=== PATIENT | male | born 1965 | race Caucasian/White ===

== ENCOUNTER 2024-09-22 15:18 | Emergency (ER) | payer OTHER, SELFPAY ==
--- OUTSIDE RECORDS SUMMARY | 2024-09-13 09:40 | XMS_ITS | Encounter Summary ---
Author Organization [facility] Address [address] [place] [id number] Care Team Providers Care Finance Consultant Name Role Phone Nohelia Dyer Primary Care Provider [phone] Wander Cao Unavailable Griselda Buckley (Rn) AMADOR Unavailable Unavailabl Schuyler Bautista MD Unavailable [phone] Ana M Galvan RN Unavailable Unavailable Source Comments In the event this information is protected by the Federal Confidentiality of Alcohol and Drug AbusePatient Records regulations: The Federal rules restrict any use of the information to criminally investigate or prosecute any alcohol or drug abuse patient.[facility] Reason for Visit * Reason Comments Adrenal Encounter Details Date Type Department Care Team (Latest Contact Info) Description 09/13/2024 9:40 AM EDT [facility] [place] [address] [place] [address] [place] [address] [facility] [address] [place] [address] Adrenal insufficiency, primary, familial (HCC) (Primary Dx) Social History Tobacco Use Types Packs/Day Years Used Date Smoking Tobacco: Never Smokeless Tobacco: Never Alcohol Use Standard Drinks/Week Comments Not Currently 0 (1 standard drink = 0.6 oz pur e alcohol) maybe once a year PHQ-2 Answer Date Recorded PHQ-2 score 0 08/23/2024 Area Deprivation Index Answer Date Boyd rded National Score (1-100), lower number is lower ri sk 86 11/05/2023 State Score (1-10), lower number is lower risk 8 11/05/2023 Data from: https://www.neighborhoodatlas.medicine.[facility]/. Last address used for calculation [address] 11/05/2023 Sex and Gender Information Value Date Recorded Sex Assigned at Male 07/15/2018 2:11 AM EDT Legal Sex Male 7:35 AM EST Gender Identity Male 07/15/2018 2:11 AM EDT Sexual Orientation Straight 07/15/2018 2: 11 AM EDT Occupation Industry Job Start Date Job End Date unemployed- prior Not on file Not on file N ot on file documented as of this encounter Functional Status * Are you deaf or do you have serious difficulty hearing? Answer Date of Assessment Author No 11/14/2023 5:16 PM Emir Valentino RN * Are you blind or do you have serious difficulty seeing, even when wearing glasses? Answer Date of Assessment Author No 11/14/2023 5:16 PM Emir Valentino RN * Do you have serious difficulty walking or climbing stairs? Answer Date of Assessment Author No 11/14/2023 5:16 PM Emir Valentino RN * Do you have difficulty dressing or bathing? Answer Date of Assessment Author No 11/14/2023 5:16 PM Emir Valentino RN * Because of a physical, mental, or emotional condition, do you have difficulty doing errands alone such as visiting a doctor's office or shopping? Answer Date of Assessment Author No 11/14/2023 5:16 PM Emir Valentino RN documented as of this encounter Mental Status * Because of a physical, mental, or emotional condition, do you have serious difficulty concentrating, remembering, or making decisions? Answer Entry Date Author No 11/14/2023 5:16 PM EDT Emir Perry RN documented in this encounter Patient Instructions * Patient Instructions* Shiv Hdz MD - 09/13/2024 10:09 AM EDT Assessment / Plan Problem: 1) Adrenal insufficiency, proven by cortrosyn stim test. Continues to do well on prednisone 7 mg every AM. This is his current baseline. Note it was 10mg/d in past when he was working late shifts that caused stress. Treatment / Plan: 1) continue taking 7 mg every AM for your baseline prednisone dose, and 15 mg/d for the stress dose. 2) return to [place] in August 2025 by virtual visit. Shiv Hdz MD documented in this encounter Progress Notes * Shiv Hdz MD - 09/13/2024 9:53 AM EDT Virtual Visit utilizing both audio and video components [employer] I have communicated my name and active licensure. The patient's identity and physical location wereverified at the time of this visit. Either the patient or their legal automobile sales representative has been informed of the risks and benefits of -- and alternatives to -- treatment through a remote evaluation andconsents to proceed with the evaluation remotely. Patient location: at home, [facility] Assessment / Plan Problem: 1) Adrenal insufficiency, proven by cortrosyn stim test. Continues to do well on prednisone 7 mg every AM. This is his current baseline. Note it was 10mg/d in past when he was working late shifts that caused stress. Treatment / Plan: 1) continue taking 7 mg every AM for your baseline prednisone dose, and 15 mg/d for the stress dose. 2) return to [place] in August 2025 by virtual visit. Shiv Hdz MD Data Review: Component Latest Ref Rng & Units 10/17/2022 TSH 0.270 - 4.200 mIU/L 0.332 Free T4 0.9 - 1.7 ng/dL 1.5 (01/01/18, 7:37 AM): Cortisol=3.1, ACTH=12 (7-69) Component Latest Ref Rng & Units 01/19/2018 Cortisol Basal ug/dL 1.3 Cortisol 30 min ug/dL 9.6 Cortisol 60 min ug/dL 13.2 Component Hemoglobin A1C Latest Ref Rng & Units 4 - 6 % 06/05/2014 5.6 06/13/2015 5.7 (H) 10/17/2015 5.3 12/15/2018 6.0 04/29/2019 5.5 12/23/2019 5.9 (H) History Problem name: adrenocortical insufficiency Severity: elsy Duration: in last few months Timing: surgery was September 2016 Context: 1) 2009 left kidney resected for renal cell CA 2) 09/2016 surgery for right adrenal that showed renal cell CA metastasis, recent met to pectoral muscle 3) recent discovery of nodules in lung, suspected renal cell CA mets, being followed for now. 4) in past worked as [employer] 5) s/p COVID vaccine x 2, COVID over 2020. 6) works for a [employer] 7) migraine, has been a problem recently, has specialist at [facility] Modifying factors: prednisone 7mg in the morning is a good baseline dose for him these days ROS PHYSICAL EXAM There were no vitals taken for this visit. 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 Sleep apnea PAST SURGICAL HISTORY Procedure Laterality Date ABDOMINAL SURGERY HX 03/2018 open exploration of abdomen ADRENALECTOMY Right 2017 COLONOSCOPY SCREENING GREATER OCCIPITAL NERVE BLOCK 10/25/2021 LAP - RADICAL NEPHRECTOMY 07/18/2009 pT2, Clear-Cell RCC, Gr 3/4, SM neg MIDLINE INSERTION 01/14/2021 PAST SURGICAL HISTORY OF 0ctober 2015 external fixature - left leg PAST SURGICAL HISTORY OF 2021 colon resection for diverticulitis and hernia repair PAST SURGICAL HISTORY OF Left resection of metastatic RCC to left pectoral muscle PICC CATHETER INSERTION PROCEDURE (W NOTE) 09/17/2020 SEPTOPLASTY/SUBMUCOUS RESECJ W/WO CARTILAGE GRF 1982, 1990 Septoplasty x 2 TONSILLECTOMY PRIMARY/SECONDARY <AGE 13 as child Tonsillectomy FAMILY HISTORY Problem Relation Age of Onset Headache Mother Lung Cancer Mother Stroke Mother Lung Cancer Father Social History Tobacco Use Smoking status: Never Smokeless tobacco: Never Vaping Use Vaping status: Never Used Substance Use Topics Alcohol use: Not Currently Comment: maybe once a year Drug use: No MEDICATIONS & ALLERGIES Current Outpatient Medications Medication Sig Dispense Refill DULoxetine (CYMBALTA) 60 mg capsule Take 60 mg by mouth once daily. predniSONE (DELTASONE) 5 mg tablet take 1 pill each morning, and take 3 pills for 3-7 days when under stress. Estimate max need in 90 days 200 200 tablet 3 baclofen 10 mg tablet Take 1 tablet by mouth three times a day. As needed for neck pain 30 tablet 1 FLUoxetine (PROZAC) 40 mg capsule Take 40 mg by mouth once daily. bisoprolol (ZEBETA) 5 mg tablet Take 1 tablet by mouth once daily. predniSONE (DELTASONE) 1 mg tablet TAKE FOUR TABLETS BY MOUTH DAILY, IN ADDITION TO 5 MG DOSE 120 tablet 11 rosuvastatin (CRESTOR) 10 mg tablet Take 10 mg by mouth once daily. febuxostat (ULORIC) 40 mg tab Take 40 mg by mouth once daily. cetirizine (ZYRTEC) 10 mg tablet Take 10 mg by mouth as needed. Cholecalciferol, Vitamin D3, 25 mcg (1,000 unit) cap Take 1,000 Units by mouth once daily. omeprazole (PRILOSEC) 20 mg capsule Take 1 capsule by mouth once daily. 0 B COMPLEX 1 ORAL Take one(1) tablet daily. No current facility-administered medications for this visit. ALLERGIES Allergen Reactions Codeine Anaphylaxis Tolerated Oxycodone on 09/30/2016 Chlorhexidine Rash Darvocet-N 100 [Pro* Shortness of Breath Keflex [Cephalexin] Hives documented in this encounter Plan of Treatment Upcoming Encounters Date Type Department Care Team (Late st Contact Info) Description 09/26/2024 11:30 AM EDT Office Visit Pain Management [address] [place] [address] Sera Chau PA-C [address] [place] [address] 4-6 week injection follow up 10/02/2024 10:40 AM EDT Appointment Radiology [address] [place] [address] Spinal stenosis of cervical region [M48.02] 10/19/2024 11:30 AM EDT Office Visit Neurology [address] [place] [address] Constanza Casillas PA-C [address] [place] [address] botox 10/31/2024 9:00 AM EDT [facility] Hematology/Oncology [address] [place] [address] Schuyler Blanca MD [address] [place] [address] V[facility] 11/21/2024 10:00 AM EDT Office Visit Orthopaedics [address] [place] [address] [place] [address] [place] [address] 3 month f/u documented as of this encounter Visit Diagnoses Diagnosis Adrenal insufficiency, primary, familial (HCC)- Primary Glucocorticoid deficiency documented in this encounter Care Teams Finance Consultant Relationship Specialty Start Date End Date Nohelia Dyer [address] [place] [address] PCP - General 06/04/05 Wander Cao [address] [place] [address] Physician Hematology/Oncology 03/24/14 Griselda Buckley (Rn), RN [address] [place] [address] Specialty Apparel Cutter 08/26/17 [place] [address] [place] [address] Referring Hematology 12/31/21 An aM Galvan RN Specialty Apparel Cutter Hematology/Oncology 10/14/23 documented as of this encounter
--- OUTSIDE RECORDS SUMMARY | 2024-09-19 15:30 | XMS_ITS | Encounter Summary ---
Author Organization [facility] Address [address] [place] [address] Care Team Providers Care Drug And Alcohol Treatment Specialist Name Role Phone Nohelia Dyer MD Primary Care Provider [phone] Encounter Details Date Type Department Care Team (Late st Contact Info) Description 09/19/2024 3:30 PM EDT Office Visit [facility] [address] [place] [address] Cynthia Hansen NP [address] [place], [place] [id number] RUQ pain (Primary Dx); Hematuria, unspecified type; Urinary frequency; Insomnia, unspecified type Social History Tobacco Use Types Packs/Day Years Used Date Smoking Tobacco: Never Smokeless Tobacco: Never Alcohol Use Standard Drinks/Week Comments Not Currently 0 (1 standard drink = 0.6 oz pur e alcohol) caffeine intake: rarely [id number] Health Literacy Answer Date Recor ded How often do you need to hav e someone help you when you read instructions, pamphlets, or other written material from your doctor or pharmacy? Never 05/04/2024 Humiliation, Afraid, Rape, and Kick questionnair e Answer Date Recorded Within the last year, have y ou been afraid of your partner or ex-partner? No 12/18/2022 Within the last year, have y ou been humiliated or emotionally abused in other ways by your partner or ex-partner? No Within the last year, have y ou been kicked, hit, slapped, or otherwise physically hurt by your partner or ex-partner? No 12/18/2022 Within the last year, have y ou been raped or forced to have any kind of sexual activity by your partner or ex-partner? No 12/18/2022 Social Connection and Isolat ion Panel [NHANES] Answer Date Recorded In a typical week, how many times do you talk on the phone with family, friends, or neighbors? More than three times a week 05/04/2024 How often do you get togethe r with friends or relatives? Twice a week 05/04/2024 How often do you attend chur ch or hindu services? Never 05/04/2024 Do you belong to any clubs o r organizations such as holiness groups, unions, fraternal or athletic groups, or school groups? No 05/04/2024 How often do you attend meet ings of the clubs or organizations you belong to? Never 05/04/2024 Are you , , di vorced, , never , or living with a partner? 05/04/2024 AUDIT-C Answer Date Recorded Q1: How often do you have a drink containing alc ohol? Monthly or less 05/04/2024 Q2: How many drinks containi ng alcohol do you have on a typical day when you are drinking? 1 or 2 05/04/2024 Q3: How often do you have si x or more drinks on one occasion? Never 05/04/2024 Overall Financial Resource Strain (CARDIA) Answe r Date Recorded How hard is it for you to pa y for the very basics like food, housing, medical care, and heating? Not very hard 05/04/2024 PHQ-2 Answer Date Recorded Patient Health Questionnaire-2 Score 0 09/19/2024 [facility] - Occupational Stress Questionnaire Answer Date Recorded Do you feel stress - tense, restless, nervous, or anxious, or unable to sleep at night because your mind is troubled all the time - these days? Only a little 05/04/2024 Exercise Vital Sign Answer Date Recorde d On average, how many days pe r week do you engage in moderate to strenuous exercise (like a brisk walk)? 0 days 05/04/2024 On average, how many minutes do you engage in exercise at this level? 0 min 05/04/2024 Hunger Vital Sign Answer Date Recorded Within the past 12 months, y ou worried that your food would run out before you got the money to buy more. Never true 05/04/19 25 Within the past 12 months, t he food you bought just didn't last and you didn't have money to get more. Never true 05/04/2024 PRAPARE - Transportation Answer Date Re corded In the past 12 months, has l ack of transportation kept you from medical appointments or from getting medications? No 04/14 In the past 12 months, has l ack of transportation kept you from meetings, work, or from getting things needed for daily living? No 05/04/2024 Housing Stability Vital Sign Answer Pan e Recorded In the last 12 months, was t here a time when you were not able to pay the mortgage or rent on time? Yes 12/18/2022 In the last 12 months, how many places have you lived? 1 12/18/2022 In the last 12 months, was t here a time when you did not have a steady place to sleep or slept in a long-term (including now)? No 12/18/2022 Housing Stability Vital Sign Answer Pan e Recorded In the last 12 months, was t here a time when you were not able to pay the mortgage or rent on time? No 05/04/2024 In the past 12 months, how m any times have you moved where you were living? 0 05/04/2024 At any time in the past 12 m [facility], were you homeless or living in a long-term (including now)? No 05/04/2024 Sex and Gender Information Value Date Recorded Sex Assigned at Male 11/21/2022 8:10 AM EDT Legal Sex Male 7:07 PM EDT Gender Identity Male 06/25/2022 7:07 PM EDT Sexual Orientation Straight 11/21/2022 8: 10 AM EDT documented as of this encounter Last Filed Vital Signs Vital Sign Reading Time Taken Comments Blood Pressure 110/70 09/19/2024 3:31 PM EDT Pulse 84 09/19/2024 3:31 PM EDT Temperature - - Respiratory Rate - - Oxygen Saturation 96% 09/19/2024 3:31 PM EDT Inhaled Oxygen Concentration - - Weight 110 kg (242 lb 6.4 oz) 09/19/2024 3:31 PM EDT Height 177.8 cm (5' 10 ) 09/19/2024 3:31 PM EDT Body Mass Index 34.78 09/19/2024 3:31 PM EDT documented in this encounter Functional Status * Over the past 2 weeks, how often have you been bothered by any of the following problems? Question Answer Date of Assessment Author Little interest or pleasure in doing things Not at all 09/19/2024 3:39 PM EDT Daily Fitzpatrick MA Feeling down, depressed, or hopeless Not at all 09/19/2024 3:39 PM EDT Daily Fitzpatrick MA Patient Health Questionnaire -2 Score 0 09/19/2024 3:39 PM EDT Daily Fitzpatrick MA documented as of this encounter Progress Notes * Cynthia Hansen NP - 09/19/2024 3:30 PM EDT Images from the original note were not included. David Corley is a 58 y.o. male presents with chief complaint of uti sx HPI: HPI History of Present Illness The patient presents for evaluation of dark urine, neck pain, and sleep issues. He has been experiencing persistent pain following an ankle surgery performed in 11/2023. Despite undergoing ablation therapy at the [facility] for his neck, he continues to experience severe pain. Over the past few weeks, he has been consuming ibuprofen multiple times daily. He has a single kidney and recently noticed a significant darkening of his urine, particularly in the mornings. He also reports tenderness in his liver and kidney areas. He is reluctant to continue ibuprofen due to his single kidney and is seeking alternative pain management options. He has been prescribed Flexeril 5 mg for several years, but it no longer provides relief. He has not received any pain medication since his ablation therapy and has exhausted his previous prescriptions. He has not consulted a oven loader in recent years. He has been taking muscle relaxers and ibuprofen to alleviate the pain and aid sleep. He has been prescribed trazodone 50 mg for headaches caused by his neck pain, which has been beneficial. 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 PAST SURGICAL HISTORY: Ankle surgery in 11/2023 Kidney removal due to cancer SUBJECTIVE: MEDICATIONS: Current Outpatient Medications Medication Instructions acetaminophen (TYLENOL) 500 mg, Daily PRN b complex vitamins capsule 1 capsule, Daily bisoprolol (ZEBETA) 5 mg, Oral, Daily cetirizine (ZYRTEC) 10 mg, As needed cholecalciferol (VITAMIN D-3) 1,000 Units, Daily RT DULoxetine (CYMBALTA) 60 mg, Oral, Daily, Do not crush or chew. febuxostat (ULORIC) 40 mg, Oral, Every morning febuxostat (ULORIC) 40 mg, Oral, Every morning ibuprofen 200 MG tablet Take by mouth omeprazole (PriLOSEC) [address] capsule 1 capsule, Daily ondansetron ODT (Zofran-ODT) 4 MG disintegrating tablet 1 tablet on the tongue and allow to dissolve Orally as needed for nausea predniSONE (DELTASONE) 5 mg predniSONE (DELTASONE) 2 mg, Every 24 hours rosuvastatin (CRESTOR) 10 mg, Oral, Every morning sildenafil (VIAGRA) 50 mg, Oral, Daily PRN I have reviewed and reconciled the history and medication list with the patient today. REVIEW OF SYMPTOMS: Review of Systems Genitourinary: Positive for dysuria, flank pain, frequency and urgency. OBJECTIVE: Visit Vitals BP 110/70 Pulse 84 Ht 5' 10 Wt 242 lb 6.4 oz SpO2 96% BMI 34.78 kg/m?? Smoking Status Never BSA 2.33 m?? Physical Exam Vitals and nursing note reviewed. Constitutional: Appearance: Normal appearance. HENT: Head: Normocephalic and atraumatic. Cardiovascular: Rate and Rhythm: Normal rate and regular rhythm. Pulses: Normal pulses. Heart sounds: Normal heart sounds. Pulmonary: Breath sounds: Normal breath sounds. Abdominal: General: Bowel sounds are normal. Palpations: Abdomen is soft. Tenderness: There is abdominal tenderness in the right upper quadrant. There is no right CVA tenderness or left CVA tenderness. Musculoskeletal: Cervical back: Normal range of motion and neck supple. Skin: General: Skin is warm and dry. Capillary Refill: Capillary refill takes less than 2 seconds. Neurological: Mental Status: He is alert and oriented to person, place, and time. Psychiatric: Behavior: Behavior normal. ASSESSMENT AND PLAN: Assessment/Plan Diagnoses and all orders for this visit: RUQ pain - Comprehensive metabolic panel; Future - CBC and differential; Future Hematuria, unspecified type - POCT Urinalysis dipstick Urinary frequency - Urine culture (clean catch); Future Insomnia, unspecified type - traZODone (Desyrel) 50 MG tablet; Take 1 tablet (50 mg) by mouth as needed at bedtime for sleep Assessment & Plan 1. Dark urine. - Reports dark urine, especially in the morning, which started three days ago. - Physical examination reveals tenderness in the kidney area. - A metabolic panel will be ordered to evaluate liver and kidney function, along with a complete blood count (CBC). A urine culture will also be obtained for further analysis. - If necessary, an ultrasound of the liver and kidney will be considered. 2. Neck pain. - Experiencing severe neck pain despite undergoing ablation and other treatments at the [facility]. - Currently taking ibuprofen and muscle relaxers, including Flexeril 5 mg, which he has been on fora long time. He is out of Flexeril and does not have a prescription for it. - He is also taking trazodone 50 mg, prescribed during an ER visit for headaches caused by neck pain. - The current pain management plan will be reviewed, and alternative medications will be consideredif necessary. 3. Sleep issues. - Reports difficulty sleeping due to pain. - Taking trazodone 50 mg, which helps with sleep but is not entirely effective. - The current sleep management plan will be reviewed, and alternative medications will be considered if necessary. documented in this encounter Plan of Treatment Not on file documented as of this encounter Goals Goal Patient Goal Type Associated Problems Recent Progress Patient-Stated? Author Help patient manage antidepressant medication Care Plan Patient on antidepressant monitoring plan Cynthia Ingram NP Baseline PHQ-9 Care Plan Baseline PHQ-9 Cynthia Ingram NP documented as of this encounter Procedures Procedure Name Priority Date/Time Associated Diagnosis Comments CBC (INCLUDES DIFF/PLT) Routine 09/19/2024 4:05 PM EDT RUQ pain COMPREHENSIVE METABOLIC PANEL Routine 09/19/2024 4:05 PM EDT RUQ pain CULTURE, URINE, ROUTINE Routine 09/19/2024 4:00 PM EDT Urinary frequency POCT URINALYSIS DIPSTICK Routine 09/19/2024 3:44 PM EDT Hematuria, unspecified type documented in this encounter Results * CBC and differential (09/19/2024 4:05 PM EDT) WHITE BLOOD CELL COUNT 7.4 3.8 - 10.8 Thousand/u L [facility] RED BLOOD CELL COUNT 5.51 4.20 - 5.80 Million/uL [facility] HEMOGLOBIN 15.8 13.2 - 17.1 g/dL [facility] HEMATOCRIT 49.1 38.5 - 50.0 % [facility] MCV 89.1 80.0 - 100.0 fL [facility] MCH 28.7 27.0 - 33.0 pg [facility] MCHC 32.2 32.0 - 36.0 g/dL [facility] Comment: For adults, a slight decrease in the calculated MCHC value (in the range of 30 to 32 g/dL) is most likely not clinically significant; however, it should be interpreted with caution in correlation with other red cell parameters and the patient's clinical condition. RDW 13.5 11.0 - 15.0 % [facility] PLATELET COUNT 202 140 - 400 Thousand/u L [facility] MPV 9.9 7.5 - 12.5 fL [facility] ABSOLUTE NEUTROPHILS 5,550 1,500 - 7,800 cells/uL [facility] ABSOLUTE LYMPHOCYTES 1,258 850 - 3,900 cells/uL [facility] ABSOLUTE MONOCYTES 400 200 - 950 cells/uL [facility] ABSOLUTE EOSINOPHILS 141 15 - 500 cells/uL [facility] ABSOLUTE BASOPHILS 52 0 - 200 cells/uL [facility] NEUTROPHILS 75 % [facility] LYMPHOCYTES 17.0 % [facility] MONOCYTES 5.4 % [facility] EOSINOPHILS 1.9 % [facility] BASOPHILS 0.7 % [facility] COMMENT(S) [facility] Comment: Review of peripheral smear confirms automated results. Blood Venous blood specimen / Unknown 09/19/2024 4:05 PM EDT 09/19/2024 4:05 PM EDT Narrative Resulting Agency Comment Performing Organization Information Site ID: QPT Name: [facility] Address: [address] [place] [address], [address] [place] [phone] Director: David Torres MD us Cynthia Hansen BIOLOGICS SPECIALIST LAB BLOOD ORDERABLES Fi nal Result [facility] * (ABNORMAL) Comprehensive metabolic panel (09/19/2024 4:05 PM EDT) Glucose 111(H) 65 - 99 mg/dL [facility] Comment: Fasting reference interval For someone without known diabetes, a glucose value between 100 and 125 mg/dL is consistent with prediabetes and should be confirmed with a follow-up test. BUN 12 7 - 25 mg/dL [facility] Creatinine 1.30 0.70 - 1.30 mg/dL [facility] EGFR 64 > OR = 60 mL/min/1. 73m2 [facility] BUN/CREATININE RATIO SEE NOTE: 6 - 22 (calc) [facility] Comment: Not Reported: BUN and Creatinine are within reference range. Sodium 138 135 - 146 mmol/L [facility] Potassium, Bld 4.4 3.5 - 5.3 mmol/L [facility] Chloride 103 98 - 110 mmol/L [facility] Carbon Dioxide 26 20 - 32 mmol/L [facility] Calcium 9.7 8.6 - 10.3 mg/dL [facility] PROTEIN, TOTAL 7.1 6.1 - 8.1 g/dL [facility] ALBUMIN 4.7 3.6 - 5.1 g/dL [facility] GLOBULIN 2.4 1.9 - 3.7 g/dL (calc) [facility] ALBUMIN/GLOBULIN RATIO 2.0 1.0 - 2.5 (calc) [facility] BILIRUBIN, TOTAL 0.6 0.2 - 1.2 mg/dL [facility] ALKALINE PHOSPHATASE 67 35 - 144 U/L [facility] AST 20 10 - 35 U/L [facility] ALT 25 9 - 46 U/L [facility] Blood Venous blood specimen / Unknown 09/19/2024 4:05 PM EDT 09/19/2024 4:05 PM EDT Narrative Resulting Agency Comment Performing Organization Information Site ID: QPT Name: [facility] Address: [address] [place] [address], [address] [place] [phone] Director: David Torres MD Cynthia Hansen BIOLOGICS SPECIALIST LAB BLOOD ORDERABLES Fi nal Result [facility] * Urine culture (clean catch) (09/19/2024 4:00 PM EDT) MICRO NUMBER [id number] [facility] SPECIMEN QUALITY Adequate [facility] SOURCE: ([facility]) URINE [facility] STATUS FINAL [facility] RESULT SEE NOTE [facility] Comment: No Growth Urine Urine specimen obtained by clean catch procedure / Unknown 09/19/2024 4:00 PM EDT 09/19/2024 4:00 PM EDT Narrative Resulting Agency Comment Performing Organization Information Site ID: QPT Name: [facility] Address: [address] [place] [address], [address] [place] [phone] Director: David Torres MD Cynthia Hansen BIOLOGICS SPECIALIST LAB MICROBIOLOGY - GENE RAL ORDERABLES Final Result [facility] * POCT Urinalysis dipstick (09/19/2024 3:44 PM EDT) Color, UA Yellow Clarity, UA Clear Glucose, UA Negative Negative - 2000(110) ++++ mg/dL Bilirubin, UA Negative Negative - 4(70) +++ mg/dL Ketones, UA Negative Negative - 160(16) ++++ mg/dL Spec Grav, UA 1.010 1 - 1.03 Blood, UA Negative Negative - 50 Toby/mcL pH, UA 6.5 5 - 9 Protein, UA Negative Negative - 2000(20) ++++ mg/dL Urobilinogen, UA 1.0 0.2 - 12 mg/dL Leukocytes, UA Negative Negative - 500+++ Ana/mcL Nitrite, UA Negative Negative - Positive Urine 09/19/2024 3:44 PM EDT Cynthia Hansen BIOLOGICS SPECIALIST POINT OF CARE TEST ENTE R/EDIT ORDERABLES Final Result documented in this encounter Visit Diagnoses Diagnosis RUQ pain- Primary Abdominal pain, right upper quadrant Hematuria, unspecified type Urinary frequency Insomnia, unspecified type documented in this encounter Additional Health Concerns Active Problems Noted Date Diagnosed Date Patient on antidepressant monitoring plan 2024 Baseline PHQ-9 09/19/2024 documented as of this encounter Care Teams Drug And Alcohol Treatment Specialist Relationship Specialty Start Date End Date Nohelia Dyer MD [address] [place] [address] PCP - General Family Medicine 09/10/22 documented as of this encounter
[2024-09-22 15:27] VITALS: BP 138/91; PULSE 79; TEMP 36.5; O2SAT 98; BMI 34.4
--- NOTE | 2024-09-22 15:33 | CT_ITS ---
[address] [address] Patient Name: SUNIL SANABRIA MRN: [id number] date: 1965 Sex: M Assigned Patient Location: ER Current Patient Location: [facility] Accession/Order Number: [id number] Exam Date: 09/22/2024 17:07 Report Date: 09/22/2024 17:11 At the request of: KENJI CORDOBA Procedure: CT cervical spine wo con Unenhanced head CT TECHNIQUE: Contiguous axial imaging of the head. The CT exam was performed using one or more the following dose reduction techniques: Automated exposure control, adjustment of the MA and/or Kv according to patient size, or use of the iterative reconstruction technique. COMPARISON: None HISTORY: Neck and bilateral shoulder pain for 2 weeks VENTRICLES: Within normal limits ATROPHY: None BRAIN PARENCHYMA: Adequate vail-white matter differentiation identified. HEMORRHAGE: None HERNIATION: No mass effect or herniation INFARCTION: No recent vascular distribution infarction is seen. EXTRA-AXIAL FLUID COLLECTIONS None MIDBRAIN: Unremarkable NADYA: Unremarkable MEDULLA: Unremarkable SINUSES: Unremarkable ORBITS: Grossly unremarkable MASTOIDS: Unremarkable BONY STRUCTURES Intact ADDITIONAL FINDINGS: CT/CT cervical spine wo con IMPRESSION: No acute findings. CT Cervical Spine withoutcontrast TECHNIQUE: Axial imaging with 2-D and 3-D reconstruction. The CT exam was performed using one or more the following dose reduction techniques: Automated exposure control, adjustment of the MA and/or Kv according to patient size, or use of the iterative reconstruction technique. COMPARISON: None HISTORY: Neck and bilateral shoulder pain for 2 weeks POST SURGERY CHANGES: None BONY ALIGNMENT: Adequate BONY SPINAL CANAL: Patent central bony canal FRACTURE: None BONY LESIONS: None SOFT TISSUES: Unremarkable DEGENERATIVE CHANGES: Extensive C5-6 and C6-7 and C7-T1 spondylosis. Extensive multilevel facet degeneration. LUNG APICES: Unremarkable ADDITIONAL FINDINGS: IMPRESSION: Extensive C5-6, C6-7 and C7-T1 spondylosis. Multilevel facet degeneration. No acute bony findings. Impression dictated by: Xander Retana M.D. 09/22/2024 5:11 PM Dictation Location: [place] [address] Electronically authenticated by: [id number] Y Date: 09/22/2024 17:11
--- NOTE | 2024-09-22 15:33 | CT_ITS ---
The [address] [address] Patient Name: SUNIL SANABRIA MRN: [id number] date: 1965 Sex: M Assigned Patient Location: ER Current Patient Location: [facility] Accession/Order Number: [id number] Exam Date: 09/22/2024 17:07 Report Date: 09/22/2024 17:11 At the request of: KENJI CORDOBA Procedure: CT cervical spine wo con Unenhanced head CT TECHNIQUE: Contiguous axial imaging of the head. The CT exam was performed using one or more the following dose reduction techniques: Automated exposure control, adjustment of the MA and/or Kv according to patient size, or use of the iterative reconstruction technique. COMPARISON: None HISTORY: Neck and bilateral shoulder pain for 2 weeks VENTRICLES: Within normal limits ATROPHY: None BRAIN PARENCHYMA: Adequate vail-white matter differentiation identified. HEMORRHAGE: None HERNIATION: No mass effect or herniation INFARCTION: No recent vascular distribution infarction is seen. EXTRA-AXIAL FLUID COLLECTIONS None MIDBRAIN: Unremarkable NADYA: Unremarkable MEDULLA: Unremarkable SINUSES: Unremarkable ORBITS: Grossly unremarkable MASTOIDS: Unremarkable BONY STRUCTURES Intact ADDITIONAL FINDINGS: CT/CT head/brain wo con IMPRESSION: No acute findings. CT Cervical Spine withoutcontrast TECHNIQUE: Axial imaging with 2-D and 3-D reconstruction. The CT exam was performed using one or more the following dose reduction techniques: Automated exposure control, adjustment of the MA and/or Kv according to patient size, or use of the iterative reconstruction technique. COMPARISON: None HISTORY: Neck and bilateral shoulder pain for 2 weeks POST SURGERY CHANGES: None BONY ALIGNMENT: Adequate BONY SPINAL CANAL: Patent central bony canal FRACTURE: None BONY LESIONS: None SOFT TISSUES: Unremarkable DEGENERATIVE CHANGES: Extensive C5-6 and C6-7 and C7-T1 spondylosis. Extensive multilevel facet degeneration. LUNG APICES: Unremarkable ADDITIONAL FINDINGS: IMPRESSION: Extensive C5-6, C6-7 and C7-T1 spondylosis. Multilevel facet degeneration. No acute bony findings. Impression dictated by: Xander Retana M.D. 09/22/2024 5:11 PM Dictation Location: [place] [address] Electronically authenticated by: [id number] Y Date: 09/22/2024 17:11
--- NOTE | 2024-09-22 15:35 | ED.NECK1 ---
HPI HPI - Neck Pain/Injury General Chief Complaint: Neck Pain/Injury Stated Complaint: NECK PAIN AND HEAD PAIN Time Seen by Provider: 09/22/24 15:31 Source: patient Mode of arrival: walk-in History of Present Illness HPI Narrative: 58 year old male presents to the ED for a left-sided headache and facial pain. Onset was today. Reports neck pain that radiates to the top of his shoulders x2 weeks. Denies fever, chills, injury, dizziness, N/V. Reports blurry vision. He has an appointment scheduled with the [facility] for the neck pain. He has tried Baclofen and OTC medication without relief. Related Data Home Medications ?Medication ?Instructions ?Recorded ?Confirmed baclofen 10 mg tablet mg 09/22/24 bisoprolol fumarate 5 mg tablet mg 09/22/24 gvykyxxnui-akefblw-cwdxqlvq 50 cap 09/22/24 mg-325 mg-40 mg capsule febuxostat 40 mg tablet (Uloric) 40 mg PO DAILY 09/22/24 09/22/24 omeprazole 20 mg capsule,delayed 20 mg PO DAILY 09/22/24 09/22/24 release prednisone 1 mg tablet mg 09/22/24 rosuvastatin 10 mg tablet mg 09/22/24 Allergies Allergy/AdvReac Type Severity Reaction Status Date / Time cephalexin (From Keflex) Allergy Hives Verified 09/22/24 15:26 chlorhexidine Allergy Hives Verified 09/22/24 15:26 codeine Allergy Anaphylaxis Verified 09/22/24 15:26 Opioid HPI Opioid Management Most Recent Opioid Data: Last Pain Scale 3 Today, 17:18 Review of Systems ROS Constitutional Denies: fever, chills or fatigue Eyes Reports: blurry vision Ears, nose, mouth, and throat Reports: neck pain; Denies: throat pain Cardiovascular Denies: chest pain Respiratory Denies: shortness of breath or cough Gastrointestinal Denies: abdominal pain, nausea or vomiting Genitourinary Denies: painful urination Musculoskeletal Reports: neck pain; Denies: back pain Integumentary/Breast Denies: rash Neurological Reports: headache; Denies: numbness in extremities, weakness in extremities, lack of coordination, dizziness, vertigo or confusion PFSH PFSH Social History Little interest or pleasure in doing things: not at all Feeling down, depressed, or hopeless: not at all Exam Constitutional Vital Signs, click to edit/add: Last Vital Signs Temp 97.7 F 09/22/24 15:27 Pulse 79 09/22/24 15:27 Resp 16 09/22/24 15:27 BP 138/91 09/22/24 15:27 Pulse Ox 98 09/22/24 15:27 O2 Del Method Room Air 09/22/24 15:27 Common normals: no apparent distress and oriented x3 General appearance: cooperative HENMT Common normals: normocephalic, external ears normal, moist oral mucous membranes and oropharynx normal Eye Common normals: PERRL, EOMs intact bilaterally, conjunctivae normal and no scleral icterus Neck & C-Spine Common normals: supple and no meningeal signs Cervical spine: paracervical muscle tenderness and paracervical muscle spasm; no cervical spine tenderness Chest Chest: symmetrical chest wall rise Respiratory Common normals: normal respiratory effort Effort & inspection: able to speak in complete sentences and symmetric chest movement Cardio Common normals: regular rate and regular rhythm Neuro Common normals: oriented x3, CN's II-XII intact bilaterally, moves all extremities, no focal motor deficits and no sensory deficits noted Sensorium/orientation: awake and alert Speech: speech normal Gait (neuro): normal gait Course Reevaluation(s) Reevaluation #1: Pt reported his symptoms were improved. His discomfort is a 2 or 3 with movement. Time: 17:12 Vital Signs Vital signs: Vital Signs Temperature 97.7 F 09/22/24 15:27 Pulse Rate 79 09/22/24 15:27 Respiratory Rate 16 09/22/24 15:27 Blood Pressure 138/91 09/22/24 15:27 Pulse Oximetry 98 09/22/24 15:27 Oxygen Delivery Method Room Air 09/22/24 15:27 Temperature 97.7 F 09/22/24 15:27 Pulse Rate 79 09/22/24 15:27 Respiratory Rate 16 09/22/24 15:27 Blood Pressure 138/91 09/22/24 15:27 Pulse Oximetry 98 09/22/24 15:27 Oxygen Delivery Method Room Air 09/22/24 15:27 MDM - Neck Pain/Injury MDM Narrative Medical decision making narrative: Imaging was negative for acute findings. CT scan results and blood work were reviewed with the patient. He was given IV NS, Reglan, Benadryl, Decadron, and Norflex with improvement his pain. He has Baclofen, prednisone, and Fioricet at home. Follow up with pcp and pain management for a recheck, further evaluation and treatment. Medical Records Attestation: I reviewed the patient's medical records. Lab Data Attestation: I reviewed the patient's lab results. Labs: Lab Results 09/22/24 Range/Units 16:00 WBC 7.0 (4.0-11.0) 10^3/uL RBC 5.29 (4.70-6.10) 10^6/uL Hgb 15.3 (14.0-18.0) g/dL Hct 46.0 (42.0-54.0) % MCV 87.0 (80.0-94.0) fL MCH 28.9 (25.9-34.0) pg MCHC 33.3 (29.9-35.2) g/dL RDW 13.2 (11.0-15.0) % Plt Count 183 (150-450) 10^3/uL MPV 9.8 (9.5-13.5) fL Neut % (Auto) 81.7 H (43.0-75.0) % Lymph % (Auto) 11.6 L (20.5-60.0) % Marin % (Auto) 4.3 (1.7-12.0) % Eos % (Auto) 1.3 (0.9-7.0) % Baso % (Auto) 0.7 (0.2-2.0) % Neut # (Auto) 5.7 (1.4-6.5) 10^3/uL Lymph # (Auto) 0.8 L (1.2-3.8) 10^3/uL Marin # (Auto) 0.3 (0.3-0.8) 10^3/uL Eos # (Auto) 0.1 (0.0-0.7) 10^3/uL Baso # (Auto) 0.1 (0.0-0.1) 10^3/uL Abs Immat Gran (auto) 0.03 (0.00-0.03) 10^3/uL Imm/Tot Granulo (auto) 0.4 (0.0-0.5) % Sodium 139 (136-145) mmol/L Potassium 4.2 (3.5-5.1) mmol/L Chloride 104 (98-107) mmol/L Carbon Dioxide 27.7 (21.0-32.0) mmol/L Anion Gap 11.5 BUN 14.0 (7.0-18.0) mg/dL Creatinine 1.37 H (0.70-1.30) mg/dL Est GFR ( Amer) >60 (>=60 mL/min/1.73m^2) Est GFR (Non-Af Amer) 54 L (>=60 mL/min/1.73m^2) BUN/Creatinine Ratio 10.2 Glucose 166 H (74-106) mg/dL Calcium 9.6 (8.5-10.1) mg/dL Imaging Data CT scan - head: Attestation: I have reviewed the pertinent imaging results. Radiologist's impression: ITS Impressions Cervical Spine CT 09/22/24 15:33 IMPRESSION: No acute findings. CT Cervical Spine withoutcontrast TECHNIQUE: Axial imaging with 2-D and 3-D reconstruction. The CT exam was performed using one or more the following dose reduction techniques: Automated exposure control, adjustment of the MA and/or Kv according to patient size, or use of the iterative reconstruction technique. COMPARISON: None HISTORY: Neck and bilateral shoulder pain for 2 weeks POST SURGERY CHANGES: None BONY ALIGNMENT: Adequate BONY SPINAL CANAL: Patent central bony canal FRACTURE: None BONY LESIONS: None SOFT TISSUES: Unremarkable DEGENERATIVE CHANGES: Extensive C5-6 and C6-7 and C7-T1 spondylosis. Extensive multilevel facet degeneration. LUNG APICES: Unremarkable ADDITIONAL FINDINGS: IMPRESSION: Extensive C5-6, C6-7 and C7-T1 spondylosis. Multilevel facet degeneration. No acute bony findings. Impression dictated by: Xander Retana M.D. 09/22/2024 5:11 PM Dictation [facility] Electronically authenticated by: [id number] Y Date: 09/22/2024 17:[address] 09/22/24 15:33 IMPRESSION: No acute findings. CT Cervical Spine withoutcontrast TECHNIQUE: Axial imaging with 2-D and 3-D reconstruction. The CT exam was performed using one or more the following dose reduction techniques: Automated exposure control, adjustment of the MA and/or Kv according to patient size, or use of the iterative reconstruction technique. COMPARISON: None HISTORY: Neck and bilateral shoulder pain for 2 weeks POST SURGERY CHANGES: None BONY ALIGNMENT: Adequate BONY SPINAL CANAL: Patent central bony canal FRACTURE: None BONY LESIONS: None SOFT TISSUES: Unremarkable DEGENERATIVE CHANGES: Extensive C5-6 and C6-7 and C7-T1 spondylosis. Extensive multilevel facet degeneration. LUNG APICES: Unremarkable ADDITIONAL FINDINGS: IMPRESSION: Extensive C5-6, C6-7 and C7-T1 spondylosis. Multilevel facet degeneration. No acute bony findings. Impression dictated by: Xander Retana M.D. 09/22/2024 5:11 PM Dictation Location: [employer] Electronically authenticated by: [id number] Y Date: 09/22/2024 17:11 Discharge Plan Discharge Chief Complaint: Neck Pain/Injury Clinical Impression: Headache, Neck pain Patient Disposition: Home, Self-Care Time of Disposition Decision: 17:18 Condition: Good Mode of Transportation: Private Vehicle Prescriptions / Home Meds: No Action bisoprolol fumarate 5 mg tablet prednisone 1 mg tablet baclofen 10 mg tablet yowzdrropm-hfvtwza-dsbypnsw 50-325-40 mg capsule rosuvastatin 10 mg tablet febuxostat [Uloric] 40 mg tablet 40 mg PO DAILY omeprazole 20 mg capsule,delayed release(DR/EC) 20 mg PO DAILY Print Language: Singaporean Instructions: Acute Headache (ED), Neck Pain (ED) Additional Instructions: Return to the ER for worsening symptoms. Take your home medication as directed. Follow up with pain management as scheduled. Referrals: EMLANIE HERNADEZ [Primary Care Provider, Family Practice] - 1 week
--- OUTSIDE RECORDS SUMMARY | 2024-09-22 15:58 | XMS_ITS | Encounter Summary ---
Author Organization [facility] Address [address] [place] [address] Care Team Providers Care Child Development Teacher Name Role Phone Nohelia Dyer MD Primary Care Provider [phone] Encounter Details Date Type Department Care Team (Late st Contact Info) Description 12/25/2023 Clinisync Result Encounter [facility] External Department Unsolicited Provider, Generic External Data Social History Tobacco Use Types Packs/Day Years Used Date Smoking Tobacco: Never Smokeless Tobacco: Never Alcohol Use Standard Drinks/Week Comments Not Currently 0 (1 standard drink = 0.6 oz pur e alcohol) caffeine intake: rarely Humiliation, Afraid, Rape, and Kick questionnair e [...] or ex-partner? No 12/18/2022 Social Connection and Isolation Panel [NHANES] A nswer Date Recorded In a typical week, how many times do you talk on the phone with family, friends, or neighbors? Once a week 12/18/2022 How often do you get together with friends or re latives? Once a week 12/18/2022 How often do you attend denominational or taoist serv ices? Never 12/18/2022 Do you belong to any clubs o r organizations such as denominational groups, unions, fraternal or athletic groups, or school groups? No 12/18/2022 How often do you attend meet ings of the clubs or organizations you belong to? Never 12/18/2022 Are you , , di vorced, , never , or living with a partner? 12/18/2022 AUDIT-C Answer Date Recorded Q1: How often do you have a drink containing alc ohol? Monthly or less 12/18/2022 Q2: How many drinks containi ng alcohol do you have on a typical day when you are drinking? 1 or 2 12/18/2022 Q3: How often do you have si x or more drinks on one occasion? Never 12/18/2022 Overall Financial Resource Strain (CARDIA) Answe r Date Recorded How hard is it for you to pa y for the very basics like food, housing, medical care, and heating? Hard 12/18/2022 PHQ-2 Answer Date Recorded Patient Health Questionnaire-2 Score 0 07/31/2023 [facility] - Occupational Stress Questionnaire Answer Date Recorded Do you feel stress - tense, restless, nervous, or anxious, or unable to sleep at night because your mind is troubled all the time - these days? Only a little 12/18/2022 Exercise Vital Sign Answer Date Recorde d On average, how many days pe r week do you engage in moderate to strenuous exercise (like a brisk walk)? 0 days 12/18/2022 On average, how many minutes do you engage in exercise at this level? 0 min 12/18/2022 Hunger Vital Sign Answer Date Recorded Within the past 12 months, y ou worried that your food would run out before you got the money to buy more. Never true 12/19/19 23 Within the past 12 months, t he food you bought just didn't last and you didn't have money to get more. Never true 12/18/2022 PRAPARE - Transportation Answer Date Re corded In the past 12 months, has l ack of transportation kept you from medical appointments or from getting medications? Yes 10/2022 In the past 12 months, has l ack of transportation kept you from meetings, work, or from getting things needed for daily living? Yes 12/18/2022 Housing Stability Vital Sign Answer Pan [...] place to sleep or slept in a detention (including now)? No 12/18/2022 Sex and Gender Information Value Date Recorded Sex Assigned at Male 11/21/2022 8:10 AM EDT Legal Sex Male 7:07 PM EDT Gender Identity Male 06/25/2022 7:07 PM EDT Sexual Orientation Straight 11/21/2022 8: 10 AM EDT documented as of this encounter Plan of Treatment Not on file documented as of this encounter Procedures Procedure Name Priority Date/Time Associated Diagnosis Comments XR ANKLE 3V AP/LAT/OBL LT 12/25/2023 5:02 PM EDT documented in this encounter Results * XR ANKLE 3V AP/LAT/OBL LT (12/25/2023 5:02 PM EDT) Anatomical Region Laterality Modality Other 12/25/2023 5:02 PM EDT Narrative 12/25/2023 8:14 PM EDT * * *Final Report* * * DATE OF EXAM: Dec 25 2023 5:02PM X [id number] - XR ANKLE 3V AP/LAT/OBL LT / PROCEDURE REASON: multiple diagnoses * * * * Physician Interpretation * * * * HISTORY: Left ankle and Tib-Fib Post -Op and FX follow up. Chronic pain of left ankle Chronic pain of left ankle Tibia/fibula fracture, left, closed, initial encounter Tibia/fibula fracture, left, closed, initial encounter. 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 Retained screws in the mid tibial shaft again noted. IMPRESSION: Adequate recent postsurgical changes of the distal tibia and fibula. Corrections Specialist: CONSTANTIN Transcribe Date/Time: Dec 25 2023 8:08P Dictated by : CHERI ARROYO MD This examination was interpreted and the report reviewed and electronically signed by: CHERI ARROYO MD on Dec 25 2023 8:12PM EST [id number] Procedure Note Radiology, Radiologist, MD - 12/25/2023 * * *Final Report* * * DATE OF EXAM: Dec 25 2023 5:02PM VHX [id number] - XR ANKLE 3V AP/LAT/OBL LT / PROCEDURE REASON: multiple diagnoses * * * * Physician Interpretation * * * * HISTORY: Left ankle and Tib-Fib Post -Op and FX follow up. Chronic pain of left ankle Chronic pain of left ankle Tibia/fibula fracture, left, closed, initial encounter Tibia/fibula fracture, left, closed, initial encounter. 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 Retained screws in the mid tibial shaft again noted. IMPRESSION: Adequate recent postsurgical changes of the distal tibia and fibula. Corrections Specialist: CONSTANTIN Transcribe Date/Time: Dec 25 2023 8:08P Dictated by : CHERI ARROYO MD This examination was interpreted and the report reviewed and electronically signed by: CHERI ARROYO MD on Dec 25 2023 8:12PM EST [id number] us Generic External Data Provider [facility] Final Result documented in this encounter Visit Diagnoses Not on filedocumented in this encounter Care Teams Child Development Teacher Relationship Specialty Start Date End Date Nohelia Dyer MD [address] [place] [address] PCP - General Family Medicine 09/10/22 documented as of this encounter
--- OUTSIDE RECORDS SUMMARY | 2024-09-22 15:58 | XMS_ITS | Encounter Summary ---
Author Organization [facility] Address [address] [place] [address] Care Team Providers Care Student Services Vice President Name Role Phone Nohelia Dyer MD Primary Care Provider Encounter Details Date Type Department Care Team (Late st Contact Info) Description 09/04/2023 Clinisync Result Encounter [facility] External Department Unsolicited [...] week 12/18/2022 How often do you attend bahai or catholic serv ices? Never 12/18/2022 Do you belong to any clubs o r organizations such as bahai groups, unions, fraternal or athletic groups, or [...] Recorded Patient Health Questionnaire-2 Score 0 07/31/2023 [facility] - Occupational Stress [...] place to sleep or slept in a custodial (including now)? No 12/18/2022 Sex and Gender [...] Priority Date/Time Associated Diagnosis Comments XR ANKLE LEFT (MIN 3 VIEWS) 09/04/2023 7:29 AM EDT documented in this encounter Results * XR ANKLE LEFT (MIN 3 VIEWS) (09/04/2023 7:29 AM EDT) Anatomical Region Laterality Modality Other 09/04/2023 7:29 AM EDT Addenda Addendum by Radiology, Radiologist, on 09/04/2023 7:30 AM EDT 08/31/2023 FINDINGS: Three weightbearing views (AP, Mortise, and Lateral) of the left ankle were obtained in the office today and reviewed, revealing no acute fracture, dislocation, or radioopaque foreign body/tumor. Degenerative changes of the tibiotalar joint with joint space narrowing particularly at the lateral aspect, sclerosis, and osteophytes. Valgus tilt of the ankle with evidence of deltoid insufficiency. Prior healed fracture deformity of the tibia and nonunited Miller C fibula fracture. Retained hardware in the distal tibia with broken screws. Progression of valgus tilt, along with increase in narrowing at the lateral ankle joint line. IMPRESSION: No acute fracture/dislocation. Degenerative changes as above. Electronically signed by Edison Luciano MD Electronically Signed by: DEISON LUCIANO on ThuSeptember 04, 2023 7:29:13 AM EDT 08/31/2023 FINDINGS: Three weightbearing views (AP, Mortise, and Lateral) of the left ankle and three weightbearing views (AP, Oblique, Lateral) of the left foot were obtained in the office today and reviewed, revealing no acute fracture, dislocation, or radioopaque foreign body/tumor. Degenerative changes of the tibiotalar joint with joint space narrowing particularly at the lateral aspect, sclerosis, and osteophytes. Valgus tilt of the ankle with evidence of deltoid insufficiency. Prior healed fracture deformity of the tibia and nonunited Miller C fibula fracture. Retained hardware in the distal tibia with broken screws. Questionable progression of increase in valgus tilt, along with narrowing of the lateral ankle joint line. IMPRESSION: No acute fracture/dislocation. Degenerative changes as above. Electronically signed by Edison Luciano MD Interpreted by: Edison Luciano MD Signed by: Edison Luciano MD 09/04/23 Edited Result - FINAL Narrative 09/04/2023 7:28 AM EDT 08/31/2023 FINDINGS: Three weightbearing views (AP, Mortise, and Lateral) of the left ankle and three weightbearing views (AP, Oblique, Lateral) of the left foot were obtained in the office today and reviewed, revealing no acute fracture, dislocation, or radioopaque foreign body/tumor. Degenerative changes of the tibiotalar joint with joint space narrowing particularly at the lateral aspect, sclerosis, and osteophytes. Valgus tilt of the ankle with evidence of deltoid insufficiency. Prior healed fracture deformity of the tibia and nonunited Miller C fibula fracture. Retained hardware in the distal tibia with broken screws. Questionable progression of increase in valgus tilt, along with narrowing of the lateral ankle joint line. IMPRESSION: No acute fracture/dislocation. Degenerative changes as above. Electronically signed by Edison Luciano MD Interpreted by: Edison Luciano MD Signed by: Edison Luciano MD 09/04/23 Final result Procedure Note Radiology, Radiologist, MD - 09/04/2023 08/31/2023 FINDINGS: Three weightbearing views (AP, Mortise, and Lateral)of the left ankle and three weightbearing views (AP, Oblique, Lateral) ofthe left foot were obtained in the office today and reviewed, revealing noacute fracture, dislocation, or radioopaque foreign body/tumor. Degenerative changes of the tibiotalarjoint with joint space narrowing particularly at the lateral aspect,sclerosis, and osteophytes. Valgus tilt of the ankle with evidence ofdeltoid insufficiency. Prior healed fracture deformity of the tibia and nonunited Miller C fibula fracture.Retained hardware in the distal tibia with broken screws. Questionableprogression of increase in valgus tilt, along with narrowing of thelateral ankle joint line. IMPRESSION: No acute fracture/dislocation. Degenerative changes as above. Electronically signed by Edison Luciano MD Interpreted by: Edison Luciano MD Signed by: Edison Luciano MD 09/04/23 Final result us Generic External Data Provider [facility] Edited Result - Final documented in this encounter Visit Diagnoses Not on filedocumented in this encounter Care Teams Student Services Vice President Relationship Specialty Start Date End Date Nohelia Dyer MD [address] [place] [address] PCP - General Family Medicine 09/10/22 documented as of this encounter
--- OUTSIDE RECORDS SUMMARY | 2024-09-22 15:58 | XMS_ITS | Encounter Summary ---
Author Organization [facility] Address [address] [place] [address] Care Team Providers Care Client Solutions Specialist Name Role Phone Nohelia Dyre Primary Care Provider [phone] Wander Cao Unavailable Griselda Buckley (Rn) AMADOR Unavailable Unavailabl Schuyler Bautista MD Unavailable [phone] Ana M Galvan RN Unavailable Unavailable Source Comments In the event this information is protected by the Federal Confidentiality of Alcohol and Drug AbusePatient Records regulations: The Federal rules restrict any use of the information to criminally investigate or prosecute any alcohol or drug abuse patient.[facility] Encounter Details Date Type Department Care Team (Late st Contact Info) Description 02/15/2021 Get Medical Advice Colorectal Surgery [address] [id number] Usama Connelly MD [address] [id number] RE: Non-Urgent Medical Question Social History Tobacco Use Types Packs/Day Years Used Date Smoking Tobacco: Never Smokeless Tobacco: Never Alcohol Use Standard Drinks/Week Comments Not Currently 0 (1 standard drink = 0.6 oz pur e alcohol) maybe once a year PHQ-2 Answer Date Recorded PHQ-2 score 0 02/02/2021 Area Deprivation Index Answer Date Boyd rded National Score (1-100), lower number is lower ri sk Not on file 03/18/2020 State Score (1-10), lower number is lower risk N ot on file 03/18/2020 Data from: https://www.neighborhoodatlas.medicine.[facility]/. Last address used for calculation Not on file 03/18/2020 Sex and Gender Information Value Date Recorded Sex Assigned at Male 07/15/2018 2:11 AM EDT Legal Sex Male 7:35 AM EST Gender Identity Male 07/15/2018 2:11 AM EDT Sexual Orientation Straight 07/15/2018 2: 11 AM EDT Occupation Industry Job Start Date Job End Date unemployed- prior Not on file Not on file N ot on file COVID-19 Exposure Response Date Recorded In the last month, have you been in contact with someone who was confirmed or suspected to have Coronavirus / COVID-19? No / Unsure 02/12/2021 4:15 PM EDT documented as of this encounter Functional Status * Are you deaf or do you have serious difficulty hearing? Answer Date of Assessment Author No 01/15/2021 12:38 PM EDT Mercedez Palmer RN * Are you blind or do you have serious difficulty seeing, even when wearing glasses? Answer Date of Assessment Author No 01/15/2021 12:38 PM EDT Mercedez Palmer RN * Do you have serious difficulty walking or climbing stairs? Answer Date of Assessment Author No 01/15/2021 12:38 PM EDT Mercedez Palmer RN * Do you have difficulty dressing or bathing? Answer Date of Assessment Author No 01/15/2021 12:38 PM EDT Mercedez Palmer RN * Because of a physical, mental, or emotional condition, do you have difficulty doing errands alone such as visiting a doctor's office or shopping? Answer Date of Assessment Author No 01/15/2021 12:38 PM EDT Mercedez Palmer RN documented as of this encounter Mental Status * Because of a physical, mental, or emotional condition, do you have serious difficulty concentrating, remembering, or making decisions? Answer Entry Date Author No 01/15/2021 12:38 PM EDT Mercedez Palmer RN documented in this encounter Plan of Treatment Upcoming Encounters Date Type Department Care Team (Late st Contact Info) Description 09/26/2024 11:30 AM EDT Office Visit Pain Management [address] [place] [address] Sera Chau PA-C [address] [place] [address] 4-6 week injection follow up 10/02/2024 10:40 AM EDT Appointment Radiology [address] [place] [address] Spinal stenosis of cervical region [M48.02] 10/19/2024 11:30 AM EDT Office Visit Neurology [address] [place] [address] Constanza Casillas PA-C [address] [place] [address] botox 10/31/2024 9:00 AM EDT [facility] Hematology/Oncology [address] [place] [address] Schuyler Blanca MD [address] [place] [address] VIRTUAL 11/21/2024 10:00 AM EDT Office Visit Orthopaedics [address] [place] [address] [place] [address] [place] [address] 3 month f/u documented as of this encounter Visit Diagnoses Not on filedocumented in this encounter Care Teams Client Solutions Specialist Relationship Specialty Start Date End Date Nohelia Dyer [address] [place] [id number] PCP - General 06/04/05 Wander Cao [address] [place] [address] Physician Hematology/Oncology 03/24/14 Griselda Buckley (Rn), RN [address] [place] [address] Specialty Forging Press Setter Up 08/26/17 [place] [address] [id number] Referring Hematology 12/31/21 Ana M Galvan, RN Specialty Forging Press Setter Up Hematology/Oncology 10/14/23 documented as of this encounter
--- OUTSIDE RECORDS SUMMARY | 2024-09-22 15:58 | XMS_ITS | Encounter Summary ---
Author Organization [facility] Address [address] [place] [address] Care Team Providers Care Annual Campaign Manager Name Role Phone Nohelia Dyer MD Primary Care Provider [phone] Encounter Details Date Type Department Care Team (Late st Contact Info) Description 09/28/2023 Clinisync Result Encounter [facility] External Department Unsolicited [...] week 12/18/2022 How often do you attend lutheran or scientologist serv ices? Never 12/18/2022 Do you belong to any clubs o r organizations such as lutheran groups, unions, fraternal or athletic groups, or [...] Recorded Patient Health Questionnaire-2 Score 0 07/31/2023 [employer] [facility] - Occupational Stress [...] place to sleep or slept in a fpc (including now)? No 12/18/2022 Sex and Gender [...] Procedure Name Priority Date/Time Associated Diagnosis Comments CT ABD/PEL W IVCON 09/28/2023 10 :37 AM EDT [facility] 25(OH)D3 SERPL-MCNC Routine 09/28/2023 8:32 AM EDT documented in this encounter Results * CT ABD/PEL W IVCON (09/28/2023 10:37 AM EDT) Anatomical Region Laterality Modality Other 09/28/2023 10:3 7 AM EDT Narrative 09/28/2023 5:34 PM EDT * * *Final Report* * * DATE OF EXAM: Sep 28 2023 10:37AM [facility] 0530 - CT ABD/PEL W IVCON / PROCEDURE REASON: multiple diagnoses * * * * Physician Interpretation * * * * RESULT: EXAMINATION: CT ABDOMEN AND PELVIS WITH IV CONTRAST CLINICAL HISTORY: History of left renal cell carcinoma. History of right adrenal neoplasm. TECHNIQUE: CT of the abdomen and pelvis was performed using standard technique, scanning from just above the dome of the diaphragm to the symphysis pubis. MQ: CTAP_3 Contrast: IV: 150 ml of Omnipaque 300 Oral: 500 ml of Omni 240 10-25ml diluted with water CT Radiation dose: Integrated Dose-length product (DLP) for this visit = 1231 mGy*cm. CT Dose Reduction Employed: mAs-kVp adjusted based on patient size-age COMPARISON: CT performed 03/12/2023 RESULT: Liver: There is a 4.3 cm hypodensity in segment 7 with peripheral, nodular enhancement, most compatible with a hemangioma. An additional 1.4 cm hemangioma in segment 7 is less conspicuous (3:37). Additional rounded hypodensities are noted throughout the liver, likely relating to cysts. No suspicious hepatic mass lesions are identified. Biliary: The gallbladder is unremarkable. No biliary ductal dilation is seen. Spleen: No mass. No splenomegaly. Pancreas: No mass or duct dilation. Adrenals: Partial right adrenalectomy. No residual or recurrent mass is noted. The left adrenal gland is unremarkable. Kidneys: The left kidney is surgically absent. No soft tissue mass is seen in the left renal fossa. Subcentimeter cysts are noted in the right kidney. The right kidney is otherwise unremarkable. GI tract: The stomach and small bowel are unremarkable. There is no evidence of small bowel obstruction or wall thickening. There is scattered colonic diverticulosis without evidence of diverticulitis. The coloanal anastomosis is again noted. Lymph nodes: No abdominal or pelvic lymphadenopathy. Mesentery/Peritoneum: No ascites or mass. Retroperitoneum: No mass. Vasculature: - Abdominal aorta and iliac arteries: Atherosclerotic calcifications without aneurysm. - Celiac and SMA: Patent without stenosis. - Portal venous system (SMV, splenic vein, portal vein and branches): Patent. - Hepatic veins: Patent. Pelvis: The urinary bladder is incompletely distended. No pelvic mass or fluid collection is seen. Bones/Soft Tissues: Degenerative changes. Lower thorax: Unremarkable. Localizer images: No additional findings. IMPRESSION: Stable exam with numerous postsurgical changes as described above. No findings to suggest residual or recurrent disease. No evidence of abdominal or pelvic metastatic disease. Transcribe Date/Time: Sep 28 2023 5:26P Dictated by: ROCIO WALKER MD This examination was interpreted and the report reviewed and electronically signed by: ROCIO WALKER MD on Sep 28 2023 5:32PM EST Thank you for allowing us to participate in the care of your patient. Should there be any questions regarding this interpretation, please call [phone]. If you are unable to reach us at the number above, please feel free to contact [facility] at [phone]. [id number]^[email or web address]^ACN Procedure Note Radiology, Radiologist, - 09/28/2023 * * *Final Report* * * DATE OF EXAM: Sep 28 2023 10:37AM [facility] 0530 - CT ABD/PEL W IVCON / PROCEDURE REASON: multiple diagnoses * * * * Physician Interpretation * * * * RESULT: EXAMINATION: CT ABDOMEN AND PELVIS WITH IV CONTRAST CLINICAL HISTORY: History of left renal cell carcinoma. History of right adrenal neoplasm. TECHNIQUE: CT of the abdomen and pelvis was performed using standard technique, scanning from just above the dome of the diaphragm to the symphysis pubis. MQ: CTAP_3 Contrast: IV: 150 ml of Omnipaque 300 Oral: 500 ml of Omni 240 10-25ml diluted with water CT Radiation dose: Integrated Dose-length product (DLP) for this visit = 1231 mGy*cm. CT Dose Reduction Employed: mAs-kVp adjusted based on patient size-age COMPARISON: CT performed 03/12/2023 RESULT: Liver: There is a 4.3 cm hypodensity in segment 7 with peripheral, nodular enhancement, most compatible with a hemangioma. An additional 1.4 cm hemangioma in segment 7 is less conspicuous (3:37). Additional rounded hypodensities are noted throughout the liver, likely relating to cysts. No suspicious hepatic mass lesions are identified. Biliary: The gallbladder is unremarkable. No biliary ductal dilation is seen. Spleen: No mass. No splenomegaly. Pancreas: No mass or duct dilation. Adrenals: Partial right adrenalectomy. No residual or recurrent mass is noted. The left adrenal gland is unremarkable. Kidneys: The left kidney is surgically absent. No soft tissue mass is seen in the left renal fossa. Subcentimeter cysts are noted in the right kidney. The right kidney is otherwise unremarkable. GI tract: The stomach and small bowel are unremarkable. There is no evidence of small bowel obstruction or wall thickening. There is scattered colonic diverticulosis without evidence of diverticulitis. The coloanal anastomosis is again noted. Lymph nodes: No abdominal or pelvic lymphadenopathy. Mesentery/Peritoneum: No ascites or mass. Retroperitoneum: No mass. Vasculature: - Abdominal aorta and iliac arteries: Atherosclerotic calcifications without aneurysm. - Celiac and SMA: Patent without stenosis. - Portal venous system (SMV, splenic vein, portal vein and branches): Patent. - Hepatic veins: Patent. Pelvis: The urinary bladder is incompletely distended. No pelvic mass or fluid collection is seen. Bones/Soft Tissues: Degenerative changes. Lower thorax: Unremarkable. Localizer images: No additional findings. IMPRESSION: Stable exam with numerous postsurgical changes as described above. No findings to suggest residual or recurrent disease. No evidence of abdominal or pelvic metastatic disease. Transcribe Date/Time: Sep 28 2023 5:26P Dictated by: ROCIO WALKER MD This examination was interpreted and the report reviewed and electronically signed by: ROCIO WALKER MD on Sep 28 2023 5:32PM EST Thank you for allowing us to participate in the care of your patient. Should there be any questions regarding this interpretation, please call [phone]. If you are unable to reach us at the number above, please feel free to contact [facility] at [phone]. [id number]^[email or web address]^SI^ACN us Generic External Data Provider [facility] Final Result * [facility] 25(OH)D3 SERPL-MCNC (09/28/2023 8:32 AM EDT) [facility] 25(OH)D3 SERPL-MCNC 41.6 31.0 - 80.0 ng/mL [facility] 09/28/2023 8:32 AM EDT 09/28/2023 4:23 PM EDT Narrative [facility] - 09/28/2023 8:02 PM EDT Specimen Type: BLOOD SPECIMEN Ordering Facility: [facility] Address: [address] [place] [id number] Original Ordering Provider: TAWANNA JACQUES us Generic External Data Provider [facility] F inal Result [facility] [address] [place] [address], [place] [id number] [address] [address] documented in this encounter Visit Diagnoses Not on filedocumented in this encounter Care Teams Annual Campaign Manager Relationship Specialty Start Date End Date Nohelia Dyer MD [address] [place] [address] PCP - General Family Medicine 09/10/22 documented as of this encounter
--- OUTSIDE RECORDS SUMMARY | 2024-09-22 15:58 | XMS_ITS | Encounter Summary ---
Author Organization [facility] Address [address] [place] [address] Care Team Providers Care Medical Biller Name Role Phone Nohelia Dyer MD Primary Care Provider [phone] Reason for Visit * Reason Comments Med Refill Encounter Details Date Type Department Care Team (Late st Contact Info) Description 07/14/2023 Refill [facility] [address] [place] [address] Nohelia Dyer MD [address] [place] [address] Idiopathic chronic gout without tophus, unspecified site Social History Tobacco Use Types Packs/Day Years Used Date Smoking Tobacco: Never Smokeless Tobacco: Never Alcohol Use Standard Drinks/Week Comments Not Currently 0 (1 standard drink = 0.6 oz pure alcohol) caffeine intake: 3-4 cups daily Humiliation, Afraid, Rape, and Kick questionnair e [...] week 12/18/2022 How often do you attend jewish or zoroastrian serv ices? Never 12/18/2022 Do you belong to any clubs o r organizations such as jewish groups, unions, fraternal or athletic groups, or [...] Date Recorded Patient Health Questionnaire-2 Score 0 11/18/2022 [facility] - Occupational Stress Questionnaire Answer Date Recorded [...] place to sleep or slept in a intermediate (including now)? No 12/18/2022 Sex and Gender Information Value Date Recorded Sex Assigned at Male 11/21/2022 8:10 AM EDT Legal Sex Male 7:07 PM EDT Gender Identity Male 06/25/2022 7:07 PM EDT Sexual Orientation Straight 11/21/2022 8: 10 AM EDT documented as of this encounter Miscellaneous Notes * Telephone Encounter - Nohelia Dyer MD - 07/15/2023 11:13 AM EDT Approving, but needs appt for additional refills. documented in this encounter Plan of Treatment Not on file documented as of this encounter Visit Diagnoses Diagnosis Idiopathic chronic gout without tophus, unspecified site documented in this encounter Care Teams Medical Biller Relationship Specialty Start Date End Date Nohelia Dyer MD [address] [place] [address] PCP - General Family Medicine 09/10/22 documented as of this encounter
--- OUTSIDE RECORDS SUMMARY | 2024-09-22 15:58 | XMS_ITS | Encounter Summary ---
Author Organization [facility] Address [address] [place] [address] Care Team Providers Care Washer Carcass Name Role Phone Nohelia Dyer MD Primary Care Provider [phone] Encounter Details Date Type Department Care Team [...] week 12/18/2022 How often do you attend holiness or christianity serv ices? Never 12/18/2022 Do you belong [...] Recorded Patient Health Questionnaire-2 Score 0 07/31/2023 [facility] Occup[facility] ional Health - Occupational [...] place to sleep or slept in a retirement (including now)? 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 Lungs and pleura: No consolidation. No lung mass. No pleural effusion. No pneumothorax. Cardiomediastinal silhouette: Normal cardiomediastinal silhouette except for minimal tortuosity of the thoracic aorta. Bones and soft tissues: No acute osseous abnormality detected. Surgical clips projecting over left chest. IMPRESSION: No acute radiographic abnormality. Transcribe Date/Time: Sep 28 2023 11:26A Dictated by: ANA CAMEJO MD This examination was interpreted and the report reviewed and electronically signed by: ANA CAMEJO MD on Sep 28 2023 11:30AM EST Thank you for allowing us to participate in the care of your patient. Should there be any questions regarding this interpretation, please call [phone]. If you are unable to reach us at the number above, please feel free to contact [facility] at [phone]. 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 Lungs and pleura: No consolidation. No lung mass. No pleural effusion. No pneumothorax. Cardiomediastinal silhouette: Normal cardiomediastinal silhouette except for minimal tortuosity of the thoracic aorta. Bones and soft tissues: No acute osseous abnormality detected. Surgical clips projecting over left chest. IMPRESSION: No acute radiographic abnormality. Transcribe Date/Time: Sep 28 2023 11:26A Dictated by: ANA CAMEJO MD This examination was interpreted and the report reviewed and electronically signed by: ANA CAMEJO MD on Sep 28 2023 11:30AM EST Thank you for allowing us to participate in the care of your patient. Should there be any questions regarding this interpretation, please call [phone]. If you are unable to reach us at the number above, please feel free to contact [facility]Radiology at [phone]. [id number]^AGFA_IDC^SI^ACN us Generic External Data Provider [facility] Final Result documented in this encounter Visit Diagnoses Not on filedocumented in this encounter Care Teams Washer Carcass Relationship Specialty Start Date End Date Nohelia Dyer MD [address] [place] [address] PCP - General Family Medicine 09/10/22 documented as of this encounter
--- OUTSIDE RECORDS SUMMARY | 2024-09-22 15:58 | XMS_ITS | Encounter Summary ---
Author Organization [facility] Address [address] [place] [address] Care Team Providers Care Hot Air Furnace Installer And Repairer Name Role Phone Nohelia Dyer MD Primary Care Provider [phone] Encounter Details Date Type Department Care Team (Late st Contact Info) Description 05/08/2023 Clinisync Result Encounter [facility] External Department Unsolicited [...] week 12/18/2022 How often do you attend uatsdin or mosque serv ices? Never 12/18/2022 Do you belong to any clubs o r organizations such as uatsdin groups, unions, fraternal or athletic groups, or [...] Recorded Patient Health Questionnaire-2 Score 0 11/18/2022 [facility]at ional Health - [...] Name Priority Date/Time Associated Diagnosis Comments XR CERV 6V AP/LAT/FLX/EXT/OBL 05/08/2023 11:15 AM EST documented in this encounter Results * XR CERV 6V AP/LAT/FLX/EXT/OBL (05/08/2023 11:15 AM EST) Anatomical Region Laterality Modality Other 05/08/2023 11:1 5 AM EST Narrative 05/08/2023 12:26 PM EST * * *Final Report* * * DATE OF EXAM: May 08 2023 11:15AM [id number] - XR CERV 6V AP/LAT/FLX/EXT/OBL / PROCEDURE REASON: multiple diagnoses * * * * Physician Interpretation * * * * HISTORY: Chiari I malformation (HCC) Spinal stenosis of cervical region Cervical spondylosis with radiculopathy . TECHNIQUE: XR CERV 6V AP/LAT/FLX/EXT/OBL Laterality: Number of different views (projections): COMPARISON: Outside CT scan dated 04/14/2023 RESULT: Counting reference: Craniocervical junction. Anatomic Variants: None. There is no acute fracture or dislocation. There is normal alignment of the cervical spine in neutral, flexion and extension. There are multilevel degenerative changes with disc space narrowing, marginal endplate osteophytes and facet joint hypertrophy. Narrowing of the bilateral C3-C4 through C7-T1 neural foramina. The prevertebral soft tissues are unremarkable. There is no evidence of acute process in the included chest. No other significant abnormality. IMPRESSION: Spondylosis with narrowing of the bilateral C3-C4 through C7-T1 neural foramina. Advertising Production Manager: PSCB Transcribe Date/Time: May 08 2023 12:22P Dictated by : ROB BUTLER MD This examination was interpreted and the report reviewed and electronically signed by: ROB BUTLER MD on May 08 2023 12:24PM EST [id number]^[email or web address]^SI^ACN Procedure Note Radiology, Radiologist, - 05/08/2023 * * *Final Report* * * DATE OF EXAM: May 08 2023 11:15AM [id number] - XR CERV 6V AP/LAT/FLX/EXT/OBL / PROCEDURE REASON: multiple diagnoses * * * * Physician Interpretation * * * * HISTORY: Chiari I malformation (HCC) Spinal stenosis of cervical region Cervical spondylosis with radiculopathy . TECHNIQUE: XR CERV 6V AP/LAT/FLX/EXT/OBL Laterality: Number of different views (projections): COMPARISON: Outside CT scan dated 04/14/2023 RESULT: Counting reference: Craniocervical junction. Anatomic Variants:None. There is no acute fracture or dislocation. There is normal alignment of the cervical spine in neutral, flexion and extension. There are multilevel degenerative changes with disc space narrowing, marginal endplate osteophytes and facet joint hypertrophy. Narrowing of the bilateral C3-C4 through C7-T1 neural foramina. The prevertebral soft tissues are unremarkable. There is no evidence of acute process in the included chest. No other significant abnormality. IMPRESSION: Spondylosis with narrowing of the bilateral C3-C4 through C7-T1 neural foramina. Advertising Production Manager: PSCB Transcribe Date/Time: May 08 2023 12:22P Dictated by : ROB BUTLER MD This examination was interpreted and the report reviewed and electronically signed by: ROB BUTLER MD on May 08 2023 12:24PM EST [id number]^[email or web address]^SI^ACN Generic External Data Provider [facility] Final Result documented in this encounter Visit Diagnoses Not on filedocumented in this encounter Care Teams Hot Air Furnace Installer And Repairer Relationship Specialty Start Date End Date Nohelia Dyer MD [address] [place] [address] PCP - General Family Medicine 09/10/22 documented as of this encounter
--- OUTSIDE RECORDS SUMMARY | 2024-09-22 15:58 | XMS_ITS | Encounter Summary ---
Author Organization [facility] Address [address] [place] [address] Care Team Providers Care Ui Programmer Name Role Phone Nohelia Dyer MD Primary Care Provider [phone] Encounter Details Date Type Department Care Team (Late st Contact Info) Description 10/06/2023 Clinisync Result Encounter [facility] External Department Unsolicited [...] week 12/18/2022 How often do you attend religious or lutheran serv ices? Never 12/18/2022 Do you belong to any clubs o r organizations such as religious groups, unions, fraternal or athletic groups, or [...] Recorded Patient Health Questionnaire-2 Score 0 07/31/2023 [facility] Occupat ional Health - Occupational [...] Name Priority Date/Time Associated Diagnosis Comments XR [facility] 10/06/2023 8:09 PM EDT documented in this encounter Results * XR [facility] (10/06/2023 8:09 PM EDT) Anatomical Region Laterality Modality Other 10/06/2023 8:09 PM EDT Narrative 10/06/2023 8:33 PM EDT * * *Final Report* * * DATE OF EXAM: Oct 06 2023 8:09PM X [id number] - XR [facility] / PROCEDURE REASON: multiple diagnoses * * * * Physician Interpretation * * * * HISTORY: Chronic pain of left ankle Chronic pain of left ankle . pre-op for left ankle reconstruction TECHNIQUE: XR LEG FRONTL [facility] AXIS, XR TIBIA FIBULA 2V AP/LAT LT COMPARISON: None RESULT: The biomechanical axis on the right measures 2 degrees varus. The biomechanical axis on the left measures 0 degrees with neutral alignment. Remote healed fracture deformity of the left distal tibia with lateral plate and screw fixation. One of the distal most screws is fractured. Another screw has backed out as approximately 4 mm. Remote distal fibular shaft osteotomy or ununited fracture. Bony synostosis between the distal fibula and tibia at the site of the tibial fracture. Small focus of soft tissue calcification/ossification in the lateral soft tissues adjacent to the distal fibula probably sequela of remote trauma. No evidence of an acute fracture. The tibiotalar joint space is not well seen, better evaluated on recent CT. No other significant abnormality. IMPRESSION: REMOTE POSTOPERATIVE FINDINGS DESCRIBED IN THE DISTAL TIBIA WITH HEALED FRACTURE. BIOMECHANICAL AXES DESCRIBED. Automatic Buffing Wheel Former: PSCB Transcribe Date/Time: Oct 06 2023 8:21P Dictated by : GABI PASTRANA MD This examination was interpreted and the report reviewed and electronically signed by: GABI PASTRANA MD on Oct 06 2023 8:30PM EST [id number]^ACN Procedure Note Radiology, Radiologist, - 10/06/2023 * * *Final Report* * * DATE OF EXAM: Oct 06 2023 8:09PM VHX [id number] - XR [facility] / PROCEDURE REASON: multiple diagnoses * * * * Physician Interpretation * * * * HISTORY: Chronic pain of left ankle Chronic pain of left ankle . pre-op for left ankle reconstruction TECHNIQUE: XR [facility], XR TIBIA FIBULA 2V AP/LATLT COMPARISON: None RESULT: The biomechanical axis on the right measures 2 degrees varus. The biomechanical axis on the left measures 0 degrees with neutralalignment. Remote healed fracture deformity of the left distal tibia with lateral plate and screw fixation. One of the distal most screws is fractured. Another screw has backed out as approximately 4 mm. Remote distal fibular shaft osteotomy or ununited fracture. Bony synostosis between the distal fibula and tibia at the site of the tibial fracture. Small focus of soft tissue calcification/ossification in the lateral soft tissues adjacent to the distal fibula probably sequela of remote trauma. No evidence of an acute fracture. The tibiotalar joint space is not well seen, better evaluated on recent CT. No other significant abnormality. IMPRESSION: REMOTE POSTOPERATIVE FINDINGS DESCRIBED IN THE DISTAL TIBIA WITH HEALED FRACTURE. BIOMECHANICAL AXES DESCRIBED. Automatic Buffing Wheel Former: CONSTANTIN Transcribe Date/Time: Oct 06 2023 8:21P Dictated by : GABI PASTRANA MD This examination was interpreted and the report reviewed and electronically signed by: GABI PASTRANA MD on Oct 06 2023 8:30PM EST [id number]^SI^ACN Generic External Data Provider [facility] Final Result documented in this encounter Visit Diagnoses Not on filedocumented in this encounter Care Teams Ui Programmer Relationship Specialty Start Date End Date Nohelia Dyer MD [address] [place] [address] PCP - General Family Medicine 09/10/22 documented as of this encounter
--- OUTSIDE RECORDS SUMMARY | 2024-09-22 15:58 | XMS_ITS | Encounter Summary ---
Author Organization [facility] Address [address] [place] [address] Care Team Providers Care Observer Gravity Prospecting Name Role Phone Nohelia Dyer MD Primary Care Provider [phone] Encounter Details Date Type Department Care Team [...] week 12/18/2022 How often do you attend mormonism or quaker serv ices? Never 12/18/2022 Do you belong to any clubs o r organizations such as mormonism groups, unions, fraternal or athletic groups, or [...] Recorded Patient Health Questionnaire-2 Score 0 07/31/2023 [facility] of Occupat ional Health - Occupational Stress [...] place to sleep or slept in a senior care (including now)? No 12/18/2022 Sex and Gender [...] Name Priority Date/Time Associated Diagnosis Comments XR TIBIA FIBULA 2V AP/LAT LT 12/25/2023 5:02 PM EDT documented in this encounter Results * XR TIBIA FIBULA 2V AP/LAT LT (12/25/2023 5:02 PM EDT) Anatomical Region Laterality Modality Other 12/25/2023 5:02 PM EDT Narrative 12/25/2023 8:14 PM EDT * * *Final Report* * * DATE OF EXAM: Dec 25 2023 5:02PM X 5265 - XR TIBIA FIBULA 2V AP/LAT LT / PROCEDURE REASON: multiple diagnoses * [...] Number of different views (projections): 2 (accession [id number]), 3 (accession [id number]) COMPARISON: November 13, 2023 RESULT: Status post recent anterolateral surgical fixation of 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 Retained screws in the mid tibial shaft again noted. IMPRESSION: Adequate recent postsurgical changes of the distal tibia and fibula. Pack Puller: CONSTANTIN Transcribe Date/Time: Dec 25 2023 8:08P Dictated by : CHERI ARROYO MD This examination was interpreted and the report reviewed and electronically signed by: CHERI ARROYO MD on Dec 25 2023 8:12PM EST [id number]^[id number]^SI^ACN Procedure Note Radiology, Radiologist, MD - 12/25/2023 * * *Final Report* * * DATE OF EXAM: Dec 25 2023 5:02PM VHX 5265 - XR TIBIA FIBULA 2V AP/LAT LT / PROCEDURE REASON: multiple diagnoses * [...] Number of different views (projections): 2 (accession [id number]), 3 (accession [id number]) COMPARISON: November 13, 2023 RESULT: Status post recent anterolateral surgical fixation of 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 Retained screws in the mid tibial shaft again noted. IMPRESSION: Adequate recent postsurgical changes of the distal tibia and fibula. Pack Puller: CONSTANTIN Transcribe Date/Time: Dec 25 2023 8:08P Dictated by : CHERI ARROYO MD This examination was interpreted and the report reviewed and electronically signed by: CHERI ARROYO MD on Dec 25 2023 8:12PM EST [id number]^AGFA_[id number]^SI^ACN us Generic External Data Provider [facility] Final Result documented in this encounter Visit Diagnoses Not on filedocumented in this encounter Care Teams Observer Gravity Prospecting Relationship Specialty Start Date End Date Nohelia Dyer MD [address] [place] [address] PCP - General Family Medicine 09/10/22 documented as of this encounter
--- OUTSIDE RECORDS SUMMARY | 2024-09-22 15:58 | XMS_ITS | Encounter Summary ---
Author Organization [facility] Address [address] [place] [address] Care Team Providers Care Public Relations Specialist Name Role Phone Nohelia Dyer MD Primary Care Provider [phone] Encounter Details Date Type Department Care Team (Late st Contact Info) Description 02/10/2024 Clinisync Result Encounter [facility] External Department Unsolicited [...] week 12/18/2022 How often do you attend tenriism or mormonism serv ices? Never 12/18/2022 Do you belong to any clubs o r organizations such as tenriism groups, unions, fraternal or athletic groups, or [...] Date Recorded Patient Health Questionnaire-2 Score 0 02/02/2024 [facility] of Occupat ional Health - Occupational [...] Diagnosis Comments XR ANKLE 3V AP/LAT/OBL LT 02/10/2024 9:29 AM EDT documented in this encounter Results * XR ANKLE 3V AP/LAT/OBL LT (02/10/2024 9:29 AM EDT) Anatomical Region Laterality Modality Other 02/10/2024 9:29 AM EDT Narrative 02/10/2024 12:23 PM EDT * * *Final Report* * * DATE OF EXAM: Feb 10 2024 9:29AM AFR 5298 - XR ANKLE 3V AP/LAT/OBL LT / 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 Retained screws within the mid tibial shaft are again noted. Minimally increased periosteal new bone formation across the distal tibia. No substantial healing change in the fibular component. Narrowing of the tibiotalar joint, greatest in the superolateral aspect, unchanged. Scattered metallic fragments again seen within the soft tissues. No acute fracture or dislocation. Plantar calcaneal enthesophyte. IMPRESSION: ORIF of distal tibia and fibula with healing changes, as detailed. 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 Retained screws within the mid tibial shaft are again noted. Minimally increased periosteal new bone formation across the distal tibia. No substantial healing change in the fibular component. Narrowing of the tibiotalar joint, greatest in the superolateral aspect, unchanged. Scattered metallic fragments again seen within the soft tissues. No acute fracture or dislocation. Plantar calcaneal enthesophyte. IMPRESSION: ORIF of distal tibia and fibula with healing changes, as detailed. Pearl Stringer: [facility] Transcribe Date/Time: Feb 10 2024 9:40A Dictated by : RAMONITA RUANO MD This examination was interpreted and the report reviewed and electronically signed by: CYNTHIA BERNABE MD on Feb 10 2024 12:20PM EST [id number]^AGFA_IDC^SI^ACN us Generic External Data Provider [facility] Final Result documented in this encounter Visit Diagnoses Not on filedocumented in this encounter Care Teams Public Relations Specialist Relationship Specialty Start Date End Date Nohelia Dyer MD [address] [place] [address] PCP - General Family Medicine 09/10/22 documented as of this encounter
--- OUTSIDE RECORDS SUMMARY | 2024-09-22 15:58 | XMS_ITS | Encounter Summary ---
Author Organization [facility] Address [address] [place] [address] Care Team Providers Care Cloud Solutions Architect Name Role Phone Nohelia Dyer MD Primary Care Provider [phone] Encounter Details Date Type Department Care Team [...] week 12/18/2022 How often do you attend zoroastrianism or rastafarian serv ices? Never 12/18/2022 Do you belong to any clubs o r organizations such as zoroastrianism groups, unions, fraternal or athletic groups, or [...] Recorded Patient Health Questionnaire-2 Score 0 07/31/2023 [facility] Occupat ional Health - Occupational [...] place to sleep or slept in a group home (including now)? No 12/18/2022 Sex and Gender [...] Comments XR TIBIA FIBULA 2V AP/LAT LT 10/06/2023 8:09 PM EDT documented in this encounter Results * XR TIBIA FIBULA 2V AP/LAT LT (10/06/2023 8:09 PM EDT) Anatomical Region Laterality Modality Other 10/06/2023 8:09 PM EDT Narrative 10/06/2023 8:33 PM EDT * * *Final Report* * * DATE OF EXAM: Oct 06 2023 8:09PM X 5265 - XR TIBIA FIBULA 2V AP/LAT LT / PROCEDURE REASON: multiple diagnoses * * * * Physician Interpretation * * * * HISTORY: Chronic pain of left ankle Chronic pain of left ankle . pre-op for left ankle reconstruction TECHNIQUE: [facility], XR TIBIA FIBULA 2V AP/LAT LT [...] TIBIA WITH HEALED FRACTURE. BIOMECHANICAL AXES DESCRIBED. Picking Machine Operator Helper: PSCB Transcribe Date/Time: Oct 06 2023 8:21P Dictated by : GABI PASTRANA MD This examination was interpreted and the report reviewed and electronically signed by: GABI PASTRANA MD on Oct 06 2023 8:30PM EST [id number]^[id number]^SI^ACN Procedure Note Radiology, Radiologist, - 10/06/2023 * * *Final Report* * * DATE OF EXAM: Oct 06 2023 8:09PM VHX 5265 - XR TIBIA FIBULA 2V AP/LAT LT / PROCEDURE REASON: multiple diagnoses * * * * Physician Interpretation * * * * HISTORY: Chronic pain of left ankle Chronic pain of left ankle . pre-op for left ankle reconstruction TECHNIQUE: XR LEG FRONTL [facility]IP-[facility] AXIS, XR TIBIA FIBULA 2V AP/LATLT COMPARISON: [...] TIBIA WITH HEALED FRACTURE. BIOMECHANICAL AXES DESCRIBED. Picking Machine Operator Helper: CONSTANTIN Transcribe Date/Time: Oct 06 2023 8:21P Dictated by : GABI PASTRANA MD This examination was interpreted and the report reviewed and electronically signed by: GABI PASTRANA MD on Oct 06 2023 8:30PM EST [id number]^AGFA_[id number]^SI^ACN us Generic External Data Provider [facility] Final Result documented in this encounter Visit Diagnoses Not on filedocumented in this encounter Care Teams Cloud Solutions Architect Relationship Specialty Start Date End Date Nohelia Dyer MD [address] [place] [address] PCP - General Family Medicine 09/10/22 documented as of this encounter
--- OUTSIDE RECORDS SUMMARY | 2024-09-22 15:58 | XMS_ITS | Encounter Summary ---
Author Organization [facility] Address [address] [place] [address] Care Team Providers Care Photolithographic Stripper Name Role Phone Nohelia Dyer MD Primary Care Provider [phone] Encounter Details Date Type Department Care Team [...] week 12/18/2022 How often do you attend episcopal or amish serv ices? Never 12/18/2022 Do you belong to any clubs o r organizations such as episcopal groups, unions, fraternal or athletic groups, or [...] Recorded Patient Health Questionnaire-2 Score 0 07/31/2023 [facility] of Occupat ional Health - Occupational Stress [...] place to sleep or slept in a [facility] (including now)? No 12/18/2022 Sex and Gender [...] Name Priority Date/Time Associated Diagnosis Comments CT ANKLE WO IVCON LT 10/06/2023 7:44 PM EDT documented in this encounter Results * CT ANKLE WO IVCON LT (10/06/2023 7:44 PM EDT) Anatomical Region Laterality Modality Other 10/06/2023 7:44 PM EDT Narrative 10/07/2023 9:38 AM EDT * * *Final Report* * * DATE OF EXAM: Oct 06 2023 7:44PM [facility] 0060 - CT ANKLE WO IVCON LT / PROCEDURE REASON: multiple diagnoses * * * * Physician Interpretation * * * * CT ANKLE WO IVCON LT HISTORY: Chronic pain of left ankle Chronic pain of left ankle . LT ANKLE PRE OP TECHNIQUE: Spiral CT scanning of left ankle was performed in axial plane. Coronal and sagittal reconstructions were obtained from the original data set. CT Radiation dose: Integrated Dose-length product (DLP) for this visit = 210 mGy*cm. CT Dose Reduction Employed: Automated exposure control(AEC) and iterative recon COMPARISON: Radiographs dated 09/25/2023 RESULT: Remote healed fracture of the distal tibia status post ORIF with no evidence of hardware failure or loosening. Remote nonhealed fracture of the distal fibular diaphysis. Plantar calcaneal enthesophyte. Marked tibiotalar osteoarthritis and mild osteoarthritis throughout the ankle and foot. Tendons have normal appearance. Mild muscle fatty changes. No soft tissue edema. LOCALIZER IMAGES: No significant additional findings. IMPRESSION: REMOTE HEALED FRACTURE OF THE DISTAL TIBIA STATUS POST ORIF WITH NO EVIDENCE OF HARDWARE COMPLICATION. REMOTE NONHEALED FRACTURE OF THE DISTAL FIBULAR DIAPHYSIS. OSTEOARTHRITIS. Curtain Hemmer Automatic: CONSTANTIN Transcribe Date/Time: Oct 07 2023 9:10A Dictated by : ROB BUTLER MD This examination was interpreted and the report reviewed and electronically signed by: ROB BUTLER MD on Oct 07 2023 9:36AM EST [id number]^[id number]^SI^ACN Procedure Note Radiology, Radiologist, MD - 10/07/2023 * * *Final Report* * * DATE OF EXAM: Oct 06 2023 7:44PM [facility] 0060 - CT ANKLE WO IVCON LT / PROCEDURE REASON: multiple diagnoses * * * * Physician Interpretation * * * * CT ANKLE WO IVCON LT HISTORY: Chronic pain of left ankle Chronic pain of left ankle . LT ANKLE PRE OP TECHNIQUE: Spiral CT scanning of left ankle was performed in axial plane. Coronal and sagittal reconstructions were obtained from the original data set. CT Radiation dose: Integrated Dose-length product (DLP) for this visit = 210 mGy*cm. CT Dose Reduction Employed: Automated exposure control(AEC) and iterative recon COMPARISON: Radiographs dated 09/25/2023 RESULT: Remote healed fracture of the distal tibia status post ORIF with no evidence of hardware failure or loosening. Remote nonhealed fracture of the distal fibular diaphysis. Plantar calcaneal enthesophyte. Marked tibiotalar osteoarthritis and mild osteoarthritis throughout the ankle and foot. Tendons have normal appearance. Mild muscle fatty changes. No soft tissue edema. LOCALIZER IMAGES: No significant additional findings. IMPRESSION: REMOTE HEALED FRACTURE OF THE DISTAL TIBIA STATUS POST ORIF WITH NO EVIDENCE OF HARDWARE COMPLICATION. REMOTE NONHEALED FRACTURE OF THE DISTAL FIBULAR DIAPHYSIS. OSTEOARTHRITIS. Curtain Hemmer Automatic: CONSTANTIN Transcribe Date/Time: Oct 07 2023 9:10A Dictated by : ROB BUTLER MD This examination was interpreted and the report reviewed and electronically signed by: ROB BUTLER MD on Oct 07 2023 9:36AM EST [id number]^[id number]^SI^ACN us Generic External Data Provider [facility] Final Result documented in this encounter Visit Diagnoses Not on filedocumented in this encounter Care Teams Photolithographic Stripper Relationship Specialty Start Date End Date Nohelia Dyer MD [address] [place] [address] PCP - General Family Medicine 09/10/22 documented as of this encounter
--- OUTSIDE RECORDS SUMMARY | 2024-09-22 15:58 | XMS_ITS | Encounter Summary ---
Author Organization [facility] Address [address] [place] [address] Care Team Providers Care Board Attendant Name Role Phone Nohelia Dyer MD Primary Care Provider [phone] Encounter Details Date Type Department Care Team (Late st Contact Info) Description 07/18/2023 Clinisync Result Encounter [facility] External Department Unsolicited [...] week 12/18/2022 How often do you attend shinto or anabaptist serv ices? Never 12/18/2022 Do you belong to any clubs o r organizations such as shinto groups, unions, fraternal or athletic groups, or [...] Recorded Patient Health Questionnaire-2 Score 0 11/18/2022 [facility] Occupat ional Health [...] Comments XR ANKLE LEFT (MIN 3 VIEWS) 07/18/2023 4:44 PM EDT documented in this encounter Results * XR ANKLE LEFT (MIN 3 VIEWS) (07/18/2023 4:44 PM EDT) Anatomical Region Laterality Modality Other 07/18/2023 4:44 PM EDT Narrative 07/18/2023 4:48 PM EDT EXAMINATION: 4 XRAY VIEWS OF THE LEFT ANKLE 07/17/2023 1:04 pm COMPARISON: 09/30/2021 HISTORY: ORDERING SYSTEM PROVIDED HISTORY: Pain Left ankle pain, chronic FINDINGS: There has been prior ORIF of a comminuted distal tibia fracture. Fixation hardware appears securely engaged and stable in position. There is mature bony remodeling of the distal tibia. Stable postsurgical/posttraumatic changes of the distal fibula with evidence of chronic osteotomy and nonunion. No acute fracture identified. No evidence of osteochondral lesion. Moderate degenerative changes are present involving the tibiotalar joint. Joint alignment is maintained. No erosions are present. Moderate calcaneal enthesopathy at the plantar fascia insertion. IMPRESSION: 1. Stable postsurgical/posttraumatic changes of the distal tibia and fibula as above. No acute osseous abnormality. 2. Moderate tibiotalar joint osteoarthritis. 3. Calcaneal enthesopathy at the plantar fascia insertion. Interpreted by: Shiv Darby MD Signed by: Shiv Darby MD 07/18/23 Final result Procedure Note Radiology, Radiologist, - 07/18/2023 EXAMINATION: 4 XRAY VIEWS OF THE LEFT ANKLE 07/17/2023 1:04 pm COMPARISON: 09/30/2021 HISTORY: ORDERING SYSTEM PROVIDED HISTORY: Pain Left ankle pain, chronic FINDINGS: There has been prior ORIF of a comminuted distal tibia fracture.Fixation hardware appears securely engaged and stable in position. There ismature bony remodeling of the distal tibia. Stable postsurgical/posttraumatic changes of the distal fibula withevidence of chronic osteotomy and nonunion. No acute fracture identified. No evidence of osteochondral lesion. Moderate degenerative changes are present involving the tibiotalarjoint. Joint alignment is maintained. No erosions are present. Moderate calcaneal enthesopathy at the plantar fascia insertion. IMPRESSION: 1. Stable postsurgical/posttraumatic changes of the distal tibia andfibula as above. No acute osseous abnormality. 2. Moderate tibiotalar joint osteoarthritis. 3. Calcaneal enthesopathy at the plantar fascia insertion. Interpreted by: Shiv Darby MD Signed by: Shiv Darby MD 07/18/23 Final result Generic External Data Provider [facility] Final Result documented in this encounter Visit Diagnoses Not on filedocumented in this encounter Care Teams Board Attendant Relationship Specialty Start Date End Date Nohelia Dyer MD [address] [place] [address] PCP - General Family Medicine 09/10/22 documented as of this encounter
--- OUTSIDE RECORDS SUMMARY | 2024-09-22 15:58 | XMS_ITS | Encounter Summary ---
Author Organization [facility] Address [address] [place] [address] Care Team Providers Care Box Closing Machine Operator Name Role Phone Nohelia Dyer MD Primary Care Provider [phone] Encounter Details Date Type Department Care Team (Late st Contact Info) Description 09/25/2023 Clinisync Result Encounter [facility] Unsolicited [...] week 12/18/2022 How often do you attend sikh or synagogue serv ices? Never 12/18/2022 Do you belong to any clubs o r organizations such as sikh groups, unions, fraternal or athletic groups, or [...] Recorded Patient Health Questionnaire-2 Score 0 07/31/2023 [facility] - Occupational [...] place to sleep or slept in a chcf (including now)? No 12/18/2022 Sex and Gender [...] Diagnosis Comments XR ANKLE 3V AP/LAT/OBL LT 09/25/2023 10:22 AM EDT documented in this encounter Results * XR ANKLE 3V AP/LAT/OBL LT (09/25/2023 10:22 AM EDT) Anatomical Region Laterality Modality Other 09/25/2023 10:2 2 AM EDT Narrative 09/25/2023 12:00 PM EDT * * *Final Report* * * DATE OF EXAM: Sep 25 2023 10:22AM AOX 5298 - XR ANKLE 3V AP/LAT/OBL LT / PROCEDURE REASON: multiple diagnoses * * * * Physician Interpretation * * * * HISTORY: Chronic pain of left ankle Chronic pain of left ankle . TECHNIQUE: XR ANKLE 3V AP/LAT/OBL LT Laterality: LEFT Number of different views (projections): 3 COMPARISON: None available. RESULT: Remote healed fracture of the distal tibia and remote nonhealed fracture of the distal fibula. Tibial hardware is intact with no evidence of loosening. Marked tibiotalar osteoarthritis. Small plantar calcaneal enthesophyte. No soft tissue swelling. Posttraumatic foci of ossification in the lateral distal leg. Limited evaluation of the contralateral ankle with no acute findings. No other significant abnormality. IMPRESSION: No acute findings. Grader Green Meat: CONSTANTIN Transcribe Date/Time: Sep 25 2023 11:57A Dictated by : ROB BUTLER MD This examination was interpreted and the report reviewed and electronically signed by: ROB BUTLER MD on Sep 25 2023 11:58AM EST [id number]^ACN Procedure Note Radiology, Radiologist, MD - 09/25/2023 * * *Final Report* * * DATE OF EXAM: Sep 25 2023 10:22AM AOX 5298 - XR ANKLE 3V AP/LAT/OBL LT / PROCEDURE REASON: multiple diagnoses * * * * Physician Interpretation * * * * HISTORY: Chronic pain of left ankle Chronic pain of left ankle . TECHNIQUE: XR ANKLE 3V AP/LAT/OBL LT Laterality: LEFT Number of different views (projections): 3 COMPARISON: None available. RESULT: Remote healed fracture of the distal tibia and remote nonhealed fracture of the distal fibula. Tibial hardware is intact with no evidence of loosening. Marked tibiotalar osteoarthritis. Small plantar calcaneal enthesophyte. No soft tissue swelling. Posttraumatic foci of ossification in the lateral distal leg. Limited evaluation of the contralateral ankle with no acute findings. No other significant abnormality. IMPRESSION: No acute findings. Grader Green Meat: CONSTANTIN Transcribe Date/Time: Sep 25 2023 11:57A Dictated by : ROB BUTLER MD This examination was interpreted and the report reviewed and electronically signed by: ROB BUTLER MD on Sep 25 2023 11:58AM EST [id number]^ACN Generic External Data Provider [facility] Final Result documented in this encounter Visit Diagnoses Not on filedocumented in this encounter Care Teams Box Closing Machine Operator Relationship Specialty Start Date End Date Nohelia Dyer MD [address] [place] [address] PCP - General Family Medicine 09/10/22 documented as of this encounter
--- OUTSIDE RECORDS SUMMARY | 2024-09-22 15:59 | XMS_ITS | Encounter Summary ---
Author Organization [facility] Address [address] [place] [address] Care Team Providers Care Television News Producer Name Role Phone Nohelia Dyer Primary Care Provider [phone] Wander Cao Unavailable Griselda Buckley (Rn) AMADOR Unavailable Unavailabl Schuyler Bautista MD Unavailable [phone] Ana M Galvan RN Unavailable Unavailable Source Comments In the event this information is protected by the Federal Confidentiality of Alcohol and Drug AbusePatient Records regulations: The Federal rules restrict any use of the information to criminally investigate or prosecute any alcohol or drug abuse patient.[facility] Encounter Details Date Type Department Care Team (Late st Contact Info) Description 12/25/2020 Patient Msg Neurology [address] [place], [place] [id number] Constanza Casillas PA-C [address] [place] [address] RE: Appointment Request () Social History Tobacco Use Types Packs/Day Years Used Date Smoking Tobacco: Never Smokeless Tobacco: Never Alcohol Use Standard Drinks/Week Comments Yes 0 (1 standard drink = 0.6 oz pur e alcohol) rarely PHQ-2 Answer Date Recorded PHQ-2 score 0 10/25/2020 Area Deprivation Index Answer Date Boyd rded National Score (1-100), lower number is lower ri sk Not on file 03/18/2020 State Score (1-10), lower number is lower risk N ot on file 03/18/2020 Data from: https://www.neighborhoodatlas.medicine.[facility].edu/. Last address used for calculation Not on [...] have Coronavirus / COVID-19? No / Unsure 12/18/2020 10:49 AM EDT documented as of this encounter Functional Status * Are you deaf or do you have serious difficulty hearing? Answer Date of Assessment Author No 09/17/2020 4:54 PM EDT Earl Weller RN * Are you blind or do you have serious difficulty seeing, even when wearing glasses? Answer Date of Assessment Author No 09/17/2020 4:54 PM EDT Earl Weller RN * Do you have serious difficulty walking or climbing stairs? Answer Date of Assessment Author No 09/17/2020 4:54 PM EDT Earl Weller RN * Do you have difficulty dressing or bathing? Answer Date of Assessment Author No 09/17/2020 4:54 PM EDT Earl Weller RN * Because of a physical, mental, or emotional condition, do you have difficulty doing errands alone such as visiting a doctor's office or shopping? Answer Date of Assessment Author No 09/17/2020 4:54 PM EDT Earl Weller RN documented as of this encounter Mental Status * Because of a physical, mental, or emotional condition, do you have serious difficulty concentrating, remembering, or making decisions? Answer Entry Date Author No 09/06/2020 3:13 PM EDT Pam Thomason RN documented in this encounter Plan of Treatment Upcoming Encounters Date Type Department Care Team (Late st Contact Info) Description 09/26/2024 11:30 AM EDT Office Visit Pain Management [address] [place] [address] Sera Chau PA-C [address] [place] [address] 4-6 week injection follow up 10/02/2024 10:40 AM EDT Appointment Radiology [address] [place] [address] Spinal stenosis of cervical region [M48.02] 10/19/2024 11:30 AM EDT Office Visit Neurology [address] [place] [address] Constanza Casillas PA-C [address] [place] [address] botox 10/31/2024 9:00 AM EDT [facility] Hematology/Oncology [address] [place] [address] Schuyler Blanca MD [address] [place] [address] VIRTUAL 11/21/2024 10:00 AM EDT Office Visit Orthopaedics [address] [place] [address] [place] [address] [place] [address] 3 month f/u documented as of this encounter Visit Diagnoses Not on filedocumented in this encounter Care Teams Television News Producer Relationship Specialty Start Date End Date Nohelia Dyer [address] [place] [id number] PCP - General 06/04/05 Wander Cao [address] [place] [address] Physician Hematology/Oncology 03/24/14 Griselda Buckley (Rn), RN [address] [place] [address] Specialty Geothermal Powerplant Mechanic 08/26/17 [place] [address] [place] [phone] Referring Hematology 12/31/21 Ana M Galvan, RN Specialty Geothermal Powerplant Mechanic Hematology/Oncology 10/14/23 documented as of this encounter
--- OUTSIDE RECORDS SUMMARY | 2024-09-22 15:59 | XMS_ITS | Encounter Summary ---
Author Organization [facility] Address [address] [place] [address] Care Team Providers Care Manager Field Services Name Role Phone Nohelia Dyer Primary Care Provider [phone] Wander Cao Unavailable Griselda Buckley (Rn) AMADOR Unavailable Unavailabl Schuyler Bautista MD Unavailable [phone] Ana M Galvan RN Unavailable Unavailable Source Comments In the event this information is protected by the Federal Confidentiality of Alcohol and Drug AbusePatient Records regulations: The Federal rules restrict any use of the information to criminally investigate or prosecute any alcohol or drug abuse patient.[facility] Encounter Details Date Type Department Care Team (Late st Contact Info) Description 02/14/2021 Get Medical Advice Neurology [address] [place], [place] [phone] Constanza Casillas PA-C [address] [place] [phone] RE: Non-Urgent Medical Question Social History Tobacco [...] N ot on file 03/18/2020 Data from: https://www.neighborhoodatlas.medicine.[facility]/. Last address used for calculation Not [...] Assessment Author No 01/15/2021 12:38 PM EDT eMrcedez Palmer RN * Are you blind or [...] 11:30 AM EDT Office Visit Pain Management [address] [place] [address] Sera Chau PA-C [address] [place] [address] 4-6 week injection follow up 10/02/2024 10:40 AM EDT Appointment Radiology [address] [place] [address] Spinal stenosis of cervical region [M48.02] 10/19/2024 11:30 AM EDT Office Visit Neurology [address] [place] [address] Constanza Casillas PA-C [address] [place] [address] botox 10/31/2024 9:00 AM EDT [facility] Hematology/Oncology [address] [place] [address] Schuyler Blanca MD [address] [place] [address] VIRTUAL 11/21/2024 10:00 AM EDT Office Visit Orthopaedics [address] [place] [address] [place] [address] [place] [address] 3 month f/u documented as of this encounter Visit Diagnoses Not on filedocumented in this encounter Care Teams Manager Field Services Relationship Specialty Start Date End Date Nohelia Dyer [address] [place] [phone] PCP - General 06/04/05 Wander Cao [address] [place] [address] Physician Hematology/Oncology 03/24/14 Griselda Buckley (Rn), RN [address] [place] [address] Specialty Director Mobile 08/26/17 [place] [address] [place] [phone] Referring Hematology 12/31/21 Ana M Galvan, RN Specialty Director Mobile Hematology/Oncology 10/14/23 documented as of this encounter
--- OUTSIDE RECORDS SUMMARY | 2024-09-22 15:59 | XMS_ITS | Encounter Summary ---
Author Organization [facility] Address [facility] [place] [address] Care Team Providers Care Botany Professor Name Role Phone Nohelia Dyer Primary Care Provider [phone] Wander Cao Unavailable Griselda Buckley (Rn) AMADOR Unavailable Unavailabl e Schuyler Blanca MD Unavailable [phone] Ana M Galvan RN Unavailable Unavailable Source Comments In the event this information is protected by the Federal Confidentiality of Alcohol and Drug AbusePatient Records regulations: The Federal rules restrict any use of the information to criminally investigate or prosecute any alcohol or drug abuse patient.[facility] Encounter Details Date Type Department Care Team (Late st Contact Info) Description 03/19/2020 Get Medical Advice Neurology [address] [place] [phone] Elise Cooney MD [address] [place] [address] RE: Non-Urgent Medical Question Social History Tobacco Use Types Packs/Day Years Used Date Smoking Tobacco: Never Smokeless Tobacco: Never Alcohol Use Standard Drinks/Week Comments Yes 0 (1 standard drink = 0.6 oz pur e alcohol) rarely PHQ-2 Answer Date Recorded PHQ-2 score 0 03/16/2020 Area Deprivation Index Answer Date Boyd rded National Score (1-100), lower number is lower ri sk Not on file 03/18/2020 State Score (1-10), lower number is lower risk N ot on file 03/18/2020 Data from: https://www.neighborhoodatlas.medicine.[facility]/. Last address used for calculation Not [...] have Coronavirus / COVID-19? No / Unsure 03/19/2020 11:13 AM EST documented as of this encounter Functional Status * Are you deaf or do you have serious difficulty hearing? Answer Date of Assessment Author No 09/30/2016 10:22 AM Ivana Wilkes APRN.PROCESS COACH * Are you blind or do you have serious difficulty seeing, even when wearing glasses? Answer Date of Assessment Author No 09/30/2016 10:22 AM Ivana Wilkes APRN.PROCESS COACH * Do you have serious difficulty walking or climbing stairs? Answer Date of Assessment Author Yes 09/30/2016 10:22 AM Ivana Wilkes APRN.PROCESS COACH * Do you have difficulty dressing or bathing? Answer Date of Assessment Author No 09/30/2016 10:22 AM Ivana Wilkes APRN.PROCESS COACH * Because of a physical, mental, or emotional condition, do you have difficulty doing errands alone such as visiting a doctor's office or shopping? Answer Date of Assessment Author Yes 09/30/2016 10:22 AM Ivana Wilkes APRN.PROCESS COACH documented as of this encounter Mental Status * Because of a physical, mental, or emotional condition, do you have serious difficulty concentrating, remembering, or making decisions? Answer Entry Date Author No 09/30/2016 10:22 AM EDT Ivnaa Samson APRN.CNP documented in this encounter Plan of Treatment Upcoming Encounters Date Type Department Care Team (Late st Contact Info) Description 09/26/2024 11:30 AM EDT Office Visit Pain Management [address] [place] [address] Sera Chau PA-C [address] [place] [address] 4-6 week injection follow up 10/02/2024 10:40 AM EDT Appointment Radiology [address] [place] [address] Spinal stenosis of cervical region [M48.02] 10/19/2024 11:30 AM EDT Office Visit Neurology [address] [place] [address] Constanza Casillas PA-C [address] [place] [address] botox 10/31/2024 9:00 AM EDT [facility] Hematology/Oncology [address] [place] [address] Schuyler Blanca MD [address] [place] [address] VIRTUAL 11/21/2024 10:00 AM EDT Office Visit Orthopaedics [address] [place] [address] [place] [address] [place] [address] 3 month f/u documented as of this encounter Visit Diagnoses Not on filedocumented in this encounter Additional Health Concerns Infection Onset Date Last Indicated Resolved Time COVID-19 Rule-Out 09/03/2020 09/03/2020 09/03/2020 12:19 AM EDT COVID-19 Rule-Out 09/15/2020 09/15/2020 09/16/2020 7:08 AM EDT documented as of this encounter Care Teams Botany Professor Relationship Specialty Start Date End Date GomezNohelia mcqueen Mary Carmen [address] [place] [address] PCP - General 06/04/05 Wander Cao [address] [place] [address] Physician Hematology/Oncology 03/24/14 Griselda Buckley (Rn), RN [address] [place] [address] Specialty Online Editor 08/26/17 [place] [address] [place] [address] Referring Hematology 12/31/21 Ana M Galvan, RN Specialty Online Editor Hematology/Oncology 10/14/23 documented as of this encounter
--- OUTSIDE RECORDS SUMMARY | 2024-09-22 15:59 | XMS_ITS | Encounter Summary ---
Author Organization [facility] Address [address] [place] [address] Care Team Providers Care Radiotelegraphist Name Role Phone Nohelia Dyer Primary Care Provider [phone] Wander Cao Unavailable Griselda Buckley (Rn) AMADOR Unavailable UnavailSchuyler Ruelas MD Unavailable [phone] Ana M Galvan RN Unavailable Unavailable Source Comments In the event this information is protected by the Federal Confidentiality of Alcohol and Drug AbusePatient Records regulations: The Federal rules restrict any use of the information to criminally investigate or prosecute any alcohol or drug abuse patient.[facility] Encounter Details Date Type Department Care Team (Late st Contact Info) Description 09/17/2020 Patient Msg [facility] [address] [place] [phone] Eric Maldonado RPh Welcome to [facility]. Social History Tobacco Use Types Packs/Day Years Used Date Smoking Tobacco: Never Smokeless Tobacco: Never Alcohol Use Standard Drinks/Week Comments Yes 0 (1 standard drink = 0.6 oz pur e alcohol) rarely PHQ-2 Answer Date Recorded PHQ-2 score 0 06/12/2020 Area Deprivation Index Answer Date Boyd rded National Score (1-100), lower number is lower ri sk Not on file 03/18/2020 State Score (1-10), lower number is lower risk N ot on file 03/18/2020 Data from: https://www.neighborhoodatlas.medicine.[facility]/. Last address used for calculation Not on [...] or suspected to have Coronavirus / COVID-19? Unable to assess 09/14/2020 7:43 PM EDT documented as of this encounter [...] Date Author No 09/06/2020 3:13 PM EDT Thomason, M jennifer, RN documented in this encounter Plan of Treatment Upcoming Encounters Date Type Department Care Team (Late st Contact Info) Description 09/26/2024 11:30 AM EDT Office Visit Pain Management [address] [place] [address] Sera Chau PA-C [address] [place] [address] 4-6 week injection follow up 10/02/2024 10:40 AM EDT Appointment Radiology [address] [place] [address] Spinal stenosis of cervical region [M48.02] 10/19/2024 11:30 AM EDT Office Visit Neurology [address] [place] [address] Constanza Casillas PA-C [address] [place] [address] botox 10/31/2024 9:00 AM EDT [facility] Hematology/Oncology [address] [place] [address] Schuyler Blanca MD [address] [place] [address] VIRTUAL 11/21/2024 10:00 AM EDT Office Visit Orthopaedics [address] [place] [address] [place] [address] [place] [address] 3 month f/u documented as of this encounter Visit Diagnoses Not on filedocumented in this encounter Care Teams Radiotelegraphist Relationship Specialty Start Date End Date Nohelia Dyer [address] [place] [address] PCP - General 06/04/05 Wander Cao [address] [place] [address] Physician Hematology/Oncology 03/24/14 Griselda Buckley (Rn), RN [address] [place] [address] Specialty Sales Professional Bilingual 08/26/17 [place] [address] [place] [address] Referring Hematology 12/31/21 Ana M Galvan RN Specialty Sales Professional Bilingual Hematology/Oncology 10/14/23 documented as of this encounter
--- OUTSIDE RECORDS SUMMARY | 2024-09-22 15:59 | XMS_ITS | Encounter Summary ---
Author Organization [facility] Address [facility] [place] [address] Care Team Providers Care Shoe Turner Name Role Phone Nohelia Dyer Primary Care Provider [phone] Wander Cao Unavailable Griselda Buckley (Rn) AMADOR Unavailable UnavailSchuyler Ruelas MD Unavailable [phone] Ana M Galvan RN Unavailable Unavailable Source Comments In the event this information is protected by the Federal Confidentiality of Alcohol and Drug AbusePatient Records regulations: The Federal rules restrict any use of the information to criminally investigate or prosecute any alcohol or drug abuse patient.[facility] Encounter Details Date Type Department Care Team (Late st Contact Info) Description 04/15/2024 Patient Msg Hematology/Oncology [address] [place] [address] Provider, [facility] Appointment Scheduling Social History Tobacco Use Types Packs/Day Years Used Date Smoking Tobacco: Never Smokeless Tobacco: Never Alcohol Use Standard Drinks/Week Comments Not Currently 0 (1 standard drink = 0.6 oz pur e alcohol) maybe once a year PHQ-2 Answer Date Recorded PHQ-2 score 2 04/13/2024 Area Deprivation Index Answer Date Boyd rded National Score (1-100), lower number is lower ri sk 86 11/05/2023 State Score (1-10), lower number is lower risk 8 11/05/2023 Data from: https://www.neighborhoodatlas.medicine.[facility].edu/. Last address used for calculation [address] 11/05/2023 Sex and Gender Information Value Date [...] of Assessment Author No 11/14/2023 5:16 PM EDT Emir Perry RN * Are you blind or do you have serious difficulty seeing, even when wearing glasses? Answer Date of Assessment Author No 11/14/2023 5:16 PM EDT Emir Perry RN * Do you have serious difficulty walking or climbing stairs? Answer Date of Assessment Author No 11/14/2023 5:16 PM EDT Emir Perry RN * Do you have difficulty dressing or bathing? Answer Date of Assessment Author No 11/14/2023 5:16 PM EDT Emir Perry RN * Because of a physical, mental, or emotional condition, do you have difficulty doing errands alone such as visiting a doctor's office or shopping? Answer Date of Assessment Author No 11/14/2023 5:16 PM EDT Emir Perry RN documented as of this encounter Mental Status * Because of a physical, mental, or emotional condition, do you have serious difficulty concentrating, remembering, or making decisions? Answer Entry Date Author No 11/14/2023 5:16 PM EDT Emir Perry RN documented in this encounter Plan of Treatment Upcoming Encounters Date Type Department Care Team (Late st Contact Info) Description 09/26/2024 11:30 AM EDT Office Visit Pain Management [address] [place] [address] Sera Chau PA-C [address] [place] [address] 4-6 week injection follow up 10/02/2024 10:40 AM EDT Appointment Radiology [address] [place] [address] Spinal stenosis of cervical region [M48.02] 10/19/2024 11:30 AM EDT Office Visit Neurology [address] [place] [address] Constanza Casillas PA-C [address] [place] [address] botox 10/31/2024 9:00 AM EDT [facility] Hematology/Oncology [address] [place] [address] Schuyler Blanca MD [address] [place] [address] VIRTUAL 11/21/2024 10:00 AM EDT Office Visit Orthopaedics [address] [place] [address] [place] [address] [place] [address] 3 month f/u documented as of this encounter Visit Diagnoses Not on filedocumented in this encounter Care Teams Shoe Turner Relationship Specialty Start Date End Date Nohelia Dyer [address] [place] [address] PCP - General 06/04/05 Wander Cao [address] [place] [address] Physician Hematology/Oncology 03/24/14 Griselda Buckley (Rn), RN [address] [place] [address] Specialty Factory Manager 08/26/17 [place] [address] [place] [address] Referring Hematology 12/31/21 Ana M Galvan, RN Specialty Factory Manager Hematology/Oncology 10/14/23 documented as of this encounter
--- OUTSIDE RECORDS SUMMARY | 2024-09-22 15:59 | XMS_ITS | Encounter Summary ---
Author Organization [facility] Address [address] [place] [address] Care Team Providers Care Gear Machine Operator General Name Role Phone Nohelia Dyer Primary Care Provider [phone] Wander Cao Unavailable Griselda Buckley (Rn) AMADOR Unavailable UnavailSchuyler Ruelas MD Unavailable [phone] Ana M Galvan RN Unavailable Unavailable Source Comments In the event this information is protected by the Federal Confidentiality of Alcohol and Drug AbusePatient Records regulations: The Federal rules restrict any use of the information to criminally investigate or prosecute any alcohol or drug abuse patient.[facility] Encounter Details Date Type Department Care Team (Late st Contact Info) Description 08/03/2024 Patient Msg Neurology [address] [id number] Provider, [facility] Know Your Triggers, Own Your Day: Taking Control of Migraine Social History Tobacco Use Types Packs/Day Years Used Date Smoking Tobacco: Never Smokeless Tobacco: Never Alcohol Use Standard Drinks/Week Comments Not Currently 0 (1 standard drink = 0.6 oz pur e alcohol) maybe once a year PHQ-2 Answer Date Recorded PHQ-2 score 1 07/13/2024 Area Deprivation Index Answer Date Boyd rded National Score (1-100), lower number is lower ri sk 86 11/05/2023 State Score (1-10), lower number is lower risk 8 11/05/2023 Data from: https://www.neighborhoodatlas.medicine.[facility]/. Last address used for calculation 66 [address] [...] 11:30 AM EDT Office Visit Pain Management [address] [place] [address] Sera Chau PA-C [address] [place] [address] 4-6 week injection follow up 10/02/2024 10:40 AM EDT Appointment Radiology [address] [place] [address] Spinal stenosis of cervical region [M48.02] 10/19/2024 11:30 AM EDT Office Visit Neurology [address] [place] [address] Constanza Casillas PA-C [address] [place] [address] botox 10/31/2024 9:00 AM EDT [facility] Hematology/Oncology [address] [place] [address] Schuyler Blanca MD [address] [place] [address] VIRTUAL 11/21/2024 10:00 AM EDT Office Visit Orthopaedics [address] [place] [address] [place] [address] [place] [address] 3 month f/u documented as of this encounter Visit Diagnoses Not on filedocumented in this encounter Care Teams Gear Machine Operator General Relationship Specialty Start Date End Date Nohelia Dyer [address] [place] [address] PCP - General 06/04/05 Wander Cao [address] [place] [address] Physician Hematology/Oncology 03/24/14 Griselda Buckley (Rn), RN [address] [place] [address] Specialty Building Custodian 08/26/17 [place] [address] [place] [address] Referring Hematology 12/31/21 Ana M Galvan, RN Specialty Building Custodian Hematology/Oncology 10/14/23 documented as of this encounter
--- OUTSIDE RECORDS SUMMARY | 2024-09-22 15:59 | XMS_ITS | Encounter Summary ---
Author Organization [facility] Address [address] [place] [address] Care Team Providers Care Tso Name Role Phone Nohelia Dyer Primary Care Provider [phone] Wander Cao Unavailable Griselda Buckley (Rn) AMADOR Unavailable Unavailabl Schuyler Bautista MD Unavailable [phone] Ana M Galvan RN Unavailable Unavailable Source Comments In the event this information is protected by the Federal Confidentiality of Alcohol and Drug AbusePatient Records regulations: The Federal rules restrict any use of the information to criminally investigate or prosecute any alcohol or drug abuse patient.[facility] Encounter Details Date Type Department Care Team (Late st Contact Info) Description 10/31/2020 Get Medical Advice Colorectal Surgery [address] [phone] Usama Connelly MD [address] [phone] RE: Upcoming Appointment Question Social History Tobacco Use Types Packs/Day [...] N ot on file 03/18/2020 Data from: https://www.neighborhoodatlas.medicine.[facility].edu/. Last address used for calculation Not [...] have Coronavirus / COVID-19? Unable to assess 10/31/2020 3:42 PM EDT documented as of this encounter [...] 11:30 AM EDT Office Visit Pain Management [address] [place] [address] Sera Chau PA-C [address] [place] [address] 4-6 week injection follow up 10/02/2024 10:40 AM EDT Appointment Radiology [address] [place] [address] Spinal stenosis of cervical region [M48.02] 10/19/2024 11:30 AM EDT Office Visit Neurology [address] [place] [address] Constanza Casillas PA-C [address] [place] [address] botox 10/31/2024 9:00 AM EDT [facility] Hematology/Oncology [address] [place] [address] Schuyler Blanca MD [address] [place] [address] VIRTUAL 11/21/2024 10:00 AM EDT Office Visit Orthopaedics [address] [place] [address] [place] [address] [place] [address] 3 month f/u documented as of this encounter Visit Diagnoses Not on filedocumented in this encounter Care Teams Tso Relationship Specialty Start Date End Date Nohelia Dyer [address] [place] [phone] PCP - General 06/04/05 Wander Cao [address] [place] [address] Physician Hematology/Oncology 03/24/14 Griselda Buckley (Rn), RN [address] [place] [address] Specialty Salon Supervisor 08/26/17 [place] [address] [place] [address] Referring Hematology 12/31/21 Ana M Galvan RN Specialty Salon Supervisor Hematology/Oncology 10/14/23 documented as of this encounter
--- OUTSIDE RECORDS SUMMARY | 2024-09-22 15:59 | XMS_ITS | Encounter Summary ---
Author Organization [facility] Address [address] [place] [address] Care Team Providers Care Tool Smith Name Role Phone Nohelia Dyer Primary Care Provider [phone] Wander Cao Unavailable Griselda Buckley (Rn) RN Unavailable Unavailabl e Schuyler Blanca MD Unavailable [phone] Ana M Galvan RN Unavailable Unavailable Source Comments In the event this information is protected by the Federal Confidentiality of Alcohol and Drug AbusePatient Records regulations: The Federal rules restrict any use of the information to criminally investigate or prosecute any alcohol or drug abuse patient.[facility] Encounter Details Date Type Department Care Team (Late st Contact Info) Description 12/18/2020 Get Medical Advice Hematology/Oncology [address] [place] [address] Schuyler Blanca MD [address] [place] [address] RE: Non-Urgent Medical Question Social History [...] N ot on file 03/18/2020 Data from: https://www.neighborhoodatlas.medicine.[facility]/. Last address used for calculation Not [...] 11:30 AM EDT Office Visit Pain Management [address] [place] [address] Sera Chau PA-C [address] [place] [address] 4-6 week injection follow up 10/02/2024 10:40 AM EDT Appointment Radiology [address] [place] [address] Spinal stenosis of cervical region [M48.02] 10/19/2024 11:30 AM EDT Office Visit Neurology [address] [place] [address] Constanza Casillas PA-C [address] [place] [address] botox 10/31/2024 9:00 AM EDT [facility] Hematology/Oncology [address] [place] [address] Schuyler Blanca MD [address] [place] [address] VIRTUAL 11/21/2024 10:00 AM EDT Office Visit Orthopaedics [address] [place] [address] [place] [address] [place] [address] 3 month f/u documented as of this encounter Visit Diagnoses Not on filedocumented in this encounter Care Teams Tool Smith Relationship Specialty Start Date End Date Nohelia Dyer [address] [place] [phone] PCP - General 06/04/05 Wander Cao [address] [place] [address] Physician Hematology/Oncology 03/24/14 Griselda Buckley (Rn), RN [address] [place] [address] Specialty Pediatric Nurse 08/26/17 [place] [address] [phone] Referring Hematology 12/31/21 Ana M Galvan RN Specialty Pediatric Nurse Hematology/Oncology 10/14/23 documented as of this encounter
--- OUTSIDE RECORDS SUMMARY | 2024-09-22 15:59 | XMS_ITS | Encounter Summary ---
Author Organization [facility] Address [address] [place] [address] Care Team Providers Care Business Technology Professor Name Role Phone Nohelia Dyer Primary Care Provider [phone] Wander Cao Unavailable Griselda Buckley (Rn) RN Unavailable Unavailabl e Schuyler Blanca MD Unavailable [phone] Ana M Galvan RN Unavailable Unavailable Source Comments In the event this information is protected by the Federal Confidentiality of Alcohol and Drug AbusePatient Records regulations: The Federal rules restrict any use of the information to criminally investigate or prosecute any alcohol or drug abuse patient.[facility] Encounter Details Date Type Department Care Team (Late st Contact Info) Description 09/25/2020 Patient Msg Hematology/Oncology [address] [place] [address] Schuyler Blanca MD [address] [place] [address] RE: Appointment Cancellation Request Social History Tobacco Use Types Packs/Day Years [...] ot on file 03/18/2020 Data from: https://www.neighborhoodatlas.medicine.[facility]/. Last address used for calculation Not on [...] 11:30 AM EDT Office Visit Pain Management [address] [place] [address] Sera Chau PA-C [address] [place] [address] 4-6 week injection follow up 10/02/2024 10:40 AM EDT Appointment Radiology [address] [place] [address] Spinal stenosis of cervical region [M48.02] 10/19/2024 11:30 AM EDT Office Visit Neurology [address] [place] [address] Constanza Casillas PA-C [address] [place] [address] botox 10/31/2024 9:00 AM EDT [facility] Hematology/Oncology [address] [place] [address] Schuyler Blanca MD [address] [place] [address] VIRTUAL 11/21/2024 10:00 AM EDT Office Visit Orthopaedics [address] [place] [address] [place] [address] [place] [address] 3 month f/u documented as of this encounter Visit Diagnoses Not on filedocumented in this encounter Care Teams Business Technology Professor Relationship Specialty Start Date End Date Nohelia Dyer [address] [place] [phone] PCP - General 06/04/05 Wander Cao [address] [place] [address] Physician Hematology/Oncology 03/24/14 Griselda Buckley (Rn), RN [address] [place] [address] Specialty Manager Ed 08/26/17 [place] [address] [id number] Referring Hematology 12/31/21 Ana M Galvan, RN Specialty Manager Ed Hematology/Oncology 10/14/23 documented as of this encounter
--- OUTSIDE RECORDS SUMMARY | 2024-09-22 15:59 | XMS_ITS | Encounter Summary ---
Author Organization [facility] Address [address] [place] [address] Care Team Providers Care Commissions Manager Name Role Phone Nohelia Dyer Primary Care Provider [phone] Wander Cao Unavailable Griselda Buckley (Rn) AMADOR Unavailable Unavailabl Schuyler Bautista MD Unavailable [phone] Ana M Galvan RN Unavailable Unavailable Source Comments In the event this information is protected by the Federal Confidentiality of Alcohol and Drug AbusePatient Records regulations: The Federal rules restrict any use of the information to criminally investigate or prosecute any alcohol or drug abuse patient.[facility] Encounter Details Date Type Department Care Team (Late st Contact Info) Description 08/15/2024 Get Medical Advice Orthopaedics [address] [place] [address] [place] [address] [place], [place] [phone] Ankle Social History Tobacco Use Types Packs/Day Years [...] is lower risk 8 11/05/2023 Data from: https://www.neighborhoodatlas.medicine.[facility]/. Last address used for calculation [address] [facility] 11/05/2023 Sex and Gender Information Value Date [...] of Assessment Author No 11/14/2023 5:16 PM EDEmir Warren RN * Are you blind or do [...] of Assessment Author No 11/14/2023 5:16 PM EDEmir Warren RN * Because of a physical, mental, [...] Entry Date Author No 11/14/2023 5:16 PM Emir Valentino RN documented in this encounter Plan of Treatment Upcoming Encounters Date Type Department Care Team (Late st Contact Info) Description 09/26/2024 11:30 AM EDT Office Visit Pain Management [address] [place] [address] Sera Chau PA-C [address] [place] [address] 4-6 week injection follow up 10/02/2024 10:40 AM EDT Appointment Radiology [address] [place] [address] Spinal stenosis of cervical region [M48.02] 10/19/2024 11:30 AM EDT Office Visit Neurology [address] [place] [address] Constanza Casillas PA-C [address] [place] [address] botox 10/31/2024 9:00 AM EDT [facility] Hematology/Oncology [address] [place] [address] Schuyler Blanca MD [address] [place] [address] VIRTUAL 11/21/2024 10:00 AM EDT Office Visit Orthopaedics [address] [place] [address] [place] [address] [place] [address] 3 month f/u documented as of this encounter Visit Diagnoses Not on filedocumented in this encounter Care Teams Commissions Manager Relationship Specialty Start Date End Date Nohelia Dyer [address] [place] [address] PCP - General 06/04/05 Wander Cao [address] [place] [address] Physician Hematology/Oncology 03/24/14 Griselda Buckley (Rn), RN [address] [place] [address] Specialty Apprenticeship Consultant 08/26/17 [place] [address] [place] [address] Referring Hematology 12/31/21 Ana M Galvan, RN Specialty Apprenticeship Consultant Hematology/Oncology 10/14/23 documented as of this encounter
--- OUTSIDE RECORDS SUMMARY | 2024-09-22 15:59 | XMS_ITS | Encounter Summary ---
Author Organization [facility] Address [address] [place] [address] Care Team Providers Care Data Modeling Specialist Name Role Phone Nohelia Dyer Primary Care Provider [phone] Wander Cao Unavailable Griselda Buckley (Rn) AMADOR Unavailable Unavailabl Schuyler Bautista MD Unavailable [phone] Ana M Galvan RN Unavailable Unavailable Source Comments In the event this information is protected by the Federal Confidentiality of Alcohol and Drug AbusePatient Records regulations: The Federal rules restrict any use of the information to criminally investigate or prosecute any alcohol or drug abuse patient.[facility] Encounter Details Date Type Department Care Team (Late st Contact Info) Description 09/11/2020 Get Medical Advice Neurology [address] [place], [place] [phone] Constanza Casillas PA-C [address] [place] [address] RE: Upcoming Appointment Question Social History Tobacco [...] N ot on file 03/18/2020 Data from: https://www.neighborhoodatlas.medicine.[facility].edu/. Last address used for calculation Not [...] hearing? Answer Date of Assessment Author No 09/06/2020 3:13 PM EDT Pam Thomason RN * Are you blind or do you have serious difficulty seeing, even when wearing glasses? Answer Date of Assessment Author No 09/06/2020 3:13 PM EDT Pam Thomason RN * Do you have serious difficulty walking or climbing stairs? Answer Date of Assessment Author No 09/06/2020 3:13 PM EDT Pam Thomason RN * Do you have difficulty dressing or bathing? Answer Date of Assessment Author No 09/06/2020 3:13 PM EDT Pam Thomason RN * Because of a physical, mental, or emotional condition, do you have difficulty doing errands alone such as visiting a doctor's office or shopping? Answer Date of Assessment Author No 09/06/2020 3:13 PM EDT Pam Thomason RN documented as of this encounter Mental [...] 11:30 AM EDT Office Visit Pain Management [address] [place] [address] Sera Chau PA-C [address] [place] [address] 4-6 week injection follow up 10/02/2024 10:40 AM EDT Appointment Radiology [address] [place] [address] Spinal stenosis of cervical region [M48.02] 10/19/2024 11:30 AM EDT Office Visit Neurology [address] [place] [address] Constanza Casillas PA-C [address] [place] [address] botox 10/31/2024 9:00 AM EDT [facility] Hematology/Oncology [address] [place] [address] Schuyler Blanca MD [address] [place] [address] VIRTUAL 11/21/2024 10:00 AM EDT Office Visit Orthopaedics [address] [place] [address] [place] [address] [place] [address] 3 month f/u documented as of this encounter Visit Diagnoses Not on filedocumented in this encounter Additional Health Concerns Infection Onset Date Last Indicated Resolved Time COVID-19 Rule-Out 09/15/2020 09/15/2020 09/16/2020 7:08 AM EDT documented as of this encounter Care Teams Data Modeling Specialist Relationship Specialty Start Date End Date Nohelia Dyer [address] [place] [address] PCP - General 06/04/05 Wander Cao [address] [place] [address] Physician Hematology/Oncology 03/24/14 Griselda Buckley (Rn), RN [address] [place] [address] Specialty Progressive Care Manager 08/26/17 [place] [address] [place] [address] Referring Hematology 12/31/21 Ana M Galvan RN Specialty Progressive Care Manager Hematology/Oncology 10/14/23 documented as of this encounter
--- OUTSIDE RECORDS SUMMARY | 2024-09-22 15:59 | XMS_ITS | Encounter Summary ---
Author Organization [facility] Address [address] [place] [address] Care Team Providers Care Trommel Tender Name Role Phone Nohelia Dyer Primary Care Provider [phone] Wander Cao Unavailable Griselda Buckley (Rn) AMADOR Unavailable Unavailabl Schuyler Bautista MD Unavailable [phone] Ana M Galvan RN Unavailable Unavailable Source Comments In the event this information is protected by the Federal Confidentiality of Alcohol and Drug AbusePatient Records regulations: The Federal rules restrict any use of the information to criminally investigate or prosecute any alcohol or drug abuse patient.[facility] Encounter Details Date Type Department Care Team (Late st Contact Info) Description 11/13/2020 Get Medical Advice Colorectal Surgery [address] [phone] Usama Connelly MD [address] [phone] RE: Upcoming Appointment Question Social History Tobacco [...] N ot on file 03/18/2020 Data from: https://www.neighborhoodatlas.medicine.[facility].edu/. Last address used for calculation Not on [...] 11:30 AM EDT Office Visit Pain Management [address] [place] [address] Sera Chau PA-C [address] [place] [address] 4-6 week injection follow up 10/02/2024 10:40 AM EDT Appointment Radiology [address] [place] [address] Spinal stenosis of cervical region [M48.02] 10/19/2024 11:30 AM EDT Office Visit Neurology [address] [place] [address] Constanza Casillas PA-C [address] [place] [address] botox 10/31/2024 9:00 AM EDT [facility] Hematology/Oncology [address] [place] [address] Schuyler Blanca MD [address] [place] [address] VIRTUAL 11/21/2024 10:00 AM EDT Office Visit Orthopaedics [address] [place] [address] [place] [address] [place] [address] 3 month f/u documented as of this encounter Visit Diagnoses Not on filedocumented in this encounter Care Teams Trommel Tender Relationship Specialty Start Date End Date Nohelia Dyer [address] [place] [phone] PCP - General 06/04/05 Wander Cao [address] [place] [address] Physician Hematology/Oncology 03/24/14 Griselda Buckley (Rn), RN [address] [place] [address] Specialty Solid Waste Analyst 08/26/17 [place] [address] [place] [address] Referring Hematology 12/31/21 Ana M Galvan RN Specialty Solid Waste Analyst Hematology/Oncology 10/14/23 documented as of this encounter
--- OUTSIDE RECORDS SUMMARY | 2024-09-22 15:59 | XMS_ITS | Encounter Summary ---
Author Organization [facility] Address [address] [place] [address] Care Team Providers Care Relations Director Name Role Phone Nohelia Dyer Primary Care Provider [phone] Wander Cao Unavailable Griselda Buckley (Rn) AMADOR Unavailable UnavailSchuyler Ruelas MD Unavailable Ana M Galvan RN Unavailable Unavailable Source Comments In the event this information is protected by the Federal Confidentiality of Alcohol and Drug AbusePatient Records regulations: The Federal rules restrict any use of the information to criminally investigate or prosecute any alcohol or drug abuse patient.[facility] Encounter Details Date Type Department Care Team (Late st Contact Info) Description 05/20/2024 Patient Msg Neurology [address] [phone] Provider, Ccf [facility] from [facility] Social History Tobacco Use Types Packs/Day Years [...] lower risk 8 11/05/2023 Data from: https://www.neighborhoodatlas.medicine.[facility]/. Last address used for calculation 66 [address] [...] 11:30 AM EDT Office Visit Pain Management [address] [place] [address] Sera Chau PA-C [address] [place] [address] 4-6 week injection follow up 10/02/2024 10:40 AM EDT Appointment Radiology [address] [place] [address] Spinal stenosis of cervical region [M48.02] 10/19/2024 11:30 AM EDT Office Visit Neurology [address] [place] [address] Constanza Casillas PA-C [address] [place] [address] botox 10/31/2024 9:00 AM EDT [facility] Hematology/Oncology [address] [place] [address] Schuyler Blanca MD [address] [place] [address] VIRTUAL 11/21/2024 10:00 AM EDT Office Visit Orthopaedics [address] [place] [address] [place] [address] [place] [address] 3 month f/u documented as of this encounter Visit Diagnoses Not on filedocumented in this encounter Care Teams Relations Director Relationship Specialty Start Date End Date Nohelia Dyer [address] [place] [address] PCP - General 06/04/05 Wander Cao [address] [place] [address] Physician Hematology/Oncology 03/24/14 Griselda Buckley (Rn), RN [address] [place] [address] Specialty Leather Goods I Assembler 08/26/17 [place] [address] [place] [address] [phone] Referring Hematology 12/31/21 Ana M Galvan, RN Specialty Leather Goods I Assembler Hematology/Oncology 10/14/23 documented as of this encounter
--- OUTSIDE RECORDS SUMMARY | 2024-09-22 15:59 | XMS_ITS | Encounter Summary ---
Author Organization [facility] Address [facility] [place] [address] Care Team Providers Care Correctional Case Records Supervisor Name Role Phone Nohelia Dyer Primary Care Provider [phone] Wander Cao Unavailable Griselda Buckley (Rn) AMADOR Unavailable Unavailabl e Schuyler Blanca MD Unavailable [phone] Ana M Galvan RN Unavailable Unavailable Source Comments In the event this information is protected by the Federal Confidentiality of Alcohol and Drug AbusePatient Records regulations: The Federal rules restrict any use of the information to criminally investigate or prosecute any alcohol or drug abuse patient.[facility] Encounter Details Date Type Department Care Team (Late st Contact Info) Description 03/20/2020 Get Medical Advice Neurology [address] [place] [id number] Elise Cooney MD [address] [place] [address] RE: Non-Urgent Medical Question Social History [...] N ot on file 03/18/2020 Data from: https://www.neighborhoodatlas.medicine.[facility]/. Last address used for calculation Not [...] Author No 09/30/2016 10:22 AM Ivana Wilkes APRN.CUSTOMER ACQUISITION SPECIALIST * Are you blind or do you have serious difficulty seeing, even when wearing glasses? Answer Date of Assessment Author No 09/30/2016 10:22 AM Ivana Wilkes APRN.CUSTOMER ACQUISITION SPECIALIST * Do you have serious difficulty walking or climbing stairs? Answer Date of Assessment Author Yes 09/30/2016 10:22 AM Ivana Wilkes APRN.CUSTOMER ACQUISITION SPECIALIST * Do you have difficulty dressing or bathing? Answer Date of Assessment Author No 09/30/2016 10:22 AM Ivana Wilkes APRN.CUSTOMER ACQUISITION SPECIALIST * Because of a physical, mental, or emotional condition, do you have difficulty doing errands alone such as visiting a doctor's office or shopping? Answer Date of Assessment Author Yes 09/30/2016 10:22 AM Ivana Wilkes APRN.CUSTOMER ACQUISITION SPECIALIST documented as of this encounter Mental Status * Because of a physical, mental, or emotional condition, do you have serious difficulty concentrating, remembering, or making decisions? Answer Entry Date Author No 09/30/2016 10:22 AM EDT Ivana Samson APRN.CNP documented in this encounter Plan of Treatment Upcoming Encounters Date Type Department Care Team (Late st Contact Info) Description 09/26/2024 11:30 AM EDT Office Visit Pain Management [address] [place] [address] Sera Chau PA-C [address] [place] [address] 4-6 week injection follow up 10/02/2024 10:40 AM EDT Appointment Radiology [address] [place] [address] Spinal stenosis of cervical region [M48.02] 10/19/2024 11:30 AM EDT Office Visit Neurology [address] [place] [address] Constanza Casillas PA-C [address] [place] [address] botox 10/31/2024 9:00 AM EDT [facility] Hematology/Oncology [address] [place] [address] Schuyler Blanca MD [address] [place] [address] VIRTUAL 11/21/2024 10:00 AM EDT Office Visit Orthopaedics [address] [place] [address] [place] [address] [place] [address] 3 month f/u documented as of this encounter Visit Diagnoses Not on filedocumented in this encounter Additional Health Concerns Infection Onset Date Last Indicated Resolved Time COVID-19 Rule-Out 09/03/2020 09/03/2020 09/03/2020 12:19 AM EDT COVID-19 Rule-Out 09/15/2020 09/15/2020 09/16/2020 7:08 AM EDT documented as of this encounter Care Teams Correctional Case Records Supervisor Relationship Specialty Start Date End Date GomezNohelia mcqueen Mary Carmen [address] [place] [address] PCP - General 06/04/05 Wander Cao [address] [place] [address] Physician Hematology/Oncology 03/24/14 Griselda Buckley (Rn), RN [address] [place] [address] Specialty Public Relations Representative 08/26/17 [place] [address] [place] [address] Referring Hematology 12/31/21 Ana M Galvan, RN Specialty Public Relations Representative Hematology/Oncology 10/14/23 documented as of this encounter
--- OUTSIDE RECORDS SUMMARY | 2024-09-22 15:59 | XMS_ITS | Encounter Summary ---
Author Organization [facility] Address [address] [place] [address] Care Team Providers Care School Child Care Attendant Name Role Phone Nohelia Dyer Primary Care Provider [phone] Wander Cao Unavailable Griselda Buckley (Rn) AMADOR Unavailable Unavailabl Schuyler Bautista MD Unavailable [phone] Ana M Galvan RN Unavailable Unavailable Source Comments In the event this information is protected by the Federal Confidentiality of Alcohol and Drug AbusePatient Records regulations: The Federal rules restrict any use of the information to criminally investigate or prosecute any alcohol or drug abuse patient.[facility] Encounter Details Date Type Department Care Team (Late st Contact Info) Description 02/14/2021 Get Medical Advice Colorectal Surgery [address] [place] [phone] Usama Connelly MD [address] [place] [phone] RE: Visit Follow Up Question Social History Tobacco Use Types Packs/Day [...] N ot on file 03/18/2020 Data from: https://www.neighborhoodatlas.medicine.[facility]/. Last address used for calculation Not [...] 11:30 AM EDT Office Visit Pain Management [address] [place] [address] Sera Chau PA-C [address] [place] [address] 4-6 week injection follow up 10/02/2024 10:40 AM EDT Appointment Radiology [address] [place] [address] Spinal stenosis of cervical region [M48.02] 10/19/2024 11:30 AM EDT Office Visit Neurology [address] [place] [address] Constanza Casillas PA-C [address] [place] [address] botox 10/31/2024 9:[address] [facility] Hematology/Oncology [address] [place] [address] Schuyler Blanca MD [address] [place] [address] VIRTUAL 11/21/2024 10:00 AM EDT Office Visit Orthopaedics [address] [place] [address] [place] [address] [place] [address] 3 month f/u documented as of this encounter Visit Diagnoses Not on filedocumented in this encounter Care Teams School Child Care Attendant Relationship Specialty Start Date End Date Nohelia Dyer [address] [place] [phone] PCP - General 06/04/05 Wander Cao [address] [place] [address] Physician Hematology/Oncology 03/24/14 Griselda Buckley (Rn), RN [address] [place] [address] Specialty Insurance Customer Service Specialist 08/26/17 [place] [address] [place] [id number] Referring Hematology 12/31/21 Ana M Galvan RN Specialty Insurance Customer Service Specialist Hematology/Oncology 10/14/23 documented as of this encounter
--- OUTSIDE RECORDS SUMMARY | 2024-09-22 15:59 | XMS_ITS | Encounter Summary ---
Author Organization [facility] Address [facility] [place] [address] Care Team Providers Care Body Sander Name Role Phone Nohelia Dyer Primary Care Provider [phone] Wander Cao Unavailable Griselda Buckley (Rn) AMADOR Unavailable UnavailSchuyler Ruelas MD Unavailable [phone] Ana M Galvan RN Unavailable Unavailable Source Comments In the event this information is protected by the Federal Confidentiality of Alcohol and Drug AbusePatient Records regulations: The Federal rules restrict any use of the information to criminally investigate or prosecute any alcohol or drug abuse patient.[facility] Encounter Details Date Type Department Care Team (Late st Contact Info) Description 11/29/2020 Patient Msg Colorectal Surgery [address] [place] [phone] Provider, [facility]cf MRI liver Social History Tobacco Use Types Packs/Day Years [...] N ot on file 03/18/2020 Data from: https://www.neighborhoodatlas.medicine.[facility]/. Last address used for calculation [...] have Coronavirus / COVID-19? Unable to assess 11/29/2020 5:47 PM EDT documented as of this encounter [...] 11:30 AM EDT Office Visit Pain Management [address] [place] [address] Sera Chau PA-C [address] [place] [address] 4-6 week injection follow up 10/02/2024 10:40 AM EDT Appointment Radiology [address] [place] [address] Spinal stenosis of cervical region [M48.02] 10/19/2024 11:30 AM EDT Office Visit Neurology [address] [place] [address] Constanza Casillas PA-C [address] [place] [address] botox 10/31/2024 9:00 AM EDT [facility] Hematology/Oncology [address] [place] [address] Schuyler Blanca MD [address] [place] [address] VIRTUAL 11/21/2024 10:00 AM EDT Office Visit Orthopaedics [address] [place] [address] [place] [address] [place] [address] 3 month f/u documented as of this encounter Visit Diagnoses Not on filedocumented in this encounter Care Teams Body Sander Relationship Specialty Start Date End Date Nohelia Dyer [address] [place] [address] PCP - General 06/04/05 Wander Cao [address] [place] [address] Physician Hematology/Oncology 03/24/14 Griselda Buckley (Rn), RN [address] [place] [address] Specialty Educational Technology Coordinator 08/26/17 [place] [address] [place] [address] Referring Hematology 12/31/21 Ana M Galvan RN Specialty Educational Technology Coordinator Hematology/Oncology 10/14/23 documented as of this encounter
--- OUTSIDE RECORDS SUMMARY | 2024-09-22 15:59 | XMS_ITS | Encounter Summary ---
Author Organization [facility] Address [address] [place] [address] Care Team Providers Care Audio Visual Production Specialist Name Role Phone Nohelia Dyer Primary Care Provider Wander Cao Unavailable Griselda Buckley (Rn) AMADOR Unavailable UnavailSchuyler Ruelas MD Unavailable [phone] Ana M Galvan RN Unavailable Unavailable Source Comments In the event this information is protected by the Federal Confidentiality of Alcohol and Drug AbusePatient Records regulations: The Federal rules restrict any use of the information to criminally investigate or prosecute any alcohol or drug abuse patient.[facility] Encounter Details Date Type Department Care Team (Late st Contact Info) Description 03/30/2024 Patient Msg Neurology [address] [place] [address] Provider, [facility] Botox for 2024 Social History Tobacco Use Types Packs/Day Years Used Date Smoking Tobacco: Never Smokeless Tobacco: Never Alcohol Use Standard Drinks/Week Comments Not Currently 0 (1 standard drink = 0.6 oz pur e alcohol) maybe once a year PHQ-2 Answer Date Recorded PHQ-2 score 0 03/02/2024 Area Deprivation Index Answer Date Boyd rded National Score (1-100), lower number is lower ri sk 86 11/05/2023 State Score (1-10), lower number is lower risk 8 11/05/2023 Data from: https://www.neighborhoodatlas.medicine.[facility]/. Last address used for calculation [address] [...] 11:30 AM EDT Office Visit Pain Management [address] [place] [address] Sera Chau PA-C [address] [place] [address] 4-6 week injection follow up 10/02/2024 10:40 AM EDT Appointment Radiology [address] [place] [address] Spinal stenosis of cervical region [M48.02] 10/19/2024 11:30 AM EDT Office Visit Neurology [address] [place] [address] Constanza Casillas PA-C [address] [place] [address] botox 10/31/2024 9:00 AM EDT [facility] Hematology/Oncology [address] [place] [address] Schuyler Blanca MD [address] [place] [address] VIRTUAL 11/21/2024 10:00 AM EDT Office Visit Orthopaedics [address] [place] [address] [place] [address] [place] [address] 3 month f/u documented as of this encounter Visit Diagnoses Not on filedocumented in this encounter Care Teams Audio Visual Production Specialist Relationship Specialty Start Date End Date Nohelia Dyer [address] [place] [address] PCP - General 06/04/05 Wander Cao [address] [place] [address] Physician Hematology/Oncology 03/24/14 Griselda Buckley (Rn), RN [address] [place] [address] Specialty Surgical Coordinator 08/26/17 [place] [address] [place] [address] Referring Hematology 12/31/21 Ana M Galvan, RN Specialty Surgical Coordinator Hematology/Oncology 10/14/23 documented as of this encounter
--- OUTSIDE RECORDS SUMMARY | 2024-09-22 15:59 | XMS_ITS | Encounter Summary ---
Author Organization [facility] Address [address] [place] [address] Care Team Providers Care Driver Guide Name Role Phone Nohelia Dyer Primary Care Provider [phone] Wander Cao Unavailable Griselda Buckley (Rn) RN Unavailable Unavailabl e Schuyler Blanca MD Unavailable [phone] Ana M Galvan RN Unavailable Unavailable Source Comments In the event this information is protected by the Federal Confidentiality of Alcohol and Drug AbusePatient Records regulations: The Federal rules restrict any use of the information to criminally investigate or prosecute any alcohol or drug abuse patient.[facility] Encounter Details Date Type Department Care Team (Late st Contact Info) Description 04/11/2024 Patient Msg Hematology/Oncology [address] [place] [address] Schuyler Blanca MD [address] [place] [address] Appointment Cancellation Request Social History Tobacco Use [...] is lower risk 8 11/05/2023 Data from: https://www.neighborhoodatlas.medicine.[facility]/. Last address used for calculation [address] [facility] 11/05/2023 Sex and Gender Information Value Date [...] 11:30 AM EDT Office Visit Pain Management [address] [place] [address] Sera Chau PA-C [address] [place] [address] 4-6 week injection follow up 10/02/2024 10:40 AM EDT Appointment Radiology [address] [place] [address] Spinal stenosis of cervical region [M48.02] 10/19/2024 11:30 AM EDT Office Visit Neurology [address] [place] [address] Constanza Casillas PA-C [address] [place] [address] botox 10/31/2024 9:00 AM EDT [facility] Hematology/Oncology [address] [place] [address] Schuyler Blanca MD [address] [place] [address] VIRTUAL 11/21/2024 10:00 AM EDT Office Visit Orthopaedics [address] [place] [address] [place] [address] [place] [address] 3 month f/u documented as of this encounter Visit Diagnoses Not on filedocumented in this encounter Care Teams Driver Guide Relationship Specialty Start Date End Date Nohelia Dyer [address] [place] [address] PCP - General 06/04/05 Wander Cao [address] [place] [address] Physician Hematology/Oncology 03/24/14 Griselda Buckley (Rn), RN [address] [place] [address] Specialty Vp Director Of Creative Strategy 08/26/17 [place] [address] [place] [address] Referring Hematology 12/31/21 Ana M Galvan RN Specialty Vp Director Of Creative Strategy Hematology/Oncology 10/14/23 documented as of this encounter
--- OUTSIDE RECORDS SUMMARY | 2024-09-22 15:59 | XMS_ITS | Encounter Summary ---
Author Organization [facility] Address [address] [place] [address] Care Team Providers Care Net Mobile Developer Name Role Phone Nohelia Dyer Primary Care Provider [phone] Wander Cao Unavailable Griselda Buckley (Rn) AMADOR Unavailable Unavailabl e Schuyler Blanca MD Unavailable Ana M Galvan RN Unavailable Unavailable Source Comments In the event this information is protected by the Federal Confidentiality of Alcohol and Drug AbusePatient Records regulations: The Federal rules restrict any use of the information to criminally investigate or prosecute any alcohol or drug abuse patient.[facility] Encounter Details Date Type Department Care Team (Late st Contact Info) Description 01/20/2021 Patient Msg Colorectal Surgery [address] [place] [phone] Irina Miller APRN.[facility] [address] [place] [address] Virtual postop Social History Tobacco Use Types Packs/Day Years [...] N ot on file 03/18/2020 Data from: https://www.neighborhoodatlas.medicine.[facility]/. Last address used for calculation [...] have Coronavirus / COVID-19? No / Unsure 01/07/2021 11:21 AM EDT documented as of this encounter [...] 11:30 AM EDT Office Visit Pain Management [address] [place] [address] Sera Chau PA-C [address] [place] [address] 4-6 week injection follow up 10/02/2024 10:40 AM EDT Appointment Radiology [address] [place] [address] Spinal stenosis of cervical region [M48.02] 10/19/2024 11:30 AM EDT Office Visit Neurology [address] [place] [address] Constanza Casillas PA-C [address] [place] [address] botox 10/31/2024 9:00 AM EDT [facility] Hematology/Oncology [address] [place] [address] Schuyler Blanca MD [address] [place] [address] VIRTUAL 11/21/2024 10:00 AM EDT Office Visit Orthopaedics [address] [place] [address] [place] [address] [place] [address] 3 month f/u documented as of this encounter Visit Diagnoses Not on filedocumented in this encounter Care Teams Net Mobile Developer Relationship Specialty Start Date End Date Nohelia Dyer [address] [place] [phone] PCP - General 06/04/05 Wander Cao [address] [place] [address] Physician Hematology/Oncology 03/24/14 Griselda Buckley (Rn), RN [address] [place] [address] Specialty Supervisor Feed Mill 08/26/17 [place] [address] [place] [address] Referring Hematology 12/31/21 Ana M Galvan RN Specialty Supervisor Feed Mill Hematology/Oncology 10/14/23 documented as of this encounter
--- OUTSIDE RECORDS SUMMARY | 2024-09-22 15:59 | XMS_ITS | Encounter Summary ---
Author Organization [facility] Address [address] [place] [address] Care Team Providers Care Research Lab Assistant Name Role Phone Nohelia Dyer Primary Care Provider [phone] Wander Cao Unavailable Griselda Buckley (Rn) AMADOR Unavailable Unavailabl Schuyler Bautista MD Unavailable [phone] Ana M Galvan RN Unavailable Unavailable Source Comments In the event this information is protected by the Federal Confidentiality of Alcohol and Drug AbusePatient Records regulations: The Federal rules restrict any use of the information to criminally investigate or prosecute any alcohol or drug abuse patient.[facility] Encounter Details Date Type Department Care Team (Late st Contact Info) Description 08/25/2020 Get Medical Advice [facility] [address] [place] [address] [place] [address] [facility] [address] [place] [address] RE: Non-Urgent Medical Question Social History Tobacco [...] N ot on file 03/18/2020 Data from: https://www.neighborhoodatlas.medicine.[facility]/. Last address used for calculation Not on [...] Author No 09/30/2016 10:22 AM Ivana Wilkes APRN.EMERGENCY PREPAREDNESS MANAGER * Are you blind or do you have serious difficulty seeing, even when wearing glasses? Answer Date of Assessment Author No 09/30/2016 10:22 AM Ivana Wilkes APRN.EMERGENCY PREPAREDNESS MANAGER * Do you have serious difficulty walking or climbing stairs? Answer Date of Assessment Author Yes 09/30/2016 10:22 AM Ivana Wilkes APRN.EMERGENCY PREPAREDNESS MANAGER * Do you have difficulty dressing or bathing? Answer Date of Assessment Author No 09/30/2016 10:22 AM Ivana Wilkes APRN.EMERGENCY PREPAREDNESS MANAGER * Because of a physical, mental, or emotional condition, do you have difficulty doing errands alone such as visiting a doctor's office or shopping? Answer Date of Assessment Author Yes 09/30/2016 10:22 AM Ivana Wilkes APRN.EMERGENCY PREPAREDNESS MANAGER documented as of this encounter Mental Status * Because of a physical, mental, or emotional condition, do you have serious difficulty concentrating, remembering, or making decisions? Answer Entry Date Author No 09/30/2016 10:22 AM Ivana Wilkes APRN.EMERGENCY PREPAREDNESS MANAGER documented in this encounter Plan of Treatment Upcoming Encounters Date Type Department Care Team (Late st Contact Info) Description 09/26/2024 11:30 AM EDT Office Visit Pain Management [address] [place] [address] Sera Chau PA-C [address] [place] [address] 4-6 week injection follow up 10/02/2024 10:40 AM EDT Appointment Radiology [address] [place] [address] Spinal stenosis of cervical region [M48.02] 10/19/2024 11:30 AM EDT Office Visit Neurology [address] [place] [address] Constanza Casillas PA-C [address] [place] [address] botox 10/31/2024 9:00 AM EDT [facility] Hematology/Oncology [address] [place] [address] Schuyler Blanca MD [address] [place] [address] VIRTUAL 11/21/2024 10:00 AM EDT Office Visit Orthopaedics [address] [place] [address] [place] [address] [place] [address] 3 month f/u documented as of this encounter Visit Diagnoses Not on filedocumented in this encounter Additional Health Concerns Infection Onset Date Last Indicated Resolved Time COVID-19 Rule-Out 09/03/2020 09/03/2020 09/03/2020 12:19 AM EDT COVID-19 Rule-Out 09/15/2020 09/15/2020 09/16/2020 7:08 AM EDT documented as of this encounter Care Teams Research Lab Assistant Relationship Specialty Start Date End Date Nohelia Dyer [address] [place] [address] PCP - General 06/04/05 Wander Cao [address] [place] [address] Physician Hematology/Oncology 03/24/14 Griselda Buckley (Rn), RN [address] [place] [address] Specialty Neckties Painter 08/26/17 [place] [address] [place] [address] Referring Hematology 12/31/21 Ana M Galvan RN Specialty Neckties Painter Hematology/Oncology 10/14/23 documented as of this encounter
--- OUTSIDE RECORDS SUMMARY | 2024-09-22 15:59 | XMS_ITS | Encounter Summary ---
Author Organization [facility] Address [address] [place] [address] Care Team Providers Care Technician'S Helper Name Role Phone Nohelia Dyer Primary Care Provider [phone] Wander Cao Unavailable Griselda Buckley (Rn) AMADOR Unavailable Unavailabl e Schuyler Blanca MD Unavailable [phone] Ana M Galvan RN Unavailable Unavailable Source Comments In the event this information is protected by the Federal Confidentiality of Alcohol and Drug AbusePatient Records regulations: The Federal rules restrict any use of the information to criminally investigate or prosecute any alcohol or drug abuse patient.[facility] Encounter Details Date Type Department Care Team (Late st Contact Info) Description 11/22/2020 Get Medical Advice Colorectal Surgery [address] [place] [phone] Usama Connelly MD [address] [place] [phone] RE: Test Result Question Social History Tobacco Use Types Packs/Day [...] N ot on file 03/18/2020 Data from: https://www.neighborhoodatlas.medicine.[facility].edu/. Last address used for calculation Not on [...] 11:30 AM EDT Office Visit Pain Management [address] [place] [address] Sera Chau PA-C [address] [place] [address] 4-6 week injection follow up 10/02/2024 10:40 AM EDT Appointment Radiology [address] [place] [address] Spinal stenosis of cervical region [M48.02] 10/19/2024 11:30 AM EDT Office Visit Neurology [address] [place] [address] Constanza Casillas PA-C [address] [place] [address] botox 10/31/2024 9:00 AM EDT [facility] Hematology/Oncology [address] [place] [address] Schuyler Blanca MD [address] [place] [address] VIRTUAL 11/21/2024 10:00 AM EDT Office Visit Orthopaedics [address] [place] [address] [place] [address] [place] [address] 3 month f/u documented as of this encounter Visit Diagnoses Not on filedocumented in this encounter Care Teams Technician'S Helper Relationship Specialty Start Date End Date Nohelia Dyer [address] [place] [phone] PCP - General 06/04/05 Wander Cao [address] [place] [address] Physician Hematology/Oncology 03/24/14 Griselda Buckley (Rn), RN [address] [place] [address] Specialty Bistro Attendant 08/26/17 [place] [address] [place] [address] Referring Hematology 12/31/21 Ana M Galvan RN Specialty Bistro Attendant Hematology/Oncology 10/14/23 documented as of this encounter
--- OUTSIDE RECORDS SUMMARY | 2024-09-22 15:59 | XMS_ITS | Encounter Summary ---
Author Organization [facility] Address [address] [place] [address] Care Team Providers Care Legal Records Manager Name Role Phone Nohelia Dyer Primary Care Provider [phone] Wander Cao Unavailable Griselda Buckley (Rn) AMADOR Unavailable UnavailSchuyler Rueals MD Unavailable [phone] Ana M Galvan RN Unavailable Unavailable Source Comments In the event this information is protected by the Federal Confidentiality of Alcohol and Drug AbusePatient Records regulations: The Federal rules restrict any use of the information to criminally investigate or prosecute any alcohol or drug abuse patient.[facility] Encounter Details Date Type Department Care Team (Late st Contact Info) Description 09/13/2024 Patient Msg Internal Medicine [place] [address] [place] [id number] Provider, Ccf Appointment Social History Tobacco Use Types Packs/Day Years [...] is lower risk 8 11/05/2023 Data from: https://www.neighborhoodatlas.medicine.[facility]/. Last address used for calculation 66 [...] 11:30 AM EDT Office Visit Pain Management [address] [place] [address] Sera Chau PA-C [address] [place] [address] 4-6 week injection follow up 10/02/2024 10:40 AM EDT Appointment Radiology [address] [place] [address] Spinal stenosis of cervical region [M48.02] 10/19/2024 11:30 AM EDT Office Visit Neurology [address] [place] [address] Constanza Casillas PA-C [address] [place] [address] botox 10/31/2024 9:00 AM EDT [facility] Hematology/Oncology [address] [place] [address] Schuyler Blanca MD [address] [place] [address] VIRTUAL 11/21/2024 10:00 AM EDT Office Visit Orthopaedics [address] [place] [address] [place] [address] [place] [address] 3 month f/u documented as of this encounter Visit Diagnoses Not on filedocumented in this encounter Care Teams Legal Records Manager Relationship Specialty Start Date End Date Nohelia Dyer [address] [place] [address] PCP - General 06/04/05 Wander Cao [address] [place] [address] Physician Hematology/Oncology 03/24/14 Griselda Buckley (Rn), RN [address] [place] [address] Specialty Security Operations Specialist 08/26/17 [place] [address] [place] [address] Referring Hematology 12/31/21 Ana M Galvan, RN Specialty Security Operations Specialist Hematology/Oncology 10/14/23 documented as of this encounter
--- OUTSIDE RECORDS SUMMARY | 2024-09-22 15:59 | XMS_ITS | Encounter Summary ---
Author Organization [facility] Address [address] [place] [address] Care Team Providers Care Administration Intern Name Role Phone Nohelia Dyer Primary Care Provider [phone] Wander Cao Unavailable Griselda Buckley (Rn) AMADOR Unavailable Unavailabl Schuyler Bautista MD Unavailable [phone] Ana M Galvan RN Unavailable Unavailable Source Comments In the event this information is protected by the Federal Confidentiality of Alcohol and Drug AbusePatient Records regulations: The Federal rules restrict any use of the information to criminally investigate or prosecute any alcohol or drug abuse patient.[facility] Encounter Details Date Type Department Care Team (Late st Contact Info) Description 02/07/2021 Patient Msg Colorectal Surgery [address] [place] [id number] Irina Miller APRN.[facility] [address] [place] [address] RE:Appointment tomorrow Social History Tobacco Use Types Packs/Day Years [...] N ot on file 03/18/2020 Data from: https://www.neighborhoodatlas.medicine.[facility]/. Last address used [...] have Coronavirus / COVID-19? No / Unsure 02/08/2021 12:42 PM EDT documented as of this encounter [...] 11:30 AM EDT Office Visit Pain Management [address] [place] [address] Sera Chau PA-C [address] [place] [address] 4-6 week injection follow up 10/02/2024 10:40 AM EDT Appointment Radiology [address] [place] [address] Spinal stenosis of cervical region [M48.02] 10/19/2024 11:30 AM EDT Office Visit Neurology [address] [place] [address] Constanza Casillas PA-C [address] [place] [address] botox 10/31/2024 9:00 AM EDT [facility] Hematology/Oncology [address] [place] [address] Schuyler Blanca MD [address] [place] [address] VIRTUAL 11/21/2024 10:00 AM EDT Office Visit Orthopaedics [address] [place] [address] [place] [address] [place] [address] 3 month f/u documented as of this encounter Visit Diagnoses Not on filedocumented in this encounter Care Teams Administration Intern Relationship Specialty Start Date End Date Nohelia Dyer [address] [place] [id number] PCP - General 06/04/05 Wander Cao [address] [place] [address] Physician Hematology/Oncology 03/24/14 Griselda Buckley (Rn), RN [address] [place] [address] Specialty Control Systems Technician 08/26/17 [place] [address] [place] [id number] Referring Hematology 12/31/21 Ana M Galvan RN Specialty Control Systems Technician Hematology/Oncology 10/14/23 documented as of this encounter
--- OUTSIDE RECORDS SUMMARY | 2024-09-22 15:59 | XMS_ITS | Encounter Summary ---
Author Organization [facility] Address [address] [place] [address] Care Team Providers Care Tank Operator Name Role Phone Nohelia Dyer Primary Care Provider [phone] Wander Cao Unavailable Griselda Buckley (Rn) AMADOR Unavailable Unavailabl Schuyler Bautista MD Unavailable Ana M Galvan RN Unavailable Unavailable Source Comments In the event this information is protected by the Federal Confidentiality of Alcohol and Drug AbusePatient Records regulations: The Federal rules restrict any use of the information to criminally investigate or prosecute any alcohol or drug abuse patient.[facility] Encounter Details Date Type Department Care Team (Late st Contact Info) Description 08/26/2024 Patient Msg Orthopaedics [address] [place] [address] [place] [address] [place], [place] [phone] Appointment Request Social History Tobacco Use Types Packs/Day [...] is lower risk 8 11/05/2023 Data from: https://www.neighborhoodatlas.medicine.[facility]/. Last address used for calculation [address] [...] Upcoming Encounters Date Type Department Care Team ([facility] st Contact Info) Description 09/26/2024 11:30 AM EDT Office Visit Pain Management [address] [place] [address] Sera Chau PA-C [address] [place] [address] 4-6 week injection follow up 10/02/2024 10:40 AM EDT Appointment Radiology [address] [place] [address] Spinal stenosis of cervical region [M48.02] 10/19/2024 11:30 AM EDT Office Visit Neurology [address] [place] [address] Constanza Casillas PA-C [address] [place] [address] botox 10/31/2024 9:00 AM EDT [facility] Hematology/Oncology [address] [place] [address] Schuyler Blanca MD [address] [place] [address] VIRTUAL 11/21/2024 10:00 AM EDT Office Visit Orthopaedics [address] [place] [address] [place] [address] [place] [address] 3 month f/u documented as of this encounter Visit Diagnoses Not on filedocumented in this encounter Care Teams Tank Operator Relationship Specialty Start Date End Date Nohelia Dyer [address] [place] [address] PCP - General 06/04/05 Wander Cao [address] [place] [address] Physician Hematology/Oncology 03/24/14 Griselda Buckley (Rn), RN [address] [place] [address] Specialty Tea Blender 08/26/17 [place] [address] [place] [address] Referring Hematology 12/31/21 Ana M Galvan RN Specialty Tea Blender Hematology/Oncology 10/14/23 documented as of this encounter
--- OUTSIDE RECORDS SUMMARY | 2024-09-22 15:59 | XMS_ITS | Encounter Summary ---
Author Organization [facility] Address [facility] [place] [address] Care Team Providers Care Video Systems Engineer Name Role Phone Nohelia Dyer Primary Care Provider [phone] Wander Cao Unavailable Griselda Buckley (Rn) AMADOR Unavailable UnavailSchuyler Ruelas MD Unavailable [phone] Ana M Galvan RN Unavailable Unavailable Source Comments In the event this information is protected by the Federal Confidentiality of Alcohol and Drug AbusePatient Records regulations: The Federal rules restrict any use of the information to criminally investigate or prosecute any alcohol or drug abuse patient.[facility] Encounter Details Date Type Department Care Team (Late st Contact Info) Description 11/23/2020 Patient Msg Colorectal Surgery [address] [phone] Provider, Ccf RE: Questionnaire Submission Social History Tobacco Use Types Packs/Day Years [...] on file 03/18/2020 Data from: https://www.neighborhoodatlas.medicine.[facility].edu/. Last address used for calculation Not on [...] 11:30 AM EDT Office Visit Pain Management [address] [place] [address] Sera Chau PA-C [address] [place] [address] 4-6 week injection follow up 10/02/2024 10:40 AM EDT Appointment Radiology [address] [place] [address] Spinal stenosis of cervical region [M48.02] 10/19/2024 11:30 AM EDT Office Visit Neurology [address] [place] [address] Constanza Casillas PA-C [address] [place] [address] botox 10/31/2024 9:00 AM EDT [facility] Hematology/Oncology [address] [place] [address] Schuyler Blanca MD [address] [place] [address] VIRTUAL 11/21/2024 10:00 AM EDT Office Visit Orthopaedics [address] [place] [address] [place] [address] [place] [address] 3 month f/u documented as of this encounter Visit Diagnoses Not on filedocumented in this encounter Care Teams Video Systems Engineer Relationship Specialty Start Date End Date Nohelia Dyer [address] [place] [address] PCP - General 06/04/05 Wander Cao [address] [place] [address] Physician Hematology/Oncology 03/24/14 Griselda Buckley (Rn), RN [address] [place] [address] Specialty Construction Electrician 08/26/17 [place] [address] [place] [address] Referring Hematology 12/31/21 Ana M Galvan RN Specialty Construction Electrician Hematology/Oncology 10/14/23 documented as of this encounter
--- OUTSIDE RECORDS SUMMARY | 2024-09-22 15:59 | XMS_ITS | Encounter Summary ---
Author Organization [facility] Address [address] [place] [address] Care Team Providers Care Field Radio Technician Name Role Phone Nohelia Dyer Primary Care Provider [phone] Wander Cao Unavailable Griselda Buckley (Rn) AMADOR Unavailable UnavailSchuyler Ruelas MD Unavailable [phone] Ana M Galvan RN Unavailable Unavailable Source Comments In the event this information is protected by the Federal Confidentiality of Alcohol and Drug AbusePatient Records regulations: The Federal rules restrict any use of the information to criminally investigate or prosecute any alcohol or drug abuse patient.[facility] Encounter Details Date Type Department Care Team (Late st Contact Info) Description 09/08/2024 Patient [facility] [address] [place] [address] Janee Hernandez RPh At your next appointment, choose [facility]. Social History Tobacco Use Types Packs/Day [...] is lower risk 8 11/05/2023 Data from: https://www.neighborhoodatlas.medicine.[facility]/. Last address used for calculation [...] 11:30 AM EDT Office Visit Pain Management [address] [place] [address] Sera Chau PA-C [address] [place] [address] 4-6 week injection follow up 10/02/2024 10:40 AM EDT Appointment Radiology [address] [place] [address] Spinal stenosis of cervical region [M48.02] 10/19/2024 11:30 AM EDT Office Visit Neurology [address] [place] [address] Constanza Casillas PA-C [address] [place] [address] botox 10/31/2024 9:00 AM EDT [facility] Hematology/Oncology [address] [place] [address] Schuyler Blanca MD [address] [place] [address] VIRTUAL 11/21/2024 10:00 AM EDT Office Visit Orthopaedics [address] [place] [address] [place] [address] [place] [address] 3 month f/u documented as of this encounter Visit Diagnoses Not on filedocumented in this encounter Care Teams Field Radio Technician Relationship Specialty Start Date End Date Nohelia Dyer [address] [place] [address] PCP - General 06/04/05 Wander Cao [address] [place] [address] Physician Hematology/Oncology 03/24/14 Griselda Buckley (Rn), RN [address] [place] [address] Specialty Project Manager 08/26/17 [place] [address] [place] [address] Referring Hematology 12/31/21 Ana M Galvan, RN Specialty Project Manager Hematology/Oncology 10/14/23 documented as of this encounter
--- OUTSIDE RECORDS SUMMARY | 2024-09-22 15:59 | XMS_ITS | Encounter Summary ---
Author Organization [facility] Address [facility] [place] [address] Care Team Providers Care Executive Secretary Name Role Phone Nohelia Dyer Primary Care Provider [phone] Wander Cao Unavailable Griselda Buckley (Rn) AMADOR Unavailable Unavailabl Schuyler Bautista MD Unavailable [phone] Ana M Galvan RN Unavailable Unavailable Source Comments In the event this information is protected by the Federal Confidentiality of Alcohol and Drug AbusePatient Records regulations: The Federal rules restrict any use of the information to criminally investigate or prosecute any alcohol or drug abuse patient.[facility] Encounter Details Date Type Department Care Team (Late st Contact Info) Description 09/12/2020 Get Medical Advice [facility] [address] [place] [address] [place] [address] [facility] [address] [place] [address] RE: Non-Urgent Medical Question Social History Tobacco [...] N ot on file 03/18/2020 Data from: https://www.neighborhoodatlas.medicine.[facility]/. Last address used for calculation [...] Author No 09/06/2020 3:13 PM EDT Pam Thoamson RN * Are you blind or do [...] 11:30 AM EDT Office Visit Pain Management [address] [place] [address] Sera Chau PA-C [address] [place] [address] 4-6 week injection follow up 10/02/2024 10:40 AM EDT Appointment Radiology [address] [place] [address] Spinal stenosis of cervical region [M48.02] 10/19/2024 11:30 AM EDT Office Visit Neurology [address] [place] [address] Constanza Casillas PA-C [address] [place] [address] botox 10/31/2024 9:00 AM EDT [facility] Hematology/Oncology [address] [place] [address] Schuyler Blanca MD [address] [place] [address] VIRTUAL 11/21/2024 10:00 AM EDT Office Visit Orthopaedics [address] [place] [address] [place] [address] [place] [address] 3 month f/u documented as of this encounter Visit Diagnoses Not on filedocumented in this encounter Additional Health Concerns Infection Onset Date Last Indicated Resolved Time COVID-19 Rule-Out 09/15/2020 09/15/2020 09/16/2020 7:08 AM EDT documented as of this encounter Care Teams Executive Secretary Relationship Specialty Start Date End Date Nohelia Dyer [address] [place] [address] PCP - General 06/04/05 Wander Cao [address] [place] [address] Physician Hematology/Oncology 03/24/14 Griselda Buckley (Rn), RN [address] [place] [address] Specialty Screed Person 08/26/17 [place] [address] [place] [id number] Referring Hematology 12/31/21 Ana M Galvan, RN Specialty Screed Person Hematology/Oncology 10/14/23 documented as of this encounter
--- OUTSIDE RECORDS SUMMARY | 2024-09-22 15:59 | XMS_ITS | Encounter Summary ---
Author Organization [facility] Address [address] [place] [address] Care Team Providers Care Field Service Representative Name Role Phone Nohelia Dyer Primary Care Provider [phone] Wander Cao Unavailable Griselda Buckley (Rn) AMADOR Unavailable Unavailabl Schuyler Bautista MD Unavailable [phone] Ana M Galvan RN Unavailable Unavailable Source Comments In the event this information is protected by the Federal Confidentiality of Alcohol and Drug AbusePatient Records regulations: The Federal rules restrict any use of the information to criminally investigate or prosecute any alcohol or drug abuse patient.[facility] Reason for Referral * MRI/CT (Routine) - Pending Review Specialty Diagnoses / Procedures Referred By Contac t Referred To Contact [facility] IM[facility]ING Diagnoses Spinal stenosis of cervical region Procedures MRI CERVICAL SPINE WO IVCON MRI SPINAL CANAL CERVICAL W/O CONTRAST Sera Parra PA-C [address] [place] [address] Phone: tel: fax: [place] [phone] Referral ID Status Reason Start Date Expiration Date Visits Requested Visits Authorized [id number] Pending Review Auto-Generat ed Referral 09/20/2024 10/20/2025 1 1 Encounter Details Date Type Department Care Team (Late st Contact Info) Description 09/20/2024 Get Medical Advice Pain Management [address] [place] [address] Sera Chau PA-C [address] [place] [address] Appointment but ... Social History Tobacco Use Types Packs/Day Years [...] is lower risk 8 11/05/2023 Data from: https://www.neighborhoodatlas.medicine.[facility].edu/. Last address used for calculation [address] [...] Emir Perry RN documented in this encounter Miscellaneous Notes * Telephone Encounter - Sera Chau PA-C - 09/20/2024 1:09 PM EDT Order placed for MRI of the Cervical Spine. Sera Chau PA-C September 20, 2024 * Telephone Encounter - Rachel Suarez OCCA - 09/20/2024 11:56 AM EDT LO- 2-10-25 David Corley is a 58-year-old male presenting for follow-up on chronic neck pain. David reports chronic neck pain, primarily on the right side, with a consistent baseline intensity of 2-5/10. He underwent facet medial branch nerve radiofrequency ablation of bilateral C5-6, C6-7 (RFA) in December, which provided significant relief on the left side, reducing pain to 0-1/10. However, the right side experienced only partial improvement, with the best pain reduction to approximately 2/10 which has been increasing recently. David localizes the right-sided pain to the mid-cervical region, around C5, and notes it is worse at higher cervical levels. He denies any significant pain on the left side. David has been adhering to a home exercise regimen and recently completed a course of physical therapy, which temporarily reduced pain but returned to baseline the following day. He has tried Voltaren gel for 2 weeks without relief. He occasionally uses heat and ice and has a TENS unit at home. He has also taken ibuprofen, which provides relief but is not a preferred long-term solution due to his solitary kidney. He is currently on Prozac and has discussed the possibility of switching to Cymbalta with his prescribing clinician. # Cervical facet joint syndrome (M47.812) # Radiculopathy, cervical region (M54.12) # Spinal stenosis of cervical region (M48.02) # Cervical spondylosis (M47.812) Patient reports persistent pain on the right side of the neck, rated as 5/10. Previous RFA in December provided significant relief on the left side, reducing pain to 0-1/10, but only some relief on the right side, with pain reduced to 2/10 at best. Pain is localized in the mid cervical spine on the right side, with additional tenderness at higher cervical levels. Patient has been performing homeexercises and recently completed physical therapy, which provided temporary relief. Patient has a solitary kidney and has been using ibuprofen for pain management, which is not ideal. Previous use ofVoltaren gel was ineffective. Patient is currently on Prozac. - Discussed the need to repeat diagnostic blocks at higher cervical levels (right C3-4 and C5-6) toidentify the most painful levels before considering another RFA. - Advised patient to discuss switching from Prozac to Cymbalta with their prescribing clinician, asit is helpful for chronic musculoskeletal pain and may provide additional relief. - Recommended continued use of home exercises and TENS unit for pain management. - Follow up as scheduled for blocks/RFA Had RFA on 07-08-24 documented in this encounter Plan of Treatment Upcoming Encounters Date Type Department Care Team (Late st Contact Info) Description 09/26/2024 11:30 AM EDT Office Visit Pain Management [address] [place] [address] Sera Chau PA-C [address] [place], [place] [id number] 4-6 week injection follow up 10/02/2024 10:40 AM EDT Appointment Radiology [address] [place] [address] Spinal stenosis of cervical region [M48.02] 10/19/2024 11:30 AM EDT Office Visit Neurology [address] [place] [address] Constanza Casillas PA-C [address] [place] [address] botox 10/31/2024 9:00 AM EDT [facility] Hematology/Oncology [address] [place] [address] Schuyler Blanca MD [address] [place] [address] VIRTUAL 11/21/2024 10:00 AM EDT Office Visit Orthopaedics [address] [place] [address] [place] [address] [place] [address] 3 month f/u Scheduled Orders Name Type Priority Associated Diagnoses Orde r Schedule MRI CERVICAL SPINE WO IVCON Radiology Routine Spinal stenosis of cervical region 1 Occurrences starting 09/20/2024 until 10/20/2025 documented as of this encounter Visit Diagnoses Diagnosis Spinal stenosis of cervical region- Primary Spinal stenosis in cervical region documented in this encounter Care Teams Field Service Representative Relationship Specialty Start Date End Date Nohelia Dyer [address] [place] [address] PCP - General 06/04/05 Wander Cao [address] [place] [address] Physician Hematology/Oncology 03/24/14 Griselda Buckley (Rn), RN [address] [place] [address] Specialty Sugar Trucker 08/26/17 [place] [address] [place] [address] Referring Hematology 12/31/21 Ana M Galvan, RN Specialty Sugar Trucker Hematology/Oncology 10/14/23 documented as of this encounter
--- OUTSIDE RECORDS SUMMARY | 2024-09-22 15:59 | XMS_ITS | Encounter Summary ---
Author Organization [facility] Address [address] [place] [address] Care Team Providers Care Cytopathologist Name Role Phone Nohelia Dyer Primary Care Provider [phone] Wander Cao Unavailable Griselda Buckley (Rn) AMADOR Unavailable Unavailabl e Schuyler Blanca MD Unavailable [phone] Ana M Galvan RN Unavailable Unavailable Source Comments In the event this information is protected by the Federal Confidentiality of Alcohol and Drug AbusePatient Records regulations: The Federal rules restrict any use of the information to criminally investigate or prosecute any alcohol or drug abuse patient.[facility] Encounter Details Date Type Department Care Team (Late st Contact Info) Description 09/13/2024 Patient Msg Endocrinology [place] [address] [place] [address] [place] [address] [facility] LW10 [place] [address] Appointment Request Social History Tobacco Use Types [...] is lower risk 8 11/05/2023 Data from: https://www.neighborhoodatlas.medicine.[facility]/. Last address used for calculation [address] [facility] 11/05/2023 Sex and Gender Information Value [...] Assessment Author No 11/14/2023 5:16 PM Emir Valenitno RN * Do you have difficulty dressing [...] 11:30 AM EDT Office Visit Pain Management [address] [place] [address] Sera Chau PA-C [address] [place] [address] 4-6 week injection follow up 10/02/2024 10:40 AM EDT Appointment Radiology [address] [place] [address] Spinal stenosis of cervical region [M48.02] 10/19/2024 11:30 AM EDT Office Visit Neurology [address] [place] [address] Constanza Casillas PA-C [address] [place] [address] botox 10/31/2024 9:00 AM EDT [facility] Hematology/Oncology [address] [place] [address] Schuyler Blanca MD [address] [place] [address] VIRTUAL 11/21/2024 10:00 AM EDT Office Visit Orthopaedics [address] [place] [address] [place] [address] [place] [address] 3 month f/u documented as of this encounter Visit Diagnoses Not on filedocumented in this encounter Care Teams Cytopathologist Relationship Specialty Start Date End Date Nohelia Dyer [address] [place] [address] PCP - General 06/04/05 Wander Cao [address] [place] [address] Physician Hematology/Oncology 03/24/14 Griselda Buckley (Rn), RN [address] [place] [address] Specialty Passenger Service Representative 08/26/17 [place] [address] [place] [address] Referring Hematology 12/31/21 Ana M Galvan RN Specialty Passenger Service Representative Hematology/Oncology 10/14/23 documented as of this encounter
--- OUTSIDE RECORDS SUMMARY | 2024-09-22 15:59 | XMS_ITS | Encounter Summary ---
Author Organization [facility] Address [address] [place] [address] Care Team Providers Care Communications Department Head Name Role Phone Nohelia Dyer Primary Care Provider Wander Cao Unavailable Griselda Buckley (Rn) AMADOR Unavailable Unavailabl Schuyler Bautista MD Unavailable [phone] Ana M Galvan RN Unavailable Unavailable Source Comments In the event this information is protected by the Federal Confidentiality of Alcohol and Drug AbusePatient Records regulations: The Federal rules restrict any use of the information to criminally investigate or prosecute any alcohol or drug abuse patient.[facility] Encounter Details Date Type Department Care Team (Late st Contact Info) Description 11/13/2020 Get Medical Advice Colorectal Surgery [address] [place] [phone] Usama Connelly MD [address] [phone] RE: Upcoming Appointment Question Social History Tobacco [...] N ot on file 03/18/2020 Data from: https://www.neighborhoodatlas.medicine.[facility].edu/. Last address used for calculation Not [...] 11:30 AM EDT Office Visit Pain Management [address] [place] [address] Sera Chau PA-C [address] [place] [address] 4-6 week injection follow up 10/02/2024 10:40 AM EDT Appointment Radiology [address] [place] [address] Spinal stenosis of cervical region [M48.02] 10/19/2024 11:30 AM EDT Office Visit Neurology [address] [place] [address] Constanza Casillas PA-C [address] [place] [address] botox 10/31/2024 9:00 AM EDT [facility] Hematology/Oncology [address] [place] [address] Schuyler Blanca MD [address] [place] [address] VIRTUAL 11/21/2024 10:00 AM EDT Office Visit Orthopaedics [address] [place] [address] [place] [address] [place] [address] 3 month f/u documented as of this encounter Visit Diagnoses Not on filedocumented in this encounter Care Teams Communications Department Head Relationship Specialty Start Date End Date Nohelia Dyer [address] [place] [id number] PCP - General 06/04/05 Wander Cao [address] [place] [address] Physician Hematology/Oncology 03/24/14 Griselda Buckley (Rn), RN [address] [place] [address] Specialty Railroad Auditor 08/26/17 [place] [address] [place] [address] Referring Hematology 12/31/21 Ana M Galvan RN Specialty Railroad Auditor Hematology/Oncology 10/14/23 documented as of this encounter
--- OUTSIDE RECORDS SUMMARY | 2024-09-22 15:59 | XMS_ITS | Encounter Summary ---
Author Organization [facility] Address [address] [place] [address] Care Team Providers Care Chronograph Operator Name Role Phone Nohelia Dyer Primary Care Provider [phone] Wander Cao Unavailable Griselda Buckley (Rn) AMADOR Unavailable Unavailabl Schuyler Bautista MD Unavailable [phone] Ana M Galvan RN Unavailable Unavailable Source Comments In the event this information is protected by the Federal Confidentiality of Alcohol and Drug AbusePatient Records regulations: The Federal rules restrict any use of the information to criminally investigate or prosecute any alcohol or drug abuse patient.[facility] Encounter Details Date Type Department Care Team (Late st Contact Info) Description 01/24/2021 Get Medical Advice Colorectal Surgery [address] [phone] Usama Connelly MD [address] [phone] RE: Non-Urgent Medical Question Social History Tobacco [...] ot on file 03/18/2020 Data from: https://www.neighborhoodatlas.medicine.[facility]/. Last address used for calculation [...] 11:30 AM EDT Office Visit Pain Management [address] [place] [address] Sera Chau PA-C [address] [place] [address] 4-6 week injection follow up 10/02/2024 10:40 AM EDT Appointment Radiology [address] [place] [address] Spinal stenosis of cervical region [M48.02] 10/19/2024 11:30 AM EDT Office Visit Neurology [address] [place] [address] Constanza Casillas PA-C [address] [place] [address] botox 10/31/2024 9:00 AM EDT [facility] Hematology/Oncology [address] [place] [address] Schuyler Blanca MD [address] [place] [address] VIRTUAL 11/21/2024 10:00 AM EDT Office Visit Orthopaedics [address] [place] [address] [place] [address] [place] [address] 3 month f/u documented as of this encounter Visit Diagnoses Not on filedocumented in this encounter Care Teams Chronograph Operator Relationship Specialty Start Date End Date Nohelia Dyer [address] [place] [phone] PCP - General 06/04/05 Wander Cao [address] [place] [address] Physician Hematology/Oncology 03/24/14 Griselda Buckley (Rn), RN [address] [place] [address] Specialty Operations Director 08/26/17 [place] [address] [place] [phone] Referring Hematology 12/31/21 Ana M Galvan, RN Specialty Operations Director Hematology/Oncology 10/14/23 documented as of this encounter
--- OUTSIDE RECORDS SUMMARY | 2024-09-22 15:59 | XMS_ITS | Encounter Summary ---
Author Organization [facility] Address [address] [place] [address] Care Team Providers Care Data Management Engineer Name Role Phone Nohelia Dyer Primary Care Provider [phone] Wander Cao Unavailable Griselda Buckley (Rn) AMADOR Unavailable UnavailSchuyler Ruelas MD Unavailable [phone] Ana M Galvan RN Unavailable Unavailable Source Comments In the event this information is protected by the Federal Confidentiality of Alcohol and Drug AbusePatient Records regulations: The Federal rules restrict any use of the information to criminally investigate or prosecute any alcohol or drug abuse patient.[facility] Encounter Details Date Type Department Care Team (Late st Contact Info) Description 07/02/2024 Patient Msg Internal Medicine [place] [address] [place] [phone] Provider, Ccf Appointment Social History Tobacco Use Types Packs/Day Years Used Date Smoking Tobacco: Never Smokeless Tobacco: Never Alcohol Use Standard Drinks/Week Comments Not Currently 0 (1 standard drink = 0.6 oz pur e alcohol) maybe once a year PHQ-2 Answer Date Recorded PHQ-2 score 0 06/01/2024 Area Deprivation Index Answer Date Boyd rded National Score (1-100), lower number is lower ri sk 86 11/05/2023 State Score (1-10), lower number is lower risk 8 11/05/2023 Data from: https://www.neighborhoodatlas.medicine.[facility]/. Last address used for calculation 66 [...] 11:30 AM EDT Office Visit Pain Management [address] [place] [address] Sera Chau PA-C [address] [place] [address] 4-6 week injection follow up 10/02/2024 10:40 AM EDT Appointment Radiology [address] [place] [address] Spinal stenosis of cervical region [M48.02] 10/19/2024 11:30 AM EDT Office Visit Neurology [address] [place] [address] Constanza Casillas PA-C [address] [place] [address] botox 10/31/2024 9:00 AM EDT [facility] Hematology/Oncology [address] [place] [address] Schuyler Blanca MD [address] [place] [address] VIRTUAL 11/21/2024 10:00 AM EDT Office Visit Orthopaedics [address] [place] [address] [place] [address] [place] [address] 3 month f/u documented as of this encounter Visit Diagnoses Not on filedocumented in this encounter Care Teams Data Management Engineer Relationship Specialty Start Date End Date Nohelia Dyer [address] [place] [address] PCP - General 06/04/05 Wander Cao [address] [place] [address] Physician Hematology/Oncology 03/24/14 Griselda Buckley (Rn), RN [address] [place] [address] Specialty Clerk Travel Reservations 08/26/17 [place] [address] [place] [address] Referring Hematology 12/31/21 Ana M Galvan, RN Specialty Clerk Travel Reservations Hematology/Oncology 10/14/23 documented as of this encounter
--- OUTSIDE RECORDS SUMMARY | 2024-09-22 16:00 | XMS_ITS | Encounter Summary ---
Author Organization [facility] Address [address] [place] [address] Care Team Providers Care Desktop Support Specialist Name Role Phone Nohelia Dyer Primary Care Provider [phone] Wander Cao Unavailable Nohelia Sandy (Rn) (Hist) RN Unavailable + Griselda Buckley (Rn) RN Unavailable Unavailabl e Schuyler Blanca MD Unavailable [phone] Ana M Galvan RN Unavailable Unavailable Source Comments In the event this information is protected by the Federal Confidentiality of Alcohol and Drug AbusePatient Records regulations: The Federal rules restrict any use of the information to criminally investigate or prosecute any alcohol or drug abuse patient.[facility] Encounter Details Date Type Department Care Team (Late st Contact Info) Description 10/01/2014 Get Medical Advice Gastroenterology [address] [place] [address] Sriram Naranjo MD [address] [place] [address] RE: Upcoming Appointment Question Social History Tobacco Use Types Packs/Day Years Used Date Smoking Tobacco: Never Cigarettes Smokeless Tobacco: Never Alcohol Use Standard Drinks/Week Comments Yes 0 (1 standard drink = 0.6 oz pur e alcohol) rarely Sex and Gender Information Value Date Recorded [...] hearing? Answer Date of Assessment Author No 09/18/2014 10:28 AM EDT Giselle Mcdermott MA * Are you blind or do you have serious difficulty seeing, even when wearing glasses? Answer Date of Assessment Author No 09/18/2014 10:28 AM EDT Giselle Mcdermott MA * Do you have serious difficulty walking or climbing stairs? Answer Date of Assessment Author No 09/18/2014 10:28 AM EDT Giselle Mcdermott MA * Do you have difficulty dressing or bathing? Answer Date of Assessment Author No 09/18/2014 10:28 AM EDT Giselle Mcdermott MA * Because of a physical, mental, or emotional condition, do you have difficulty doing errands alone such as visiting a doctor's office or shopping? Answer Date of Assessment Author No 09/18/2014 10:28 AM STEVET Giselle Mcdermott MA documented as of this encounter Mental Status * Because of a physical, mental, or emotional condition, do you have serious difficulty concentrating, remembering, or making decisions? Answer Entry Date Author No 09/18/2014 10:28 AM STEVET Giselle Mcdermott MA documented in this encounter Plan of Treatment Upcoming Encounters Date Type Department Care Team (Late st Contact Info) Description 09/26/2024 11:30 AM EDT Office Visit Pain Management [address] [place], [place] [address] Sera Chau PA-C [address] [place] [address] 4-6 week injection follow up 10/02/2024 10:40 AM EDT Appointment Radiology [address] [place] [address] Spinal stenosis of cervical region [M48.02] 10/19/2024 11:30 AM EDT Office Visit Neurology [address] [place] [address] Constanza Casillas PA-C [address] [place] [address] botox 10/31/2024 9:00 AM EDT [facility] Hematology/Oncology [address] [place] [address] Schuyler Blanca MD [address] [place] [address] VIRTUAL 11/21/2024 10:00 AM EDT Office Visit Orthopaedics [address] [place] [address] [place] [address] [place] [address] 3 month f/u documented as of this encounter Visit Diagnoses Not on filedocumented in this encounter Additional Health Concerns Infection Onset Date Last Indicated Resolved Time COVID-19 Rule-Out 09/03/2020 09/03/2020 09/03/2020 12:19 AM EDT COVID-19 Rule-Out 09/15/2020 09/15/2020 09/16/2020 7:08 AM EDT documented as of this encounter Care Teams Desktop Support Specialist Relationship Specialty Start Date End Date Nohelia Dyer [address] [place] [address] PCP - General 06/04/05 Wander Cao [address] [place] [address] Physician Hematology/Oncology 03/24/14 Nohelia Sandy (Rn) ([place] [address] [place] [address] Specialty Barrel Tester And Drainer Hematology/Oncology 10/25/14 08/25/17 [place] [address] [place] [address] Specialty Barrel Tester And Drainer 08/26/17 [place] [address] [place] [address] Referring Hematology 12/31/21 Ana M Galvan RN Specialty Barrel Tester And Drainer Hematology/Oncology 10/14/23 documented as of this encounter
--- OUTSIDE RECORDS SUMMARY | 2024-09-22 16:00 | XMS_ITS | Encounter Summary ---
Author Organization [facility] Address [address] [place] [address] Care Team Providers Care Friction Saw Operator Name Role Phone Nohelia Dyer Primary Care Provider [phone] Wander Cao Unavailable Nohelia Sandy (Rn) (Hist) RN Unavailable + Griselda Buckley (Rn) RN Unavailable Unavailabl Schuyler Bautista MD Unavailable [phone] Ana M Galvan RN Unavailable Unavailable Source Comments In the event this information is protected by the Federal Confidentiality of Alcohol and Drug AbusePatient Records regulations: The Federal rules restrict any use of the information to criminally investigate or prosecute any alcohol or drug abuse patient.[facility] Encounter Details Date Type Department Care Team (Late st Contact Info) Description 04/24/2015 Get Medical Advice Gastroenterology [address] [phone] Janiya Pierson (Hist), EXECUTIVE BUSINESS COACH.PHOTOGRAPHIC DEVELOPER AND PRINTER [address] [place] [address] Non-Urgent Medical Question Social History Tobacco Use [...] hearing? Answer Date of Assessment Author No 10/27/2014 11:05 AM Mandi Amato RN * Are you blind or do you have serious difficulty seeing, even when wearing glasses? Answer Date of Assessment Author No 10/27/2014 11:05 AM Mandi Amato RN * Do you have serious difficulty walking or climbing stairs? Answer Date of Assessment Author No 10/27/2014 11:05 AM Mandi Amato RN * Do you have difficulty dressing or bathing? Answer Date of Assessment Author No 10/27/2014 11:05 AM Mandi Amato RN * Because of a physical, mental, or emotional condition, do you have difficulty doing errands alone such as visiting a doctor's office or shopping? Answer Date of Assessment Author No 10/27/2014 11:05 AM Mandi Amato RN documented as of this encounter Mental Status * Because of a physical, mental, or emotional condition, do you have serious difficulty concentrating, remembering, or making decisions? Answer Entry Date Author No 10/27/2014 11:05 AM Mandi Amato RN documented in this encounter Plan of Treatment Upcoming Encounters Date Type Department Care Team (Late st Contact Info) Description 09/26/2024 11:30 AM EDT Office Visit Pain Management [address] [place], [place] [phone] Sera Chau PA-C [address] [place] [address] 4-6 week injection follow up 10/02/2024 10:40 AM EDT Appointment Radiology [address] [place] [address] Spinal stenosis of cervical region [M48.02] 10/19/2024 11:30 AM EDT Office Visit Neurology [address] [place] [address] Constanza Casillas PA-C [address] [place] [address] botox 10/31/2024 9:00 AM EDT [facility] Hematology/Oncology [address] [place] [address] Schuyler Blanca MD [address] [place] [address] VIRTUAL 11/21/2024 10:00 AM EDT Office Visit Orthopaedics [address] [place] [address] [place] [address] [place] [address] 3 month f/u documented as of this encounter Visit Diagnoses Not on filedocumented in this encounter Additional Health Concerns Infection Onset Date Last Indicated Resolved Time COVID-19 Rule-Out 09/03/2020 09/03/2020 09/03/2020 12:19 AM EDT COVID-19 Rule-Out 09/15/2020 09/15/2020 09/16/2020 7:08 AM EDT documented as of this encounter Care Teams Friction Saw Operator Relationship Specialty Start Date End Date Nohelia Dyer [address] [place] [address] PCP - General 06/04/05 Wander Cao [address] [place] [address] Physician Hematology/Oncology 03/24/14 Nohelia Sandy (Rn) ([place]), [place] [address] [place] [address] Specialty Mat Inspector Hematology/Oncology 10/25/14 08/25/17 Gr[place] ([place] [address] [place] [address] Specialty Mat Inspector 08/26/17 [place] [address] [place] [address] Referring Hematology 12/31/21 Ana M Galvan RN Specialty Mat Inspector Hematology/Oncology 10/14/23 documented as of this encounter
--- OUTSIDE RECORDS SUMMARY | 2024-09-22 16:00 | XMS_ITS | Encounter Summary ---
Author Organization [facility] Address [address] [place] [address] Care Team Providers Care Craft Demonstrator Name Role Phone Nohelia Dyer Primary Care Provider [phone] Wander Cao Unavailable Griselda Buckley (Rn) RN Unavailable Unavailabl Schuyler Bautista MD Unavailable [phone] Ana M Galvan RN Unavailable Unavailable Source Comments In the event this information is protected by the Federal Confidentiality of Alcohol and Drug AbusePatient Records regulations: The Federal rules restrict any use of the information to criminally investigate or prosecute any alcohol or drug abuse patient.[facility] Encounter Details Date Type Department Care Team (Late st Contact Info) Description 03/21/2024 Get Medical Advice Pain Management [address] [place] [address] Cindy Albright APRN.PERSONAL CARE ASSISTANT [address] [place] [address] Pain Social History Tobacco Use Types Packs/Day Years [...] is lower risk 8 11/05/2023 Data from: https://www.neighborhoodatlas.medicine.[facility]/. Last address used for calculation [address] [facility] 11/05/2023 Sex and Gender Information [...] 11:30 AM EDT Office Visit Pain Management [address] [place] [address] Sera Chau PA-C [address] [place] [address] 4-6 week injection follow up 10/02/2024 10:40 AM EDT Appointment Radiology [address] [place] [address] Spinal stenosis of cervical region [M48.02] 10/19/2024 11:30 AM EDT Office Visit Neurology [address] [place] [address] Constanza Casillas PA-C [address] [place] [address] botox 10/31/2024 9:00 AM EDT [facility] Hematology/Oncology [address] [place] [address] Schuyler Blanca MD [address] [place] [address] VIRTUAL 11/21/2024 10:00 AM EDT Office Visit Orthopaedics [address] [place] [address] [place] [address] [place] [address] 3 month f/u documented as of this encounter Visit Diagnoses Not on filedocumented in this encounter Care Teams Craft Demonstrator Relationship Specialty Start Date End Date Nohelia Dyer [address] [place] [address] PCP - General 06/04/05 Wander Cao [address] [place] [address] Physician Hematology/Oncology 03/24/14 Griselda Buckley (Rn), RN [address] [place] [address] Specialty Rec Therapist 08/26/17 [place] [address] [place] [address] Referring Hematology 12/31/21 Ana M Galvan, RN Specialty Rec Therapist Hematology/Oncology 10/14/23 documented as of this encounter
--- OUTSIDE RECORDS SUMMARY | 2024-09-22 16:00 | XMS_ITS | Encounter Summary ---
Author Organization [facility] Address [address] [place] [address] Care Team Providers Care Project Admin Name Role Phone Nohelia Dyer MD Primary Care Provider [phone] Encounter Details Date Type Department Care Team (Late st Contact Info) Description 04/25/2024 Clinisync Result Encounter [facility] External Department Unsolicited [...] How often do you attend lutheran or scientology serv ices? Never 12/18/2022 Do you belong [...] Recorded Patient Health Questionnaire-2 Score 0 02/02/2024 [facility] - Occupational [...] place to sleep or slept in a alf (including now)? No 12/18/2022 Sex and Gender [...] Priority Date/Time Associated Diagnosis Comments CT ABD/PEL WO IVCON 04/25/2024 6 :47 PM EST documented in this encounter Results * CT ABD/PEL WO IVCON (04/25/2024 6:47 PM EST) Anatomical Region Laterality Modality Other 04/25/2024 6:47 PM EST Narrative 04/26/2024 8:23 AM EST * * *Final Report* * * DATE OF EXAM: Apr 25 2024 6:47PM [facility] 0531 - CT ABD/PEL WO IVCON / PROCEDURE REASON: multiple diagnoses * * * * Physician Interpretation * * * * EXAMINATION: CT ABDOMEN AND PELVIS WITHOUT IV CONTRAST CLINICAL HISTORY: Renal cell carcinoma TECHNIQUE: Non-IV contrast imaging of the abdomen and pelvis was performed using standard technique, scanning from just above the dome of the diaphragm to the symphysis pubis. Unenhanced imaging is limited for the evaluation of some intra-abdominal and pelvic pathology. MQ: CTAPWO_3 Contrast: IV: None Oral: 25 ml of Omni 240 10-25ml diluted with water CT Radiation dose: Integrated Dose-length product (DLP) for this visit = 1040 mGy*cm. CT Dose Reduction Employed: Automated exposure control(AEC) and iterative recon COMPARISON: MRI 10/22/[address] 09/28/2023 RESULT: Abdomen / Pelvis: Liver: Multiple low-attenuation liver lesions previously characterized as cysts and hemangiomas. Posterior right lobe dominant hemangioma measures 4.2 cm, unchanged. No discernible new lesion. Biliary: S/p cholecystectomy. Spleen: No splenomegaly. Pancreas: Unremarkable. Adrenals: Right partial adrenalectomy without recurrence. Normal left adrenal. Kidneys: Exophytic 0.9 cm lower pole above water attenuation indeterminate lesion (307:64), unchanged from 09/28/2023. No hydronephrosis or other right renal abnormality. No mass in left nephrectomy bed. GI Tract: No bowel dilation. Stapled colorectal anastomosis. Lymph Nodes: No lymphadenopathy. Mesentery/peritoneum: No ascites. Retroperitoneum: No mass. Vasculature: Atherosclerotic calcification of the aorta and iliac arteries without dilation. Pelvis: No mass or ascites. Bones/Soft Tissues: Degenerative changes without lytic bone lesion. Lower thorax: A chest CT performed will be reported separately. Localizer images: No additional findings. IMPRESSION: No visualized recurrent or metastatic disease. Wood Shop Teacher: CONSTANTIN Transcribe Date/Time: Apr 26 2024 8:08A Dictated by : MASSIMO DREW MD This examination was interpreted and the report reviewed and electronically signed by: MASSIMO DREW MD on Apr 26 2024 8:21AM EST [id number] Procedure Note Radiology, Radiologist, - 04/26/2024 * * *Final Report* * * DATE OF EXAM: Apr 25 2024 6:47PM [facility] 0531 - CT ABD/PEL WO IVCON / PROCEDURE REASON: multiple diagnoses * * * * Physician Interpretation * * * * EXAMINATION: CT ABDOMEN AND PELVIS WITHOUT IV CONTRAST CLINICAL HISTORY: Renal cell carcinoma TECHNIQUE: Non-IV contrast imaging of the abdomen and pelvis was performed using standard technique, scanning from just above the dome of the diaphragm to the symphysis pubis. Unenhanced imaging is limited for the evaluation of some intra-abdominal and pelvic pathology. MQ: CTAPWO_3 Contrast: IV: None Oral: 25 ml of Omni 240 10-25ml diluted with water CT Radiation dose: Integrated Dose-length product (DLP) for this visit = 1040 mGy*cm. CT Dose Reduction Employed: Automated exposure control(AEC) and iterative recon COMPARISON: MRI 10/22/[address] 09/28/2023 RESULT: Abdomen / Pelvis: Liver: Multiple low-attenuation liver lesions previously characterized as cysts and hemangiomas. Posterior right lobe dominant hemangioma measures 4.2 cm, unchanged. No discernible new lesion. Biliary: S/p cholecystectomy. Spleen: No splenomegaly. Pancreas: Unremarkable. Adrenals: Right partial adrenalectomy without recurrence. Normal left adrenal. Kidneys: Exophytic 0.9 cm lower pole above water attenuation indeterminate lesion (307:64), unchanged from 09/28/2023. No hydronephrosis or other right renal abnormality. No mass in left nephrectomy bed. GI Tract: No bowel dilation. Stapled colorectal anastomosis. Lymph Nodes: No lymphadenopathy. Mesentery/peritoneum: No ascites. Retroperitoneum: No mass. Vasculature: Atherosclerotic calcification of the aorta and iliac arteries without dilation. Pelvis: No mass or ascites. Bones/Soft Tissues: Degenerative changes without lytic bone lesion. Lower thorax: A chest CT performed will be reported separately. Localizer images: No additional findings. IMPRESSION: No visualized recurrent or metastatic disease. Wood Shop Teacher: PSCB Transcribe Date/Time: Apr 26 2024 8:08A Dictated by : MASSIMO DREW MD This examination was interpreted and the report reviewed and electronically signed by: MASSIMO DREW MD on Apr 26 2024 8:21AM EST [id number]^ACN [facility] External Data Provider [facility] Final Result documented in this encounter Visit Diagnoses Not on filedocumented in this encounter Care Teams Project Admin Relationship Specialty Start Date End Date Nohelia Dyer MD [address] [place] [address] PCP - General Family Medicine 09/10/22 documented as of this encounter
--- OUTSIDE RECORDS SUMMARY | 2024-09-22 16:00 | XMS_ITS | Encounter Summary ---
Author Organization [facility] Address [address] [place] [address] Care Team Providers Care Camera Technician Name Role Phone Nohelia Dyer Primary Care Provider [phone] Wander Cao Unavailable Nohelia Sandy (Rn) (Hist) RN Unavailable + Griselda Buckley (Rn) RN Unavailable Unavailabl e Schuyler Blanca MD Unavailable [phone] Ana M Galvan RN Unavailable Unavailable Source Comments In the event this information is protected by the Federal Confidentiality of Alcohol and Drug AbusePatient Records regulations: The Federal rules restrict any use of the information to criminally investigate or prosecute any alcohol or drug abuse patient.[facility] Encounter Details Date Type Department Care Team (Late st Contact Info) Description 06/05/2015 Get Medical Advice Preventive Cardiology [address] [place] [address] Anuj Martinez MD [address] [place] [address] RE: Upcoming Appointment Question Social [...] 11:30 AM EDT Office Visit Pain Management [address] [place], [place] [id number] Sera Chau PA-C [address] [place] [address] 4-6 week injection follow up 10/02/2024 10:40 AM EDT Appointment Radiology [address] [place] [address] Spinal stenosis of cervical region [M48.02] 10/19/2024 11:30 AM EDT Office Visit Neurology [address] [place] [address] Constanza Casillas PA-C [address] [place] [address] botox 10/31/2024 9:00 AM EDT [facility] Hematology/Oncology [address] [place] [address] Schuyler Blanca MD [address] [place] [address] VIRTUAL 11/21/2024 10:00 AM EDT Office Visit Orthopaedics [address] [place] [address] [place] [address] [place] [address] 3 month f/u documented as of this encounter Visit Diagnoses Not on filedocumented in this encounter Additional Health Concerns Infection Onset Date Last Indicated Resolved Time COVID-19 Rule-Out 09/03/2020 09/03/2020 09/03/2020 12:19 AM EDT COVID-19 Rule-Out 09/15/2020 09/15/2020 09/16/2020 7:08 AM EDT documented as of this encounter Care Teams Camera Technician Relationship Specialty Start Date End Date Nohelia Dyer [address] [place] [address] PCP - General 06/04/05 Wander Cao [address] [place] [id number] Physician Hematology/Oncology 03/24/14 Nohelia Sandy (R[place]) ([place] [address] [place] [address] Specialty Secretary Specialist Hematology/Oncology 10/25/14 08/25/17 [place] [address] [place] [address] Specialty Secretary Specialist 08/26/17 [place] [address] [place] [address] Referring Hematology 12/31/21 Ana M Galvan RN Specialty Secretary Specialist Hematology/Oncology 10/14/23 documented as of this encounter
--- OUTSIDE RECORDS SUMMARY | 2024-09-22 16:00 | XMS_ITS | Encounter Summary ---
Author Organization [facility] Address [address] [place] [address] Care Team Providers Care Retail Beauty Specialist Name Role Phone Nohelia Dyer Primary Care Provider [phone] Wander Cao Unavailable Nohelia Sandy (Rn) (Hist) RN Unavailable + Griselda Buckley (Rn) RN Unavailable Unavailabl e Schuyler Blanca MD Unavailable [phone] Ana M Galvan RN Unavailable Unavailable Source Comments In the event this information is protected by the Federal Confidentiality of Alcohol and Drug AbusePatient Records regulations: The Federal rules restrict any use of the information to criminally investigate or prosecute any alcohol or drug abuse patient.[facility] Encounter Details Date Type Department Care Team (Late st Contact Info) Description 04/18/2015 Patient Msg Medical Records [address] [place] [address] Provider, Ccf Vit D Social History Tobacco Use Types Packs/Day Years [...] 11:30 AM EDT Office Visit Pain Management [address] [place] [address] Sera Chau PA-C [address] [place] [address] 4-6 week injection follow up 10/02/2024 10:40 AM EDT Appointment Radiology [address] [place] [address] Spinal stenosis of cervical region [M48.02] 10/19/2024 11:30 AM EDT Office Visit Neurology [address] [place] [address] Constanza Casillas PA-C [address] [place] [address] botox 10/31/2024 9:00 AM EDT [facility] Hematology/Oncology [address] [place] [address] Schuyler Blanca MD [address] [place] [address] VIRTUAL 11/21/2024 10:00 AM EDT Office Visit Orthopaedics [address] [place] [address] [place] [address] [place] [address] 3 month f/u documented as of this encounter Visit Diagnoses Not on filedocumented in this encounter Additional Health Concerns Infection Onset Date Last Indicated Resolved Time COVID-19 Rule-Out 09/03/2020 09/03/2020 09/03/2020 12:19 AM EDT COVID-19 Rule-Out 09/15/2020 09/15/2020 09/16/2020 7:08 AM EDT documented as of this encounter Care Teams Retail Beauty Specialist Relationship Specialty Start Date End Date Nohelia Dyer [address] [place] [address] PCP - General 06/04/05 Wander Cao [address] [place] [address] Physician Hematology/Oncology 03/24/14 Nohelia SandyRn) ([place] [address] [place] [address] Specialty Compensation Consulting Manager Hematology/Oncology 10/25/14 08/25/17 [place] [address] [place] [address] Specialty Compensation Consulting Manager 08/26/17 [place] [address] [place] [address] Referring Hematology 12/31/21 Ana M Galvan RN Specialty Compensation Consulting Manager Hematology/Oncology 10/14/23 documented as of this encounter
--- OUTSIDE RECORDS SUMMARY | 2024-09-22 16:00 | XMS_ITS | Encounter Summary ---
Author Organization [facility] Address [address] [place] [address] Care Team Providers Care Plant Anatomy Teacher Name Role Phone Nohelia Dyer MD Primary Care Provider [phone] Encounter Details Date Type Department Care Team (Late st Contact Info) Description 09/20/2024 Results Follow-Up [facility] [address] [place] [address] Cynthia Hansen NP [address] [place], [place] [id number] Social History Tobacco Use Types Packs/Day Years [...] 05/04/2024 How often do you attend chur or sabianism services? Never 05/04/2024 Do you belong to any clubs o r organizations such as orthodox groups, unions, fraternal or athletic groups, or [...] Recorded Patient Health Questionnaire-2 Score 0 09/19/2024 [facility] - Occupational [...] place to sleep or slept in a snf (including now)? No 12/18/2022 Housing Stability Vital Sign Answer Pan e Recorded In the last 12 months, was t here a time when you were not able to pay the mortgage or rent on time? No 05/04/2024 In the past 12 months, how m any times have you moved where you were living? 0 05/04/2024 At any time in the past 12 m [facility], were you homeless or living in a snf (including now)? No 05/04/2024 Sex and Gender [...] Care Plan Patient on antidepressant monitoring plan No Cynthia Hansen NP Baseline PHQ-9 Care Plan Baseline PHQ-9 Cynthia Ingram NP documented as of this encounter Visit Diagnoses Not on filedocumented in this encounter Additional Health Concerns Active Problems Noted Date Diagnosed Date Patient on antidepressant monitoring plan 2024 Baseline PHQ-9 09/19/2024 documented as of this encounter Care Teams Plant Anatomy Teacher Relationship Specialty Start Date End Date Nohelia Dyer MD [address] [place] [address] PCP - General Family Medicine 09/10/22 documented as of this encounter
--- OUTSIDE RECORDS SUMMARY | 2024-09-22 16:00 | XMS_ITS | Encounter Summary ---
Author Organization [facility] Address [address] [place] [address] Care Team Providers Care Hides And Skins Colorer Name Role Phone Nohelia Dyer Primary Care Provider [phone] Wander Cao Unavailable Griselda Buckley (Rn) AMADOR Unavailable Unavailabl e Schuyler Blanca MD Unavailable [phone] Ana M Galvan RN Unavailable Unavailable Source Comments In the event this information is protected by the Federal Confidentiality of Alcohol and Drug AbusePatient Records regulations: The Federal rules restrict any use of the information to criminally investigate or prosecute any alcohol or drug abuse patient.[facility] Encounter Details Date Type Department Care Team (Late st Contact Info) Description 12/29/2023 Get Medical Advice Orthopedics [address] [place] [address] [place] [address] [place], [place] [id number] Shoe Social History Tobacco Use Types Packs/Day Years Used Date Smoking Tobacco: Never Smokeless Tobacco: Never Alcohol Use Standard Drinks/Week Comments Not Currently 0 (1 standard drink = 0.6 oz pur e alcohol) maybe once a year PHQ-2 Answer Date Recorded PHQ-2 score 0 12/21/2023 Area Deprivation Index Answer Date Boyd rded National Score (1-100), lower number is lower ri sk 86 11/05/2023 State Score (1-10), lower number is lower risk 8 11/05/2023 Data from: https://www.neighborhoodatlas.medicine.[facility]/. Last address used for calculation [address] [facility] 11/05/2023 Sex and Gender Information Value Date [...] 11:30 AM EDT Office Visit Pain Management [address] [place] [address] Sera Chau PA-C [address] [place] [address] 4-6 week injection follow up 10/02/2024 10:40 AM EDT Appointment Radiology [address] [place] [address] Spinal stenosis of cervical region [M48.02] 10/19/2024 11:30 AM EDT Office Visit Neurology [address] [place] [address] Constanza Casillas PA-C [address] [place] [address] botox 10/31/2024 9:00 AM EDT [facility] Hematology/Oncology [address] [place] [address] Schuyler Blanca MD [address] [place] [address] VIRTUAL 11/21/2024 10:00 AM EDT Office Visit Orthopaedics [address] [place] [address] [place] [address] [place] [address] 3 month f/u documented as of this encounter Visit Diagnoses Not on filedocumented in this encounter Care Teams Hides And Skins Colorer Relationship Specialty Start Date End Date Nohelia Dyer [address] [place] [address] PCP - General 06/04/05 Wander Cao [address] [place] [address] Physician Hematology/Oncology 03/24/14 Griselda Buckley (Rn), RN [address] [place] [address] Specialty Phototypesetter Operator 08/26/17 [place] [address] [place] [address] Referring Hematology 12/31/21 Ana M Galvan RN Specialty Phototypesetter Operator Hematology/Oncology 10/14/23 documented as of this encounter
--- OUTSIDE RECORDS SUMMARY | 2024-09-22 16:00 | XMS_ITS | Clinical Summary ---
Author Organization [facility] Address [address] [place] [address] Care Team Providers Care Tape Maker Name Role Phone Nohelia Dyer MD Primary Care Provider [phone] Allergies Active Allergy Reactions Criticality Noted Date Comments Cephalexin 09/01/2022 Other Reaction(s): Unknown Chlorhexidine 09/01/2022 Other Reaction(s): Unknown Codeine Unknown 09/01/2022 Medications acetaminophen (Tylenol) 500 MG tablet Take 500 mg by mouth Daily as needed. Active b complex vitamins capsule Take 1 capsule by mouth in the morning. Active cetirizine (ZyrTEC) 10 MG tablet Take 10 mg by mouth if needed. Active cholecalciferol (Vitamin D-3) 25 MCG (1000 UT) capsule Take 1,000 Units by mouth in the morning. Active omeprazole (PriLOSEC) [address] capsule Take 1 capsule by mouth in the morning. Active predniSONE (Deltasone) 5 MG tablet 5 mg. 022 Active predniSONE (Deltasone) 1 MG tablet 2 mg 1 (one) time each day at the same time. 023 Active sildenafil (Viagra) 50 MG tabletIndications :Other male erectile dysfunction Take 1 tablet (50 mg) by mouth Daily as needed for erectile dysfunction 12 tablet 1 025 2025 Active bisoprolol (Zebeta) 5 MG tabletIndications :DIONNA (acute kidney injury),Essential (primary) hypertension Take 1 tablet (5 mg) by mouth Daily 90 tablet 025 Active ibuprofen 200 MG tablet Take by mouth Active cyclobenzaprine (Flexeril) 5 MG tablet Take 5 mg by mouth as needed in the morning and 5 mg as needed at noon and 5 mg as needed in the evening for muscle spasms. Active butalbital-acetam inophen-caffeine 50-325-40 MG tablet Take 1 tablet by mouth every 4 (four) hours if needed for headaches Active traZODone (Desyrel) 50 MG tabletIndications :Insomnia, unspecified type Take 1 tablet (50 mg) by mouth as needed at bedtime for sleep 30 tablet 025 Active rosuvastatin (Crestor) 10 MG tabletIndications :Mixed hyperlipidemia TAKE 1 TABLET BY MOUTH IN THE MORNING 90 tablet 025 Active DULoxetine (Cymbalta) [address] capsuleIndication s:Major depressive disorder with single episode, in full remission TAKE 1 CAPSULE BY MOUTH DAILY DO NOT CRUSH OR CHEW 90 capsule 025 Active bisoprolol (Zebeta) 5 MG tablet Take 1 tablet by mouth in the morning. 023 2024 Discontinued(R eokarenaer) ondansetron ODT (Zofran-ODT) 4 MG disintegrating tablet 1 tablet on the tongue and allow to dissolve Orally as needed for nausea 022 2024 Discontinued(T herapy completed) rosuvastatin (Crestor) 10 MG tabletIndications :Mixed hyperlipidemia Take 1 tablet (10 mg) by mouth in the morning. 90 tablet 025 2024 Discontinued febuxostat (Uloric) 40 MG tabletIndications :Idiopathic chronic gout without tophus, unspecified site TAKE 1 TABLET BY MOUTH EVERY MORNING 30 tablet 1 025 2024 Discontinued(T herapy completed) febuxostat (Uloric) 40 MG tabletIndications :Idiopathic chronic gout without tophus, unspecified site Take 1 tablet (40 mg) by mouth in the morning. 30 tablet 1 025 2024 Discontinued(T herapy completed) DULoxetine (Cymbalta) [address] capsuleIndication s:Major depressive disorder with single episode, in full remission Take 1 capsule (60 mg) by mouth Daily Do not crush or chew. 90 capsule 025 2024 Discontinued traZODone (Desyrel) 50 MG tablet Take 50 mg by mouth as needed at bedtime for sleep 2024 Discontinued(R marybeth) Active Problems Problem Noted Date Diagnosed Date Basal cell carcinoma of forehead 05/05/2024 Chronic low back pain 05/05/2024 Elevated blood pressure read ing without diagnosis of hypertension 05/05/2024 Inadequate material resources 05/05/2024 Irritable bowel syndrome 05/05/2024 Obstructive sleep apnea syndrome 05/05/2024 Pure hypertriglyceridemia 05/05/2024 Sprain of rotator cuff capsule 05/05/2024 Vitreous degeneration 05/05/2024 Ankle joint replacement status, left 11/13/2023 Acquired absence of kidney 11/18/2022 Chronic fatigue 11/18/2022 Chronic idiopathic gout involving toe without to phus 11/18/2022 Chronic migraine w/o aura w/ o status migrainosus, not intractable 11/18/2022 COVID-19 11/18/2022 Diverticulitis 11/18/2022 Diverticulitis of colon with perforation 023 Falls frequently 11/18/2022 Fracture 11/18/2022 Gout 11/18/2022 Hx of total adrenalectomy 11/18/2022 Intention tremor 11/18/2022 Intractable migraine without status migrainosus 11/18/2022 Migraines 11/18/2022 Overview (11/18/2022): treated with botox injections at [facility] Lead-induced chronic gout, u nspecified ankle and foot, without tophus (tophi) 11/18/2022 Liver lesion 11/18/2022 Major depressive disorder wi th single episode, in full remission 11/18/2022 Metastatic renal cell carcinoma 11/18/2022 Mild episode of recurrent major depressive disor halina 11/18/2022 Mixed hyperlipidemia 11/18/2022 LATHAM (nonalcoholic steatohepatitis) 11/18/2022 Open fracture of ankle 11/18/2022 Other insomnia 11/18/2022 Other male erectile dysfunction 11/18/2022 Paresthesia of left foot 11/18/2022 Reactive depression 11/18/2022 Syndrome X, cardiac 11/18/2022 Recurrent major depressive disorder, in partial remission 11/18/2022 S/P small bowel resection 11/18/2022 Scar of skin 11/18/2022 Serotonin syndrome 11/18/2022 Solitary pulmonary nodule 11/18/2022 Sprain of medial collateral ligament of right kn ee 11/18/2022 Tear of medial collateral ligament of right knee 11/18/2022 Vitamin D deficiency 11/18/2022 Dizziness 07/09/2022 Abnormal cardiovascular stress test 08/30/2021 Recurrent chest pain 08/30/2021 H/O left nephrectomy 06/27/2021 Obesity (BMI 30-39.9) 06/27/2021 Current chronic use of systemic steroids 021 Overview (11/18/2022): Last Assessment & Plan: Assessment: 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 Per patient his normal home dose is 7mg daily but in last 1-2 months with diverticulitis flares he has been on 14mg daily PLAN: Steroid taper per endocrine Appreciate endocrine recs Diverticulitis of large inte kalyn with perforation and abscess without bleeding 01/07/2021 Overview (11/18/2022): Last Assessment & Plan: Assessment: 54 year old male with a PMH of HTN, HLD, GERD, left RCC s/p nephrectomy (07/2009), Right adrenal cancer s/p adrenalectomy (09/2016) on chronic prednisone, and recurrent diverticulitis with abscess. He presented this admission for surgical management of his diverticular disease. S/p Open lysis of adhesions with sigmoid colectomy and colorectal anastomosis, Drainage of mesenteric abscess, Ventral hernia repair x2, Left scalp lesion excision, Flexible sigmoidoscopy. 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 Per patient his normal home dose is 7mg daily but in last 1-2 months with diverticulitis flares he has been on 14mg daily PLAN: Steroid taper per endocrine Appreciate endocrine recs IV steroids while NGT in place Essential (primary) hypertension 09/03/2020 Overview (11/18/2022): Last Assessment & Plan: Assessment: per recent visit with his PCP, holding lisinopril and nadolol PLAN: Monitor BP with routine vitals sees tourist agent at [facility] GERD without esophagitis 09/03/2020 Overview (11/18/2022): Last Assessment & Plan: PLAN: protonix daily Hyperlipidemia 09/03/2020 Overview (11/18/2022): Last Assessment & Plan: PLAN: Home pravachol daily DIONNA (acute kidney injury) 03/13/2018 History of small bowel obstruction 03/13/2018 Stage 3 chronic kidney disease 03/13/2018 Umbilical discharge 03/13/2018 Enterocutaneous fistula 03/12/2018 Small bowel obstruction 02/27/2018 Intra-abdominal adhesions 02/15/2018 Thunderclap headache 02/04/2018 Disorder of sacrum 01/27/2018 DDD (degenerative disc disease), lumbar 12/22/19 Secondary malignant neoplasm of right adrenal gl and 09/10/2016 Overview (11/18/2022): Last Assessment & Plan: Assessment: right adrenal cancer s/p right adrenalectomy 2017 on prednisolone at home PLAN: Continue home steroids Pain of left calf 03/02/2016 Intractable chronic migraine without aura and without status migrainosus 02/22/2016 Overview (11/18/2022): Last Assessment & Plan: Assessment: sees neurology and undergoes Botox injections every 3 months -on Ubrelvy prn Ileus 02/02/2016 Headache 11/18/2011 Assessment & Plan (04/21/2023 9:29 PM EST): Better right now. He has seen neuro. Has been on every AMATO medication out there. He is going to ask neuro about an injectable med. Clear cell renal cell carcinoma, 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 Overview (11/18/2022): Last Assessment & Plan: Assessment: hx left RCC s/p Nephrectomy in 2009 PLAN: Trend kidney function with daily BMP Malignant neoplasm of kidney 06/25/2009 Overview (11/18/2022): Last Assessment & Plan: Assessment: s/p left nephrectomy 2009 and right adrenalectomy 2016 -follows with heme/onc Cancer 04/13/2009 Overview (11/18/2022): lt kidney Encounters Date Type Department Care Team Description 09/20/2024 Refill [facility] [address] [place] [address] Nohelia Dyer MD Mixed hyperlipidemia ; Major depressive disorder with single episode, in full remission 09/20/2024 Results Follow-Up [facility] [address] [place] [address] Cynthia Hansen NP 09/19/2024 3:30 PM EDT Office Visit [facility] [address] [place] [address] Cynthia Hansen NP RUQ pain (Primary Dx); Hematuria, unspecified type; Urinary frequency; Insomnia, unspecified type 09/19/2024 Bamboo flowsheet [facility] [address] [place] [address] Cynthia Hansen NP 09/19/2024 Travel 08/26/2024 Refill [facility] [address] [place] [address] Nohelia Dyer MD DIONNA (acute kidney injury) (Primary Dx); Essential (primary) hypertension 08/25/2024 Clinisync Result Encounter [facility] Unsolicited Provider, Generic External Data 07/01/2024 Orders Only [facility] [address] [place] [address] Nohelia Dyer MD Major depressive disorder with single episode, in full remission (Primary Dx) 07/01/2024 Orders Only [facility] [address] [place] [address] Christal Allred NP 07/01/2024 Orders Only [facility] [address] [place] [address] Miriam Dickens MA 07/01/2024 Refill [facility] [address] [place] [address] Christal Allred NP Idiopathic chronic gout without tophus, unspecified site 07/01/2024 Refill [facility] [address] [place] [address] Christal Allred NP Idiopathic chronic gout without tophus, unspecified site 06/24/2024 [facility]ill [facility] [address] [facility] [place] [address] Nohelia Dyer MD Mixed hyperlipidemia from Last 3 Months Immunizations Immunization Administration Dates Next Due Hep B, adult 04/20/1991,11/17/1990,10/20/1990 Influenza, Unspecified 03/28/2015,2013,03/13/2013,02/16,03/14/2011,03/06/2010 Influenza, injectable, quadr ivalent, preservative free 02/25/2023,02/20/2022,01/15/2021,04/28 Influenza, seasonal, injectable 03/17/2013 Pneumococcal Polysaccharide PPSV23 04/23/2017 Td (adult), 5 Lf tetanus tox oid, preservative free, adsorbed 11/05/2015 Td (adult), unspecified 11/12/2007 Tdap 01/27/2024,11/05/2015 Zoster, Recombinant 02/13/2021,01/15/2021 Family History Medical History Relation Name Comments Arthritis Father Jayden COPD Father Jayden Cancer Father Jayden Depression Father Jayden Hypertension Father Jayden Arthritis Mother Kimmy COPD Mother Kimmy Cancer Mother Kimmy Depression Mother Kimmy Hypertension Mother Patsy Wiseman Miscarriages / Stillbirths Mother Patsy Wiseman Stroke Mother Patsy Wiseman Relation Name Status Comments Father Jayden Mother Patsy Wiseman Social History Tobacco Use Types Packs/Day Years Used Date Smoking Tobacco: Never Smokeless Tobacco: Never Tobacco Cessation:Counseling Given: Not Answered Alcohol Use Standard Drinks/Week Comments Not Currently [...] How often do you attend chur or baptist services? Never 05/04/2024 Do you belong to any clubs o r organizations such as cheondoism groups, unions, fraternal or athletic groups, or [...] Recorded Patient Health Questionnaire-2 Score 0 09/19/2024 [facility] [place] of Occupat ional Health - Occupational Stress [...] place to sleep or slept in a long term (including now)? No 12/18/2022 Housing Stability Vital Sign Answer Pan e Recorded In the last 12 months, was t here a time when you were not able to pay the mortgage or rent on time? No 05/04/2024 In the past 12 months, how m any times have you moved where you were living? 0 05/04/2024 At any time in the past [address] [facility], were you homeless or living in a long term (including now)? No 05/04/2024 Sex and Gender Information Value Date Recorded Sex Assigned at Male 11/21/2022 8:10 AM EDT Legal Sex Male 7:07 PM EDT Gender Identity Male 06/25/2022 7:07 PM EDT Sexual Orientation Straight 11/21/2022 8: 10 AM EDT Last Filed Vital Signs Vital Sign Reading Time Taken Comments Blood Pressure 110/70 09/19/2024 3:31 PM EDT Pulse 84 09/19/2024 3:31 PM EDT Temperature 36.1 C (96.9 F) 07/31/2023 1:01 PM EDT Respiratory Rate - - Oxygen Saturation 96% 09/19/2024 3:31 PM EDT Inhaled Oxygen Concentration - - Weight 110 kg (242 lb 6.4 oz) 09/19/2024 3:31 PM EDT Height 177.8 cm (5' 10 ) 09/19/2024 3:31 PM EDT Body Mass Index 34.78 09/19/2024 3:31 PM EDT Plan of Treatment Health Maintenance Due Date Last Done Comments Influenza Vaccine (Season Ended) 2024 02/25/2023, 02/20/2022, 01/15/2021, Additional history exists FIT Discontinued 08/27/2021, 01/25/2020 FOBT Discontinued 08/27/2021, 01/25/2020 Colonoscopy Discontinued 06/05/2023, 05/15, 06/05/2023, Additional history exists Colorectal Cancer Screening Discontinued CT Colonography Discontinued FIT-DNA Discontinued Sigmoidoscopy Discontinued Goals Goal Patient Goal Type Associated Problems Recent Progress Patient-Stated? Author Help patient manage antidepressant medication Care Plan Patient on antidepressant monitoring plan No Cynthia Hansen NP Baseline PHQ-9 Care Plan Baseline PHQ-9 Cynthia Ingram NP Procedures Procedure Name Priority Date/Time Associated Diagnosis Comments CBC (INCLUDES DIFF/PLT) Routine 09/20/19 4:05 PM EDT RUQ pain COMPREHENSIVE METABOLIC PANEL Routine 09/19/2024 4:05 PM EDT RUQ pain CULTURE, URINE, ROUTINE Routine 09/20/19 4:00 PM EDT Urinary frequency POCT URINALYSIS DIPSTICK Routine 09/19/2024 3:44 PM EDT Hematuria, unspecified type XR ANKLE 3V AP/LAT/OBL LT 08/25/2024 11:32 AM EDT Q - FECAL GLOBIN BY IMMUNOCHEMISTRY Routine 08/27/2021 COLONOSCOPY Routine 04/16/2017 Encounter for screening for malignant neoplasm of colon Acute maxillary sinusitis, unspecified from Last 3 Months or Most Recently Relevant to Health Maintenance Results * CBC and differential (09/19/2024 4:05 [...] Performing Organization Information Site ID: QPT Name: [facility] Address: [address] [place] [address], [address] [place] [phone] Director: David Torres MD Cynthia Hansen NP LAB BLOOD ORDERABLES Fi nal Result [facility] [...] Performing Organization Information Site ID: QPT Name: [facility] Address: [address] [place] [address], [address] [place] [phone] Director: David Torres MD Cynthia Hansen HUMAN FACTORS SPECIALIST LAB BLOOD ORDERABLES Fi nal Result [facility] * Urine culture (clean catch) (09/19/2024 4:00 PM EDT) Pathologist [facility] MICRO NUMBER [id number] [facility] SPECIMEN QUALITY Adequate [facility] SOURCE: (QUEST) URINE [facility] STATUS FINAL [facility] RESULT SEE NOTE [facility] Comment: No Growth Urine Urine specimen obtained by clean catch procedure / Unknown 09/19/2024 4:00 PM EDT 09/19/2024 4:00 PM EDT Narrative Resulting Agency Comment Performing Organization Information Site ID: QPT Name: [facility] Address: [address] [place] [address], [address] [place] [phone] Director: David Torres MD Cynthia Hansen HUMAN FACTORS SPECIALIST LAB MICROBIOLOGY - GENE RAL ORDERABLES [...] Urine 09/19/2024 3:44 PM EDT Cynthia Hansen HUMAN FACTORS SPECIALIST POINT OF CARE TEST ENTE R/EDIT ORDERABLES Final Result * XR ANKLE 3V AP/LAT/OBL LT (08/25/2024 11:32 AM EDT) Anatomical Region Laterality Modality Other 08/25/2024 11:3 2 AM EDT Narrative 08/25/2024 1:20 PM EDT * * *Final Report* * * DATE OF EXAM: Aug 25 2024 11:32AM AOX [id number] - XR ANKLE 3V AP/LAT/OBL LT / PROCEDURE REASON: Arthritis of left ankle * * * * Physician Interpretation * * * * EXAMINATION / TECHNIQUE: XR ANKLE 3V AP/LAT/OBL LT HISTORY: Previous left ankle surgeries with most recent in November, follow-up. Experiencing pain Arthritis of left ankle COMPARISON: 02/10/2024 RESULT: Postsurgical changes related to correction of distal tibial malunion and fibular nonunion are again demonstrated. Hardware is intact and unchanged in position. Retained screws in the mid tibial diaphysis are unchanged. There has been progressive bony bridging across the tibial osteotomy site, compatible with continued healing related changes. The fibular nonunion site appears essentially unchanged without definite bony bridging. Severe tibiotalar osteoarthritis with [id number] contact laterally, similar to prior. No new acute fracture or other significant interval change. IMPRESSION: Postoperative findings as described with intact hardware and progressive healing at the tibial osteotomy site. Business Process Lead: [facility] Transcribe Date/Time: Aug 25 2024 1:07P Dictated by : CYNTHIA MEDINA MD This examination was interpreted and the report reviewed and electronically signed by: CYNTHIA MEDINA MD on Aug 25 2024 1:18PM EST [id number]^ACN Procedure Note Radiology, Radiologist, - 08/25/2024 * * *Final Report* * * DATE OF EXAM: Aug 25 2024 11:32AM AOX [id number] - XR ANKLE 3V AP/LAT/OBL LT / PROCEDURE REASON: Arthritis of left ankle * * * * Physician Interpretation * * * * EXAMINATION / TECHNIQUE: XR ANKLE 3V AP/LAT/OBL LT HISTORY: Previous left ankle surgeries with most recent in November, follow-up. Experiencing pain Arthritis of left ankle COMPARISON: 02/10/2024 RESULT: Postsurgical changes related to correction of distal tibial malunion and fibular nonunion are again demonstrated. Hardware is intact and unchanged in position. Retained screws in the mid tibial diaphysis are unchanged. There has been progressive bony bridging across the tibial osteotomy site, compatible with continued healing related changes. The fibular nonunion site appears essentially unchanged without definite bony bridging. Severe tibiotalar osteoarthritis with [id number] contact laterally, similar to prior. No new acute fracture or other significant interval change. IMPRESSION: Postoperative findings as described with intact hardware and progressive healing at the tibial osteotomy site. Business Process Lead: [facility] Transcribe Date/Time: Aug 25 2024 1:07P Dictated by : CYNTHIA MEDINA MD This examination was interpreted and the report reviewed and electronically signed by: CYNTHIA MEDINA MD on Aug 25 2024 1:18PM EST [id number] us Generic External Data Provider [facility] Final Result * Q - FECAL GLOBIN BY IMMUNOCHEMISTRY (08/27/2021) FECAL GLOBIN BY IMMUNOCHEMISTRY SEE NOTE [facility] Comment: FECAL GLOBIN BY IMMUNOCHEMISTRY Micro Number: [id number] Test Status: Final Specimen Source: Stool Specimen Quality: Inadequate Fecal Globin: Test not performed. No specimen received. Comment: NO FIT CARD RECEIVED 08/27/2021 us Nohelia Dyer MD [facility] Final Result [facility] * Colonoscopy (04/16/2017) Anatomical Region Laterality Modality Endoscopy 04/16/2017 Narrative 04/16/2017 12:00 AM EST PERFORMED AT [facility] LOCATION:[place] [address] Procedure Note CONVERSION, GENERIC - 08/27/2022 PERFORMED AT [facility] LOCATION:[place] [address] Kelli Pan NP ENDOSCOPY PROCEDURE ORDERABLES F inal Result from Last 3 Months or Most Recently Relevant to Health Maintenance Additional Health Concerns Active Problems Noted Date Diagnosed Date Patient on antidepressant monitoring plan 2024 Baseline PHQ-9 09/19/2024 Insurance [employer] Care Teams Tape Maker Relationship Specialty Start Date End Date Nohelia Dyer MD [address] [place] [address] PCP - General Family Medicine 09/10/22
--- OUTSIDE RECORDS SUMMARY | 2024-09-22 16:00 | XMS_ITS | Encounter Summary ---
Author Organization [facility] Address [address] [place] [address] Care Team Providers Care Gas Distribution And Emergency Clerk Name Role Phone Nohelia Dyer Primary Care Provider [phone] Wander Cao Unavailable Nohelia Sandy (Rn) (Hist) RN Unavailable + Griselda Buckley (Rn) RN Unavailable Unavailabl e Schuyler Blanca MD Unavailable [phone] Ana M Galvan RN Unavailable Unavailable Source Comments In the event this information is protected by the Federal Confidentiality of Alcohol and Drug AbusePatient Records regulations: The Federal rules restrict any use of the information to criminally investigate or prosecute any alcohol or drug abuse patient.[facility] Encounter Details Date Type Department Care Team (Late st Contact Info) Description 06/04/2015 Patient Msg Medical Records [address] [place] [address] Provider, [facility] Future appointments Social History Tobacco Use Types Packs/Day Years [...] 11:30 AM EDT Office Visit Pain Management [address] [place] [address] Sera Chau PA-C [address] [place] [address] 4-6 week injection follow up 10/02/2024 10:40 AM EDT Appointment Radiology [address] [place] [address] Spinal stenosis of cervical region [M48.02] 10/19/2024 11:30 AM EDT Office Visit Neurology [address] [place] [address] Constanza Casillas PA-C [address] [place] [address] botox 10/31/2024 9:00 AM EDT [facility] Hematology/Oncology [address] [place] [address] Schuyler Blanca MD [address] [place] [address] VIRTUAL 11/21/2024 10:00 AM EDT Office Visit Orthopaedics [address] [place] [address] [place] [address] [place] [address] 3 month f/u documented as of this encounter Visit Diagnoses Not on filedocumented in this encounter Additional Health Concerns Infection Onset Date Last Indicated Resolved Time COVID-19 Rule-Out 09/03/2020 09/03/2020 09/03/2020 12:19 AM EDT COVID-19 Rule-Out 09/15/2020 09/15/2020 09/16/2020 7:08 AM EDT documented as of this encounter Care Teams Gas Distribution And Emergency Clerk Relationship Specialty Start Date End Date Nohelia Dyer [address] [place] [address] PCP - General 06/04/05 Wander Cao [address] [place] [address] Physician Hematology/Oncology 03/24/14 Nohelia SandyRn) ([place] [address] [place] [address] [address] Specialist Hematology/Oncology 10/25/14 08/25/17 [place] ([place] [address] [place] [address] [address] Specialist 08/26/17 [place] [address] [place] [address] Referring Hematology 12/31/21 Ana M Galvan RN Specialty Av Specialist Hematology/Oncology 10/14/23 documented as of this encounter
--- OUTSIDE RECORDS SUMMARY | 2024-09-22 16:00 | XMS_ITS | Encounter Summary ---
Author Organization [facility] Address [address] [place] [address] Care Team Providers Care Va Underwriter Name Role Phone Nohelia Dyer MD Primary Care Provider [phone] Reason for Visit * Reason Comments Med Refill Encounter Details Date Type Department Care Team (Late st Contact Info) Description 09/20/2024 Refill [facility] [address] [place] [address] Nohelia Dyer MD [address] [place] [address] Mixed hyperlipidemia ; Major depressive disorder with single episode, in full remission Social History Tobacco Use Types Packs/Day Years [...] often do you attend chur ch or gnosticist services? Never 05/04/2024 Do you belong to any clubs o r organizations such as catholic groups, unions, fraternal or athletic groups, or [...] Recorded Patient Health Questionnaire-2 Score 0 09/19/2024 [facility] - [...] to sleep or slept in a senior living (including now)? No 12/18/2022 Housing Stability Vital Sign Answer Pan e Recorded In the last 12 months, was t here a time when you were not able to pay the mortgage or rent on time? No 05/04/2024 In the past 12 months, how m any times have you moved where you were living? 0 05/04/2024 At any time in the past 12 m [facility], were you homeless or living in a senior living (including now)? No 05/04/2024 Sex and Gender Information Value Date Recorded Sex Assigned at Male 11/21/2022 8:10 AM EDT Legal Sex Male 7:07 PM EDT Gender Identity Male 06/25/2022 7:07 PM EDT Sexual Orientation Straight 11/21/2022 8: 10 AM EDT documented as of this encounter Miscellaneous Notes * Telephone Encounter - Iwona Grant MA - 09/21/2024 3:46 PM EDT Message given * Telephone Encounter - Cynthia Hansen NP - 09/20/2024 3:36 PM EDT Let him know I refilled these. He needs a lipid panel though, hasn't had one in almost 2 years. Order is in. He can stop in for that anytime. documented in this encounter Plan of Treatment Scheduled Orders Name Type Priority Associated Diagnoses Orde r Schedule Lipid panel Lab Routine Mixed hyperlipidemia Expected: 09/20/2024 (Approximate), Expires: 09/20/2025 documented as of this encounter Goals Goal Patient Goal Type Associated Problems Recent Progress Patient-Stated? Author Help patient manage antidepressant medication Care Plan Patient on antidepressant monitoring plan Cynthia Ingram NP Baseline PHQ-9 Care Plan Baseline PHQ-9 Cynthia Ingram NP documented as of this encounter Visit Diagnoses Diagnosis Mixed hyperlipidemia Mixed hyperlipidemia Major depressive disorder with single episode, in full remission documented in this encounter Additional Health Concerns Active Problems Noted Date Diagnosed Date Patient on antidepressant monitoring plan 2024 Baseline PHQ-9 09/19/2024 documented as of this encounter Care Teams Va Underwriter Relationship Specialty Start Date End Date Nohelia Dyer MD [address] [place] [address] PCP - General Family Medicine 09/10/22 documented as of this encounter
--- OUTSIDE RECORDS SUMMARY | 2024-09-22 16:00 | XMS_ITS | Encounter Summary ---
Author Organization [facility] Address [address] [place] [address] Care Team Providers Care Felt Hat Mellowing Machine Operator Name Role Phone Nohelia Dyer MD Primary Care Provider [phone] Encounter Details Date Type Department Care Team (Late st Contact Info) Description 09/19/2024 Bamboo flowsheet [facility] [address] [place] [address] Cynthia Hansen NP [address] [place], [place] [id number] Social History Tobacco Use Types Packs/Day Years [...] How often do you attend chur or hoahaoism services? Never 05/04/2024 Do you belong to any clubs o r organizations such as jehovah's witness groups, unions, fraternal or athletic groups, or [...] Recorded Patient Health Questionnaire-2 Score 0 09/19/2024 [facility] - [...] place to sleep or slept in a halfway (including now)? No 12/18/2022 Housing Stability Vital Sign Answer Pan e Recorded In the last 12 months, was t here a time when you were not able to pay the mortgage or rent on time? No 05/04/2024 In the past 12 months, how m any times have you moved where you were living? 0 05/04/2024 At any time in the past 12 m [facility], were you homeless or living in a halfway (including now)? No 05/04/2024 Sex and Gender [...] documented as of this encounter Care Teams Felt Hat Mellowing Machine Operator Relationship Specialty Start Date End Date Nohelia Dyer MD [address] [place] [address] PCP - General Family Medicine 09/10/22 documented as of this encounter
--- OUTSIDE RECORDS SUMMARY | 2024-09-22 16:00 | XMS_ITS | Encounter Summary ---
Author Organization [facility] Address [address] [place] [address] Care Team Providers Care Substation Operator Name Role Phone Nohelia Dyer MD Primary Care Provider [phone] Encounter Details Date Type Department Care Team (Late st Contact Info) Description 07/01/2024 Orders Only [facility] [address] [place] [address] Christal Allred, CITY CLERK [address] [place], [place] [id number] Social History Tobacco Use Types Packs/Day Years [...] How often do you attend chur or shinto services? Never 05/04/2024 Do you belong to [...] Date Recorded Patient Health Questionnaire-2 Score 0 05/24/2024 [facility] - Occupational [...] place to sleep or slept in a [place] (including now)? No 12/18/2022 Housing Stability Vital [...] were you homeless or living in a [place] (including now)? No 05/04/2024 Sex and Gender [...] on filedocumented in this encounter Care Teams Substation Operator Relationship Specialty Start Date End Date Nohelia Dyer MD [address] [place] [address] PCP - General Family Medicine 09/10/22 documented as of this encounter
--- OUTSIDE RECORDS SUMMARY | 2024-09-22 16:00 | XMS_ITS | Encounter Summary ---
Author Organization [facility] Address [address] [place] [address] Care Team Providers Care Diet Attendant Name Role Phone Nohelia Dyer MD Primary Care Provider Encounter Details Date Type Department Care Team (Late st Contact Info) Description 03/01/2024 Clinisync Result Encounter [facility] External Department Unsolicited [...] How often do you attend tenriism or rastafari serv ices? Never 12/18/2022 Do you belong [...] Recorded Patient Health Questionnaire-2 Score 0 02/02/2024 [facility] Occupat ional Health - [...] place to sleep or slept in a fci (including now)? No 12/18/2022 Sex and Gender [...] Name Priority Date/Time Associated Diagnosis Comments CT TIBIA FIBULA LEFT WO CONTRAST 03/01/2024 9:49 AM EST documented in this encounter Results * CT TIBIA FIBULA LEFT WO CONTRAST (03/01/2024 9:49 AM EST) Anatomical Region Laterality Modality Other 03/01/2024 9:49 AM EST Narrative 03/01/2024 9:53 AM EST EXAMINATION: CT OF THE LEFT TIBIA AND FIBULA WITHOUT CONTRAST 02/29/2024 6:02 pm TECHNIQUE: CT of the left tibia and fibula was performed without the administration of intravenous contrast. Multiplanar reformatted images are provided for review. Automated exposure control, iterative reconstruction, and/or weight based adjustment of the mA/kV was utilized to reduce the radiation dose to as low as reasonably achievable. COMPARISON: Left tibia/fibula radiographs from 07/09/2016 HISTORY ORDERING SYSTEM PROVIDED HISTORY: Surgery follow-up TECHNOLOGIST PROVIDED HISTORY: EVAULUARE DISTAL THIRD TIBIA OSTEOTOMY UNION 58-year-old male; evaluate distal 3rd tibia osteotomy union FINDINGS: Bones: ORIF of distal tibial metadiaphyseal fracture and osteotomy with medial sideplate and screws. Incomplete approximately 20-25% osseous fusion of the distal tibial osteotomy. Lateral sideplate and screws for ORIF of distal fibular diaphyseal fracture. No evidence of osseous fusion at the distal tibial diaphyseal fracture. No osteochondral lesion or defect at the talar dome. Irregularity of the medial malleolus likely related to sequela of prior trauma. Soft Tissue: Punctate metallic radiodense foreign bodies along the distal tibia and region of the tibiotalar joint in the ankle. Moderate edema in the subcutaneous fat about the left lower leg and ankle. No organized fluid collection. Mild fatty degeneration of the visualized musculature. Visualized Achilles, peroneal, flexor and extensor tendons are seen in their expected locations. Joint: No tibiotalar effusion. Ankle mortise appears intact. IMPRESSION: 1. ORIF of distal tibial metadiaphyseal fracture deformity and osteotomy with medial sideplate and screws. Incomplete approximately 20-25% osseous fusion of the distal tibial osteotomy. Punctate metallic radiodensities/foreign bodies along the distal tibia and region of the tibiotalar joint in the ankle. Moderate edema in the subcutaneous fat about the left lower leg and ankle. No organized fluid collection. 2. Nonunion of distal fibular diaphyseal fracture ORIF with lateral sideplate and screws. 3. Irregularity of the medial malleolus likely related to sequela of prior trauma. Interpreted by: Francisco Cantor MD Signed by: Francisco Cantor MD 03/01/24 Final result Procedure Note Radiology, Radiologist, MD - 03/01/2024 EXAMINATION: CT OF THE LEFT TIBIA AND FIBULA WITHOUT CONTRAST 02/29/2024 6:02 pm TECHNIQUE: CT of the left tibia and fibula was performed without the administrationof intravenous contrast. Multiplanar reformatted images are provided for review. Automated exposure control, iterative reconstruction, and/orweight based adjustment of the mA/kV was utilized to reduce the radiation dose toas low as reasonably achievable. COMPARISON: Left tibia/fibula radiographs from 07/09/2016 HISTORY ORDERING SYSTEM PROVIDED HISTORY: Surgery follow-up TECHNOLOGIST PROVIDED HISTORY: EVAULUARE DISTAL THIRD TIBIA OSTEOTOMY UNION 58-year-old male; evaluate distal 3rd tibia osteotomy union FINDINGS: Bones: ORIF of distal tibial metadiaphyseal fracture and osteotomy with medial sideplate and screws. Incomplete approximately 20-25% osseous fusion of the distal tibialosteotomy. Lateral sideplate and screws for ORIF of distal fibular diaphysealfracture. No evidence of osseous fusion at the distal tibial diaphyseal fracture. No osteochondral lesion or defect at the talar dome. Irregularity of the medial malleolus likely related to sequela of prior trauma. Soft Tissue: Punctate metallic radiodense foreign bodies along thedistal tibia and region of the tibiotalar joint in the ankle. Moderate edema inthe subcutaneous fat about the left lower leg and ankle. No organized fluid collection. Mild fatty degeneration of the visualized musculature. Visualized Achilles, peroneal, flexor and extensor tendons are seen intheir expected locations. Joint: No tibiotalar effusion. Ankle mortise appears intact. IMPRESSION: 1. ORIF of distal tibial metadiaphyseal fracture deformity and osteotomywith medial sideplate and screws. Incomplete approximately 20-25% osseousfusion of the distal tibial osteotomy. Punctate metallicradiodensities/foreign bodies along the distal tibia and region of the tibiotalar joint in the ankle. Moderate edema in the subcutaneous fat about the left lower legand ankle. No organized fluid collection. 2. Nonunion of distal fibular diaphyseal fracture ORIF with lateralsideplate and screws. 3. Irregularity of the medial malleolus likely related to sequela ofprior trauma. Interpreted by: Francisco Cantor MD Signed by: Francisco Cantor MD 03/01/24 Final result [facility] External Data Provider [facility] Final Result documented in this encounter Visit Diagnoses Not on filedocumented in this encounter Care Teams Diet Attendant Relationship Specialty Start Date End Date Nohelia Dyer MD [address] [place] [address] PCP - General Family Medicine 09/10/22 documented as of this encounter
--- OUTSIDE RECORDS SUMMARY | 2024-09-22 16:00 | XMS_ITS | Encounter Summary ---
Author Organization [facility] Address [address] [place] [address] Care Team Providers Care Scouts Name Role Phone Nohelia Dyer MD Primary Care Provider [phone] Encounter Details Date Type Department Care Team (Late st Contact Info) Description 07/01/2024 Orders Only [facility] [address] [place] [address] Miriam Dickens MA Social History Tobacco Use Types Packs/Day Years [...] often do you attend chur ch or sabianist services? Never 05/04/2024 Do you belong to any clubs o r organizations such as rastafarian groups, unions, fraternal or athletic groups, or [...] Recorded Patient Health Questionnaire-2 Score 0 05/24/2024 [facility] Answer Date [...] in a intermediate (including now)? No 12/18/2022 Housing Stability Vital Sign Answer Pan e Recorded In the last 12 months, was t here a time when you were not able to pay the mortgage or rent on time? No 05/04/2024 In the past 12 months, how m any times have you moved where you were living? 0 05/04/2024 At any time in the past 12 m [facility], were you homeless or living in a intermediate (including now)? No 05/04/2024 Sex and Gender [...] on filedocumented in this encounter Care Teams Scouts Relationship Specialty Start Date End Date Nohelia Dyer MD [address] [place] [address] PCP - General Family Medicine 09/10/22 documented as of this encounter
--- OUTSIDE RECORDS SUMMARY | 2024-09-22 16:00 | XMS_ITS | Encounter Summary ---
Author Organization [facility] Address [address] [place] [address] Care Team Providers Care Loading Machine Tool Setter Name Role Phone Nohelia Dyer MD Primary Care Provider [phone] Encounter Details Date Type Department Care Team [...] week 12/18/2022 How often do you attend christian or spiritism serv ices? Never 12/18/2022 Do you belong to any clubs o r organizations such as christian groups, unions, fraternal or athletic groups, or [...] Recorded Patient Health Questionnaire-2 Score 0 02/02/2024 [facility] Occupat ional Health [...] place to sleep or slept in a jail (including now)? No 12/18/2022 Sex and Gender [...] Name Priority Date/Time Associated Diagnosis Comments CT CHEST WO IV CONTRAST 04/25/2024 6:47 PM EST documented in this encounter Results * CT chest wo IV contrast (04/25/2024 6:47 PM EST) Anatomical Region Laterality Modality Body, Chest Computed Tomogra phy 04/25/2024 6:47 PM EST Narrative 04/26/2024 9:05 AM EST * * *Final Report* * * DATE OF EXAM: Apr 25 2024 6:47PM [facility] 0541 - CT CHEST WO IVCON / PROCEDURE REASON: multiple diagnoses * * * * Physician Interpretation * * * * EXAMINATION: CHEST CT WITHOUT CONTRAST CLINICAL HISTORY: Renal cell carcinoma Technique: Spiral CT acquisition of the chest from the thoracic inlet to the upper abdomen without contrast. MQ: CTCWO_6 CT Radiation dose: Integrated Dose-length product (DLP) for this visit = 1040 mGy*cm CT Dose Reduction Employed: Automated exposure control(AEC) and iterative recon Comparison: Chest CT dated 03/12/2023 RESULT: Limitations: None. Lines, tubes, and devices: None. Lung parenchyma and airways: No new or enlarging pulmonary nodules. Unchanged in size of a micronodule within the left lower lobe superior segment on image 225, and a subcentimeter nodular groundglass opacity in the right lower lobe (image 190). An azygos fissure is incidentally noted. The central airways are patent. Pleural space: No pleural effusions or thickening. No pneumothorax. Lower neck, lymph nodes, and mediastinum: The imaged thyroid gland is normal. No lymphadenopathy in the supraclavicular, axillary, mediastinal, or hilar regions. . Mild diffuse esophageal dilatation. Heart, pericardium, and thoracic vessels: The ascending aorta is enlarged measuring up to 4 cm. The cardiac chambers are normal in size. No detectable coronary artery atherosclerotic calcifications are noted, although the study is not optimized for coronary assessment. No pericardial effusion or thickening. Mild atherosclerotic calcifications of the thoracic aorta and arch vessels. Bones and soft tissues: No destructive bone lesion. Surgical clips in the left anterior chest wall. Upper abdomen: Please see the separately dictated abdominal CT report. Localizer images: No additional findings. IMPRESSION: IMPRESSION: 1. No new or enlarging pulmonary nodules. 2. No significantly enlarged lymph nodes in the chest. Carpenter And Joiner: PSCViolet Transcribe Date/Time: Apr 26 2024 8:44A Dictated by : WILNER TAI MD This examination was interpreted and the report reviewed and electronically signed by: WILNER TAI MD on Apr 26 2024 9:03AM EST [id number]^ACN Procedure Note Radiology, Radiologist, - 04/26/2024 * * *Final Report* * * DATE OF EXAM: Apr 25 2024 6:47PM [facility] 0541 - CT CHEST WO IVCON / PROCEDURE REASON: multiple diagnoses * * * * Physician Interpretation * * * * EXAMINATION: CHEST CT WITHOUT CONTRAST CLINICAL HISTORY: Renal cell carcinoma Technique: Spiral CT acquisition of the chest from the thoracic inlet to the upper abdomen without contrast. MQ: CTCWO_6 CT Radiation dose: Integrated Dose-length product (DLP) for this visit = 1040 mGy*cm CT Dose Reduction Employed: Automated exposure control(AEC) and iterative recon Comparison: Chest CT dated 03/12/2023 RESULT: Limitations: None. Lines, tubes, and devices: None. Lung parenchyma and airways: No new or enlarging pulmonary nodules. Unchanged in size of a micronodule within the left lower lobe superior segment on image 225, and a subcentimeter nodular groundglass opacity in the right lower lobe (image 190). An azygos fissure is incidentally noted. The central airways are patent. Pleural space: No pleural effusions or thickening. No pneumothorax. Lower neck, lymph nodes, and mediastinum: The imaged thyroid gland is normal. No lymphadenopathy in the supraclavicular, axillary, mediastinal, or hilar regions. . Mild diffuse esophageal dilatation. Heart, pericardium, and thoracic vessels: The ascending aorta is enlarged measuring up to 4 cm. The cardiac chambers are normal in size. No detectable coronary artery atherosclerotic calcifications are noted, although the study is not optimized for coronary assessment. No pericardial effusion or thickening. Mild atherosclerotic calcifications of the thoracic aorta and arch vessels. Bones and soft tissues: No destructive bone lesion. Surgical clips in the left anterior chest wall. Upper abdomen: Please see the separately dictated abdominal CT report. Localizer images: No additional findings. IMPRESSION: IMPRESSION: 1. No new or enlarging pulmonary nodules. 2. No significantly enlarged lymph nodes in the chest. Carpenter And Joiner: PSCB Transcribe Date/Time: Apr 26 2024 8:44A Dictated by : WILNER TAI MD This examination was interpreted and the report reviewed and electronically signed by: WILNER TAI MD on Apr 26 2024 9:03AM EST [id number]^ACN Generic External Data Provider IMG CT PROCEDURES Final Result documented in this encounter Visit Diagnoses Not on filedocumented in this encounter Care Teams Loading Machine Tool Setter Relationship Specialty Start Date End Date Nohelia Dyer MD [address] [place] [address] PCP - General Family Medicine 09/10/22 documented as of this encounter
--- OUTSIDE RECORDS SUMMARY | 2024-09-22 16:00 | XMS_ITS | Encounter Summary ---
Author Organization [facility] Address [address] [place] [address] Care Team Providers Care Dynamics Ax Developer Name Role Phone Nohelia Dyer MD Primary Care Provider [phone] Encounter Details Date Type Department Care Team (Latest Contact Info) Description 09/19/2024 Travel Social History Tobacco Use Types Packs/Day Years [...] any clubs o r organizations such as hindu groups, unions, fraternal or athletic groups, or [...] Recorded Patient Health Questionnaire-2 Score 0 09/19/2024 [facility] Occupat ional Health - [...] place to sleep or slept in a mcc (including now)? No 12/18/2022 Housing Stability Vital Sign Answer Pan e Recorded In the last 12 months, was t here a time when you were not able to pay the mortgage or rent on time? No 05/04/2024 In the past 12 months, how m any times have you moved where you were living? 0 05/04/2024 At any time in the past 12 m [facility], were you homeless or living in a mcc (including now)? No 05/04/2024 Sex and Gender Information Value Date Recorded Sex Assigned at Male 11/21/2022 8:10 AM EDT Legal Sex Male 7:07 PM EDT Gender Identity Male 06/25/2022 7:07 PM EDT Sexual Orientation Straight 11/21/2022 8: 10 AM EDT documented as of this encounter Functional Status * Over the [...] Fitzpatrick MA documented as of this encounter Plan of [...] documented as of this encounter Care Teams Dynamics Ax Developer Relationship Specialty Start Date End Date Nohelia Dyer MD [address] [place] [address] PCP - General Family Medicine 09/10/22 documented as of this encounter
--- OUTSIDE RECORDS SUMMARY | 2024-09-22 16:00 | XMS_ITS | Encounter Summary ---
Author Organization [facility] Address [address] [place] [address] Care Team Providers Care Top Spotter Name Role Phone Nohelia Dyer Primary Care Provider [phone] Wander Cao Unavailable Griselda Buckley (Rn) RN Unavailable Unavailabl e Schuyler Blanca MD Unavailable [phone] Ana M Galvan RN Unavailable Unavailable Source Comments In the event this information is protected by the Federal Confidentiality of Alcohol and Drug AbusePatient Records regulations: The Federal rules restrict any use of the information to criminally investigate or prosecute any alcohol or drug abuse patient.[facility] Encounter Details Date Type Department Care Team (Late st Contact Info) Description 04/11/2024 Patient Msg Hematology/Oncology [address] [place] [address] Schuyler Blanca MD [address] [place] [address] Appointment Request Social History Tobacco Use Types [...] is lower risk 8 11/05/2023 Data from: https://www.neighborhoodatlas.medicine.[facility]/. Last address used for calculation [address] 11/05/2023 Sex and Gender Information Value [...] 11:30 AM EDT Office Visit Pain Management [address] [place] [address] Sera Chau PA-C [address] [place] [address] 4-6 week injection follow up 10/02/2024 10:40 AM EDT Appointment Radiology [address] [place] [address] Spinal stenosis of cervical region [M48.02] 10/19/2024 11:30 AM EDT Office Visit Neurology [address] [place] [address] Constanza Casillas PA-C [address] [place] [address] botox 10/31/2024 9:00 AM EDT [facility] Hematology/Oncology [address] [place] [address] Schuyler Blanca MD [address] [place] [address] VIRTUAL 11/21/2024 10:00 AM EDT Office Visit Orthopaedics [address] [place] [address] [place] [address] [place] [address] 3 month f/u documented as of this encounter Visit Diagnoses Not on filedocumented in this encounter Care Teams Top Spotter Relationship Specialty Start Date End Date Nohelia Dyer [address] [place] [address] PCP - General 06/04/05 Wander Cao [address] [place] [address] Physician Hematology/Oncology 03/24/14 Griselda Buckley (Rn), RN [address] [place] [address] Specialty Repairer [employer] Equipment 08/26/17 [place] [address] [place] [address] Referring Hematology 12/31/21 Ana M Galvan RN Specialty Repairer [employer]ding Systems [employer] Equipment Hematology/Oncology 10/14/23 documented as of this encounter
--- OUTSIDE RECORDS SUMMARY | 2024-09-22 16:00 | XMS_ITS | Encounter Summary ---
Author Organization [facility] Address [address] [place] [address] Care Team Providers Care Machine Cloth Trimmer Name Role Phone Nohelia Dyer Primary Care Provider [phone] Wander Cao Unavailable Griselda Buckley (Rn) AMADOR Unavailable Unavailabl Schuyler Bautista MD Unavailable [phone] Ana M Galvan RN Unavailable Unavailable Source Comments In the event this information is protected by the Federal Confidentiality of Alcohol and Drug AbusePatient Records regulations: The Federal rules restrict any use of the information to criminally investigate or prosecute any alcohol or drug abuse patient.[facility] Encounter Details Date Type Department Care Team (Late st Contact Info) Description 01/19/2022 Get Medical Advice Thoracic Clinic [address] [place] [address] Reyes Vizcaino MD [address] [place] [address] Paperwork Social History Tobacco Use Types Packs/Day Years Used Date Smoking Tobacco: Never Smokeless Tobacco: Never Alcohol Use Standard Drinks/Week Comments Not Currently 0 (1 standard drink = 0.6 oz pur e alcohol) maybe once a year PHQ-2 Answer Date Recorded PHQ-2 score 1 01/17/2022 Area Deprivation Index Answer Date Boyd rded National Score (1-100), lower number is lower ri sk 85 09/26/2021 State Score (1-10), lower number is lower risk N ot on file 09/26/2021 Data from: https://www.neighborhoodatlas.medicine.[facility].edu/. Last address used for calculation [address] [facility] 09/26/2021 Sex and Gender Information Value Date Recorded [...] Exposure Response Date Recorded In the last 10 days, have yo u been in contact with someone who was confirmed or suspected to have Coronavirus/COVID-19? No / Unsure 01/10/2022 10:53 AM EDT documented as of this encounter [...] 11:30 AM EDT Office Visit Pain Management [address] [place] [address] Sera Chau PA-C [address] [place] [address] 4-6 week injection follow up 10/02/2024 10:40 AM EDT Appointment Radiology [address] [place] [address] Spinal stenosis of cervical region [M48.02] 10/19/2024 11:30 AM EDT Office Visit Neurology [address] [place] [address] Constanza Casillas PA-C [address] [place] [address] botox 10/31/2024 9:00 AM EDT [facility] Hematology/Oncology [address] [place] [address] Schuyler Blanca MD [address] [place] [address] VIRTUAL 11/21/2024 10:00 AM EDT Office Visit Orthopaedics [address] [place] [address] [place] [address] [place] [address] 3 month f/u documented as of this encounter Visit Diagnoses Not on filedocumented in this encounter Care Teams Machine Cloth Trimmer Relationship Specialty Start Date End Date Nohelia Dyer [address] [place] [id number] PCP - General 06/04/05 Wander Cao [address] [place] [address] Physician Hematology/Oncology 03/24/14 Griselda Buckley (Rn), RN [address] [place] [address] Specialty Tester Regulator 08/26/17 [place] [address] [place] [id number] Referring Hematology 12/31/21 Ana M Galvan RN Specialty Tester Regulator Hematology/Oncology 10/14/23 documented as of this encounter
--- OUTSIDE RECORDS SUMMARY | 2024-09-22 16:00 | XMS_ITS | Patient Health Record ---
Author Organization [facility] Address [address] [place] [address] Care Team Providers Care Labeling Machine Operator Name Role Phone Gomez TAVAREZ, Nohelia Primary Care Provider Ramos Lainez Unavailable [phone] Allergies Allergen (clinical drug ingredient) Drug/Non Drug Allergy documented on EMR Reaction Allergy Type Onset Date Status Keflex hives Drug Allergy Active codeine codeine anaphylaxis Drug Allergy Activ e Reason For Referral No Information Medications Medication SIG (Take, Route, Frequency, Duration) Notes Start Date End Date Status Cymbalta Active lisinopril Active nadolol Active predniSONE Active omeprazole Active Social History Tobacco Use: Social History Observation Description Date Details (start date - stop date) Never Smoker NA - NA Smoking History Question Answer Notes Smoking Status NonSmoker Problems Problem Type SNOMED Code ICD Code Onset Dates Problem Status W/U Status Risk Notes Problem [id number] Sprain of medial collateral ligament of right knee, subsequent encounter (S83.411D) Active confirmed Problem 603621399 Tear of medial collateral ligament of right knee, initial encounter (S83.411A) Active confirmed Plan Of Treatment No Information Insurance Providers Payer Name Payer Address Payer Phone Subscriber Number Group Number Insured Name Patient Relationship to Insured Coverage Start Date Coverage End Date Juan F [address] [place] [address] [id number] SUNIL SANABRIA Self - patient is the insured Medical (General) History Medical History History ICD Code Cancer Type Yes-renal and skin High Blood Pressure: Yes Depression: Yes Drug Allergies: Yes Surgical History Surgery Date(Month/Year) left ankle reconstruction feb 2016
--- OUTSIDE RECORDS SUMMARY | 2024-09-22 16:00 | XMS_ITS | Encounter Summary ---
Author Organization [facility] Address [address] [place] [address] Care Team Providers Care Occupancy Specialist Name Role Phone Nohelia Dyer Primary Care Provider Wander Cao Unavailable Griselda Buckley (Rn) AMADOR Unavailable UnavailSchuyler Ruelas MD Unavailable [phone] Ana M Galvan RN Unavailable Unavailable Source Comments In the event this information is protected by the Federal Confidentiality of Alcohol and Drug AbusePatient Records regulations: The Federal rules restrict any use of the information to criminally investigate or prosecute any alcohol or drug abuse patient.[facility] Encounter Details Date Type Department Care Team (Late st Contact Info) Description 02/29/2024 Get Medical Advice Neurology [address] [place], [place] [id number] Constanza Casillas PA-C [address] [place] [address] Daughter Social History Tobacco Use Types Packs/Day Years [...] is lower risk 8 11/05/2023 Data from: https://www.neighborhoodatlas.medicine.[facility]/. Last address used for calculation [address] [facility] 11/05/2023 Sex and Gender Information Value [...] Emir Valentino RN documented in this encounter Miscellaneous Notes * Telephone Encounter - Tamiko Linares - 03/01/2024 4:14 PM EST Do you have any peds headache recommendations? * Telephone Encounter - Tamiko Linares - 03/01/2024 3:58 PM EST Patient last seen on 12/25/23 documented in this encounter Plan of Treatment Upcoming Encounters Date Type Department Care Team (Late st Contact Info) Description 09/26/2024 11:30 AM EDT Office Visit Pain Management [address] [place] [address] Sera Chau PA-C [address] [place] [address] 4-6 week injection follow up 10/02/2024 10:40 AM EDT Appointment Radiology [address] [place] [address] Spinal stenosis of cervical region [M48.02] 10/19/2024 11:30 AM EDT Office Visit Neurology [address] [place] [address] Constanza Casillas PA-C [address] [place] [address] botox 10/31/2024 9:00 AM EDT [facility] Hematology/Oncology [address] [place] [address] Schuyler Blanca MD [address] [place] [address] VIRTUAL 11/21/2024 10:00 AM EDT Office Visit Orthopaedics [address] [place] [address] [place] [address] [place] [address] 3 month f/u documented as of this encounter Visit Diagnoses Not on filedocumented in this encounter Care Teams Occupancy Specialist Relationship Specialty Start Date End Date Nohelia Dyer [address] [place] [address] PCP - General 06/04/05 Wander Cao [address] [place] [address] Physician Hematology/Oncology 03/24/14 Griselda Buckley (Rn), RN [address] [place] [address] Specialty Director Of Rooms 08/26/17 [place] [address] [place] [address] Referring Hematology 12/31/21 Ana M Galvan RN Specialty Director Of Rooms Hematology/Oncology 10/14/23 documented as of this encounter
--- OUTSIDE RECORDS SUMMARY | 2024-09-22 16:00 | XMS_ITS | Encounter Summary ---
Author Organization [facility] Address [address] [place] [address] Care Team Providers Care Machinery Dismantler Name Role Phone Nohelia Dyer MD Primary Care Provider [phone] Encounter Details Date Type Department Care Team (Late st Contact Info) Description 05/16/2024 Orders Only [facility] [address] [place] [address] Unallocated, Noms Provider, [address] [place] [address] Social History Tobacco Use Types Packs/Day Years [...] How often do you attend chur or denominational services? Never 05/04/2024 Do you belong to any clubs o r organizations such as islam groups, unions, fraternal or athletic groups, or [...] Date Recorded Patient Health Questionnaire-2 Score 0 05/05/2024 [facility] - Occupational [...] place to sleep or slept in a fdc (including now)? No 12/18/2022 Housing Stability Vital Sign Answer Pan e Recorded In the last 12 months, was t here a time when you were not able to pay the mortgage or rent on time? No 05/04/2024 In the past 12 months, how m any times have you moved where you were living? 0 05/04/2024 At any time in the past 12 m [facility], were you homeless or living in a fdc (including now)? No 05/04/2024 Sex and Gender [...] Procedure Name Priority Date/Time Associated Diagnosis Comments SCANNED LABS Routine 05/16/2024 6:59 PM EST documented in this encounter Results * SCANNED LABS (05/16/2024 6:59 PM EST) us Noms Provider Unallocated MD LAB CHG PERFORMABLE S Final Result documented in this encounter Visit Diagnoses Not on filedocumented in this encounter Care Teams Machinery Dismantler Relationship Specialty Start Date End Date Nohelia Dyer MD [address] [place] [address] PCP - General Family Medicine 09/10/22 documented as of this encounter
--- OUTSIDE RECORDS SUMMARY | 2024-09-22 16:00 | XMS_ITS | Encounter Summary ---
Author Organization [facility] Address [address] [place] [address] Care Team Providers Care Dining Car Waiter/Waitress Name Role Phone Nohelia Dyer Primary Care Provider Wander Cao Unavailable Nohelia Sandy (Rn) (Hist) RN Unavailable + Griselda Buckley (Rn) RN Unavailable Unavailabl e Schuyler Blanca MD Unavailable [phone] Ana M Galvan RN Unavailable Unavailable Source Comments In the event this information is protected by the Federal Confidentiality of Alcohol and Drug AbusePatient Records regulations: The Federal rules restrict any use of the information to criminally investigate or prosecute any alcohol or drug abuse patient.[facility] Encounter Details Date Type Department Care Team (Late st Contact Info) Description 10/05/2014 Patient Msg Medical Records [address] [place] [address] Provider, Ccf Updated Schedule Reminder Social History Tobacco Use Types Packs/Day Years [...] 09/18/2014 10:28 AM EDT Giselle Mcdermott MA documented as of this encounter Mental Status * Because of a physical, mental, or emotional condition, do you have serious difficulty concentrating, remembering, or making decisions? Answer Entry Date Author No 09/18/2014 10:28 AM EDT Giselle Mcdermott MA documented in this encounter Plan of Treatment Upcoming Encounters Date Type Department Care Team (Late st Contact Info) Description 09/26/2024 11:30 AM EDT Office Visit Pain Management [address] [place] [address] Sera Chau PA-C [address] [place] [address] 4-6 week injection follow up 10/02/2024 10:40 AM EDT Appointment Radiology [address] [place] [address] Spinal stenosis of cervical region [M48.02] 10/19/2024 11:30 AM EDT Office Visit Neurology [address] [place] [address] Constanza Casillas PA-C [address] [place] [address] botox 10/31/2024 9:00 AM EDT [facility] Hematology/Oncology [address] [place] [address] Schuyler Blanca MD [address] [place] [address] VIRTUAL 11/21/2024 10:00 AM EDT Office Visit Orthopaedics [address] [place] [address] [place] [address] [place] [address] 3 month f/u documented as of this encounter Visit Diagnoses Not on filedocumented in this encounter Additional Health Concerns Infection Onset Date Last Indicated Resolved Time COVID-19 Rule-Out 09/03/2020 09/03/2020 09/03/2020 12:19 AM EDT COVID-19 Rule-Out 09/15/2020 09/15/2020 09/16/2020 7:08 AM EDT documented as of this encounter Care Teams Dining Car Waiter/Waitress Relationship Specialty Start Date End Date Nohelia Dyer [address] [place] [address] PCP - General 06/04/05 Wander Cao [address] [place] [address] Physician Hematology/Oncology 03/24/14 Nohelia Sandy (R[place]) ([place] [address] [place] [address] Specialty Painter Spray Hematology/Oncology 10/25/14 08/25/17 [place] [address] [place] [address] Specialty Painter Spray 08/26/17 [place] [address] [place] [address] Referring Hematology 12/31/21 Ana M Galvan, RN Specialty Painter Spray Hematology/Oncology 10/14/23 documented as of this encounter
--- OUTSIDE RECORDS SUMMARY | 2024-09-22 16:01 | XMS_ITS | Encounter Summary ---
Author Organization [facility] Address [address] [place] [address] Care Team Providers Care Material Handling Equipment Stevedore Name Role Phone Nohelia Dyer Primary Care Provider [phone] Wander Cao Unavailable Griselda Buckley (Rn) AMADOR Unavailable Unavailabl Schuyler Bautista MD Unavailable [phone] Ana M Galvan RN Unavailable Unavailable Source [...] Care Team (Late st Contact Info) Description 04/03/2021 Get Medical Advice Colorectal Surgery [address] [place] [phone] Usama Connelly MD [address] [place] [phone] Thank you Social History Tobacco Use Types Packs/Day Years [...] N ot on file 03/18/2020 Data from: https://www.neighborhoodatlas.medicine.[facility].edu/. Last address used for calculation Not on [...] of Assessment Author No 01/15/2021 12:38 PM EDMercedez Fabian RN * Because of a physical, mental, or emotional condition, do you have difficulty doing errands alone such as visiting a doctor's office or shopping? Answer Date of Assessment Author No 01/15/2021 12:38 PM EDMercedez Fabian RN documented as of this encounter Mental Status * Because of a physical, mental, or emotional condition, do you have serious difficulty concentrating, remembering, or making decisions? Answer Entry Date Author No 01/15/2021 12:38 PM Mercedez Haynes RN documented in this encounter Plan of Treatment Upcoming Encounters Date Type Department Care Team (Late st Contact Info) Description 09/26/2024 11:30 AM EDT Office Visit Pain Management [address] [place] [address] Sera Chau PA-C [address] [place] [address] 4-6 week injection follow up 10/02/2024 10:40 AM EDT Appointment Radiology [address] [place] [address] Spinal stenosis of cervical region [M48.02] 10/19/2024 11:30 AM EDT Office Visit Neurology [address] [place] [address] Constanza Casillas PA-C [address] [place] [address] botox 10/31/2024 9:00 AM EDT [facility] Hematology/Oncology [address] [place] [address] Schuyler Blanca MD [address] [place] [address] VIRTUAL 11/21/2024 10:00 AM EDT Office Visit Orthopaedics [address] [place] [address] [place] [address] [place] [address] 3 month f/u documented as of this encounter Visit Diagnoses Not on filedocumented in this encounter Care Teams Material Handling Equipment Stevedore Relationship Specialty Start Date End Date Nohelia Dyer [address] [place] [address] PCP - General 06/04/05 Wander Cao [address] [place] [address] Physician Hematology/Oncology 03/24/14 Griselda Buckley (Rn), RN [address] [place] [address] Specialty Bank Vault Clerk 08/26/17 [place] [address] [place] [address] Referring Hematology 12/31/21 Ana M Galvan RN Specialty Bank Vault Clerk Hematology/Oncology 10/14/23 documented as of this encounter
--- OUTSIDE RECORDS SUMMARY | 2024-09-22 16:01 | XMS_ITS | Encounter Summary ---
Author Organization [facility] Address [address] [place] [address] Care Team Providers Care Ethylbenzene Converter Operator Name Role Phone Nohelia Dyer Primary Care Provider [phone] Wander Cao Unavailable Griselda Buckley (Rn) AMADOR Unavailable Unavailabl Schuyler Bautista MD Unavailable [phone] Ana M Galvan RN Unavailable Unavailable Source Comments In the event this information is protected by the Federal Confidentiality of Alcohol and Drug AbusePatient Records regulations: The Federal rules restrict any use of the information to criminally investigate or prosecute any alcohol or drug abuse patient.[facility] Encounter Details Date Type Department Care Team (Late st Contact Info) Description 05/08/2021 Patient Msg Neurology [address] [place], [place] [phone] Constanza Casillas PA-C [address] [place] [address] Appointment Request Social History Tobacco Use [...] N ot on file 03/18/2020 Data from: https://www.neighborhoodatlas.medicine.[facility].edu/. Last address used for calculation Not [...] 11:30 AM EDT Office Visit Pain Management [address] [place] [address] Sera Chau PA-C [address] [place] [address] 4-6 week injection follow up 10/02/2024 10:40 AM EDT Appointment Radiology [address] [place] [address] Spinal stenosis of cervical region [M48.02] 10/19/2024 11:30 AM EDT Office Visit Neurology [address] [place] [address] Constanza Casillas PA-C [address] [place] [address] botox 10/31/2024 9:00 AM EDT [facility] Hematology/Oncology [address] [place] [address] Schuyler Blanca MD [address] [place] [address] VIRTUAL 11/21/2024 10:00 AM EDT Office Visit Orthopaedics [address] [place] [address] [place] [address] [place] [address] 3 month f/u documented as of this encounter Visit Diagnoses Not on filedocumented in this encounter Care Teams Ethylbenzene Converter Operator Relationship Specialty Start Date End Date Nohelia Dyer [address] [place] [address] PCP - General 06/04/05 Wander Cao [address] [place] [address] Physician Hematology/Oncology 03/24/14 Griselda Buckley (Rn), RN [address] [place] [address] Specialty Alternative Medicine Practitioner 08/26/17 [place] [address] [place] [address] Referring Hematology 12/31/21 Ana M Galvan RN Specialty Alternative Medicine Practitioner Hematology/Oncology 10/14/23 documented as of this encounter
--- OUTSIDE RECORDS SUMMARY | 2024-09-22 16:01 | XMS_ITS | Encounter Summary ---
Author Organization [facility] Address [address] [place] [address] Care Team Providers Care Community Development Planner Name Role Phone Nohelia Dyer Primary Care Provider [phone] Wander Cao Unavailable Griselda Buckley (Rn) AMADOR Unavailable Unavailabl Schuyler Bautista MD Unavailable [phone] Ana M Galvan RN Unavailable Unavailable Source Comments In the event this information is protected by the Federal Confidentiality of Alcohol and Drug AbusePatient Records regulations: The Federal rules restrict any use of the information to criminally investigate or prosecute any alcohol or drug abuse patient.[facility] Encounter Details Date Type Department Care Team (Late st Contact Info) Description 03/13/2021 Get Medical Advice Colorectal Surgery [address] [place] [phone] Usama Connelly MD [address] [place] [phone] Work Social History Tobacco Use Types Packs/Day Years [...] on file 03/18/2020 Data from: https://www.neighborhoodatlas.medicine.[facility].edu/. Last address used for calculation Not [...] 11:30 AM EDT Office Visit Pain Management [address] [place] [address] Sera Chau PA-C [address] [place] [address] 4-6 week injection follow up 10/02/2024 10:40 AM EDT Appointment Radiology [address] [place] [address] Spinal stenosis of cervical region [M48.02] 10/19/2024 11:30 AM EDT Office Visit Neurology [address] [place] [address] Constanza Casillas PA-C [address] [place] [address] botox 10/31/2024 9:00 AM EDT [facility] Hematology/Oncology [address] [place] [address] Schuyler Blanca MD [address] [place] [address] VIRTUAL 11/21/2024 10:00 AM EDT Office Visit Orthopaedics [address] [place] [address] [place] [address] [place] [address] 3 month f/u documented as of this encounter Visit Diagnoses Not on filedocumented in this encounter Care Teams Community Development Planner Relationship Specialty Start Date End Date Nohelia Dyer [address] [place] [phone] PCP - General 06/04/05 Wander Cao [address] [place] [address] Physician Hematology/Oncology 03/24/14 Griselda Buckley (Rn), RN [address] [place] [address] Specialty Agricultural Education Professor 08/26/17 [place] [address] [place] [address] Referring Hematology 12/31/21 Ana M Galvan RN Specialty Agricultural Education Professor Hematology/Oncology 10/14/23 documented as of this encounter
--- OUTSIDE RECORDS SUMMARY | 2024-09-22 16:01 | XMS_ITS | Encounter Summary ---
Author Organization [facility] Address [address] [place] [address] Care Team Providers Care Junior Electrical Engineer Name Role Phone Nohelia Dyer Primary Care Provider [phone] Wander Cao Unavailable Griselda Buckley (Rn) AMADOR Unavailable UnavailSchuyler Ruelas MD Unavailable [phone] Ana M Galvan RN Unavailable Unavailable Source Comments In the event this information is protected by the Federal Confidentiality of Alcohol and Drug AbusePatient Records regulations: The Federal rules restrict any use of the information to criminally investigate or prosecute any alcohol or drug abuse patient.[facility] Encounter Details Date Type Department Care Team (Late st Contact Info) Description 01/13/2022 Get Medical Advice Neurology [address] [place], [place] [phone] Constanza Casillas PA-C [address] [place] [address] Visit Social History Tobacco Use Types Packs/Day Years [...] N ot on file 09/26/2021 Data from: https://www.neighborhoodatlas.medicine.[facility].edu/. Last address used for calculation [address] [facility] 09/26/2021 Sex and Gender Information Value Date [...] Mercedez Palmer RN documented in this encounter Miscellaneous Notes * Telephone Encounter - Nelida King - 01/13/2022 3:51 PM EDT Patient last seen on 10/25/2021. documented in this encounter Plan of Treatment Upcoming Encounters Date Type Department Care Team (Late st Contact Info) Description 09/26/2024 11:30 AM EDT Office Visit Pain Management [address] [place] [address] Sera Chau PA-C [address] [place] [address] 4-6 week injection follow up 10/02/2024 10:40 AM EDT Appointment Radiology [address] [place] [address] Spinal stenosis of cervical region [M48.02] 10/19/2024 11:30 AM EDT Office Visit Neurology [address] [place] [address] Constanza Casillas PA-C [address] [place] [address] botox 10/31/2024 9:00 AM EDT [facility] Hematology/Oncology [address] [place] [address] Schuyler Blanca MD [address] [place] [address] VIRTUAL 11/21/2024 10:00 AM EDT Office Visit Orthopaedics [address] [place] [address] [place] [address] [place] [address] 3 month f/u documented as of this encounter Visit Diagnoses Not on filedocumented in this encounter Care Teams Junior Electrical Engineer Relationship Specialty Start Date End Date Nohelia Dyer [address] [place] [address] PCP - General 06/04/05 Wander Cao [address] [place] [address] Physician Hematology/Oncology 03/24/14 Griselda Buckley (Rn), RN [address] [place] [address] Specialty Para Educator 08/26/17 [place] [address] [place] [address] Referring Hematology 12/31/21 Ana M Galvan RN Specialty Para Educator Hematology/Oncology 10/14/23 documented as of this encounter
--- OUTSIDE RECORDS SUMMARY | 2024-09-22 16:01 | XMS_ITS | Encounter Summary ---
Author Organization [facility] Address [address] [place] [address] Care Team Providers Care Spout Tender Name Role Phone Nohelia Dyer Primary Care Provider [phone] Wander Cao Unavailable Griselda Buckley (Rn) AMADOR Unavailable Unavailabl Schuyler Bautista MD Unavailable [phone] Ana M Galvan RN Unavailable Unavailable Source Comments In the event this information is protected by the Federal Confidentiality of Alcohol and Drug AbusePatient Records regulations: The Federal rules restrict any use of the information to criminally investigate or prosecute any alcohol or drug abuse patient.[facility] Encounter Details Date Type Department Care Team (Late st Contact Info) Description 01/10/2022 Get Medical Advice Thoracic Clinic [address] [place] [address] Reyes Vizcaino MD [address] [place] [address] Surgery Social History Tobacco Use Types Packs/Day Years Used Date Smoking Tobacco: Never Smokeless Tobacco: Never Alcohol Use Standard Drinks/Week Comments Not Currently 0 (1 standard drink = 0.6 oz pur e alcohol) maybe once a year PHQ-2 Answer Date Recorded PHQ-2 score 1 10/18/2021 Area Deprivation Index Answer Date Boyd rded National Score (1-100), lower number is lower ri sk 85 09/26/2021 State Score (1-10), lower number is lower risk N ot on file 09/26/2021 Data from: https://www.neighborhoodatlas.medicine.[facility].edu/. Last address used for calculation [address] [facility] [address] 09/26/2021 Sex and Gender Information Value Date [...] 11:30 AM EDT Office Visit Pain Management [address] [place] [address] Sera Chau PA-C [address] [place] [address] 4-6 week injection follow up 10/02/2024 10:40 AM EDT Appointment Radiology [address] [place] [address] Spinal stenosis of cervical region [M48.02] 10/19/2024 11:30 AM EDT Office Visit Neurology [address] [place] [address] Constanza Casillas PA-C [address] [place] [address] botox 10/31/2024 9:[address] [facility] Hematology/Oncology [address] [place] [address] Schuyler Blanca MD [address] [place] [address] VIRTUAL 11/21/2024 10:00 AM EDT Office Visit Orthopaedics [address] [place] [address] [place] [address] [place] [address] 3 month f/u documented as of this encounter Visit Diagnoses Not on filedocumented in this encounter Care Teams Spout Tender Relationship Specialty Start Date End Date Nohelia Dyer [address] [place] [id number] PCP - General 06/04/05 Wander Cao [address] [place] [address] Physician Hematology/Oncology 03/24/14 Griselda Buckley (Rn), RN [address] [place] [address] Specialty Manager Family 08/26/17 [place] [address] [place] [address] Referring Hematology 12/31/21 An aM Galvan RN Specialty Manager Family Hematology/Oncology 10/14/23 documented as of this encounter
--- OUTSIDE RECORDS SUMMARY | 2024-09-22 16:01 | XMS_ITS | Encounter Summary ---
Author Organization [facility] Address [address] [place] [address] Care Team Providers Care Bi Solutions Architect Name Role Phone Nohelia Dyer Primary Care Provider [phone] Wander Cao Unavailable Griselda Buckley (Rn) AMADOR Unavailable UnavailSchuyler Ruelas MD Unavailable [phone] Ana M Galvan RN Unavailable Unavailable Source Comments In the event this information is protected by the Federal Confidentiality of Alcohol and Drug AbusePatient Records regulations: The Federal rules restrict any use of the information to criminally investigate or prosecute any alcohol or drug abuse patient.[facility] Encounter Details Date Type Department Care Team (Late st Contact Info) Description 10/04/2021 Get Medical Advice Neurology [address] [place], [place] [id number] Constanza Casillas PA-C [address] [place] [address] Appointment Social History Tobacco Use Types Packs/Day Years Used Date Smoking Tobacco: Never Smokeless Tobacco: Never Alcohol Use Standard Drinks/Week Comments Not Currently 0 (1 standard drink = 0.6 oz pur e alcohol) maybe once a year PHQ-2 Answer Date Recorded PHQ-2 score 1 09/27/2021 Area Deprivation Index Answer Date Boyd rded National Score (1-100), lower number is lower ri sk 85 09/26/2021 State Score (1-10), lower number is lower risk N ot on file 09/26/2021 Data from: https://www.neighborhoodatlas.medicine.[facility].edu/. Last address used for calculation [address] 09/26/2021 Sex and Gender Information Value Date [...] 11:30 AM EDT Office Visit Pain Management [address] [place] [address] Sera Chau PA-C [address] [place] [address] 4-6 week injection follow up 10/02/2024 10:40 AM EDT Appointment Radiology [address] [place] [address] Spinal stenosis of cervical region [M48.02] 10/19/2024 11:30 AM EDT Office Visit Neurology [address] [place] [address] Constanza Casillas PA-C [address] [place] [address] botox 10/31/2024 9:00 AM EDT [facility] Hematology/Oncology [address] [place] [address] Schuyler Blanca MD [address] [place] [address] VIRTUAL 11/21/2024 10:00 AM EDT Office Visit Orthopaedics [address] [place] [address] [place] [address] [place] [address] 3 month f/u documented as of this encounter Visit Diagnoses Not on filedocumented in this encounter Care Teams Bi Solutions Architect Relationship Specialty Start Date End Date Nohelia Dyer [address] [place] [address] PCP - General 06/04/05 Wander Cao [address] [place] [address] Physician Hematology/Oncology 03/24/14 Griselda Buckley (Rn), RN [address] [place] [address] Specialty Public Safety Police 08/26/17 [place] [address] [place] [address] Referring Hematology 12/31/21 Ana M Galvan RN Specialty [employer] Hematology/Oncology 10/14/23 documented as of this encounter
--- OUTSIDE RECORDS SUMMARY | 2024-09-22 16:01 | XMS_ITS | Encounter Summary ---
Author Organization [facility] Address [address] [place] [id number] Care Team Providers Care Electric Car Operator Name Role Phone Nohelia Dyer Primary Care Provider [phone] Wander Cao Unavailable Griselda Buckley (Rn) AMADOR Unavailable Unavailabl Schuyler Bautista MD Unavailable [phone] Ana M Galvan RN Unavailable Unavailable Source Comments In the event this information is protected by the Federal Confidentiality of Alcohol and Drug AbusePatient Records regulations: The Federal rules restrict any use of the information to criminally investigate or prosecute any alcohol or drug abuse patient.[facility] Encounter Details Date Type Department Care Team (Late st Contact Info) Description 05/01/[address] [facility] [address] [place] [address] [place] [address] [facility] [address] [place] [address] Visit Social History Tobacco Use Types Packs/Day [...] on file 03/18/2020 Data from: https://www.neighborhoodatlas.medicine.[facility]/. Last address used for calculation [...] 01/15/2021 12:38 PM EDMercedez Fabian RN * Do you have serious difficulty walking or climbing stairs? Answer Date of Assessment Author No 01/15/2021 12:38 PM Mercedez Haynes RN * Do you have difficulty dressing or bathing? Answer Date of Assessment Author No 01/15/2021 12:38 PM EDMercedez Fabian RN * Because of a physical, mental, or emotional condition, do you have difficulty doing errands alone such as visiting a doctor's office or shopping? Answer Date of Assessment Author No 01/15/2021 12:38 PM Mercedez Haynes RN documented as of this encounter Mental [...] 11:30 AM EDT Office Visit Pain Management [address] [place] [address] Sera Chau PA-C [address] [place] [address] 4-6 week injection follow up 10/02/2024 10:40 AM EDT Appointment Radiology [address] [place] [address] Spinal stenosis of cervical region [M48.02] 10/19/2024 11:30 AM EDT Office Visit Neurology [address] [place] [address] Constanza Casillas PA-C [address] [place] [address] botox 10/31/2024 9:00 AM EDT [facility] Hematology/Oncology [address] [place] [address] Schuyler Blanca MD [address] [place] [address] VIRTUAL 11/21/2024 10:00 AM EDT Office Visit Orthopaedics [address] [place] [address] [place] [address] [place] [address] 3 month f/u documented as of this encounter Visit Diagnoses Not on filedocumented in this encounter Care Teams Electric Car Operator Relationship Specialty Start Date End Date Nohelia Dyer [address] [place] [address] PCP - General 06/04/05 Wander Cao [address] [place] [address] Physician Hematology/Oncology 03/24/14 Griselda Buckley (Rn), RN [address] [place] [address] Specialty Leno Sewer 08/26/17 [place] [address] [place] [address] Referring Hematology 12/31/21 Ana M Galvan RN Specialty Leno Sewer Hematology/Oncology 10/14/23 documented as of this encounter
--- OUTSIDE RECORDS SUMMARY | 2024-09-22 16:01 | XMS_ITS | Clinical Summary ---
Author Organization [facility] Address [address] [place] [id number] Care Team Providers Care Pellet Machine Operator Name Role Phone Nohelia Dyer Primary Care Provider [phone] Wander Cao Unavailable Griselda Buckley (Rn) RN Unavailable UnavailSchuyler Ruelas MD Unavailable Ana M Galvan RN Unavailable Unavailable Allergies Active Allergy Reactions Criticality Noted Date Comments Chlorhexidine Rash 01/14/2021 Codeine Anaphylaxis High 08/14/2005 Tolerated Oxycodone on 09/30/2016 Propoxyphene N-Acetaminophen Shortness of Breath 08/14/2005 Cephalexin Hives 08/14/2005 Medications B COMPLEX 1 ORAL Take one(1) tablet daily. Active omeprazole (PRILOSEC) 20 mg capsule Take 1 capsule by mouth once daily. 0 2 Active Cholecalcifero l, Vitamin D3, 25 mcg (1,000 unit) cap Take 1,000 Units by mouth once daily. Active febuxostat (ULORIC) 40 mg tab Take 40 mg by mouth once daily. Active cetirizine (ZYRTEC) 10 mg tablet Take 10 mg by mouth as needed. Active rosuvastatin (CRESTOR) 10 mg tablet Take 10 mg by mouth once daily. 2 Active bisoprolol (ZEBETA) 5 mg tablet Take 1 tablet by mouth once daily. 4 Active FLUoxetine (PROZAC) 40 mg capsule Take 40 mg by mouth once daily. Active baclofen 10 mg tablet Take 1 tablet by mouth three times a day. As needed for neck pain 30 tablet 1 5 Active DULoxetine (CYMBALTA) 60 mg capsule Take 60 mg by mouth once daily. 5 025 Active predniSONE (DELTASONE) 5 mg tabletIndicati ons:Adrenal insufficiency, primary, familial (HCC) take 1 pill each morning, and take 3 pills for 3-7 days when under stress. Estimate max need in 90 days 200 200 tablet 3 5 Active predniSONE (DELTASONE) 1 mg tabletIndicati ons:Adrenal insufficiency, primary, familial (HCC) TAKE TWO TABLETS BY MOUTH DAILY, IN ADDITION TO 5 MG DOSE 180 tablet 3 5 Active predniSONE (DELTASONE) 1 mg tabletIndicati ons:Adrenal insufficiency, primary, familial (HCC) TAKE FOUR TABLETS BY MOUTH DAILY, IN ADDITION TO 5 MG DOSE 120 tablet 11 4 025 Discontinued predniSONE (DELTASONE) 5 mg tabletIndicati ons:Adrenal insufficiency, primary, familial (HCC) take 1 pill each morning, and take 3 pills for 3-7 days when under stress. Estimate max need in 90 days 200 200 tablet 3 5 025 Discontinued Hospital, Clinic, or Other Facility Administered Medication Ordered Dose Route Frequency Start Date End Date Status betamethasone acetate-betamethasone sodium phosphate 6 mg injection (CELESTONE)Indications: Arthritis of left ankle 6 mg Inj-ORTHO ONCE 08/25/2024 08/25/2024 E nded lidocaine (PF) 10 mg/mL (1 %) 1 mL injection (XYLOCAINE)Indications: Arthritis of left ankle 1 mL Inj-ORTHO ONCE 08/25/2024 08/25/2024 E nded Active Problems Problem Noted Date Diagnosed Date Ankle joint replacement status, left 11/13/2023 History of secondary adrenal cancer 11/03/2023 Diverticulitis of large inte kalyn with perforation and abscess without bleeding 01/07/2021 Assessment & Plan (01/14/2021 9:37 AM EDT): Assessment: 54 year old male with a [...] Encourage OOB and ambulation No homecare needs Assessment & Plan (01/11/2021 11:20 AM EDT): Assessment: 54 year old male with a [...] Flexible sigmoidoscopy. PLAN: NPO except meds NGT decompression mIVF Empiric zosyn Encourage OOB and ambulation No homecare needs Assessment & Plan (01/10/2021 9:52 AM EDT): Assessment: 54 year old male with a [...] Left scalp lesion excision, Flexible sigmoidoscopy. PLAN: CT A/P today given left groin pain Encourage OOB and ambulation No homecare needs Assessment & Plan (01/09/2021 11:45 AM EDT): Assessment: 54 year old male with a [...] Left scalp lesion excision, Flexible sigmoidoscopy. PLAN: GI soft diet Encourage OOB and ambulation No homecare needs Assessment & Plan (01/08/2021 11:16 AM EDT): Assessment: 54 year old male with a [...] Left scalp lesion excision, Flexible sigmoidoscopy. PLAN: Fulls as tolerated Remove rich catheter Encourage OOB and ambulation No homecare needs Post-op pain 01/07/2021 Assessment & Plan (01/14/2021 9:38 AM EDT): PLAN: Multimodal pain management Assessment & Plan (01/11/2021 11:08 AM EDT): PLAN: Multimodal pain management Assessment & Plan (01/10/2021 9:52 AM EDT): PLAN: Multimodal pain management Assessment & Plan (01/09/2021 11:45 AM EDT): PLAN: Multimodal pain management Assessment & Plan (01/07/2021 1:20 PM EDT): PLAN: Multimodal pain management Current chronic use of systemic steroids 021 Assessment & Plan (01/14/2021 9:38 AM EDT): Assessment: 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 Per patient his normal home dose is 7mg daily but in last 1-2 months with diverticulitis flares he has been on 14mg daily PLAN: Steroid taper per endocrine Appreciate endocrine recs History of renal cell cancer 01/07/2021 Assessment & Plan (01/14/2021 9:38 AM EDT): Assessment: hx renal cell cancer s/p laparoscopic left nephrectomy (07/18/2009) PLAN: Continue outpatient monitoring/surveillance Assessment & Plan (01/11/2021 11:08 AM EDT): Assessment: hx renal cell cancer s/p laparoscopic left nephrectomy (07/18/2009) PLAN: Continue outpatient monitoring/surveillance Assessment & Plan (01/10/2021 9:52 AM EDT): Assessment: hx renal cell cancer s/p laparoscopic left nephrectomy (07/18/2009) PLAN: Continue outpatient monitoring/surveillance Assessment & Plan (01/09/2021 11:45 AM EDT): Assessment: hx renal cell cancer s/p laparoscopic left nephrectomy (07/18/2009) PLAN: Continue outpatient monitoring/surveillance Assessment & Plan (01/07/2021 1:23 PM EDT): Assessment: hx renal cell cancer s/p laparoscopic left nephrectomy (07/18/2009) PLAN: Continue outpatient monitoring/surveillance Adrenal insufficiency 01/01/2021 Assessment & Plan (01/14/2021 9:37 AM EDT): Assessment: hx of Renal cell metastasis to [...] recs IV steroids while NGT in place Assessment & Plan (01/11/2021 11:05 AM EDT): Assessment: hx of Renal cell metastasis to [...] recs IV steroids while NGT in place Assessment & Plan (01/10/2021 9:52 AM EDT): Assessment: 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 Per patient his normal home dose is 7mg daily but in last 1-2 months with diverticulitis flares he has been on 14mg daily PLAN: Steroid taper per endocrine Appreciate endocrine recs Assessment & Plan (01/01/2021 3:57 PM EDT): Assessment: on chronic prednisone, follows with endocrine -per patient, recommended to take stress dose (21mg) Prednisone day of surgery by body rolling machine tender HTN (hypertension) 09/03/2020 Assessment & Plan (01/14/2021 9:37 AM EDT): Assessment: per recent visit with his PCP, holding lisinopril and nadolol PLAN: Monitor BP with routine vitals Assessment & Plan (01/11/2021 11:05 AM EDT): Assessment: per recent visit with his PCP, holding lisinopril and nadolol PLAN: Monitor BP with routine vitals Assessment & Plan (01/10/2021 9:52 AM EDT): Assessment: per recent visit with his PCP, holding lisinopril and nadolol PLAN: Monitor BP with routine vitals Assessment & Plan (01/09/2021 11:44 AM EDT): Assessment: per recent visit with his PCP, holding lisinopril and nadolol PLAN: Monitor BP with routine vitals Assessment & Plan (01/07/2021 1:21 PM EDT): Assessment: per recent visit with his PCP, holding lisinopril and nadolol PLAN: Monitor BP with routine vitals Assessment & Plan (01/01/2021 3:26 PM EDT): Assessment:states he was taken off his BP meds by PCP due to hypotension. States his BP has fluctuated since diverticulitis episodes -BP in office today 147/88 Assessment & Plan (09/17/2020 8:42 AM EDT): PLAN: Continue home nadolol Holding home lisinopril Assessment & Plan (09/05/2020 8:14 AM EDT): PLAN: -continue with home nadolol as ordered -monitor vitals closely Assessment & Plan (09/04/2020 9:38 AM EDT): PLAN: -continue with home nadolol as ordered -monitor vitals closely Assessment & Plan (09/03/2020 6:17 AM EDT): PLAN: -continue with home nadolol as ordered -monitor vitals closely HLD (hyperlipidemia) 09/03/2020 Assessment & Plan (01/14/2021 9:37 AM EDT): PLAN: Home pravachol daily Assessment & Plan (01/11/2021 11:05 AM EDT): PLAN: Home pravachol daily Assessment & Plan (01/10/2021 9:52 AM EDT): PLAN: Home pravachol daily Assessment & Plan (01/09/2021 11:44 AM EDT): PLAN: Home pravachol daily Assessment & Plan (01/07/2021 1:21 PM EDT): PLAN: Home pravachol daily Assessment & Plan (01/01/2021 2:31 PM EDT): Assessment: stable on Rx Assessment & Plan (09/17/2020 8:40 AM EDT): PLAN: Continue home pravachol Assessment & Plan (09/05/2020 8:14 AM EDT): PLAN: -continue with home pravastatin as ordered Assessment & Plan (09/04/2020 9:37 AM EDT): PLAN: -continue with home pravastatin as ordered Assessment & Plan (09/03/2020 6:17 AM EDT): PLAN: -continue with home pravastatin as ordered GERD (gastroesophageal reflux disease) Assessment & Plan (01/14/2021 9:37 AM EDT): PLAN: protonix daily Assessment & Plan (01/11/2021 11:05 AM EDT): PLAN: protonix daily Assessment & Plan (01/10/2021 9:52 AM EDT): PLAN: protonix daily Assessment & Plan (01/09/2021 11:45 AM EDT): PLAN: protonix daily Assessment & Plan (01/07/2021 1:20 PM EDT): PLAN: protonix daily Assessment & Plan (01/01/2021 3:23 PM EDT): Assessment: history of hiatal hernia, stable on PPI Assessment & Plan (09/17/2020 8:40 AM EDT): PLAN: protonix daily Assessment & Plan (09/05/2020 8:13 AM EDT): PLAN: -patient takes prilosec at home -order inpatient equivelant Assessment & Plan (09/04/2020 9:37 AM EDT): PLAN: -patient takes prilosec at home -order inpatient equivelant Assessment & Plan (09/03/2020 8:34 AM EDT): PLAN: -patient takes prilosec at home -order inpatient equivelant Obesity, Class II, BMI 35-39.9 06/18/2020 Assessment & Plan (01/14/2021 9:37 AM EDT): PLAN: Nutrition consult Assessment & Plan (01/11/2021 11:05 AM EDT): PLAN: Nutrition consult Assessment & Plan (01/10/2021 9:52 AM EDT): PLAN: Nutrition consult Assessment & Plan (01/09/2021 11:44 AM EDT): PLAN: Nutrition consult Assessment & Plan (01/07/2021 1:21 PM EDT): PLAN: Nutrition consult Assessment & Plan (01/01/2021 3:07 PM EDT): Assessment: BMI 35.40kg Assessment & Plan (09/17/2020 8:39 AM EDT): PLAN: Weight loss counseling Assessment & Plan (09/05/2020 8:14 AM EDT): PLAN: -nutrition consult Assessment & Plan (09/04/2020 9:38 AM EDT): PLAN: -nutrition consult Assessment & Plan (09/03/2020 6:17 AM EDT): PLAN: -nutrition consult Thunderclap headache 02/04/2018 Obesity, Class I, BMI 30-34.9 E66.9 08/06/2017 Assessment & Plan (01/01/2021 2:33 PM EDT): Assessment: BMI Secondary malignant neoplasm of right adrenal gl and 09/10/2016 Assessment & Plan (09/17/2020 8:40 AM EDT): Assessment: right adrenal cancer s/p right adrenalectomy 2017 on prednisolone at home PLAN: Continue home steroids Assessment & Plan (09/05/2020 8:14 AM EDT): ASSESSMENT: -patient s/p adrenalectomy in 2017 PLAN: -on steroids daily; resume while inpatient Assessment & Plan (09/04/2020 9:38 AM EDT): ASSESSMENT: -patient s/p adrenalectomy in 2017 PLAN: -on steroids daily; resume while inpatient Assessment & Plan (09/03/2020 6:18 AM EDT): ASSESSMENT: -patient s/p adrenalectomy in 2017 PLAN: -on steroids daily; resume while inpatient Intractable chronic migraine without aura and without status migrainosus 02/22/2016 Assessment & Plan (01/01/2021 3:24 PM EDT): Assessment: sees neurology and undergoes Botox injections every 3 months -on Ubrelvy prn Headache 11/18/2011 Clear cell renal cell carcinoma, 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 Assessment & Plan (09/17/2020 8:43 AM EDT): Assessment: hx left RCC s/p Nephrectomy in 2009 PLAN: Trend kidney function with daily BMP Assessment & Plan (09/05/2020 8:13 AM EDT): ASSESSMENT: -patient s/p nephrectomy in 2009 PLAN: -stable -nephrology F/U as outpatient Assessment & Plan (09/04/2020 9:37 AM EDT): ASSESSMENT: -patient s/p nephrectomy in 2009 PLAN: -stable -nephrology F/U as outpatient Assessment & Plan (09/03/2020 6:16 AM EDT): ASSESSMENT: -patient s/p nephrectomy in 2009 PLAN: -stable -nephrology F/U as outpatient Malignant neoplasm of kidney 06/25/2009 Assessment & Plan (01/01/2021 3:23 PM EDT): Assessment: s/p left nephrectomy 2009 and right adrenalectomy 2016 -follows with heme/onc Resolved Problems Problem Noted Date Diagnosed Date Resolved Date Hypokalemia 01/14/2021 01/15/2021 Assessment & Plan (01/14/2021 9:38 AM EDT): PLAN: Replete k>4 Check potassium daily Postoperative ileus 01/10/2021 01/16/20 Assessment & Plan (01/14/2021 9:38 AM EDT): Assessment: CT 10/ postop ileus, 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 PLAN: NPO except meds NGT clamp trial MIVF Assessment & Plan (01/11/2021 11:20 AM EDT): Assessment: CT 10/1 postop ileus, 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 PLAN: NPO except meds NGT decompression MIVF DIONNA (acute kidney injury) 01/08/2021 Assessment & Plan (01/14/2021 9:38 AM EDT): Assessment: resolving PLAN: Avoid nephrotoxic meds Trend kidney fxn with daily BMP Assessment & Plan (01/11/2021 11:08 AM EDT): Assessment: resolving PLAN: Avoid nephrotoxic meds Trend kidney fxn with daily BMP Assessment & Plan (01/10/2021 9:52 AM EDT): PLAN: Avoid nephrotoxic meds Trend kidney fxn with daily BMP Assessment & Plan (01/09/2021 11:45 AM EDT): PLAN: Avoid nephrotoxic meds Trend kidney fxn with daily BMP Assessment & Plan (01/08/2021 11:17 AM EDT): PLAN: Avoid nephrotoxic meds Trend kidney fxn with daily BMP Abdominal pain 09/15/2020 09/17/2020 Assessment & Plan (09/17/2020 8:40 AM EDT): PLAN: Multimodal pain management Abdominal pain 09/03/2020 09/06/2020 Assessment & Plan (09/05/2020 8:13 AM EDT): PLAN: -continue with multimodal pain management regimen Assessment & Plan (09/04/2020 9:37 AM EDT): PLAN: -continue with multimodal pain management regimen Assessment & Plan (09/03/2020 6:15 AM EDT): PLAN: -continue with multimodal pain management regimen Hyponatremia 09/03/2020 09/06/2020 Assessment & Plan (09/05/2020 8:14 AM EDT): PLAN: -goal to keep <135 -monitor with labs Assessment & Plan (09/04/2020 9:38 AM EDT): PLAN: -goal to keep <135 -monitor with labs Assessment & Plan (09/03/2020 6:17 AM EDT): PLAN: -goal to keep <135 -monitor with labs Encounters Date Type Department Care Team Description 09/20/2024 Get Medical Advice Pain Management [address] [place] [address] Sera Chau PA-C Appointment but ... 09/13/2024 9:40 AM EDT [facility] Endocrinology [place] [address] [place] [phone] Shiv Hdz MD Adrenal insufficiency, primary, familial (HCC) (Primary Dx) 09/13/2024 Patient [facility] Internal Medicine [place] [id number] [place] [phone] Provider, [facility] Appointment 09/13/2024 Patient [facility] Endocrinology [place] [id number] [place] [phone] Shiv Hdz MD Appointment Request 09/08/2024 Patient [facility] HOSPITAL PHARMAC[facility] HB-[address] [place] [address] Janee Hernandez RPh At your next appointment, choose [facility]. 08/30/2024 Get Medical Advice Hematology/Oncolog y [address] [place] [address] Schuyler Blanca MD Appointment 08/29/2024 Telephone Pain Management [address] [place] [address] Dale Davidson MD Pain procedure response and follow up (Cervical Facet Medial Nerve RFA right C3-C4 and C5-C6.) 08/26/2024 8:11 AM EDT - 08/26/2024 8:52 AM EDT Surgery Procedures [address] [place] [address] Dale Davidson MD DESTRUCTION BY NEUROLYTIC AGENT PARAVERTEBRAL FACET JOINT NERVE(S) CERVICAL SINGLE FACET JOINT W/IMAGE GUIDANCE FLUORO OR CT 08/26/2024 7:04 AM EDT - 08/26/2024 8:53 AM EDT Hospital Encounter Procedures [address] [place] [address] Dale Davidson MD Cervical facet joint syndrome [M47.812], Cervical spondylosis [M47.812] Discharge Disposition: Home 08/26/2024 Patient [facility] Orthopaedics [address] [place] [address] Dennis Pineda MD Appointment Request 08/26/2024 Travel 08/25/2024 11:30 AM EDT Office Visit Orthopaedics [address] [address] Dennis Pineda MD Arthritis of left ankle (Primary Dx) 08/25/2024 11:00 AM EDT - 08/25/2024 11:59 PM EDT Hospital Encounter Radiology [address] [address] Arthritis of left ankle [M19.072] Discharge Disposition: Home 08/24/2024 Travel 08/15/2024 Get Medical Advice Orthopaedics [address] [place] [address] Dennis Pineda MD Ankle 08/12/2024 Travel 08/04/2024 Get Medical Advice Pain Management [address] [place] [address] Dale Davidson MD Ablation 08/03/2024 Patient Msg Neurology [address] [place] [address] Provider, Ccf Know Your Triggers, Own Your Day: Taking Control of Migraine 07/20/2024 11:30 AM EDT Office Visit Neurology [address] [place] [address] Constanza Casillas PA-C Intractable chronic migraine without aura and without status migrainosus (Primary Dx) 07/13/2024 Travel 07/12/2024 Telephone Pain Management [address] [place] [address] Dale Davidson MD Pain procedure response and follow up (Cervical Facet Medial Nerve Block at the right C3-C4 and C5-C6.) 07/08/2024 8:39 AM EDT - 07/08/2024 9:05 AM EDT Surgery Procedures [id number] [facility] [place] [address] Dale Davidson MD BLOCK JOINT FACET CERVICAL WITH C-ARM 07/08/2024 7:40 AM EDT - 07/08/2024 9:07 AM EDT Hospital Encounter Procedures [id number] [facility] [place] [address] Dale Davidson MD Cervical facet joint syndrome [M47.812], Cervical spondylosis [M47.812] Discharge Disposition: Home 07/08/2024 Travel 07/02/2024 Patient Msg Internal Medicine [place] [address] [place] [address] Provider, Ccf Appointment 07/01/2024 Refill Endocrinology [place] [address] [place] [phone] Shiv Hdz MD Refill Request 06/23/2024 Travel 06/22/2024 Get Medical Advice Pain Management [address] [place], [place] [id number] Dale Davidson MD Appointment from Last 3 Months Immunizations Immunization Administration Dates Next Due influenza (IIV4) vaccine, ag e 6 mo - 64 yr, quadrivalent, PF (AFLURIA, FLUARIX, FLULAVAL, FLUZONE) 01/15/2021 tetanus diphtheria (Td) vacc ine, age 7+ yr, 5 Lf tetanus, PF (TENIVAC) 11/05/2015 zoster (RZV) vaccine, recombinant (SHINGRIX) 08/2020 Family History Medical History Relation Comments Lung Cancer Father Headache Mother Lung Cancer Mother Stroke Mother Relation Status Comments Father Mother Social History Tobacco Use Types Packs/Day Years [...] is lower risk 8 11/05/2023 Data from: https://www.neighborhoodatlas.medicine.[email or web address].edu/. Last address used for calculation [address] [facility] 11/05/2023 Sex and Gender Information Value Date Recorded Sex Assigned at Male 07/15/2018 2:11 AM EDT Legal Sex Male 7:35 AM EST Gender Identity Male 07/15/2018 2:11 AM EDT Sexual Orientation Straight 07/15/2018 2: 11 AM EDT Occupation Industry Job Start Date Job End Date unemployed- prior Not on file Not on file N ot on file Last Filed Vital Signs Vital Sign Reading Time Taken Comments Blood Pressure 154/104 08/26/2024 8:38 AM EDT Pulse 75 07/20/2024 11:24 AM EDT Temperature 36.1 C (97 F) 08/26/2024 8:38 AM EDT Respiratory Rate 16 08/26/2024 8:38 AM EDT Oxygen Saturation 97% 08/26/2024 8:38 AM EDT Inhaled Oxygen Concentration - - Weight 99.8 kg (220 lb) 06/17/2024 1:00 PM EST Height 177.8 cm (5' 10 ) 06/17/2024 1:00 PM EST Body Mass Index 31.57 06/17/2024 1:00 PM EST Plan of Treatment Upcoming Encounters Date Type Department Care Team (Late st Contact Info) Description 09/26/2024 11:30 AM EDT Office Visit Pain Management [address] [place] [address] Sera Chau PA-C [address] [place] [address] 4-6 week injection follow up 10/02/2024 10:40 AM EDT Appointment Radiology [address] [place] [address] Spinal stenosis of cervical region [M48.02] 10/19/2024 11:30 AM EDT Office Visit Neurology [address] [place] [address] Constanza Casillas PA-C [address] [place] [address] botox 10/31/2024 9:00 AM EDT [facility] Hematology/Oncology [address] [place] [address] Schuyler Blanca MD [address] [place] [address] [employer] 11/21/2024 10:00 AM EDT Office Visit Orthopaedics [address] [place] [address] [place] [address] [place] [address] 3 month f/u Health Maintenance Due Date Last Done Comments Annual PCP Team Chronic Dise ase Visit 1984 Anxiety Screening 1984 Depression Screening [address] Colonography 11/07/2011 Cologuard (FIT-DNA) 11/07/2011 Fecal Occult Blood 11/07/2011 Sigmoidoscopy 11/07/2011 Pneumococcal Vaccine: 50+ (2 of 2 - PCV) 04/23/2018 04/23/2017 Covid-19 Vaccine (3 2023-2 5 season) 2023 12/05/2020, 11/14/2020 Colonoscopy 06/05/2024 06/05/2023, 05/15, 11/16/2020, Additional history exists Colorectal Cancer Screening 06/05/2024 Influenza Vaccine (Season Ended) 2024 02/25/2023, 02/20/2022, 01/15/2021, Additional history exists Diabetes Screening 05/25/2027 05/25/2024, 0 05/21/2024, 05/05/2024, Additional history exists Lipid Screening 11/19/2027 11/18/2022, 07/13, 02/12/2018, Additional history exists Prostate Cancer Screening Discussion 05/05/2029 05/05/2024 DTaP,Tdap,Td Vaccine (2 - Td or Tdap) 01/26/2034 01/27/2024, 11/05/2015, 11/05/2015, Additional history exists Hepatitis C Screening Completed 04/10/2014 Shingrix Vaccine Completed 02/13/2021, 01/15/2021 Medical Devices Implanted Type Area Allergist/Pediatric Pulmonologist Device Identifier Shelf Expiration Date Model / Serial / Lot Graft Bone Allomatrix Demineralized Bone Matrix Cancellous 5cc Allograft - [id number] Implanted:Qty: 1 on 11/13/2023 by Dennis Pineda MD at [facility] Bone Left: Bone - Ankle [facility] 05/30/2027 [id number] / [id number] / Graft Bn Augment Inj 1.5cc - [id number] Implanted:Qty: 1 on 11/13/2023 by Dennis Pineda MD at [facility] Graft Left: Bone - Ankle [facility] 04/09/2025 [id number] / / [id number] Plate Plate Left: Bone - Ankle Ortholoc 3di Plate Medl Tib Sm Lt Implanted:Qty: 1 on 11/13/2023 at [facility] Plate Left: Leg [employer] [id number] / / Plate Ortholoc 3di Straight Tubular Bone 7 Hole Ankle - [id number] Implanted:Qty: 1 on 11/13/2023 at [facility] Plate Left: Leg [facility] [id number] / / Screw Screw Left: Bone - Ankle Screw Ortholoc 3.5mm Full Thread Low Profile Bronze 18mm Bone 3di - [id number] Implanted:Qty: 1 on 11/13/2023 at [facility] Screw Left: Leg [facility] [id number] / / Ortholoc 3di Screw Lp 3.5x10mm Implanted:Qty: 1 on 11/13/2023 at [facility] Screw Left: Leg [employer] [id number] / / Screw Ortholoc 3.5mm Full Thread Low Profile Bronze 12mm Bone 3di - [id number] Implanted:Qty: 2 on 11/13/2023 at [facility] Screw Left: Leg [facility] [id number] [id number] / / Low-Pro Montez Screw 3.5 X 44mm Ortholoc System - [id number] Implanted:Qty: 1 on 11/13/2023 by Dennis Pineda MD at [facility] Screw RACHEL [id number] / / Description:3.5X44 NL Screw Ortholoc 3di Screw Montez Lp 3.5x36mm Implanted:Qty: 1 on 11/13/2023 at [facility] Screw Left: Leg [employer] [id number] / / Screw Ortholoc 3di 3.5mm Bronze 38mm Bone Low Profile Self Tapping Threaded - [id number] Implanted:Qty: 1 on 11/13/2023 at [facility] Screw Left: Leg [facility] [id number] / / Screw Ortholoc 3.5mm Full Thread Low Profile Bronze 40mm Bone 3di - [id number] Implanted:Qty: 1 on 11/13/2023 at [facility] Screw Left: Leg [facility] [id number] / / Ortholoc 3di Screw Lp 3.5x14mm Implanted:Qty: 2 on 11/13/2023 at [facility] Screw Left: Leg [employer] [id number] / / Wire Enzo 1.6mm Stainless Steel 150mm Fixation 1 [employer] Multiuse - [id number] Implanted:Qty: 1 on 11/13/2023 at [facility] Wire Left: Leg [facility] [id number] / / Procedures Procedure Name Priority Date/Time Associated Diagnosis Comments DSTR NROLYTC AGNT PARVERTEB FCT ADDL CRVCL/THORA 08/26/2024 8:05 AM EDT Cervical facet joint syndrome Cervical spondylosis DSTR NROLYTC AGNT PARVERTEB FCT SNGL CRVCL/THORA 08/26/2024 8:05 AM EDT Cervical facet joint syndrome Cervical spondylosis ARTHROCENTESIS ASPIR&/INJ INTERM JT/BURS W/O US Routine 08/25/2024 12:19 PM EDT Arthritis of left ankle XR ANKLE GENERAL 3V AP/LAT/OBL LEFT Routine 08/25/2024 11:32 AM EDT Arthritis of left ankle NJX DX/THER AGT PVRT FACET JT CRV/THRC 2ND LEVEL 07/08/2024 8:28 AM EDT Cervical facet joint syndrome Cervical spondylosis NJX DX/THER AGT PVRT FACET JT CRV/THRC 1 LEVEL 07/08/2024 8:28 AM EDT Cervical facet joint syndrome Cervical spondylosis COMPREHENSIVE METABOLIC PANEL Routine 04/20/2024 10:28 AM EST Personal history of kidney cancer Secondary malignant neoplasm of right adrenal gland (HCC) Secondary malignant neoplasm of chest wall (HCC) Stage 3a chronic kidney disease (HCC) COLONOSCOPY SCRN NOT HIGH RISK Routine 11/16/2020 10:58 AM EDT Diverticulitis LIPID PANEL, FASTING Routine 02/12/2018 11:22 AM EDT Intractable chronic migraine without aura and without status migrainosus Obesity, Class I, BMI 30-34.9 E66.9 Thunderclap headache HEP REMOTE PANEL BL Routine 04/10/2014 3 :16 PM EST Elevated liver enzymes from Last 3 Months or Most Recently Relevant to Health Maintenance Results * ARTHROCENTESIS ASPIR&/INJ INTERM JT/BURS W/O US (08/25/2024 12:19 PM EDT) Narrative Dennis Pineda MD - 08/25/2024 12:19 PM EDT Dennis Pineda MD 08/25/2024 1:23 PM Medium Joint Arthro/Inj: L ankle joint Pain Evaluation: Pain Scales: Verbal (Numeric Rating or Visual Analog Scale) Pain Level: 7 Pain Location: Ankle-Left Description: (Patient-Rptd) Aching; Sharp; Shooting; Sore; Throbbing Duration Amount of Time: 11 Duration Units: Weeks Frequency: Intermittent 08/25/2024 12:19 PM The procedure site was prepped in the usual sterile fashion. Site: L ankle joint Medications: 6 mg betamethasone acetate-betamethasone sodium phosphate 6 mg/mL Anesthetics: 1 mL lidocaine (PF) 10 mg/mL (1 %) Outcome: tolerated well, no immediate complications Post-injection instructions were reviewed with the patient and the patient voiced understanding of these instructions. Informed Consent Consent Obtained: Verbal [place] Protocol A moment to CARE was completed. SIGN IN TIME OUT Relevant labs, photos, and/or imaging studies have been reviewed. Intended patient and procedure match source documents. Consent obtained and matches the intended procedure. Correct side/site marked and visible. Medications required for procedure verified. Fire risk assessed and interventions discussed. No implant(s) inserted. SIGN OUT No specimen collected. All instruments, equipment, possible retained foreign bodies accounted for. The post-procedure POC has been communicated to the patient or surrogate. No post-procedure POC communication to the patient's multidisciplinary team (including the bedside nurse for hospitalized patients) applicable. us Dennis Pineda MD PROCEDURE Final Result * XR ANKLE GENERAL 3V AP/LAT/OBL LEFT (08/25/2024 11:32 AM EDT) Anatomical Region Laterality Modality Ankle Other 08/25/2024 11:3 2 AM EDT Impressions 08/25/2024 1:20 PM EDT IMPRESSION: Postoperative findings as described with intact hardware and progressive healing at the tibial osteotomy site. Stretch Box Tender: CONSTANTIN Transcribe Date/Time: Aug 25 2024 1:07P Dictated by : CYNTHIA MEDINA MD This examination was interpreted and the report reviewed and electronically signed by: CYNTHIA MEDINA MD on Aug 25 2024 1:18PM EST Narrative 08/25/2024 1:20 PM EDT * * [...] definite bony bridging. Severe tibiotalar osteoarthritis with [id number] contact laterally, similar to prior. No new acute fracture or other significant interval change. Procedure Note Provider, [facility] [place] - 08/25/2024 * * *Final Report* * [...] definite bony bridging. Severe tibiotalar osteoarthritis with slhs-ew-[id number] contact laterally, similar to prior. No new acute fracture or other significant interval change. IMPRESSION IMPRESSION: Postoperative findings as described with intact hardware and progressive healing at the tibial osteotomy site. Stretch Box Tender: PSCB Transcribe Date/Time: Aug 25 2024 1:07P Dictated by : CYNTHIA MEDINA MD This examination was interpreted and the report reviewed and electronically signed by: CYNTHIA MEDINA MD on Aug 25 2024 1:18PM EST Dennis Pineda MD RAD-PAMA Final Result * (ABNORMAL) COMPREHENSIVE METABOLIC PANEL (04/20/2024 10:28 AM EST) Protein, Total 6.9 6.3 - 8.0 g/dL 04/20/2024 11:20 AM [facility] Albumin 4.1 3.9 - 4.9 g/dL 04/20/2024 11:20 AM [facility] Calcium, Total 9.4 8.5 - 10.2 mg/dL 04/20/2024 11:20 AM [facility] Bilirubin, Total 0.7 0.2 - 1.3 mg/dL 04/20/2024 11:20 AM [facility] Alkaline Phosphatase 82 38 - 113 U/L 04/20/2024 11:20 AM [facility] AST 24 14 - 40 U/L 04/20/2024 11:20 AM [facility] ALT 28 10 - 54 U/L 04/20/2024 11:20 AM [facility] Glucose 113(H) 74 - 99 mg/dL 04/20/2024 11:20 AM [facility] Comment: The [place] Diabetes Association (ADA) provides guidance for cutoff values for fasting glucose and random glucose. The ADA defines fasting as no caloric intake for at least 8 hours. Fasting plasma glucose results between 100 to 125 mg/dL indicate increased risk for diabetes (prediabetes). Fasting plasma glucose results greater than or equal to 126 mg/dL meet the criteria for diagnosis of diabetes. In the absence of unequivocal hyperglycemia, results should be confirmed by repeat testing. In a patient with classic symptoms of hyperglycemia or hyperglycemic crisis, random plasma glucose results greater than or equal to 200 mg/dL meet the criteria for diagnosis of diabetes. Reference: Standards of Medical Care in Diabetes 2016, [place] Diabetes Association. Diabetes Care. 2016.39(Suppl 1). BUN 13 9 - 24 mg/dL 04/20/2024 11:20 AM [facility] Creatinine 1.29(H) 0.73 - 1.22 mg/dL 04/20/2024 11:20 AM [facility] Sodium 141 136 - 144 mmol/L 04/20/2024 11:20 AM [facility] Potassium 3.9 3.7 - 5.1 mmol/L 04/20/2024 11:20 AM [facility] Chloride 104 98 - 107 mmol/L 04/20/2024 11:20 AM [facility] CO2 25 22 - 30 mmol/L 04/20/2024 11:20 AM [facility] Anion Gap 12 8 - 15 mmol/L 04/20/2024 11:20 AM [facility] Estimated Glomerular Filtration Rate 65 >=60 mL/min/1. 73m 04/20/2024 11:20 AM [facility] Comment:Estimated Glomerular Filtration Rate (eGFR) is calculated using the 2020 CKD-EPI creatinine equation. This equation utilizes serum creatinine, sex, and age as parameters. The creatinine assay has traceable calibration to isotope dilution- mass spectrometry. Refer to KDIGO guidelines for clinical interpretation. In patients with unstable renal function, e.g. those with acute kidney injury, the eGFR may not accurately reflect actual GFR. Blood BLOOD SPECIMEN / Unknown Venipuncture / Unknown 04/20/2024 10:28 AM EST 04/20/2024 10:28 AM EST us Schuyler Blanca MD LABORATORY Final Resu lt [facility] [address] [facility] [place] [address], [place] * COLONOSCOPY SCRN NOT HIGH RISK (11/16/2020 10:58 AM EDT) Transport Specialist A31 Gastrointestinal Endoscopy Patient Name: David Corley Procedure Date: 11/16/2020 10:58 AM Date of : 1965 Admit Type: Outpatient Age: 55 Room: A31 Procedure 9 ([id number]) Gender: Male Note Status: Finalized Attending MD: Usama Connelly MD Procedure: Colonoscopy Indications: Abnormal CT of the GI tract, Preoperative assessment, Follow-up of diverticulitis Providers: Usama Connelly MD Patient Profile: This is a 55 year old male. Refer to note in patient chart for documentation of history and physical. Last Colonoscopy: 3 years ago. Referring Physician: Medicines: Fentanyl 75 micrograms IV, Midazolam 4 mg IV Complications: No immediate complications. Requesting Provider: Procedure: Pre-Anesthesia Assessment: - Prior to the procedure, a History and Physical was performed, and patient medications and allergies were reviewed. The patient is competent. The risks and benefits of the procedure and the sedation options and risks were discussed with the patient. All questions were answered and informed consent was obtained. Patient identification and proposed procedure were verified by the physician and the nurse in the pre-procedure area in the procedure room. Mental Status Examination: alert and oriented. Airway Examination: normal oropharyngeal airway and neck mobility. Respiratory Examination: clear to auscultation. CV Examination: normal. Prophylactic Antibiotics: The patient does not require prophylactic antibiotics. Prior Anticoagulants: The patient has taken no previous anticoagulant or antiplatelet agents. ASA Grade Assessment: II - A patient with mild systemic disease. After reviewing the risks and benefits, the patient was deemed in satisfactory condition to undergo the procedure. The anesthesia plan was to use moderate sedation / analgesia (conscious sedation). Immediately prior to administration of medications, the patient was re-assessed for adequacy to receive sedatives. The heart rate, respiratory rate, oxygen saturations, blood pressure, adequacy of pulmonary ventilation, and response to care were monitored throughout the procedure. The physical status of the patient was re-assessed after the procedure. - Sedation initiated at 1105 After I obtained informed consent, the scope was passed under direct vision. Throughout the procedure, the patient's blood pressure, pulse, and oxygen saturations were monitored continuously. The Colonoscope was introduced through the anus and advanced to the terminal ileum. The terminal ileum, ileocecal valve, appendiceal orifice, and rectum were photographed. The entire colon was examined. The colonoscopy was performed without difficulty. The patient tolerated the procedure well. The quality of the bowel preparation was good. The quality of the bowel preparation was evaluated using the BBPS ([place] Bowel Preparation Scale) with scores of: Right Colon = 2 (minor amount of residual staining, small fragments of stool and/or opaque liquid, but mucosa seen well), Transverse Colon = 2 (minor amount of residual staining, small fragments of stool and/or opaque liquid, but mucosa seen well) and Left Colon = 2 (minor amount of residual staining, small fragments of stool and/or opaque liquid, but mucosa seen well). The total BBPS score equals 6. The quality of the bowel preparation was good. Moderate Sedation: The administration of moderate sedation was initiated at 11:05 AM. Moderate (conscious) sedation was administered by the endoscopy nurse and supervised by the endoscopist. The following parameters were monitored: oxygen saturation, heart rate, blood pressure, and response to care. Total physician intraservice time was 42 minutes. Findings: The perianal and digital rectal examinations were normal. Pertinent negatives include normal sphincter tone. A 4 mm polyp was found in the cecum. The polyp was sessile. The polyp was removed with a cold biopsy forceps. Resection and retrieval were complete. Verification of patient identification for the specimen was done by the physician and nurse using the patient's name, date and medical record number. Estimated blood loss was minimal. Multiple small and large-mouthed diverticula were found in the sigmoid colon, descending colon, splenic flexure and transverse colon. The retroflexed view of the distal rectum and anal verge was normal and showed no anal or rectal abnormalities. The terminal ileum appeared normal. Impression: - One 4 mm polyp in the cecum, removed with a cold biopsy forceps. Resected and retrieved. - Diverticulosis in the sigmoid colon, in the descending colon, at the splenic flexure and in the transverse colon. - The distal rectum and anal verge are normal on retroflexion view. - The examined portion of the ileum was normal. Estimated Blood Loss: Estimated blood loss was minimal. Recommendation: - Discharge patient to home. - Resume previous diet. - Continue present medications. - Await pathology results. - Repeat colonoscopy in 5 years for surveillance. - Return to my office as previously scheduled. - surgery - Patient has a contact number available for emergencies. The signs and symptoms of potential delayed complications were discussed with the patient. Return to normal activities tomorrow. Written discharge instructions were provided to the patient. Procedure Code(s): --- Professional --- 97781, Colonoscopy, flexible; with biopsy, single or multiple 93670, Moderate sedation; each additional 15 minutes intraservice time 16172, Moderate sedation; each additional 15 minutes intraservice time G0500, Moderate sedation services provided by the same physician or other qualified health plant care worker performing a gastrointestinal endoscopic service that sedation supports, requiring the presence of an independent trained observer to assist in the monitoring of the patient's level of consciousness and physiological status; initial 15 minutes of intra-service time; patient age 5 years or older (additional time may be reported with 10506, as appropriate) Diagnosis Code(s): --- Professional --- K63.5, Polyp of colon Z01.818, Encounter for other preprocedural examination K57.32, Diverticulitis of large intestine without perforation or abscess without bleeding K57.30, Diverticulosis of large intestine without perforation or abscess without bleeding R93.3, Abnormal findings on diagnostic imaging of other parts of digestive tract CPT copyright 2019 [employer]. All rights reserved. The codes documented in this report are preliminary and upon motorboat mechanic inboard/outboard review may be revised to meet current compliance requirements. Attending Participation: I was present and participated during the entire procedure, including non-mendiola portions. I was present and participated during the entire procedure, including non-mendiola portions, and during the administration and monitoring of Moderate Sedation. Scope In: 11:06:51 AM Scope Out: 11:40:55 AM MD Usama Batista MD 11/16/2020 11:45:59 AM This report has been signed electronically by Usama Connelly MD Number of Addenda: 0 Note Initiated On: 11/16/2020 10:58 AM [facility] Anatomical Region Laterality Modality Other 11/16/2020 10:5 8 AM EDT Usama Connelly MD [facility] Final Result * (ABNORMAL) LIPID PANEL BASIC (02/12/2018 11:22 AM EDT) Cholesterol, Total 188 <200 mg/dL 02/12/2018 3:36 PM EDT [facility] Comment: <200 mg/dL, Desirable 200-239 mg/dL, Borderline high >239 mg/dL, High Triglyceride 322(H) <150 mg/dL 02/12/2018 3:36 PM [facility] Comment: <150 mg/dL, Normal 150-199 mg/dL, Borderline high 200-499 mg/dL, High >499 mg/dL, Very high HDL Cholesterol 42 >39 mg/dL 8 3:36 PM [facility] Comment: 40-59 mg/dL, Acceptable >59 mg/dL, High: Negative risk factor for coronary heart disease <40 mg/dL, Low: Positive risk factor for coronary heart disease LDL Cholesterol, Calculated 82 <100 mg/dL 02/12/2018 3:36 PM [facility] Comment: <100 mg/dL, Optimal 100-129 mg/dL, Near optimal/above optimal 130-159 mg/dL, Borderline high 160-189 mg/dL, High >189 mg/dL, Very high Secondary prevention optimal LDL Cholesterol levels are recommended to be < 70 mg/dL Non HDL Cholesterol 146(H) <130 mg/dL 02/12/2018 3:36 PM [facility] Comment: <130 mg/dL, Optimal 130-159 mg/dL, Near optimal/above optimal 160-189 mg/dL, Borderline high 190-219 mg/dL, High >219 mg/dL, Very high Secondary prevention optimal non HDL Cholesterol levels are recommended to be < 100 mg/dL Fasting Time 10 hrs 02/12/2018 11:27 AM [facility] JEM VLDL Cholesterol 64(H) <30 mg/dL 02/13/20 18 3:36 PM [facility] TC:HDL Ratio 4.48 <5.10 02/12/2018 3:36 PM [facility] LDL:HDL Ratio 1.95 <2.54 02/12/2018 3:36 PM [facility] Comment: Reference: 1. National Cholesterol Education Program ATP III Guideline At-A-Glance Quick Desk Reference: National Heart, Lung, and Blood [place]. National Institutes of Health. 2001: NIH Publication No. 01-3305. 2. An International Atherosclerosis Society position paper: global recommendations for the management of dyslipidemia: executive summary, Atherosclerosis. 2014: 232(2):410-413. Blood specimen (specimen) BLOOD SPECIMEN / Unknown 02/12/2018 11:22 AM EDT 02/12/2018 11:27 AM EDT us Constanza Casillas PA-C LABORATORY Final Result [facility] [address] [place] [address] [address] * (ABNORMAL) HEP REMOTE PANEL BL (04/10/2014 3:16 PM EST) Hep B Core Ab, Total Negative NEGAT [facility] Hep C Antibody IA Negative NEGAT [facility] HBsAg Negative NEGAT [facility] Hep B Surface Ab, Qual Positive(A) NEGAT [facility] Comment: These results are consistent with previous exposure and/or immunity to the hepatitis B virus antigen. Blood specimen (specimen) BLOOD SPECIMEN / Unknown 04/10/2014 3:16 PM EST 04/10/2014 3:19 PM EST us Sriram Naranjo MD LABORATORY Final Res ult [facility] [address] [place] [address] from Last 3 Months or Most Recently Relevant to Health Maintenance Insurance [facility] [employer] Advance Directives Documents on File Type Date Recorded Patient Oxygen System Tester Expl anation Advance Directive(s) 05/13/2019 9:11 AM * Full Code (Latest Code Status on File) Date Activated Date Inactivated Comments 09/16/2020 7:33 AM 09/17/2020 8:03 PM Question Answer Comments Full Code Order Discussed With: Patient * DNR-CCA Date Activated Date Inactivated Comments 09/03/2020 1:08 AM 09/06/2020 6:31 PM Question Answer Comments DNR Order Discussed With: Patient Care Teams Pellet Machine Operator Relationship Specialty Start Date End Date Nohelia Dyer [address] [place] [address] PCP - General 06/04/05 Wander Cao [address] [place] [address] Physician Hematology/Oncology 03/24/14 Griselda Buckley (Rn), RN [address] [place] [address] Specialty Multimedia Instructional Designer 08/26/17 [place] [address] [place] [address] Referring Hematology 12/31/21 Ana M Galvan, RN Specialty Multimedia Instructional Designer Hematology/Oncology 10/14/23
--- OUTSIDE RECORDS SUMMARY | 2024-09-22 16:01 | XMS_ITS | Encounter Summary ---
Author Organization [facility] Address [address] [place] [address] Care Team Providers Care Hr Associate Name Role Phone Nohelia Dyer Primary Care Provider [phone] Wander Cao Unavailable Griselda Buckley (Rn) AMADOR Unavailable Unavailabl Schuyler Bautista MD Unavailable [phone] Ana M Galvan RN Unavailable Unavailable Source Comments In the event this information is protected by the Federal Confidentiality of Alcohol and Drug AbusePatient Records regulations: The Federal rules restrict any use of the information to criminally investigate or prosecute any alcohol or drug abuse patient.[facility] Encounter Details Date Type Department Care Team (Late st Contact Info) Description 12/10/2021 Get Medical Advice Neurology [address] [place], [place] [id number] Constanza Casillas PA-C [address] [place] [address] FYI Social History Tobacco Use Types Packs/Day Years [...] N ot on file 09/26/2021 Data from: https://www.neighborhoodatlas.medicine.[facility].edu/. Last address used for calculation [address] [facility] 09/26/2021 Sex and Gender Information Value [...] suspected to have Coronavirus/COVID-19? No / Unsure 11/25/2021 11:08 AM EDT documented as of this encounter [...] encounter Miscellaneous Notes * Telephone Encounter - Chanel Plummer - 12/11/2021 3:46 PM EDT FYI documented in this encounter Plan of Treatment Upcoming Encounters Date Type Department Care Team (Late st Contact Info) Description 09/26/2024 11:30 AM EDT Office Visit Pain Management [address] [place] [address] Sera Chau PA-C [address] [place] [address] 4-6 week injection follow up 10/02/2024 10:40 AM EDT Appointment Radiology [address] [place] [address] Spinal stenosis of cervical region [M48.02] 10/19/2024 11:30 AM EDT Office Visit Neurology [address] [place] [address] Constanza Casillas PA-C [address] [place] [address] botox 10/31/2024 9:00 AM EDT [facility] Hematology/Oncology [address] [place] [address] Schuyler Blanca MD [address] [place] [address] VIRTUAL 11/21/2024 10:00 AM EDT Office Visit Orthopaedics [address] [place] [address] [place] [address] [place] [address] 3 month f/u documented as of this encounter Visit Diagnoses Not on filedocumented in this encounter Care Teams Hr Associate Relationship Specialty Start Date End Date Gomez Nohelia Mary Carmen [address] [place] [address] PCP - General 06/04/05 Wander Cao [address] [place] [address] Physician Hematology/Oncology 03/24/14 Griselda Buckley (Rn), RN [address] [place] [address] Specialty Flue Lining Dipper 08/26/17 [place] [address] [place] [address] Referring Hematology 12/31/21 Ana M Galvan, RN Specialty Flue Lining Dipper Hematology/Oncology 10/14/23 documented as of this encounter
--- OUTSIDE RECORDS SUMMARY | 2024-09-22 16:01 | XMS_ITS | Encounter Summary ---
Author Organization [facility] Address [address] [place] [address] Care Team Providers Care Leaf Stripper Name Role Phone Nohelia Dyer Primary Care Provider Wander Cao Unavailable Griselda Buckley (Rn) RN [...] Care Team (Late st Contact Info) Description 11/27/2021 Get Medical Advice Hematology/Oncology [address] [place] [address] Schuyler Blanca MD [address] [place] [address] I forgot to ask... Social History Tobacco Use Types Packs/Day Years [...] N ot on file 09/26/2021 Data from: https://www.neighborhoodatlas.medicine.[facility]/. Last address used for calculation [address] [facility] 09/26/2021 Sex and Gender [...] 11:30 AM EDT Office Visit Pain Management [address] [place] [address] Sera Chau PA-C [address] [place] [address] 4-6 week injection follow up 10/02/2024 10:40 AM EDT Appointment Radiology [address] [place] [address] Spinal stenosis of cervical region [M48.02] 10/19/2024 11:30 AM EDT Office Visit Neurology [address] [place] [address] Constanza Casillas PA-C [address] [place] [address] botox 10/31/2024 9:00 AM EDT [facility] Hematology/Oncology [address] [place] [address] Schuyler Blanca MD [address] [place] [address] VIRTUAL 11/21/2024 10:00 AM EDT Office Visit Orthopaedics [address] [place] [address] [place] [address] [place] [address] 3 month f/u documented as of this encounter Visit Diagnoses Not on filedocumented in this encounter Care Teams Leaf Stripper Relationship Specialty Start Date End Date Nohelia Dyer [address] [place] [id number] PCP - General 06/04/05 Wander Cao [address] [place] [address] Physician Hematology/Oncology 03/24/14 Griselda Buckley (Rn), RN [address] [facility] [place] [address] Specialty Flask Fitter 08/26/17 [place] [address] [place] [id number] Referring Hematology 12/31/21 Ana M Galvan RN Specialty Flask Fitter Hematology/Oncology 10/14/23 documented as of this encounter
--- OUTSIDE RECORDS SUMMARY | 2024-09-22 16:01 | XMS_ITS | Encounter Summary ---
Author Organization [facility] Address [address] [place] [address] Care Team Providers Care Equipment Oiler Name Role Phone Nohelia Dyer Primary Care Provider [phone] Wander Cao Unavailable Griselda Buckley (Rn) AMADOR Unavailable UnavailSchuyler Ruelas MD Unavailable [phone] Ana M Galvan RN Unavailable Unavailable Source Comments In the event this information is protected by the Federal Confidentiality of Alcohol and Drug AbusePatient Records regulations: The Federal rules restrict any use of the information to criminally investigate or prosecute any alcohol or drug abuse patient.[facility] Encounter Details Date Type Department Care Team (Late st Contact Info) Description 01/01/2018 Abstract Endocrinology [place] [address] [place] [address] [place] [address] [facility] [address] [place] [address] Social History Tobacco Use Types Packs/Day Years [...] of Assessment Author No 09/30/2016 10:22 AM EDT Ivana Samson APRN.TUFTING MACHINE FIXER * Are you blind or do you have serious difficulty seeing, even when wearing glasses? Answer Date of Assessment Author No 09/30/2016 10:22 AM EDT Ivana Samson APRN.TUFTING MACHINE FIXER * Do you have serious difficulty walking or climbing stairs? Answer Date of Assessment Author Yes 09/30/2016 10:22 AM EDT Ivana Samson APRN.TUFTING MACHINE FIXER * Do you have difficulty dressing or bathing? Answer Date of Assessment Author No 09/30/2016 10:22 AM EDT Ivana Samson APRN.TUFTING MACHINE FIXER * Because of a physical, mental, or emotional condition, do you have difficulty doing errands alone such as visiting a doctor's office or shopping? Answer Date of Assessment Author Yes 09/30/2016 10:22 AM EDT Ivana Sasmon APRN.TUFTING MACHINE FIXER documented as of this encounter Mental Status * Because of a physical, mental, or emotional condition, do you have serious difficulty concentrating, remembering, or making decisions? Answer Entry Date Author No 09/30/2016 10:22 AM EDT Ivana Samson, MARGOT.TUFTING MACHINE FIXER documented in this encounter Plan of Treatment Upcoming Encounters Date Type Department Care Team (Late st Contact Info) Description 09/26/2024 11:30 AM EDT Office Visit Pain Management [address] [place], [place] [address] Sera Chau PA-C [address] [place] [address] 4-6 week injection follow up 10/02/2024 10:40 AM EDT Appointment Radiology [address] [place] [address] Spinal stenosis of cervical region [M48.02] 10/19/2024 11:30 AM EDT Office Visit Neurology [address] [place] [address] Constanza Casillas PA-C [address] [place] [address] botox 10/31/2024 9:00 AM EDT [facility] Hematology/Oncology [address] [place] [address] Schuyler Blanca MD [address] [place] [address] VIRTUAL 11/21/2024 10:00 AM EDT Office Visit Orthopaedics [address] [place] [address] [place] [address] [place] [address] 3 month f/u documented as of this encounter Visit Diagnoses Not on filedocumented in this encounter Additional Health Concerns Infection Onset Date Last Indicated Resolved Time COVID-19 Rule-Out 09/03/2020 09/03/2020 09/03/2020 12:19 AM EDT COVID-19 Rule-Out 09/15/2020 09/15/2020 09/16/2020 7:08 AM EDT documented as of this encounter Care Teams Equipment Oiler Relationship Specialty Start Date End Date Nohelia Dyer [address] [place] [address] PCP - General 06/04/05 Wander Coa [address] [place] [address] Physician Hematology/Oncology 03/24/14 Griselda Buckley (Rn), RN [address] [place] [address] Specialty Pantograph Watcher 08/26/17 [place] [address] [place] [address] Referring Hematology 12/31/21 Ana M Galvan, RN Specialty Pantograph Watcher Hematology/Oncology 10/14/23 documented as of this encounter
--- OUTSIDE RECORDS SUMMARY | 2024-09-22 16:01 | XMS_ITS | Encounter Summary ---
Author Organization [facility] Address [address] [place] [address] Care Team Providers Care Automatic Operator Name Role Phone Nohelia Dyer Primary Care Provider [phone] Wander Cao Unavailable Griselda Buckley (Rn) AMADOR Unavailable Unavailabl Schuyler Bautista MD Unavailable Ana M Galvan RN Unavailable Unavailable Source Comments In the event this information is protected by the Federal Confidentiality of Alcohol and Drug AbusePatient Records regulations: The Federal rules restrict any use of the information to criminally investigate or prosecute any alcohol or drug abuse patient.[facility] Encounter Details Date Type Department Care Team (Late st Contact Info) Description 02/25/2021 Get Medical Advice Colorectal Surgery [address] [place] [phone] Usama Connelly MD [address] [place] [phone] Appointment Social History Tobacco Use Types Packs/Day [...] 11:30 AM EDT Office Visit Pain Management [address] [place] [address] Sera Chau PA-C [address] [place] [address] 4-6 week injection follow up 10/02/2024 10:40 AM EDT Appointment Radiology [address] [place] [address] Spinal stenosis of cervical region [M48.02] 10/19/2024 11:30 AM EDT Office Visit Neurology [address] [place] [address] Constanza Casillas PA-C [address] [place] [address] botox 10/31/2024 9:00 AM EDT [facility] Hematology/Oncology [address] [place] [address] Schuyler Blanca MD [address] [place] [address] VIRTUAL 11/21/2024 10:00 AM EDT Office Visit Orthopaedics [address] [place] [address] [place] [address] [place] [address] 3 month f/u documented as of this encounter Visit Diagnoses Not on filedocumented in this encounter Care Teams Automatic Operator Relationship Specialty Start Date End Date Nohelia Dyer [address] [place] [phone] PCP - General 06/04/05 Wander Cao [address] [place] [address] Physician Hematology/Oncology 03/24/14 Griselda Buckley (Rn), RN [address] [place] [address] Specialty Refuse Driver 08/26/17 [place] [address] [place] [phone] Referring Hematology 12/31/21 Ana M Galvan RN Specialty Refuse Driver Hematology/Oncology 10/14/23 documented as of this encounter
--- OUTSIDE RECORDS SUMMARY | 2024-09-22 16:01 | XMS_ITS | Encounter Summary ---
Author Organization [facility] Address [address] [place] [address] Care Team Providers Care Instrumentation Designer Name Role Phone Nohelia Dyer Primary Care Provider [phone] Wander Cao Unavailable Griselda Buckley (Rn) AMDAOR Unavailable Unavailabl Schuyler Bautista MD Unavailable [phone] Ana M Galvan RN Unavailable Unavailable Source Comments In the event this information is protected by the Federal Confidentiality of Alcohol and Drug AbusePatient Records regulations: The Federal rules restrict any use of the information to criminally investigate or prosecute any alcohol or drug abuse patient.[facility] Encounter Details Date Type Department Care Team (Late st Contact Info) Description 03/15/2021 Get Medical Advice Colorectal Surgery [address] [place] [phone] Usama Connelly MD [address] [place] [phone] Letter Social History Tobacco Use Types Packs/Day Years [...] N ot on file 03/18/2020 Data from: https://www.neighborhoodatlas.medicine.[facility].edu/. Last address used for calculation Not [...] EDMercedez Fabian RN * Do you have difficulty dressing [...] 11:30 AM EDT Office Visit Pain Management [address] [place] [address] Sera Chau PA-C [address] [place] [address] 4-6 week injection follow up 10/02/2024 10:40 AM EDT Appointment Radiology [address] [place] [address] Spinal stenosis of cervical region [M48.02] 10/19/2024 11:30 AM EDT Office Visit Neurology [address] [place] [address] Constanza Casillas PA-C [address] [place] [address] botox 10/31/2024 9:00 AM EDT [facility] Hematology/Oncology [address] [place] [address] Schuyler Blanca MD [address] [place] [address] VIRTUAL 11/21/2024 10:00 AM EDT Office Visit Orthopaedics [address] [place] [address] [place] [address] [place] [address] 3 month f/u documented as of this encounter Visit Diagnoses Not on filedocumented in this encounter Care Teams Instrumentation Designer Relationship Specialty Start Date End Date Nohelia Dyer [address] [place] [address] PCP - General 06/04/05 Wander Cao [address] [place] [address] Physician Hematology/Oncology 03/24/14 Griselda Buckley (Rn), RN [address] [place] [address] Specialty Manager Oracle Database 08/26/17 [place] [address] [place] [address] Referring Hematology 12/31/21 Ana M Galvan RN Specialty Manager Oracle Database Hematology/Oncology 10/14/23 documented as of this encounter
--- OUTSIDE RECORDS SUMMARY | 2024-09-22 16:01 | XMS_ITS | Encounter Summary ---
Author Organization [facility] Address [facility] [place] [address] Care Team Providers Care Hvac Project Engineer Name Role Phone Nohelia Dyer Primary Care Provider [phone] Wander Cao Unavailable Griselda Buckley (Rn) AMADOR Unavailable UnavailSchuyler Ruelas MD Unavailable Ana M Galvan RN Unavailable Unavailable Source Comments In the event this information is protected by the Federal Confidentiality of Alcohol and Drug AbusePatient Records regulations: The Federal rules restrict any use of the information to criminally investigate or prosecute any alcohol or drug abuse patient.[facility] Encounter Details Date Type Department Care Team (Late st Contact Info) Description 02/27/2021 Patient Msg Colorectal Surgery [address] [place] [phone] Provider, Ccf F/u from CT scan Social History Tobacco Use Types Packs/Day Years [...] N ot on file 03/18/2020 Data from: https://www.neighborhoodatlas.medicine.[facility]/. Last address used for calculation Not on [...] 11:30 AM EDT Office Visit Pain Management [address] [place] [address] Sera Chau PA-C [address] [place] [address] 4-6 week injection follow up 10/02/2024 10:40 AM EDT Appointment Radiology [address] [place] [address] Spinal stenosis of cervical region [M48.02] 10/19/2024 11:30 AM EDT Office Visit Neurology [address] [place] [address] Constanza Casillas PA-C [address] [place] [address] botox 10/31/2024 9:00 AM EDT [facility] Hematology/Oncology [address] [place] [address] Schuyler Blanca MD [address] [place] [address] VIRTUAL 11/21/2024 10:00 AM EDT Office Visit Orthopaedics [address] [place] [address] [place] [address] [place] [address] 3 month f/u documented as of this encounter Visit Diagnoses Not on filedocumented in this encounter Care Teams Hvac Project Engineer Relationship Specialty Start Date End Date Nohelia Dyer [address] [place] [address] PCP - General 06/04/05 Wander Cao [address] [place] [address] Physician Hematology/Oncology 03/24/14 Griselda Buckley (Rn), RN [address] [place] [address] Specialty Paragliding Instructor 08/26/17 [place] [address] [place] [phone] Referring Hematology 12/31/21 Ana M Galvan, RN Specialty Paragliding Instructor Hematology/Oncology 10/14/23 documented as of this encounter
--- OUTSIDE RECORDS SUMMARY | 2024-09-22 16:01 | XMS_ITS | Encounter Summary ---
Author Organization [facility] Address [address] [place] [address] Care Team Providers Care Facing Cutting Machine Operator Name Role Phone Nohelia Dyer Primary Care Provider [phone] Wander Cao Unavailable Griselda Buckley (Rn) AMADOR Unavailable Unavailabl Schuyler Bautista MD Unavailable [phone] Ana M Galvan RN Unavailable Unavailable Source [...] 03/13/2021 Get Medical Advice Colorectal Surgery [address] [place] [phone] Usama Connelly MD [address] [place] [phone] Doctor note Social History Tobacco Use Types Packs/Day Years [...] on file 03/18/2020 Data from: https://www.neighborhoodatlas.medicine.[facility].edu/. Last address used for calculation Not on [...] 11:30 AM EDT Office Visit Pain Management [address] [place] [address] Sera Chau PA-C [address] [place] [address] 4-6 week injection follow up 10/02/2024 10:40 AM EDT Appointment Radiology [address] [place] [address] Spinal stenosis of cervical region [M48.02] 10/19/2024 11:30 AM EDT Office Visit Neurology [address] [place] [address] Constanza Casillas PA-C [address] [place] [address] botox 10/31/2024 9:00 AM EDT [facility] Hematology/Oncology [address] [place] [address] Schuyler Blanca MD [address] [place] [address] VIRTUAL 11/21/2024 10:00 AM EDT Office Visit Orthopaedics [address] [place] [address] [place] [address] [place] [address] 3 month f/u documented as of this encounter Visit Diagnoses Not on filedocumented in this encounter Care Teams Facing Cutting Machine Operator Relationship Specialty Start Date End Date Nohelia Dyer [address] [place] [phone] PCP - General 06/04/05 Wander Cao [address] [place] [address] Physician Hematology/Oncology 03/24/14 Griselda Buckley (Rn), RN [address] [place] [address] Specialty Dental Ceramist 08/26/17 [place] [address] [place] [address] Referring Hematology 12/31/21 Ana M Galvan RN Specialty Dental Ceramist Hematology/Oncology 10/14/23 documented as of this encounter
--- OUTSIDE RECORDS SUMMARY | 2024-09-22 16:01 | XMS_ITS | Encounter Summary ---
Author Organization [facility] Address [address] [place] [address] Care Team Providers Care Grading Machine Feeder Name Role Phone Nohelia Dyer Primary Care Provider [phone] Wander Cao Unavailable Griselda Buckley (Rn) AMADOR Unavailable UnavailSchuyler Ruelas MD Unavailable [phone] Ana M Galvan RN Unavailable Unavailable Source Comments In the event this information is protected by the Federal Confidentiality of Alcohol and Drug AbusePatient Records regulations: The Federal rules restrict any use of the information to criminally investigate or prosecute any alcohol or drug abuse patient.[facility] Encounter Details Date Type Department Care Team (Late st Contact Info) Description 07/24/2021 Get Medical Advice Neurology [address] [place], [place] [phone] Constanza Casillas PA-C [address] [place] [address] Headaches Social History Tobacco Use Types Packs/Day Years Used Date Smoking Tobacco: Never Smokeless Tobacco: Never Alcohol Use Standard Drinks/Week Comments Not Currently 0 (1 standard drink = 0.6 oz pur e alcohol) maybe once a year PHQ-2 Answer Date Recorded PHQ-2 score 1 05/17/2021 Area Deprivation Index Answer Date Boyd rded National Score (1-100), lower number is lower ri sk Not on file 03/18/2020 State Score (1-10), lower number is lower risk N ot on file 03/18/2020 Data from: https://www.neighborhoodatlas.medicine.[facility].edu/. Last address used for calculation Not [...] Mercedez Haynes RN documented in this encounter Miscellaneous Notes * Telephone Encounter - Ana Prado - 08/21/2021 11:34 AM EDT Please contact patient to schedule a nerve block. If Constanza is available, he would like her, but we can offer first available. documented in this encounter Plan of Treatment Upcoming Encounters Date Type Department Care Team (Late st Contact Info) Description 09/26/2024 11:30 AM EDT Office Visit Pain Management [address] [place] [address] Sera Chau PA-C [address] [place] [address] 4-6 week injection follow up 10/02/2024 10:40 AM EDT Appointment Radiology [address] [place] [address] Spinal stenosis of cervical region [M48.02] 10/19/2024 11:30 AM EDT Office Visit Neurology [address] [place] [address] Constanza Casillas PA-C [address] [place] [address] botox 10/31/2024 9:00 AM EDT [facility] Hematology/Oncology [address] [place] [address] Schuyler Blanca MD [address] [place] [address] VIRTUAL 11/21/2024 10:00 AM EDT Office Visit Orthopaedics [address] [place] [address] [place] [address] [place] [address] 3 month f/u documented as of this encounter Visit Diagnoses Not on filedocumented in this encounter Care Teams Grading Machine Feeder Relationship Specialty Start Date End Date Nohelia Dyer [address] [place] [address] PCP - General 06/04/05 Wander Cao [address] [place] [address] Physician Hematology/Oncology 03/24/14 Griselda Buckley (Rn), RN [address] [place] [address] Specialty Sales Enablement Specialist 08/26/17 [place] [address] [place] [phone] Referring Hematology 12/31/21 Ana M Galvan, RN Specialty Sales Enablement Specialist Hematology/Oncology 10/14/23 documented as of this encounter
--- OUTSIDE RECORDS SUMMARY | 2024-09-22 16:01 | XMS_ITS | Encounter Summary ---
Author Organization [facility] Address [address] [place] [address] Care Team Providers Care Residential Field Manager Name Role Phone Nohelia Dyer Primary Care Provider [phone] Wander Cao Unavailable Griselda Buckley (Rn) AMADOR Unavailable UnavailSchuyler Ruelas MD Unavailable [phone] Ana M Galvan RN Unavailable Unavailable Source Comments In the event this information is protected by the Federal Confidentiality of Alcohol and Drug AbusePatient Records regulations: The Federal rules restrict any use of the information to criminally investigate or prosecute any alcohol or drug abuse patient.[facility] Encounter Details Date Type Department Care Team (Late st Contact Info) Description 12/31/2021 Patient Msg Medical Records [address] [place] [address] Provider, Ccf Questionnaire Submission Social History Tobacco Use Types Packs/Day Years Used Date Smoking Tobacco: Never Smokeless Tobacco: Never Alcohol Use Standard Drinks/Week Comments Not Currently 0 (1 standard drink = 0.6 oz pur e alcohol) maybe once a year PHQ-2 Answer Date Recorded PHQ-2 score 1 10/18/2021 Area Deprivation Index Answer Date Boyd rded National Score (1-100), lower number is lower ri 85 09/26/2021 State Score (1-10), lower number is lower risk N ot on file 09/26/2021 Data from: https://www.neighborhoodatlas.medicine.[facility]/. Last address used for calculation [...] was confirmed or suspected to have Coronavirus/COVID-19? Unable to assess 01/03/2022 6:23 PM EDT documented as of this encounter [...] 11:30 AM EDT Office Visit Pain Management [address] [place] [address] Sera Chau PA-C [address] [place] [address] 4-6 week injection follow up 10/02/2024 10:40 AM EDT Appointment Radiology [address] [place] [address] Spinal stenosis of cervical region [M48.02] 10/19/2024 11:30 AM EDT Office Visit Neurology [address] [place] [address] Constanza Casillas PA-C [address] [place] [address] botox 10/31/2024 9:00 AM EDT [facility] Hematology/Oncology [address] [place] [address] Schuyler Blanca MD [address] [place] [address] VIRTUAL 11/21/2024 10:00 AM EDT Office Visit Orthopaedics [address] [place] [address] [place] [address] [place] [address] 3 month f/u documented as of this encounter Visit Diagnoses Not on filedocumented in this encounter Care Teams Residential Field Manager Relationship Specialty Start Date End Date Nohelia Dyer [address] [place] [address] PCP - General 06/04/05 Wander Cao [address] [place] [address] Physician Hematology/Oncology 03/24/14 Griselda Buckley (Rn), RN [address] [place] [address] Specialty Sales Hunter 08/26/17 [place] [address] [place] [address] Referring Hematology 12/31/21 Ana M Galvan RN Specialty Sales Hunter Hematology/Oncology 10/14/23 documented as of this encounter
--- OUTSIDE RECORDS SUMMARY | 2024-09-22 16:01 | XMS_ITS | Encounter Summary ---
Author Organization [facility] Address [address] [place] [address] Care Team Providers Care Motor Block Mechanic Name Role Phone Nohelia Dyer Primary Care Provider [phone] Wander Cao Unavailable Griselda Buckley (Rn) RN Unavailable Unavailabl e Schuyler Blanca MD Unavailable [phone] AnaM Galvan RN Unavailable Unavailable Source Comments In the event this information is protected by the Federal Confidentiality of Alcohol and Drug AbusePatient Records regulations: The Federal rules restrict any use of the information to criminally investigate or prosecute any alcohol or drug abuse patient.[facility] Encounter Details Date Type Department Care Team (Late st Contact Info) Description 12/10/2021 Get Medical Advice Hematology/Oncology [address] [place] [address] Schuyler Blanca MD [address] [place] [address] Surgeon Social History Tobacco Use Types Packs/Day Years [...] N ot on file 09/26/2021 Data from: https://www.neighborhoodatlas.medicine.[facility].edu/. Last address used for calculation [address] [facility] 09/26/2021 Sex and Gender Information [...] 11:30 AM EDT Office Visit Pain Management [address] [place] [address] Sera Chau PA-C [address] [place] [address] 4-6 week injection follow up 10/02/2024 10:40 AM EDT Appointment Radiology [address] [place] [address] Spinal stenosis of cervical region [M48.02] 10/19/2024 11:30 AM EDT Office Visit Neurology [address] [place] [address] Constanza Casillas PA-C [address] [place] [address] botox 10/31/2024 9:00 AM EDT [facility] Hematology/Oncology [address] [place] [address] Schuyler Blanca MD [address] [place] [address] VIRTUAL 11/21/2024 10:00 AM EDT Office Visit Orthopaedics [address] [place] [address] [place] [address] [place] [address] 3 month f/u documented as of this encounter Visit Diagnoses Not on filedocumented in this encounter Care Teams Motor Block Mechanic Relationship Specialty Start Date End Date Nohelia Dyer [address] [place] [id number] PCP - General 06/04/05 Wander Cao [address] [place] [address] Physician Hematology/Oncology 03/24/14 Griselda Buckley (Rn), RN [address] [place] [address] Specialty Equipment Inspector 08/26/17 [place] [address] [place] [id number] Referring Hematology 12/31/21 Ana M Galvan RN Specialty Equipment Inspector Hematology/Oncology 10/14/23 documented as of this encounter
--- OUTSIDE RECORDS SUMMARY | 2024-09-22 16:01 | XMS_ITS | Encounter Summary ---
Author Organization [facility] Address [address] [place] [address] Care Team Providers Care Ceramic Sprayer Name Role Phone Nohelia Dyer Primary Care Provider [phone] Wander Cao Unavailable Griselda Buckley (Rn) RN Unavailable Unavailabl e Schuyler Blanca MD Unavailable [phone] Ana M Galvan RN Unavailable Unavailable Source Comments In the event this information is protected by the Federal Confidentiality of Alcohol and Drug AbusePatient Records regulations: The Federal rules restrict any use of the information to criminally investigate or prosecute any alcohol or drug abuse patient.[facility] Encounter Details Date Type Department Care Team (Late st Contact Info) Description 11/27/2021 Get Medical Advice Hematology/Oncology [address] [place] [address] Schuyler Blanca MD [address] [place] [address] More... Social History Tobacco Use Types Packs/Day Years [...] N ot on file 09/26/2021 Data from: https://www.neighborhoodatlas.medicine.[facility]/. Last address used for calculation [address] [facility] 09/26/2021 Sex and Gender Information Value Date [...] 11:30 AM EDT Office Visit Pain Management [address] [place] [address] Sera Chau PA-C [address] [place] [address] 4-6 week injection follow up 10/02/2024 10:40 AM EDT Appointment Radiology [address] [place] [address] Spinal stenosis of cervical region [M48.02] 10/19/2024 11:30 AM EDT Office Visit Neurology [address] [place] [address] Constanza Casillas PA-C [address] [place] [address] botox 10/31/2024 9:00 AM EDT [facility] Hematology/Oncology [address] [place] [address] Schuyler Blanca MD [address] [place] [address] VIRTUAL 11/21/2024 10:00 AM EDT Office Visit Orthopaedics [address] [place] [address] [place] [address] [place] [address] 3 month f/u documented as of this encounter Visit Diagnoses Not on filedocumented in this encounter Care Teams Ceramic Sprayer Relationship Specialty Start Date End Date Nohelia Dyer [address] [place] [phone] PCP - General 06/04/05 Wander Cao [address] [place] [address] Physician Hematology/Oncology 03/24/14 Griselda Buckley (Rn), RN [address] [place] [address] Specialty Vehicle Delivery Worker 08/26/17 [place] [address] [place] [id number] Referring Hematology 12/31/21 Ana M Galvan RN Specialty Vehicle Delivery Worker Hematology/Oncology 10/14/23 documented as of this encounter
--- OUTSIDE RECORDS SUMMARY | 2024-09-22 16:01 | XMS_ITS | Encounter Summary ---
Author Organization [facility] Address [address] [place] [address] Care Team Providers Care Cadet Deck Name Role Phone Nohelia Dyer Primary Care Provider [phone] Wander Cao Unavailable Griselda Buckley (Rn) AMADOR Unavailable UnavailSchuyler Ruelas MD Unavailable [phone] Ana M Galvan RN Unavailable Unavailable Source Comments In the event this information is protected by the Federal Confidentiality of Alcohol and Drug AbusePatient Records regulations: The Federal rules restrict any use of the information to criminally investigate or prosecute any alcohol or drug abuse patient.[facility] Encounter Details Date Type Department Care Team (Late st Contact Info) Description 01/10/2022 Patient Msg Angio [address] [place] [address] Provider, Ccf Pre procedure instructions 01/16 - Radiology Social History Tobacco Use Types Packs/Day Years [...] on file 09/26/2021 Data from: https://www.neighborhoodatlas.medicine.[facility].edu/. Last address used for calculation 66 [...] 11:30 AM EDT Office Visit Pain Management [address] [place] [address] Sera Chau PA-C [address] [place] [address] 4-6 week injection follow up 10/02/2024 10:40 AM EDT Appointment Radiology [address] [place] [address] Spinal stenosis of cervical region [M48.02] 10/19/2024 11:30 AM EDT Office Visit Neurology [address] [place] [address] Constanza Casillas PA-C [address] [place] [address] botox 10/31/2024 9:00 AM EDT [facility] Hematology/Oncology [address] [place] [address] Schuyler Blanca MD [address] [place] [address] VIRTUAL 11/21/2024 10:00 AM EDT Office Visit Orthopaedics [address] [place] [address] [place] [address] [place] [address] 3 month f/u documented as of this encounter Visit Diagnoses Not on filedocumented in this encounter Care Teams Cadet Deck Relationship Specialty Start Date End Date Nohelia Dyer [address] [place] [address] PCP - General 06/04/05 Wander Cao [address] [place] [address] Physician Hematology/Oncology 03/24/14 Griselda Buckley (Rn), RN [address] [place] [address] Specialty Programming Equipment Operator 08/26/17 [place] [address] [place] [address] Referring Hematology 12/31/21 Ana M Galvan RN Specialty Programming Equipment Operator Hematology/Oncology 10/14/23 documented as of this encounter
--- OUTSIDE RECORDS SUMMARY | 2024-09-22 16:01 | XMS_ITS | Encounter Summary ---
Author Organization [facility] Address [address] [place] [address] Care Team Providers Care Bull Bucker Name Role Phone Nohelia Dyer Primary Care Provider [phone] Wander Cao Unavailable Griselda Buckley (Rn) AMADOR Unavailable Unavailabl Schuyler Bautista MD Unavailable [phone] Ana M Galvan RN Unavailable Unavailable Source Comments In the event this information is protected by the Federal Confidentiality of Alcohol and Drug AbusePatient Records regulations: The Federal rules restrict any use of the information to criminally investigate or prosecute any alcohol or drug abuse patient.[facility] Encounter Details Date Type Department Care Team (Late st Contact Info) Description 05/07/2021 Get Medical Advice Neurology [address] [place], [place] [id number] Constanza Casillas PA-C [address] [place] [address] ?? Social History Tobacco Use Types Packs/Day Years [...] N ot on file 03/18/2020 Data from: https://www.neighborhoodatlas.medicine.[facility].edu/. Last address used for calculation Not [...] Entry Date Author No 01/15/2021 12:38 PM eMrcedez Haynes RN documented in this encounter Plan of Treatment Upcoming Encounters Date Type Department Care Team (Late st Contact Info) Description 09/26/2024 11:30 AM EDT Office Visit Pain Management [address] [place] [address] Sera Chau PA-C [address] [place] [address] 4-6 week injection follow up 10/02/2024 10:40 AM EDT Appointment Radiology [address] [place] [address] Spinal stenosis of cervical region [M48.02] 10/19/2024 11:30 AM EDT Office Visit Neurology [address] [place] [address] Constanza Casillas PA-C [address] [place] [address] botox 10/31/2024 9:00 AM EDT [facility] Hematology/Oncology [address] [place] [address] Schuyler Blanca MD [address] [place] [address] VIRTUAL 11/21/2024 10:00 AM EDT Office Visit Orthopaedics [address] [place] [address] [place] [address] [place] [address] 3 month f/u documented as of this encounter Visit Diagnoses Not on filedocumented in this encounter Care Teams Bull Bucker Relationship Specialty Start Date End Date Nohelia Dyer [address] [place] [address] PCP - General 06/04/05 Wander Cao [address] [place] [address] Physician Hematology/Oncology 03/24/14 Griselda Buckley (Rn), RN [address] [place] [address] Specialty Clinical Research Spec 08/26/17 [place] [address] [place] [address] Referring Hematology 12/31/21 Ana M Galvan RN Specialty Clinical Research Spec Hematology/Oncology 10/14/23 documented as of this encounter
--- OUTSIDE RECORDS SUMMARY | 2024-09-22 16:01 | XMS_ITS | Encounter Summary ---
Author Organization [facility] Address [address] [place] [address] Care Team Providers Care Test Automation Architect Name Role Phone Nohelia Dyer Primary Care Provider [phone] Wander Cao Unavailable Griselda Buckley (Rn) AMADOR Unavailable UnavailSchuyler Ruelas MD Unavailable [phone] Ana M Galvan RN Unavailable Unavailable Source Comments In the event this information is protected by the Federal Confidentiality of Alcohol and Drug AbusePatient Records regulations: The Federal rules restrict any use of the information to criminally investigate or prosecute any alcohol or drug abuse patient.[facility] Encounter Details Date Type Department Care Team (Late st Contact Info) Description 05/08/2021 Get Medical Advice Neurology [address] [place], [place] [phone] Constanza Casillas PA-C [address] [place] [address] Appointment Social History Tobacco Use [...] file 03/18/2020 Data from: https://www.neighborhoodatlas.medicine.[facility].edu/. Last address used for [...] 11:30 AM EDT Office Visit Pain Management [address] [place] [address] Sera Chau PA-C [address] [place] [address] 4-6 week injection follow up 10/02/2024 10:40 AM EDT Appointment Radiology [address] [place] [address] Spinal stenosis of cervical region [M48.02] 10/19/2024 11:30 AM EDT Office Visit Neurology [address] [place] [address] Constanza Casillas PA-C [address] [place] [address] botox 10/31/2024 9:00 AM EDT [facility] Hematology/Oncology [address] [place] [address] Schuyler Blanca MD [address] [place] [address] VIRTUAL 11/21/2024 10:00 AM EDT Office Visit Orthopaedics [address] [place] [address] [place] [address] [place] [address] 3 month f/u documented as of this encounter Visit Diagnoses Not on filedocumented in this encounter Care Teams Test Automation Architect Relationship Specialty Start Date End Date Nohelia Dyer [address] [place] [address] PCP - General 06/04/05 Wander Cao [address] [place] [address] Physician Hematology/Oncology 03/24/14 Griselda Buckley (Rn), RN [address] [place] [address] Specialty Slice Cutting Machine Operator 08/26/17 [place] [address] [place] [address] Referring Hematology 12/31/21 Ana M Galvan RN Specialty Slice Cutting Machine Operator Hematology/Oncology 10/14/23 documented as of this encounter
--- OUTSIDE RECORDS SUMMARY | 2024-09-22 16:01 | XMS_ITS | Encounter Summary ---
Author Organization [facility] Address [address] [place] [address] Care Team Providers Care Ship Pilot Name Role Phone Nohelia Dyer Primary Care Provider [phone] Wander Cao Unavailable Griselda Buckley (Rn) AMADOR Unavailable UnavailSchuyler Ruelas MD Unavailable [phone] Ana M Galvan RN Unavailable Unavailable Source Comments In the event this information is protected by the Federal Confidentiality of Alcohol and Drug AbusePatient Records regulations: The Federal rules restrict any use of the information to criminally investigate or prosecute any alcohol or drug abuse patient.[facility] Encounter Details Date Type Department Care Team (Late st Contact Info) Description 09/03/2017 Get Medical Advice Hematology/Oncology [address] [place] [address] Wander Cao [address] [place] [phone] RE: Upcoming Appointment Question Social History Tobacco [...] No 09/30/2016 10:22 AM EDT Ivana Samson APRN.MAIL LIST LIBRARIAN * Are you blind or do you have serious difficulty seeing, even when wearing glasses? Answer Date of Assessment Author No 09/30/2016 10:22 AM EDT Ivana Samson APRN.MAIL LIST LIBRARIAN * Do you have serious difficulty walking or climbing stairs? Answer Date of Assessment Author Yes 09/30/2016 10:22 AM EDT Ivana Samson APRN.MAIL LIST LIBRARIAN * Do you have difficulty dressing or bathing? Answer Date of Assessment Author No 09/30/2016 10:22 AM EDT Ivana Samson APRN.MAIL LIST LIBRARIAN * Because of a physical, mental, or emotional condition, do you have difficulty doing errands alone such as visiting a doctor's office or shopping? Answer Date of Assessment Author Yes 09/30/2016 10:22 AM EDT Ivana Samson APRN.MAIL LIST LIBRARIAN documented as of this encounter Mental Status * Because of a physical, mental, or emotional condition, do you have serious difficulty concentrating, remembering, or making decisions? Answer Entry Date Author No 09/30/2016 10:22 AM EDT Ivana Samson APRN.MAIL LIST LIBRARIAN documented in this encounter Plan of Treatment Upcoming Encounters Date Type Department Care Team (Late st Contact Info) Description 09/26/2024 11:30 AM EDT Office Visit Pain Management [address] [place] [address] Sera Chau PA-C [address] [place] [address] 4-6 week injection follow up 10/02/2024 10:40 AM EDT Appointment Radiology [address] [place] [address] Spinal stenosis of cervical region [M48.02] 10/19/2024 11:30 AM EDT Office Visit Neurology [address] [place] [address] Constanza Casillas PA-C [address] [place] [address] botox 10/31/2024 9:00 AM EDT [facility] Hematology/Oncology [address] [place] [address] Schuyler Blanca MD [address] [place] [address] VIRTUAL 11/21/2024 10:00 AM EDT Office Visit Orthopaedics [address] [place] [address] [place] [address] [place] [address] 3 month f/u documented as of this encounter Visit Diagnoses Not on filedocumented in this encounter Additional Health Concerns Infection Onset Date Last Indicated Resolved Time COVID-19 Rule-Out 09/03/2020 09/03/2020 09/03/2020 12:19 AM EDT COVID-19 Rule-Out 09/15/2020 09/15/2020 09/16/2020 7:08 AM EDT documented as of this encounter Care Teams Ship Pilot Relationship Specialty Start Date End Date Nohelia Dyer [address] [place] [address] PCP - General 06/04/05 Wander Cao [address] [place] [address] Physician Hematology/Oncology 03/24/14 Griselda Buckley (Rn), RN [address] [place] [address] Specialty Confectionery Laboratory Manager 08/26/17 [place] [address] [place] [id number] Referring Hematology 12/31/21 Ana M Galavn, RN Specialty Confectionery Laboratory Manager Hematology/Oncology 10/14/23 documented as of this encounter
--- OUTSIDE RECORDS SUMMARY | 2024-09-22 16:01 | XMS_ITS | Encounter Summary ---
Author Organization [facility] Address [address] [place] [address] Care Team Providers Care Extrusion Die Template Maker Name Role Phone Nohelia Dyer Primary Care Provider [phone] Wander Cao Unavailable Griselda Buckley (Rn) AMADOR Unavailable UnavailSchuyler Ruelas MD Unavailable [phone] Ana M Galvan RN Unavailable Unavailable Source Comments In the event this information is protected by the Federal Confidentiality of Alcohol and Drug AbusePatient Records regulations: The Federal rules restrict any use of the information to criminally investigate or prosecute any alcohol or drug abuse patient.[facility] Encounter Details Date Type Department Care Team (Late st Contact Info) Description 12/31/2021 Patient Msg Medical Records [address] [place] [address] Provider, Ccf Questionnaire Submission Social History Tobacco [...] N ot on file 09/26/2021 Data from: https://www.neighborhoodatlas.medicine.[facility]/. Last address used for calculation [...] 11:30 AM EDT Office Visit Pain Management [address] [place] [address] Sera Chau PA-C [address] [place] [address] 4-6 week injection follow up 10/02/2024 10:40 AM EDT Appointment Radiology [address] [place] [address] Spinal stenosis of cervical region [M48.02] 10/19/2024 11:30 AM EDT Office Visit Neurology [address] [place] [address] Constanza Casillas PA-C [address] [place] [address] botox 10/31/2024 9:00 AM EDT [facility] Hematology/Oncology [address] [place] [address] Schuyler Blanca MD [address] [place] [address] VIRTUAL 11/21/2024 10:00 AM EDT Office Visit Orthopaedics [address] [place] [address] [place] [address] [place] [address] 3 month f/u documented as of this encounter Visit Diagnoses Not on filedocumented in this encounter Care Teams Extrusion Die Template Maker Relationship Specialty Start Date End Date Nohelia Dyer [address] [place] [address] PCP - General 06/04/05 Wander Cao [address] [place] [address] Physician Hematology/Oncology 03/24/14 Griselda Buckley (Rn), RN [address] [place] [address] Specialty Hydraulics Engineer 08/26/17 [place] [address] [place] [address] Referring Hematology 12/31/21 Ana M Galvan RN Specialty Hydraulics Engineer Hematology/Oncology 10/14/23 documented as of this encounter
--- OUTSIDE RECORDS SUMMARY | 2024-09-22 16:01 | XMS_ITS | Encounter Summary ---
Author Organization [facility] Address [facility] [place] [address] Care Team Providers Care Reverberatory Furnace Supervisor Name Role Phone Nohelia Dyer Primary Care Provider [phone] Wander Cao Unavailable Griselda Buckley (Rn) AMADOR Unavailable Unavailabl e Schuyler Blanca MD Unavailable [phone] Ana M Galvan RN Unavailable Unavailable Source Comments In the event this information is protected by the Federal Confidentiality of Alcohol and Drug AbusePatient Records regulations: The Federal rules restrict any use of the information to criminally investigate or prosecute any alcohol or drug abuse patient.[facility] Encounter Details Date Type Department Care Team (Late st Contact Info) Description 09/04/2017 Patient Msg Neurology [address] [place] [id number] Elise Cooney MD [address] [place] [address] RE:Axert Denied Social History Tobacco Use Types Packs/Day Years [...] No 09/30/2016 10:22 AM EDT Ivana Samson APRN.DIRECTOR CHECK * Are you blind or do you have serious difficulty seeing, even when wearing glasses? Answer Date of Assessment Author No 09/30/2016 10:22 AM EDT Ivana Samson APRN.DIRECTOR CHECK * Do you have serious difficulty walking or climbing stairs? Answer Date of Assessment Author Yes 09/30/2016 10:22 AM EDT Ivana Samson APRN.DIRECTOR CHECK * Do you have difficulty dressing or bathing? Answer Date of Assessment Author No 09/30/2016 10:22 AM EDT Ivana Samson APRN.DIRECTOR CHECK * Because of a physical, mental, or emotional condition, do you have difficulty doing errands alone such as visiting a doctor's office or shopping? Answer Date of Assessment Author Yes 09/30/2016 10:22 AM EDT Ivana Samson APRN.DIRECTOR CHECK documented as of this encounter Mental Status * Because of a physical, mental, or emotional condition, do you have serious difficulty concentrating, remembering, or making decisions? Answer Entry Date Author No 09/30/2016 10:22 AM EDT Ivana Samson, MARGOT.DIRECTOR CHECK documented in this encounter Plan of Treatment Upcoming Encounters Date Type Department Care Team (Late st Contact Info) Description 09/26/2024 11:30 AM EDT Office Visit Pain Management [address] [place], [place] [id number] Sera Chau PA-C [address] [place] [address] 4-6 week injection follow up 10/02/2024 10:40 AM EDT Appointment Radiology [address] [place] [address] Spinal stenosis of cervical region [M48.02] 10/19/2024 11:30 AM EDT Office Visit Neurology [address] [place] [address] Constanza Casillas PA-C [address] [place] [address] botox 10/31/2024 9:00 AM EDT [facility] Hematology/Oncology [address] [place] [address] Schuyler Blanca MD [address] [place] [address] VIRTUAL 11/21/2024 10:00 AM EDT Office Visit Orthopaedics [address] [place] [address] [place] [address] [place] [address] 3 month f/u documented as of this encounter Visit Diagnoses Not on filedocumented in this encounter Additional Health Concerns Infection Onset Date Last Indicated Resolved Time COVID-19 Rule-Out 09/03/2020 09/03/2020 09/03/2020 12:19 AM EDT COVID-19 Rule-Out 09/15/2020 09/15/2020 09/16/2020 7:08 AM EDT documented as of this encounter Care Teams Reverberatory Furnace Supervisor Relationship Specialty Start Date End Date Nohelia Dyer [address] [place] [address] PCP - General 06/04/05 Wander Cao [address] [place] [address] Physician Hematology/Oncology 03/24/14 Griselda Buckley (Rn), RN [address] [place] [address] Specialty Welcome Center Attendant 08/26/17 [place] [address] [place] [address] Referring Hematology 12/31/21 Ana M Galvan, RN Specialty Welcome Center Attendant Hematology/Oncology 10/14/23 documented as of this encounter
--- OUTSIDE RECORDS SUMMARY | 2024-09-22 16:01 | XMS_ITS | Encounter Summary ---
Author Organization [facility] Address [address] [place] [address] Care Team Providers Care Machine Coremaker Name Role Phone Nohelia Dyer Primary Care Provider [phone] Wander Cao Unavailable Griselda Buckley (Rn) RN Unavailable Unavailabl e Schuyler Blanca MD Unavailable [phone] Ana M Galvan RN Unavailable Unavailable Source Comments In the event this information is protected by the Federal Confidentiality of Alcohol and Drug AbusePatient Records regulations: The Federal rules restrict any use of the information to criminally investigate or prosecute any alcohol or drug abuse patient.[facility] Encounter Details Date Type Department Care Team (Late st Contact Info) Description 12/05/2021 Get Medical Advice Hematology/Oncology [address] [place] [address] Schuyler Blanca MD [address] [place] [address] surgeon Social History Tobacco Use Types Packs/Day Years [...] N ot on file 09/26/2021 Data from: https://www.neighborhoodatlas.medicine.[facility].edu/. Last address used for calculation [address] [facility] 09/26/2021 Sex and Gender Information Value [...] 11:30 AM EDT Office Visit Pain Management [address] [place] [address] Sera Chau PA-C [address] [place] [address] 4-6 week injection follow up 10/02/2024 10:40 AM EDT Appointment Radiology [address] [place] [address] Spinal stenosis of cervical region [M48.02] 10/19/2024 11:30 AM EDT Office Visit Neurology [address] [place] [address] Constanza Casillas PA-C [address] [place] [address] botox 10/31/2024 9:00 AM EDT [facility] Hematology/Oncology [address] [place] [address] Schuyler Blanca MD [address] [place] [address] VIRTUAL 11/21/2024 10:00 AM EDT Office Visit Orthopaedics [address] [place] [address] [place] [address] [place] [address] 3 month f/u documented as of this encounter Visit Diagnoses Not on filedocumented in this encounter Care Teams Machine Coremaker Relationship Specialty Start Date End Date Nohelia Dyer [address] [place] [id number] PCP - General 06/04/05 Wander Cao [address] [place] [address] Physician Hematology/Oncology 03/24/14 Griselda Buckley (Rn), RN [address] [place] [address] Specialty Ecological Technical Officer 08/26/17 [place] [address] [place] [id number] Referring Hematology 12/31/21 Ana M Galvan RN Specialty Ecological Technical Officer Hematology/Oncology 10/14/23 documented as of this encounter
--- OUTSIDE RECORDS SUMMARY | 2024-09-22 16:02 | XMS_ITS | Encounter Summary ---
Author Organization [facility] Address [address] [place] [address] Care Team Providers Care Freight Dispatcher Name Role Phone Nohelia Dyer Primary Care Provider [phone] Wander Cao Unavailable Nohelia Sandy (Rn) (Hist) RN Unavailable + Griselda Buckley (Rn) RN Unavailable Unavailabl Schuyler Bautista MD Unavailable [phone] Ana M Galvan RN Unavailable Unavailable Source Comments In the event this information is protected by the Federal Confidentiality of Alcohol and Drug AbusePatient Records regulations: The Federal rules restrict any use of the information to criminally investigate or prosecute any alcohol or drug abuse patient.[facility] Encounter Details Date Type Department Care Team (Late st Contact Info) Description 06/16/2016 Patient Msg Medical Records [address] [place] [address] Provider, [facility] IMPORTANT~ Updated patient schedule Social History Tobacco Use Types Packs/Day Years [...] 11:30 AM EDT Office Visit Pain Management [address] [place] [address] Sera Chau PA-C [address] [place] [address] 4-6 week injection follow up 10/02/2024 10:40 AM EDT Appointment Radiology [address] [place] [address] Spinal stenosis of cervical region [M48.02] 10/19/2024 11:30 AM EDT Office Visit Neurology [address] [place] [address] Constanza Casillas PA-C [address] [place] [address] botox 10/31/2024 9:00 AM EDT [facility] Hematology/Oncology [address] [place] [address] Schuyler Blanca MD [address] [place] [address] VIRTUAL 11/21/2024 10:00 AM EDT Office Visit Orthopaedics [address] [place] [address] [place] [address] [place] [address] 3 month f/u documented as of this encounter Visit Diagnoses Not on filedocumented in this encounter Additional Health Concerns Infection Onset Date Last Indicated Resolved Time COVID-19 Rule-Out 09/03/2020 09/03/2020 09/03/2020 12:19 AM EDT COVID-19 Rule-Out 09/15/2020 09/15/2020 09/16/2020 7:08 AM EDT documented as of this encounter Care Teams Freight Dispatcher Relationship Specialty Start Date End Date Nohelia Dyer [address] [place] [address] PCP - General 06/04/05 Wander Cao [address] [place] [address] Physician Hematology/Oncology 03/24/14 Nohelia SandyRn) ([place] [address] [place] [address] Specialty Tile Edger Hematology/Oncology 10/25/14 08/25/17 [place] [address] [place] [address] Specialty Tile Edger 08/26/17 [place] [address] [place] [address] Referring Hematology 12/31/21 Ana M Galvan RN Specialty Tile Edger Hematology/Oncology 10/14/23 documented as of this encounter
--- OUTSIDE RECORDS SUMMARY | 2024-09-22 16:02 | XMS_ITS | Encounter Summary ---
Author Organization [facility] Address [address] [place] [address] Care Team Providers Care Band Scroll Saw Operator Name Role Phone Nohelia Dyer Primary Care Provider [phone] Wander Cao Unavailable Nohelia Sandy (Rn) (Hist) RN Unavailable + Griselda Buckley (Rn) RN Unavailable Unavailabl Schuyler Bautista MD Unavailable [phone] Ana M Galvan RN Unavailable Unavailable Source Comments In the event this information is protected by the Federal Confidentiality of Alcohol and Drug AbusePatient Records regulations: The Federal rules restrict any use of the information to criminally investigate or prosecute any alcohol or drug abuse patient.[facility] Encounter Details Date Type Department Care Team (Late st Contact Info) Description 08/28/2016 Patient Msg Medical Records [address] [place] [address] Provider, [facility] Assessment Social History Tobacco Use Types Packs/Day Years [...] 11:30 AM EDT Office Visit Pain Management [address] [place] [address] Sera Chau PA-C [address] [place] [address] 4-6 week injection follow up 10/02/2024 10:40 AM EDT Appointment Radiology [address] [place] [address] Spinal stenosis of cervical region [M48.02] 10/19/2024 11:30 AM EDT Office Visit Neurology [address] [place] [address] Constanza Casillas PA-C [address] [place] [address] botox 10/31/2024 9:00 AM EDT [facility] Hematology/Oncology [address] [place] [address] Schuyler Blanca MD [address] [place] [address] VIRTUAL 11/21/2024 10:00 AM EDT Office Visit Orthopaedics [address] [place] [address] [place] [address] [place] [address] 3 month f/u documented as of this encounter Visit Diagnoses Not on filedocumented in this encounter Additional Health Concerns Infection Onset Date Last Indicated Resolved Time COVID-19 Rule-Out 09/03/2020 09/03/2020 09/03/2020 12:19 AM EDT COVID-19 Rule-Out 09/15/2020 09/15/2020 09/16/2020 7:08 AM EDT documented as of this encounter Care Teams Band Scroll Saw Operator Relationship Specialty Start Date End Date Nohelia Dyer [address] [place] [address] PCP - General 06/04/05 Wander Cao [address] [place] [address] Physician Hematology/Oncology 03/24/14 Nohelia SandyRn) ([place] [address] [place] [address] Specialty Statistical Reporting Analyst Hematology/Oncology 10/25/14 08/25/17 [place] [address] [place] [address] Specialty Statistical Reporting Analyst 08/26/17 [place] [address] [place] [address] Referring Hematology 12/31/21 Ana M Galvan RN Specialty Statistical Reporting Analyst Hematology/Oncology 10/14/23 documented as of this encounter
--- OUTSIDE RECORDS SUMMARY | 2024-09-22 16:02 | XMS_ITS | Encounter Summary ---
Author Organization [facility] Address [address] [place] [address] Care Team Providers Care Retail Financial Analyst Name Role Phone Nohelia Dyer Primary Care Provider [phone] Wander Cao Unavailable Nohelia Sandy (Rn) (Hist) RN Unavailable + Griselda BuckleyRn) RN Unavailable Unavailabl Schuyler Bautista MD Unavailable [phone] Ana M Galvan RN Unavailable Unavailable Source Comments In the event this information is protected by the Federal Confidentiality of Alcohol and Drug AbusePatient Records regulations: The Federal rules restrict any use of the information to criminally investigate or prosecute any alcohol or drug abuse patient.[facility] Encounter Details Date Type Department Care Team (Late st Contact Info) Description 08/12/2016 Get Medical Advice Hematology/Oncology [address] [place] [address] Wander Cao [address] [place] [address] RE: Non-Urgent Medical Question Social History Tobacco [...] 11:30 AM EDT Office Visit Pain Management [address] [place], [place] [address] Sera Chau PA-C [address] [place] [address] 4-6 week injection follow up 10/02/2024 10:40 AM EDT Appointment Radiology [address] [place] [address] Spinal stenosis of cervical region [M48.02] 10/19/2024 11:30 AM EDT Office Visit Neurology [address] [place] [address] Constanza Casillas PA-C [address] [place] [address] botox 10/31/2024 9:00 AM EDT [facility] Hematology/Oncology [address] [place] [address] Schuyler Blanca MD [address] [place] [address] VIRTUAL 11/21/2024 10:00 AM EDT Office Visit Orthopaedics [address] [place] [address] [place] [address] [place] [address] 3 month f/u documented as of this encounter Visit Diagnoses Not on filedocumented in this encounter Additional Health Concerns Infection Onset Date Last Indicated Resolved Time COVID-19 Rule-Out 09/03/2020 09/03/2020 09/03/2020 12:19 AM EDT COVID-19 Rule-Out 09/15/2020 09/15/2020 09/16/2020 7:08 AM EDT documented as of this encounter Care Teams Retail Financial Analyst Relationship Specialty Start Date End Date Nohelia Dyer [address] [place] [address] PCP - General 06/04/05 Wander Cao [address] [place] [address] Physician Hematology/Oncology 03/24/14 Nohelia Sandy (R[place]) ([place] [address] [place] [address] Specialty Linen Tech Hematology/Oncology 10/25/14 08/25/17 [place] [address] [place] [address] Specialty Linen Tech 08/26/17 [place] [address] [place] [address] Referring Hematology 12/31/21 Ana M Galvan RN Specialty Linen Tech Hematology/Oncology 10/14/23 documented as of this encounter
--- OUTSIDE RECORDS SUMMARY | 2024-09-22 16:02 | XMS_ITS | Encounter Summary ---
Author Organization [facility] Address [address] [place] [address] Care Team Providers Care Media Executive Name Role Phone Nohelia Dyer Primary Care Provider [phone] Wander Cao Unavailable Nohelia Sandy (Rn) (Hist) RN Unavailable + Griselda Buckley (Rn) RN Unavailable Unavailabl e Schuyler Blanca MD Unavailable [phone] Ana M Galvan RN Unavailable Unavailable Source Comments In the event this information is protected by the Federal Confidentiality of Alcohol and Drug AbusePatient Records regulations: The Federal rules restrict any use of the information to criminally investigate or prosecute any alcohol or drug abuse patient.[facility] Encounter Details Date Type Department Care Team (Late st Contact Info) Description 05/18/2017 Patient Msg Medical Records [address] [place] [address] Provider, [facility] APPOINTMENT SCHEDULE Social History Tobacco Use Types Packs/Day Years [...] No 09/30/2016 10:22 AM EDT Ivana Samson APRN.MANAGER REQUIREMENTS * Are you blind or do you have serious difficulty seeing, even when wearing glasses? Answer Date of Assessment Author No 09/30/2016 10:22 AM EDT Ivana Samson APRN.MANAGER REQUIREMENTS * Do you have serious difficulty walking or climbing stairs? Answer Date of Assessment Author Yes 09/30/2016 10:22 AM EDT Ivana Samson APRN.MANAGER REQUIREMENTS * Do you have difficulty dressing or bathing? Answer Date of Assessment Author No 09/30/2016 10:22 AM EDT Ivana Samson APRN.MANAGER REQUIREMENTS * Because of a physical, mental, or emotional condition, do you have difficulty doing errands alone such as visiting a doctor's office or shopping? Answer Date of Assessment Author Yes 09/30/2016 10:22 AM EDT Ivana Samson APRN.MANAGER REQUIREMENTS documented as of this encounter Mental Status * Because of a physical, mental, or emotional condition, do you have serious difficulty concentrating, remembering, or making decisions? Answer Entry Date Author No 09/30/2016 10:22 AM EDT Ivana Samson APRN.MANAGER REQUIREMENTS documented in this encounter Plan of Treatment Upcoming Encounters Date Type Department Care Team (Late st Contact Info) Description 09/26/2024 11:30 AM EDT Office Visit Pain Management [address] [place] [address] Sera Chau PA-C [address] [place] [address] 4-6 week injection follow up 10/02/2024 10:40 AM EDT Appointment Radiology [address] [place] [address] Spinal stenosis of cervical region [M48.02] 10/19/2024 11:30 AM EDT Office Visit Neurology [address] [place] [address] Constanza Casillas PA-C [address] [place] [address] botox 10/31/2024 9:00 AM EDT [facility] Hematology/Oncology [address] [place] [address] Schuyler Blanca MD [address] [place] [address] VIRTUAL 11/21/2024 10:00 AM EDT Office Visit Orthopaedics [address] [place] [address] [place] [address] [place] [address] 3 month f/u documented as of this encounter Visit Diagnoses Not on filedocumented in this encounter Additional Health Concerns Infection Onset Date Last Indicated Resolved Time COVID-19 Rule-Out 09/03/2020 09/03/2020 09/03/2020 12:19 AM EDT COVID-19 Rule-Out 09/15/2020 09/15/2020 09/16/2020 7:08 AM EDT documented as of this encounter Care Teams Media Executive Relationship Specialty Start Date End Date Nohelia Dyer [address] [place] [address] PCP - General 06/04/05 Wander Cao [address] [place] [address] Physician Hematology/Oncology 03/24/14 Nohelia Sandy (Rn) ([place]), [place] [address] [place] [address] Specialty Log Yard Derrick Operator Hematology/Oncology 10/25/14 08/25/17 [place] [address] [place] [address] Specialty Log Yard Derrick Operator 08/26/17 [place] [address] [place] [address] Referring Hematology 12/31/21 Ana M Galvan RN Specialty Log Yard Derrick Operator Hematology/Oncology 10/14/23 documented as of this encounter
--- OUTSIDE RECORDS SUMMARY | 2024-09-22 16:02 | XMS_ITS | Encounter Summary ---
Author Organization [facility] Address [address] [place] [address] Care Team Providers Care Tin Pot Operator Name Role Phone Nohelia Dyer Primary Care Provider [phone] Wander Cao Unavailable Griselda Buckley (Rn) AMADOR Unavailable Unavailabl Schuyler Bautista MD Unavailable [phone] Ana M Galvan RN Unavailable Unavailable Source Comments In the event this information is protected by the Federal Confidentiality of Alcohol and Drug AbusePatient Records regulations: The Federal rules restrict any use of the information to criminally investigate or prosecute any alcohol or drug abuse patient.[facility] Encounter Details Date Type Department Care Team (Late st Contact Info) Description 11/24/2022 Get Medical Advice Neurology [address] [place] [address] Elise Cooney MD [address] [place] [address] Need to see you or someone Social History Tobacco Use Types Packs/Day Years Used Date Smoking Tobacco: Never Smokeless Tobacco: Never Alcohol Use Standard Drinks/Week Comments Not Currently 0 (1 standard drink = 0.6 oz pur e alcohol) maybe once a year PHQ-2 Answer Date Recorded PHQ-2 score 1 11/28/2022 Area Deprivation Index Answer Date Boyd rded National Score (1-100), lower number is lower ri sk 86 08/15/2022 State Score (1-10), lower number is lower risk 8 08/15/2022 Data from: https://www.neighborhoodatlas.medicine.[facility].edu/. Last address used for calculation [address] [facility] 08/15/2022 Sex and Gender Information Value Date Recorded [...] * Telephone Encounter - Nelida King - 11/25/2022 11:04 AM EDT Patient last seen on 11/07/22. documented in this encounter Plan of Treatment Upcoming Encounters Date Type Department Care Team (Late st Contact Info) Description 09/26/2024 11:30 AM EDT Office Visit Pain Management [address] [place] [address] Sera Chau PA-C [address] [place] [address] 4-6 week injection follow up 10/02/2024 10:40 AM EDT Appointment Radiology [address] [place] [address] Spinal stenosis of cervical region [M48.02] 10/19/2024 11:30 AM EDT Office Visit Neurology [address] [place] [address] Constanza Casillas PA-C [address] [place] [address] botox 10/31/2024 9:00 AM EDT [facility] Hematology/Oncology [address] [place] [address] Schuyler Blanca MD [address] [place] [address] VIRTUAL 11/21/2024 10:00 AM EDT Office Visit Orthopaedics [address] [place] [address] [place] [address] [place] [address] 3 month f/u documented as of this encounter Visit Diagnoses Not on filedocumented in this encounter Care Teams Tin Pot Operator Relationship Specialty Start Date End Date Nohelia Dyer [address] [place] [address] PCP - General 06/04/05 Wander Cao [address] [place] [address] Physician Hematology/Oncology 03/24/14 Griselda Buckley (Rn), RN [address] [place] [address] Specialty Seam Checker 08/26/17 [place] [address] [place] [id number] Referring Hematology 12/31/21 Ana M Galvan RN Specialty Seam Checker Hematology/Oncology 10/14/23 documented as of this encounter
--- OUTSIDE RECORDS SUMMARY | 2024-09-22 16:02 | XMS_ITS | Encounter Summary ---
Author Organization [facility] Address [address] [place] [address] Care Team Providers Care Environmental Compliance Officer Name Role Phone Nohelia Dyer Primary Care Provider [phone] Wander Cao Unavailable Griselda Buckley (Rn) AMADOR Unavailable UnavailSchuyler Ruelas MD Unavailable [phone] Ana M Galvan RN Unavailable Unavailable Source Comments In the event this information is protected by the Federal Confidentiality of Alcohol and Drug AbusePatient Records regulations: The Federal rules restrict any use of the information to criminally investigate or prosecute any alcohol or drug abuse patient.[facility] Encounter Details Date Type Department Care Team (Late st Contact Info) Description 06/05/2022 Get Medical Advice Neurology [address] [place], [place] [id number] Constanza Casillas PA-C [address] [place] [address] Appointment Social History Tobacco Use Types Packs/Day Years Used Date Smoking Tobacco: Never Smokeless Tobacco: Never Alcohol Use Standard Drinks/Week Comments Not Currently 0 (1 standard drink = 0.6 oz pur e alcohol) maybe once a year PHQ-2 Answer Date Recorded PHQ-2 score 2 05/30/2022 Area Deprivation Index Answer Date Boyd rded National Score (1-100), lower number is lower ri sk 85 04/25/2022 State Score (1-10), lower number is lower risk N ot on file 04/25/2022 Data from: https://www.neighborhoodatlas.medicine.[facility].edu/. Last address used for calculation [address] 04/25/2022 Sex and Gender Information Value Date Recorded [...] encounter Miscellaneous Notes * Telephone Encounter - Yolanda Jarquin - 06/08/2022 3:17 PM EST Patient has been scheduled for this Thursday ar 1 pm. * Telephone Encounter - Constanza Casillas PA-C - 06/05/2022 4:33 PM EST I have an opening at [place] tomorrow at 0900 constanza documented in this encounter Plan of Treatment Upcoming Encounters Date Type Department Care Team (Late st Contact Info) Description 09/26/2024 11:30 AM EDT Office Visit Pain Management [address] [place] [address] Sera Chau PA-C [address] [place] [address] 4-6 week injection follow up 10/02/2024 10:40 AM EDT Appointment Radiology [address] [place] [address] Spinal stenosis of cervical region [M48.02] 10/19/2024 11:30 AM EDT Office Visit Neurology [address] [place] [address] Constanza Casillas PA-C [address] [place] [address] botox 10/31/2024 9:00 AM EDT [facility] Hematology/Oncology [address] [place] [address] Schuyler Blanca MD [address] [place] [address] VIRTUAL 11/21/2024 10:00 AM EDT Office Visit Orthopaedics [address] [place] [address] [place] [address] [place] [address] 3 month f/u documented as of this encounter Visit Diagnoses Not on filedocumented in this encounter Care Teams Environmental Compliance Officer Relationship Specialty Start Date End Date Nohelia Dyer [address] [place] [address] PCP - General 06/04/05 Wander Cao [address] [place] [address] Physician Hematology/Oncology 03/24/14 Griselda Buckley (Rn), RN [address] [place] [address] Specialty Fitness Center Attendant 08/26/17 [place] [address] [place] [address] Referring Hematology 12/31/21 Ana M Galvan, RN Specialty Fitness Center Attendant Hematology/Oncology 10/14/23 documented as of this encounter
--- OUTSIDE RECORDS SUMMARY | 2024-09-22 16:02 | XMS_ITS | Encounter Summary ---
Author Organization [facility] Address [address] [place] [address] Care Team Providers Care Community Resource Consultant Name Role Phone Nohelia Dyer Primary Care Provider [phone] Wander Cao Unavailable Griselda Buckley (Rn) RN Unavailable Unavailabl e Schuyler Blanca MD Unavailable Ana M Galvan RN Unavailable Unavailable Source Comments In the event this information is protected by the Federal Confidentiality of Alcohol and Drug AbusePatient Records regulations: The Federal rules restrict any use of the information to criminally investigate or prosecute any alcohol or drug abuse patient.[facility] Encounter Details Date Type Department Care Team (Late st Contact Info) Description 07/17/2022 Get Medical Advice Hematology/Oncology [address] [place] [address] Schuyler Blanca MD [address] [place] [address] ER visit Social History Tobacco Use Types Packs/Day Years [...] N ot on file 04/25/2022 Data from: https://www.neighborhoodatlas.medicine.[facility]/. Last address used for calculation [address] 04/25/2022 Sex and Gender Information Value Date [...] 11:30 AM EDT Office Visit Pain Management [address] [place] [address] Sera Chau PA-C [address] [place] [address] 4-6 week injection follow up 10/02/2024 10:40 AM EDT Appointment Radiology [address] [place] [address] Spinal stenosis of cervical region [M48.02] 10/19/2024 11:30 AM EDT Office Visit Neurology [address] [place] [address] Constanza Casillas PA-C [address] [place] [address] botox 10/31/2024 9:00 AM EDT [facility] Hematology/Oncology [address] [place] [address] Schuyler Blanca MD [address] [place] [address] VIRTUAL 11/21/2024 10:00 AM EDT Office Visit Orthopaedics [address] [place] [address] [place] [address] [place] [address] 3 month f/u documented as of this encounter Visit Diagnoses Not on filedocumented in this encounter Care Teams Community Resource Consultant Relationship Specialty Start Date End Date Nohelia Dyer [address] [place] [address] PCP - General 06/04/05 Wander Cao [address] [place] [address] Physician Hematology/Oncology 03/24/14 Griselda Buckley (Rn), RN [address] [place] [address] Specialty Lithographic Camera Operator 08/26/17 [place] [address] [place] [address] Referring Hematology 12/31/21 Ana M Galvan RN Specialty Lithographic Camera Operator Hematology/Oncology 10/14/23 documented as of this encounter
--- OUTSIDE RECORDS SUMMARY | 2024-09-22 16:02 | XMS_ITS | Encounter Summary ---
Author Organization [facility] Address [address] [place] [address] Care Team Providers Care Monorail Operator Name Role Phone Nohelia Dyer Primary Care Provider [phone] Wander Cao Unavailable Nohelia Sandy (Rn) (Hist) RN Unavailable + Griselda Buckley (Rn) RN Unavailable Unavailabl e Schuyler Blanca MD Unavailable [phone] Ana M Galvan RN Unavailable Unavailable Source Comments In the event this information is protected by the Federal Confidentiality of Alcohol and Drug AbusePatient Records regulations: The Federal rules restrict any use of the information to criminally investigate or prosecute any alcohol or drug abuse patient.[facility] Encounter Details Date Type Department Care Team (Late st Contact Info) Description 04/02/2017 Patient Msg Medical Records [address] [place] [address] Provider, [facility]cf UPDATED APPOINTMENT REMINDER Social History Tobacco Use Types Packs/Day Years [...] No 09/30/2016 10:22 AM EDT Ivana Samson APRN.DONOR SPECIALIST * Are you blind or do you have serious difficulty seeing, even when wearing glasses? Answer Date of Assessment Author No 09/30/2016 10:22 AM EDT Ivana Samson APRN.DONOR SPECIALIST * Do you have serious difficulty walking or climbing stairs? Answer Date of Assessment Author Yes 09/30/2016 10:22 AM STEVET Ivana Samson APRN.DONOR SPECIALIST * Do you have difficulty dressing or bathing? Answer Date of Assessment Author No 09/30/2016 10:22 AM EDT Ivana Samson APRN.DONOR SPECIALIST * Because of a physical, mental, or emotional condition, do you have difficulty doing errands alone such as visiting a doctor's office or shopping? Answer Date of Assessment Author Yes 09/30/2016 10:22 AM STEVET Ivana Samson APRN.DONOR SPECIALIST documented as of this encounter Mental Status * Because of a physical, mental, or emotional condition, do you have serious difficulty concentrating, remembering, or making decisions? Answer Entry Date Author No 09/30/2016 10:22 AM EDIvana Salamanca APRN.DONOR SPECIALIST documented in this encounter Plan of Treatment Upcoming Encounters Date Type Department Care Team (Late st Contact Info) Description 09/26/2024 11:30 AM EDT Office Visit Pain Management [address] [place] [address] Sera Chau PA-C [address] [place] [address] 4-6 week injection follow up 10/02/2024 10:40 AM EDT Appointment Radiology [address] [place] [address] Spinal stenosis of cervical region [M48.02] 10/19/2024 11:30 AM EDT Office Visit Neurology [address] [place] [address] Constanza Casillas PA-C [address] [place] [address] botox 10/31/2024 9:00 AM EDT [facility] Hematology/Oncology [address] [place] [address] Schuyler Blanca MD [address] [place] [address] VIRTUAL 11/21/2024 10:00 AM EDT Office Visit Orthopaedics [address] [place] [address] [place] [address] [place] [address] 3 month f/u documented as of this encounter Visit Diagnoses Not on filedocumented in this encounter Additional Health Concerns Infection Onset Date Last Indicated Resolved Time COVID-19 Rule-Out 09/03/2020 09/03/2020 09/03/2020 12:19 AM EDT COVID-19 Rule-Out 09/15/2020 09/15/2020 09/16/2020 7:08 AM EDT documented as of this encounter Care Teams Monorail Operator Relationship Specialty Start Date End Date Nohelia Dyer [address] [place] [address] PCP - General 06/04/05 Wander Cao [address] [place] [address] Physician Hematology/Oncology 03/24/14 Nohelia Sandy (Rn) ([place] [address] [place] [address] Specialty Banquet Cook Hematology/Oncology 10/25/14 08/25/17 Gr[place] [address] [place] [address] Specialty Banquet Cook 08/26/17 [place] [address] [place] [address] Referring Hematology 12/31/21 Ana M Galvan, RN Specialty Banquet Cook Hematology/Oncology 10/14/23 documented as of this encounter
--- OUTSIDE RECORDS SUMMARY | 2024-09-22 16:02 | XMS_ITS | Encounter Summary ---
Author Organization [facility] Address [address] [place] [address] Care Team Providers Care Aviation Technician Name Role Phone Nohelia Dyer Primary Care Provider [phone] Wander Cao Unavailable Nohelia Sandy (Rn) (Hist) RN Unavailable + Griselda Buckley (Rn) RN Unavailable Unavailabl Schuyler Bautista MD Unavailable [phone] Ana M Galvan RN Unavailable Unavailable Source Comments In the event this information is protected by the Federal Confidentiality of Alcohol and Drug AbusePatient Records regulations: The Federal rules restrict any use of the information to criminally investigate or prosecute any alcohol or drug abuse patient.[facility] Encounter Details Date Type Department Care Team (Late st Contact Info) Description 12/05/2016 Get Medical Advice Hematology/Oncology [address] [place] [address] Wander Cao [address] [place] [address] Upcoming Appointment Question Social History Tobacco Use [...] No 09/30/2016 10:22 AM EDT Ivana Samson, MARGOT.HIGHWAY MAINTENANCE TECHNICIAN * Are you blind or do you have serious difficulty seeing, even when wearing glasses? Answer Date of Assessment Author No 09/30/2016 10:22 AM EDT Ivana Samson APRN.HIGHWAY MAINTENANCE TECHNICIAN * Do you have serious difficulty walking or climbing stairs? Answer Date of Assessment Author Yes 09/30/2016 10:22 AM STEVET Ivana Samson APRN.HIGHWAY MAINTENANCE TECHNICIAN * Do you have difficulty dressing or bathing? Answer Date of Assessment Author No 09/30/2016 10:22 AM EDT Ivana Samson, MARGOT.HIGHWAY MAINTENANCE TECHNICIAN * Because of a physical, mental, or emotional condition, do you have difficulty doing errands alone such as visiting a doctor's office or shopping? Answer Date of Assessment Author Yes 09/30/2016 10:22 AM Ivana Wilkes APRN.HIGHWAY MAINTENANCE TECHNICIAN documented as of this encounter Mental Status * Because of a physical, mental, or emotional condition, do you have serious difficulty concentrating, remembering, or making decisions? Answer Entry Date Author No 09/30/2016 10:22 AM Ivana Wilkes APRN.HIGHWAY MAINTENANCE TECHNICIAN documented in this encounter Plan of Treatment Upcoming Encounters Date Type Department Care Team (Late st Contact Info) Description 09/26/2024 11:30 AM EDT Office Visit Pain Management [address] [place], [place] [address] Sera Chau PA-C [address] [place] [address] 4-6 week injection follow up 10/02/2024 10:40 AM EDT Appointment Radiology [address] [place] [address] Spinal stenosis of cervical region [M48.02] 10/19/2024 11:30 AM EDT Office Visit Neurology [address] [place] [address] Constanza Casillas PA-C [address] [place] [address] botox 10/31/2024 9:00 AM EDT [facility] Hematology/Oncology [address] [place] [address] Schuyler Blanca MD [address] [place] [address] VIRTUAL 11/21/2024 10:00 AM EDT Office Visit Orthopaedics [address] [place] [address] [place] [address] [place] [address] 3 month f/u documented as of this encounter Visit Diagnoses Not on filedocumented in this encounter Additional Health Concerns Infection Onset Date Last Indicated Resolved Time COVID-19 Rule-Out 09/03/2020 09/03/2020 09/03/2020 12:19 AM EDT COVID-19 Rule-Out 09/15/2020 09/15/2020 09/16/2020 7:08 AM EDT documented as of this encounter Care Teams Aviation Technician Relationship Specialty Start Date End Date Nohelia Dyer [address] [place] [address] PCP - General 06/04/05 Wander Cao [address] [facility] [place] [address] Physician Hematology/Oncology 03/24/14 Nohelia Sandy (Rn) ([place] [address] [place] [address] Specialty Hay Farmer Hematology/Oncology 10/25/14 08/25/17 Grisel[place] [address] [place] [address] Specialty Hay Farmer 08/26/17 [place] [address] [place] [address] Referring Hematology 12/31/21 Ana M Galvan RN Specialty Hay Farmer Hematology/Oncology 10/14/23 documented as of this encounter
--- OUTSIDE RECORDS SUMMARY | 2024-09-22 16:02 | XMS_ITS | Encounter Summary ---
Author Organization [facility] Address [address] [place] [address] Care Team Providers Care Parking Lot Laborer Name Role Phone Nohelia Dyer Primary Care Provider [phone] Wander Cao Unavailable Nohelia Sandy (Rn) (Hist) RN Unavailable + Griselda Buckley (Rn) RN Unavailable Unavailabl Schuyler Bautista MD Unavailable [phone] Ana M Galvan RN Unavailable Unavailable Source Comments In the event this information is protected by the Federal Confidentiality of Alcohol and Drug AbusePatient Records regulations: The Federal rules restrict any use of the information to criminally investigate or prosecute any alcohol or drug abuse patient.[facility] Encounter Details Date Type Department Care Team (Late st Contact Info) Description 02/21/2016 Patient Msg Medical Records [address] [place] [address] Provider, Ccf Missing lab results Social History Tobacco Use Types Packs/Day Years [...] 11:30 AM EDT Office Visit Pain Management [address] [place] [address] Sera Chau PA-C [address] [place] [address] 4-6 week injection follow up 10/02/2024 10:40 AM EDT Appointment Radiology [address] [place] [address] Spinal stenosis of cervical region [M48.02] 10/19/2024 11:30 AM EDT Office Visit Neurology [address] [place] [address] Constanza Casillas PA-C [address] [place] [address] botox 10/31/2024 9:00 AM EDT [facility] Hematology/Oncology [address] [place] [address] Schuyler Blanca MD [address] [place] [address] VIRTUAL 11/21/2024 10:00 AM EDT Office Visit Orthopaedics [address] [place] [address] [place] [address] [place] [address] 3 month f/u documented as of this encounter Visit Diagnoses Not on filedocumented in this encounter Additional Health Concerns Infection Onset Date Last Indicated Resolved Time COVID-19 Rule-Out 09/03/2020 09/03/2020 09/03/2020 12:19 AM EDT COVID-19 Rule-Out 09/15/2020 09/15/2020 09/16/2020 7:08 AM EDT documented as of this encounter Care Teams Parking Lot Laborer Relationship Specialty Start Date End Date Nohelia Dyer [address] [place] [address] PCP - General 06/04/05 Wander Cao [address] [place] [address] Physician Hematology/Oncology 03/24/14 Nohelia SandyRn) ([place] [address] [place] [address] Specialty Real Time Operator Hematology/Oncology 10/25/14 08/25/17 [place] [address] [place] [address] Specialty Real Time Operator 08/26/17 [place] [address] [place] [address] Referring Hematology 12/31/21 Ana M Galvan RN Specialty Real Time Operator Hematology/Oncology 10/14/23 documented as of this encounter
--- OUTSIDE RECORDS SUMMARY | 2024-09-22 16:02 | XMS_ITS | Encounter Summary ---
Author Organization [facility] Address [address] [place] [address] Care Team Providers Care Car Wash Manager Name Role Phone Nohelia Dyer Primary Care Provider [phone] Wander Cao Unavailable Griselda Buckley (Rn) AMADOR Unavailable UnavailSchuyler Ruelas MD Unavailable [phone] Ana M Galvan RN Unavailable Unavailable Source Comments In the event this information is protected by the Federal Confidentiality of Alcohol and Drug AbusePatient Records regulations: The Federal rules restrict any use of the information to criminally investigate or prosecute any alcohol or drug abuse patient.[facility] Encounter Details Date Type Department Care Team (Late st Contact Info) Description 06/08/2022 Get Medical Advice Neurology [address] [place], [place] [id number] Constanza Casillas PA-C [address] [place] [address] Appointment Social History Tobacco Use [...] N ot on file 04/25/2022 Data from: https://www.neighborhoodatlas.medicine.[facility].edu/. Last address used for calculation [address] 04/25/2022 Sex and Gender Information Value [...] 11:30 AM EDT Office Visit Pain Management [address] [place] [address] Sera Chau PA-C [address] [place] [address] 4-6 week injection follow up 10/02/2024 10:40 AM EDT Appointment Radiology [address] [place] [address] Spinal stenosis of cervical region [M48.02] 10/19/2024 11:30 AM EDT Office Visit Neurology [address] [place] [address] Constanza Casillas PA-C [address] [place] [address] botox 10/31/2024 9:00 AM EDT [facility] Hematology/Oncology [address] [place] [address] Schuyler Blanca MD [address] [place] [address] VIRTUAL 11/21/2024 10:00 AM EDT Office Visit Orthopaedics [address] [place] [address] [place] [address] [place] [address] 3 month f/u documented as of this encounter Visit Diagnoses Not on filedocumented in this encounter Care Teams Car Wash Manager Relationship Specialty Start Date End Date Nohelia Dyer [address] [place] [address] PCP - General 06/04/05 Wander Cao [address] [place] [address] Physician Hematology/Oncology 03/24/14 Griselda Buckley (Rn), RN [address] [place] [address] Specialty Beck Tender 08/26/17 [place] [address] [place] [address] Referring Hematology 12/31/21 Ana M Galvan RN Specialty Beck Tender Hematology/Oncology 10/14/23 documented as of this encounter
--- OUTSIDE RECORDS SUMMARY | 2024-09-22 16:02 | XMS_ITS | Encounter Summary ---
Author Organization [facility] Address [address] [place] [address] Care Team Providers Care Lining Stuffer Name Role Phone Nohelia Dyer Primary Care Provider [phone] Wander Cao Unavailable Nohelia Sandy (Rn) (Hist) RN Unavailable + Griselda Buckley (Rn) RN Unavailable Unavailabl e Schuyler Blanca MD Unavailable [phone] Ana M Galvan RN Unavailable Unavailable Source Comments In the event this information is protected by the Federal Confidentiality of Alcohol and Drug AbusePatient Records regulations: The Federal rules restrict any use of the information to criminally investigate or prosecute any alcohol or drug abuse patient.[facility] Encounter Details Date Type Department Care Team (Late st Contact Info) Description 04/21/2017 Patient Msg Endocrine Surgery [address] [place] [id number] [place] [address] [address] [place] [phone] RE: Request an Appointment Social History Tobacco Use Types Packs/Day [...] No 09/30/2016 10:22 AM EDT Ivana Samson APRN.ENVIRONMENTAL RESEARCH SCIENTIST * Are you blind or do you have serious difficulty seeing, even when wearing glasses? Answer Date of Assessment Author No 09/30/2016 10:22 AM Ivana Wilkes APRN.ENVIRONMENTAL RESEARCH SCIENTIST * Do you have serious difficulty walking or climbing stairs? Answer Date of Assessment Author Yes 09/30/2016 10:22 AM Ivana Wilkes APRN.ENVIRONMENTAL RESEARCH SCIENTIST * Do you have difficulty dressing or bathing? Answer Date of Assessment Author No 09/30/2016 10:22 AM Ivana Wilkes APRN.ENVIRONMENTAL RESEARCH SCIENTIST * Because of a physical, mental, or emotional condition, do you have difficulty doing errands alone such as visiting a doctor's office or shopping? Answer Date of Assessment Author Yes 09/30/2016 10:22 AM Ivana Wilkes APRN.ENVIRONMENTAL RESEARCH SCIENTIST documented as of this encounter Mental Status * Because of a physical, mental, or emotional condition, do you have serious difficulty concentrating, remembering, or making decisions? Answer Entry Date Author No 09/30/2016 10:22 AM EDIvana Salamanca APRN.ENVIRONMENTAL RESEARCH SCIENTIST documented in this encounter Plan of Treatment Upcoming Encounters Date Type Department Care Team (Late st Contact Info) Description 09/26/2024 11:30 AM EDT Office Visit Pain Management [address] [place], [place] [address] Sera Chau PA-C [address] [place] [address] 4-6 week injection follow up 10/02/2024 10:40 AM EDT Appointment Radiology [address] [place] [address] Spinal stenosis of cervical region [M48.02] 10/19/2024 11:30 AM EDT Office Visit Neurology [address] [place] [address] Constanza Casillas PA-C [address] [place] [address] botox 10/31/2024 9:00 AM EDT [facility] Hematology/Oncology [address] [place] [address] Schuyler Blanca MD [address] [place] [address] VIRTUAL 11/21/2024 10:00 AM EDT Office Visit Orthopaedics [address] [place] [address] [place] [address] [place] [address] 3 month f/u documented as of this encounter Visit Diagnoses Not on filedocumented in this encounter Additional Health Concerns Infection Onset Date Last Indicated Resolved Time COVID-19 Rule-Out 09/03/2020 09/03/2020 09/03/2020 12:19 AM EDT COVID-19 Rule-Out 09/15/2020 09/15/2020 09/16/2020 7:08 AM EDT documented as of this encounter Care Teams Lining Stuffer Relationship Specialty Start Date End Date Nohelia Dyer [address] [place] [address] PCP - General 06/04/05 Wander Cao [address] [place] [address] Physician Hematology/Oncology 03/24/14 Nohelia Sandy (Rn) ([place]), [place] [address] [place] [address] Specialty Procurement Consultant Hematology/Oncology 10/25/14 08/25/17 [place] ([place] [address] [place] [address] Specialty Procurement Consultant 08/26/17 [place] [address] [place] [address] Referring Hematology 12/31/21 Ana M Galvan RN Specialty Procurement Consultant Hematology/Oncology 10/14/23 documented as of this encounter
--- OUTSIDE RECORDS SUMMARY | 2024-09-22 16:02 | XMS_ITS | Encounter Summary ---
Author Organization [employer] Address [id number] [address] [place] [address] Care Team Providers Care Upholstery Cleaner Name Role Phone Nohelia Dyer MD Primary Care Provider [phone] Encounter Details Date Type Department Care Team (Late st Contact Info) Description 06/11/2021 Orders Only [facility] Cardiology [address] [place] [address] External, Scanning Provider Social History Tobacco Use Types Packs/Day Years Used Date Smoking Tobacco: Never Smokeless Tobacco: Never Alcohol Use Standard Drinks/Week Comments No 0 (1 standard drink = 0.6 oz pur e alcohol) Childcare Answer Date Recorded Childcare Unknown 09/22/2018 Employment Answer Date Recorded Employment Unknown 09/22/2018 Purpose - Life Answer Date Recorded Purpose and direction in life Unknown Sex and Gender Information Value Date Recorded Sex Assigned at Not on file Legal Sex Male 11:24 AM EDT Gender Identity Not on file Sexual Orientation Not on file documented as of this encounter Plan of Treatment Not on file documented as of this encounter Procedures Procedure Name Priority Date/Time Associated Diagnosis Comments MULTIPLE LABS Routine 04/26/2021 documented in this encounter Results * Multiple labs (04/26/2021) us Scanning Provider External DE IMAGING Final Result MANUALLY TRANSCRIBED RESULTS documented in this encounter Visit Diagnoses Not on filedocumented in this encounter Care Teams Upholstery Cleaner Relationship Specialty Start Date End Date Nohelia Dyer MD [address] [place] [address] PCP - General Family Medicine 05/14/17 documented as of this encounter
--- OUTSIDE RECORDS SUMMARY | 2024-09-22 16:02 | XMS_ITS | Encounter Summary ---
Author Organization [facility] Address [address] [place] [address] Care Team Providers Care Card Puncher Name Role Phone Nohelia Dyer Primary Care Provider [phone] Wander Cao Unavailable Nohelia Sandy (Rn) (Hist) RN Unavailable + Griselda Buckley (Rn) RN Unavailable Unavailabl e Schuyler Blanca MD Unavailable [phone] Ana M Galvan RN Unavailable Unavailable Source Comments In the event this information is protected by the Federal Confidentiality of Alcohol and Drug AbusePatient Records regulations: The Federal rules restrict any use of the information to criminally investigate or prosecute any alcohol or drug abuse patient.[facility] Encounter Details Date Type Department Care Team (Late st Contact Info) Description 09/25/2016 [facility] H071 [address] [id number] [place] [address] [address] [place] [id number] Social History Tobacco Use Types Packs/Day Years [...] 11:30 AM EDT Office Visit Pain Management [address] [place], [place] [id number] Sera Chau PA-C [address] [place] [address] 4-6 week injection follow up 10/02/2024 10:40 AM EDT Appointment Radiology [address] [place] [address] Spinal stenosis of cervical region [M48.02] 10/19/2024 11:30 AM EDT Office Visit Neurology [address] [place] [address] Constanza Casillas PA-C [address] [place] [address] botox 10/31/2024 9:00 AM EDT [facility] Hematology/Oncology [address] [place] [address] Schuyler Blanca MD [address] [place] [address] VIRTUAL 11/21/2024 10:00 AM EDT Office Visit Orthopaedics [address] [place] [address] [place] [address] [place] [address] 3 month f/u documented as of this encounter Visit Diagnoses Not on filedocumented in this encounter Additional Health Concerns Infection Onset Date Last Indicated Resolved Time COVID-19 Rule-Out 09/03/2020 09/03/2020 09/03/2020 12:19 AM EDT COVID-19 Rule-Out 09/15/2020 09/15/2020 09/16/2020 7:08 AM EDT documented as of this encounter Care Teams Card Puncher Relationship Specialty Start Date End Date Nohelia Dyer [address] [place] [address] PCP - General 06/04/05 Wander Cao [address] [place] [address] Physician Hematology/Oncology 03/24/14 Nohelia Sandy (R[place]) ([place] [address] [place] [address] Specialty Marketing Support Coordinator Hematology/Oncology 10/25/14 08/25/17 [place] [address] [place] [address] Specialty Marketing Support Coordinator 08/26/17 [place] [address] [place] [address] Referring Hematology 12/31/21 Ana M Galvan RN Specialty Marketing Support Coordinator Hematology/Oncology 10/14/23 documented as of this encounter
--- OUTSIDE RECORDS SUMMARY | 2024-09-22 16:02 | XMS_ITS | Encounter Summary ---
Author Organization [facility] Address [address] [place] [address] Care Team Providers Care Contract Law Specialist Name Role Phone Nohelia Dyer Primary Care Provider [phone] Wander Cao Unavailable Nohelia Sandy (Rn) (Hist) RN Unavailable + Griselda Buckley (Rn) RN Unavailable Unavailabl e Schuyler Blanca MD Unavailable [phone] Ana M Galvan RN Unavailable Unavailable Source Comments In the event this information is protected by the Federal Confidentiality of Alcohol and Drug AbusePatient Records regulations: The Federal rules restrict any use of the information to criminally investigate or prosecute any alcohol or drug abuse patient.[facility] Encounter Details Date Type Department Care Team (Late st Contact Info) Description 06/11/2016 Patient Msg Medical Records [address] [place] [address] Provider, Ccf NEW APPOINTMENT REMINDER Social History Tobacco Use Types [...] 11:30 AM EDT Office Visit Pain Management [address] [place] [address] Sera Chau PA-C [address] [place] [address] 4-6 week injection follow up 10/02/2024 10:40 AM EDT Appointment Radiology [address] [place] [address] Spinal stenosis of cervical region [M48.02] 10/19/2024 11:30 AM EDT Office Visit Neurology [address] [place] [address] Constanza Casillas PA-C [address] [place] [address] botox 10/31/2024 9:00 AM EDT [facility] Hematology/Oncology [address] [place] [address] Schuyler Blanca MD [address] [place] [address] VIRTUAL 11/21/2024 10:00 AM EDT Office Visit Orthopaedics [address] [place] [address] [place] [address] [place] [address] 3 month f/u documented as of this encounter Visit Diagnoses Not on filedocumented in this encounter Additional Health Concerns Infection Onset Date Last Indicated Resolved Time COVID-19 Rule-Out 09/03/2020 09/03/2020 09/03/2020 12:19 AM EDT COVID-19 Rule-Out 09/15/2020 09/15/2020 09/16/2020 7:08 AM EDT documented as of this encounter Care Teams Contract Law Specialist Relationship Specialty Start Date End Date Nohelia Dyer [address] [place] [address] PCP - General 06/04/05 Wander Cao [address] [place] [address] Physician Hematology/Oncology 03/24/14 Nohelia SandyRn) ([place] [address] [place] [address] Specialty Md Urologist Hematology/Oncology 10/25/14 08/25/17 [place] [address] [place] [address] Specialty Md Urologist 08/26/17 [place] [address] [place] [address] Referring Hematology 12/31/21 Ana M Galvan RN Specialty Md Urologist Hematology/Oncology 10/14/23 documented as of this encounter
--- OUTSIDE RECORDS SUMMARY | 2024-09-22 16:02 | XMS_ITS | Encounter Summary ---
Author Organization [facility] Address [address] [place] [address] Care Team Providers Care Foreign Languages Department Chair Name Role Phone Nohelia Dyer Primary Care Provider [phone] Wander Cao Unavailable Griselda Buckley (Rn) AMADOR Unavailable UnavailSchuyler Ruelas MD Unavailable [phone] Ana M Galvan RN Unavailable Unavailable Source Comments In the event this information is protected by the Federal Confidentiality of Alcohol and Drug AbusePatient Records regulations: The Federal rules restrict any use of the information to criminally investigate or prosecute any alcohol or drug abuse patient.[facility] Encounter Details Date Type Department Care Team (Late st Contact Info) Description 12/18/2022 Patient Msg Medical Records [address] [place] [address] Provider, Ccf Questionnaire Submission Social History Tobacco Use Types Packs/Day Years Used Date Smoking Tobacco: Never Smokeless Tobacco: Never Alcohol Use Standard Drinks/Week Comments Not Currently 0 (1 standard drink = 0.6 oz pur e alcohol) maybe once a year PHQ-2 Answer Date Recorded PHQ-2 score 1 11/28/2022 Area Deprivation Index Answer Date Boyd rded National Score (1-100), lower number is lower ri 86 08/15/2022 State Score (1-10), lower number is lower risk 8 08/15/2022 Data from: https://www.neighborhoodatlas.medicine.[facility].edu/. Last address used for calculation [address] 08/15/2022 Sex and Gender Information Value Date [...] of Assessment Author No 01/15/2021 12:38 PM STEVET Mercedez Palmer RN * Do you have [...] 11:30 AM EDT Office Visit Pain Management [address] [place] [address] Sera Chau PA-C [address] [place] [address] 4-6 week injection follow up 10/02/2024 10:40 AM EDT Appointment Radiology [address] [place] [address] Spinal stenosis of cervical region [M48.02] 10/19/2024 11:30 AM EDT Office Visit Neurology [address] [place] [address] Constanza Casillas PA-C [address] [place] [address] botox 10/31/2024 9:00 AM EDT [facility] Hematology/Oncology [address] [place] [address] Schuyler Blanca MD [address] [place] [address] VIRTUAL 11/21/2024 10:00 AM EDT Office Visit Orthopaedics [address] [place] [address] [place] [address] [place] [address] 3 month f/u documented as of this encounter Visit Diagnoses Not on filedocumented in this encounter Care Teams Foreign Languages Department Chair Relationship Specialty Start Date End Date Nohelia Dyer [address] [place] [address] PCP - General 06/04/05 Wander Cao [address] [place] [address] Physician Hematology/Oncology 03/24/14 Griselda Buckley (Rn), RN [address] [place] [address] Specialty Hide Paster 08/26/17 [place] [address] [place] [address] Referring Hematology 12/31/21 Ana M Galvan, RN Specialty Hide Paster Hematology/Oncology 10/14/23 documented as of this encounter
--- OUTSIDE RECORDS SUMMARY | 2024-09-22 16:02 | XMS_ITS | Encounter Summary ---
Author Organization [facility] Address [address] [place] [address] Care Team Providers Care Event Attendant Name Role Phone Nohelia Dyer Primary Care Provider [phone] Wander Cao Unavailable Griselda Buckley (Rn) AMADOR Unavailable UnavailSchuyler Ruelas MD Unavailable [phone] Ana M Galvan RN Unavailable Unavailable Source Comments In the event this information is protected by the Federal Confidentiality of Alcohol and Drug AbusePatient Records regulations: The Federal rules restrict any use of the information to criminally investigate or prosecute any alcohol or drug abuse patient.[facility] Encounter Details Date Type Department Care Team (Late st Contact Info) Description 07/02/2022 Get Medical Advice Neurology [address] [place], [place] [id number] Constanza Casillas PA-C [address] [place] [address] MRI Social History Tobacco Use Types Packs/Day Years [...] N ot on file 04/25/2022 Data from: https://www.neighborhoodatlas.medicine.[facility].edu/. Last address used for calculation [address] [facility] [address] [facility] 04/25/2022 Sex and Gender Information Value Date [...] * Telephone Encounter - Nelida King - 07/03/2022 8:28 AM EDT Patient last seen on 06/10/22. documented in this encounter Plan of Treatment Upcoming Encounters Date Type Department Care Team (Late st Contact Info) Description 09/26/2024 11:30 AM EDT Office Visit Pain Management [address] [place] [address] Sera Chau PA-C [address] [place] [address] 4-6 week injection follow up 10/02/2024 10:40 AM EDT Appointment Radiology [address] [place] [address] Spinal stenosis of cervical region [M48.02] 10/19/2024 11:30 AM EDT Office Visit Neurology [address] [place] [address] Constanza Casillas PA-C [address] [place] [address] botox 10/31/2024 9:00 AM EDT [facility] Hematology/Oncology [address] [place] [address] Schuyler Blanca MD [address] [place] [address] VIRTUAL 11/21/2024 10:00 AM EDT Office Visit Orthopaedics [address] [place] [address] [place] [address] [place] [address] 3 month f/u documented as of this encounter Visit Diagnoses Not on filedocumented in this encounter Care Teams Event Attendant Relationship Specialty Start Date End Date Nohelia Dyer [address] [place] [address] PCP - General 06/04/05 Wander Cao [address] [place] [address] Physician Hematology/Oncology 03/24/14 Griselda Buckley (Rn), RN [address] [place] [address] Specialty Hotel Office Manager 08/26/17 [place] [address] [place] [id number] Referring Hematology 12/31/21 Ana M Galvan RN Specialty Hotel Office Manager Hematology/Oncology 10/14/23 documented as of this encounter
--- OUTSIDE RECORDS SUMMARY | 2024-09-22 16:02 | XMS_ITS | Encounter Summary ---
Author Organization [facility] Address [address] [place] [address] Care Team Providers Care Health Analytics Consultant Name Role Phone Nohelia Dyer Primary Care Provider [phone] Wander Cao Unavailable Griselda Buckley (Rn) RN Unavailable Unavailabl e Schuyler Blanca MD Unavailable [phone] Ana M Galvan RN Unavailable Unavailable Source Comments In the event this information is protected by the Federal Confidentiality of Alcohol and Drug AbusePatient Records regulations: The Federal rules restrict any use of the information to criminally investigate or prosecute any alcohol or drug abuse patient.[facility] Encounter Details Date Type Department Care Team (Late st Contact Info) Description 04/23/2022 Patient Msg Hematology/Oncology [address] [place] [address] Schuyler Blanca MD [address] [place] [address] Appointment Cancellation Request Social History Tobacco Use Types Packs/Day Years Used Date Smoking Tobacco: Never Smokeless Tobacco: Never Alcohol Use Standard Drinks/Week Comments Not Currently 0 (1 standard drink = 0.6 oz pur e alcohol) maybe once a year PHQ-2 Answer Date Recorded PHQ-2 score 1 03/16/2022 Area Deprivation Index Answer Date Boyd rded National Score (1-100), lower number is lower ri sk 85 04/25/2022 State Score (1-10), lower number is lower risk N ot on file 04/25/2022 Data from: https://www.neighborhoodatlas.medicine.[facility]/. Last address used for calculation [address] [facility] 04/25/2022 Sex and Gender Information Value Date [...] Assessment Author No 01/15/2021 12:38 PM EDMercedez Faiban RN * Because of a physical, mental, [...] 11:30 AM EDT Office Visit Pain Management [address] [place] [address] Sera Chau PA-C [address] [place] [address] 4-6 week injection follow up 10/02/2024 10:40 AM EDT Appointment Radiology [address] [place] [address] Spinal stenosis of cervical region [M48.02] 10/19/2024 11:30 AM EDT Office Visit Neurology [address] [place] [address] Constanza Casillas PA-C [address] [place] [address] botox 10/31/2024 9:00 AM EDT [facility] Hematology/Oncology [address] [place] [address] Schuyler Blanca MD [address] [place] [address] VIRTUAL 11/21/2024 10:00 AM EDT Office Visit Orthopaedics [address] [place] [address] [place] [address] [place] [address] 3 month f/u documented as of this encounter Visit Diagnoses Not on filedocumented in this encounter Care Teams Health Analytics Consultant Relationship Specialty Start Date End Date Nohelia Dyer [address] [place] [address] PCP - General 06/04/05 Wander Cao [address] [place] [address] Physician Hematology/Oncology 03/24/14 Griselda Buckley (Rn), RN [address] [place] [address] Specialty Kiln Operator 08/26/17 [place] [address] [place] [address] Referring Hematology 12/31/21 Ana M Galvan RN Specialty Kiln Operator Hematology/Oncology 10/14/23 documented as of this encounter
--- OUTSIDE RECORDS SUMMARY | 2024-09-22 16:02 | XMS_ITS | Encounter Summary ---
Author Organization [facility] Address [address] [place] [address] Care Team Providers Care Cook Specialty Name Role Phone Nohelia Dyer Primary Care Provider [phone] Wander Cao Unavailable Nohelia Sandy (Rn) (Hist) RN Unavailable + Griselda Buckley (Rn) RN Unavailable Unavailabl Schuyler Bautista MD Unavailable [phone] Ana M Galvan RN Unavailable Unavailable Source Comments In the event this information is protected by the Federal Confidentiality of Alcohol and Drug AbusePatient Records regulations: The Federal rules restrict any use of the information to criminally investigate or prosecute any alcohol or drug abuse patient.[facility] Encounter Details Date Type Department Care Team (Late st Contact Info) Description 09/13/2016 Patient Msg Medical Records [address] [place] [address] Provider, Ccf RE: Patient Registration Completed Social History Tobacco Use Types Packs/Day Years [...] 11:30 AM EDT Office Visit Pain Management [address] [place] [address] Sera Chau PA-C [address] [place] [address] 4-6 week injection follow up 10/02/2024 10:40 AM EDT Appointment Radiology [address] [place] [address] Spinal stenosis of cervical region [M48.02] 10/19/2024 11:30 AM EDT Office Visit Neurology [address] [place] [address] Constanza Casillas PA-C [address] [place] [address] botox 10/31/2024 9:00 AM EDT [facility] Hematology/Oncology [address] [place] [address] Schuyler Blanca MD [address] [place] [address] VIRTUAL 11/21/2024 10:00 AM EDT Office Visit Orthopaedics [address] [place] [address] [place] [address] [place] [address] 3 month f/u documented as of this encounter Visit Diagnoses Not on filedocumented in this encounter Additional Health Concerns Infection Onset Date Last Indicated Resolved Time COVID-19 Rule-Out 09/03/2020 09/03/2020 09/03/2020 12:19 AM EDT COVID-19 Rule-Out 09/15/2020 09/15/2020 09/16/2020 7:08 AM EDT documented as of this encounter Care Teams Cook Specialty Relationship Specialty Start Date End Date Nohelia Dyer [address] [place] [address] PCP - General 06/04/05 Wander Cao [address] [place] [address] Physician Hematology/Oncology 03/24/14 Nohelia SandyRn) ([place] [address] [place] [address] Specialty Physician Internist Hematology/Oncology 10/25/14 08/25/17 [place] [address] [place] [address] Specialty Physician Internist 08/26/17 [place] [address] [place] [address] Referring Hematology 12/31/21 Ana M Galvan RN Specialty Physician Internist Hematology/Oncology 10/14/23 documented as of this encounter
--- OUTSIDE RECORDS SUMMARY | 2024-09-22 16:02 | XMS_ITS | Encounter Summary ---
Author Organization [employer] Address [id number] [address] [place] [address] Care Team Providers Care Payroll Clerk Name Role Phone Nohelia Dyer MD Primary Care Provider [phone] Encounter Details Date Type Department Care Team (Late st Contact Info) Description 06/27/2021 Orders Only [facility] Cardiology [address] [place] [address] External, Scanning Provider Social History [...] on file Sexual Orientation Not on file COVID-19 Exposure Response Date Recorded In the last 10 days, have yo u been in contact with someone who was confirmed or suspected to have Coronavirus/COVID-19? No / Unsure 06/27/2021 1:21 PM EDT documented as of this encounter Plan of Treatment Not on file documented as of this encounter Procedures Procedure Name Priority Date/Time Associated Diagnosis Comments MULTIPLE LABS Routine 05/22/2021 CT CTA CHEST Routine 05/22/2021 ECG 12-LEAD Routine 05/22/2021 documented in this encounter Results * Multiple labs (05/22/2021) us Scanning Provider External ID IMAGING Final Result Performing Organization Address City/[facility]/ZIP Co de Phone Number MANUALLY TRANSCRIBED RESULTS * CT angiogram chest (05/22/2021) Anatomical Region Laterality Modality Lung, Body, Chest, Vascular, Body Covera N/A Computed Tomography us Scanning Provider External IMG CT ORDERABLES Fin al Result * ECG 12 lead (05/22/2021) us Scanning Provider External ECG ORDERABLES Final Result Performing Organization Address [facility] Co de Phone Number MANUALLY TRANSCRIBED RESULTS documented in this encounter Visit Diagnoses Not on filedocumented in this encounter Care Teams Payroll Clerk Relationship Specialty Start Date End Date Nohelia Dyer MD [address] [place] [address] PCP - General Family Medicine 05/14/17 documented as of this encounter
--- OUTSIDE RECORDS SUMMARY | 2024-09-22 16:02 | XMS_ITS | Encounter Summary ---
Author Organization [facility] Address [address] [place] [address] Care Team Providers Care Signal Apprentice Name Role Phone Nohelia Dyer Primary Care Provider [phone] Wander Cao Unavailable Nohelia Sandy (Rn) (Hist) RN Unavailable + Griselda Buckley (Rn) RN Unavailable Unavailabl Schuyler Bautista MD Unavailable [phone] Ana M Galvan RN Unavailable Unavailable Source Comments In the event this information is protected by the Federal Confidentiality of Alcohol and Drug AbusePatient Records regulations: The Federal rules restrict any use of the information to criminally investigate or prosecute any alcohol or drug abuse patient.[facility] Encounter Details Date Type Department Care Team (Late st Contact Info) Description 05/12/2017 Get Medical Advice Hematology/Oncology [address] [place] [address] Wander Cao [address] [place] [address] RE: Test Result Question Social History Tobacco [...] No 09/30/2016 10:22 AM EDT Ivana Samson, MARGOT.COMMUNICATIONS DEPARTMENT CHAIR * Are you blind or do you have serious difficulty seeing, even when wearing glasses? Answer Date of Assessment Author No 09/30/2016 10:22 AM EDT Ivana Samson APRN.COMMUNICATIONS DEPARTMENT CHAIR * Do you have serious difficulty walking or climbing stairs? Answer Date of Assessment Author Yes 09/30/2016 10:22 AM STEVET Ivana Samson APRN.COMMUNICATIONS DEPARTMENT CHAIR * Do you have difficulty dressing or bathing? Answer Date of Assessment Author No 09/30/2016 10:22 AM EDT Ivana Samson, MARGOT.COMMUNICATIONS DEPARTMENT CHAIR * Because of a physical, mental, or emotional condition, do you have difficulty doing errands alone such as visiting a doctor's office or shopping? Answer Date of Assessment Author Yes 09/30/2016 10:22 AM Ivana Wilkes APRN.COMMUNICATIONS DEPARTMENT CHAIR documented as of this encounter Mental Status * Because of a physical, mental, or emotional condition, do you have serious difficulty concentrating, remembering, or making decisions? Answer Entry Date Author No 09/30/2016 10:22 AM Ivana Wilkes APRN.COMMUNICATIONS DEPARTMENT CHAIR documented in this encounter Plan of Treatment Upcoming Encounters Date Type Department Care Team (Late st Contact Info) Description 09/26/2024 11:30 AM EDT Office Visit Pain Management [address] [place], [place] [id number] Sera Chau PA-C [address] [place] [address] 4-6 week injection follow up 10/02/2024 10:40 AM EDT Appointment Radiology [address] [place] [address] Spinal stenosis of cervical region [M48.02] 10/19/2024 11:30 AM EDT Office Visit Neurology [address] [place] [address] Constanza Casillas PA-C [address] [place] [address] botox 10/31/2024 9:00 AM EDT [facility] Hematology/Oncology [address] [place] [address] Schuyler Blanca MD [address] [place] [address] VIRTUAL 11/21/2024 10:00 AM EDT Office Visit Orthopaedics [address] [place] [address] [place] [address] [place] [address] 3 month f/u documented as of this encounter Visit Diagnoses Not on filedocumented in this encounter Additional Health Concerns Infection Onset Date Last Indicated Resolved Time COVID-19 Rule-Out 09/03/2020 09/03/2020 09/03/2020 12:19 AM EDT COVID-19 Rule-Out 09/15/2020 09/15/2020 09/16/2020 7:08 AM EDT documented as of this encounter Care Teams Signal Apprentice Relationship Specialty Start Date End Date Nohelia Dyer [address] [place] [address] PCP - General 06/04/05 Wander Cao [address] [facility] [place] [address] Physician Hematology/Oncology 03/24/14 Nohelia Sandy (Rn) ([place] [address] [place] [address] Specialty Opticianry Teacher Hematology/Oncology 10/25/14 08/25/17 [place] [address] [place] [address] Specialty Opticianry Teacher 08/26/17 [place] [address] [place] [address] Referring Hematology 12/31/21 Ana M Galvan RN Specialty Opticianry Teacher Hematology/Oncology 10/14/23 documented as of this encounter
--- OUTSIDE RECORDS SUMMARY | 2024-09-22 16:02 | XMS_ITS | Encounter Summary ---
Author Organization [facility] Address [address] [place] [address] Care Team Providers Care Audio Visual Equipment Rental Clerk Name Role Phone Nohelia Dyer Primary Care Provider Wander Cao Unavailable Griselda Buckley (Rn) RN Unavailable Unavailabl e Schuyler Blanca MD Unavailable [phone] Ana M Galvan RN Unavailable Unavailable Source Comments In the event this information is protected by the Federal Confidentiality of Alcohol and Drug AbusePatient Records regulations: The Federal rules restrict any use of the information to criminally investigate or prosecute any alcohol or drug abuse patient.[facility] Encounter Details Date Type Department Care Team (Late st Contact Info) Description 07/31/2022 Get Medical Advice Hematology/Oncology [address] [place] [address] Schuyler Blanca MD [address] [place] [address] Liver Social History Tobacco Use Types Packs/Day Years Used Date Smoking Tobacco: Never Smokeless Tobacco: Never Alcohol Use Standard Drinks/Week Comments Not Currently 0 (1 standard drink = 0.6 oz pur e alcohol) maybe once a year PHQ-2 Answer Date Recorded PHQ-2 score 2 08/01/2022 Area Deprivation Index Answer Date Boyd rded National Score (1-100), lower number is lower ri sk 85 04/25/2022 State Score (1-10), lower number is lower risk N ot on file 04/25/2022 Data from: https://www.neighborhoodatlas.medicine.[facility]/. Last address used for calculation [address] [facility] 04/25/2022 Sex and Gender Information Value Date [...] 11:30 AM EDT Office Visit Pain Management [address] [place] [address] Sera Chau PA-C [address] [place] [address] 4-6 week injection follow up 10/02/2024 10:40 AM EDT Appointment Radiology [address] [place] [address] Spinal stenosis of cervical region [M48.02] 10/19/2024 11:30 AM EDT Office Visit Neurology [address] [place] [address] Constanza Casillas PA-C [address] [place] [address] botox 10/31/2024 9:00 AM EDT [facility] Hematology/Oncology [address] [place] [address] Schuyler Blanca MD [address] [place] [address] VIRTUAL 11/21/2024 10:00 AM EDT Office Visit Orthopaedics [address] [place] [address] [place] [address] [place] [address] 3 month f/u documented as of this encounter Visit Diagnoses Not on filedocumented in this encounter Care Teams Audio Visual Equipment Rental Clerk Relationship Specialty Start Date End Date Nohelia Dyer [address] [place] [address] PCP - General 06/04/05 Wander Cao [address] [place] [address] Physician Hematology/Oncology 03/24/14 Griselda Buckley (Rn), RN [address] [place] [address] Specialty Converter Skimmer 08/26/17 [place] [address] [place] [address] Referring Hematology 12/31/21 Ana M Galvan RN Specialty Converter Skimmer Hematology/Oncology 10/14/23 documented as of this encounter
--- OUTSIDE RECORDS SUMMARY | 2024-09-22 16:02 | XMS_ITS | Encounter Summary ---
Author Organization [facility] Address [address] [place] [address] Care Team Providers Care Security Monitor Name Role Phone Nohelia Dyer Primary Care Provider [phone] Wander Cao Unavailable Nohelia Sandy (Rn) (Hist) RN Unavailable + Griselda Buckley (Rn) RN Unavailable Unavailabl Schuyler Bautista MD Unavailable [phone] Ana M Galvan RN Unavailable Unavailable Source Comments In the event this information is protected by the Federal Confidentiality of Alcohol and Drug AbusePatient Records regulations: The Federal rules restrict any use of the information to criminally investigate or prosecute any alcohol or drug abuse patient.[facility] Encounter Details Date Type Department Care Team (Late st Contact Info) Description 10/21/2016 Get Medical Advice Hematology/Oncology [address] [place] [address] Wander Cao [address] [place] [address] Non-Urgent Medical Question Social History Tobacco Use [...] No 09/30/2016 10:22 AM EDT Ivana Samson, MARGOT.WIRE ROPE SALES REPRESENTATIVE * Are you blind or do you have serious difficulty seeing, even when wearing glasses? Answer Date of Assessment Author No 09/30/2016 10:22 AM Ivana Wilkes APRN.WIRE ROPE SALES REPRESENTATIVE * Do you have serious difficulty walking or climbing stairs? Answer Date of Assessment Author Yes 09/30/2016 10:22 AM Ivana Wilkes APRN.WIRE ROPE SALES REPRESENTATIVE * Do you have difficulty dressing or bathing? Answer Date of Assessment Author No 09/30/2016 10:22 AM Ivana Wilkes APRN.WIRE ROPE SALES REPRESENTATIVE * Because of a physical, mental, or emotional condition, do you have difficulty doing errands alone such as visiting a doctor's office or shopping? Answer Date of Assessment Author Yes 09/30/2016 10:22 AM Ivana Wilkes APRN.WIRE ROPE SALES REPRESENTATIVE documented as of this encounter Mental Status * Because of a physical, mental, or emotional condition, do you have serious difficulty concentrating, remembering, or making decisions? Answer Entry Date Author No 09/30/2016 10:22 AM Ivana Wilkes APRN.WIRE ROPE SALES REPRESENTATIVE documented in this encounter Plan of Treatment Upcoming Encounters Date Type Department Care Team (Late st Contact Info) Description 09/26/2024 11:30 AM EDT Office Visit Pain Management [address] [place], [place] [id number] Sera Chau PA-C [address] [place] [address] 4-6 week injection follow up 10/02/2024 10:40 AM EDT Appointment Radiology [address] [place] [address] Spinal stenosis of cervical region [M48.02] 10/19/2024 11:30 AM EDT Office Visit Neurology [address] [place] [address] Constanza Casillas PA-C [address] [place] [address] botox 10/31/2024 9:00 AM EDT [facility] Hematology/Oncology [address] [place] [address] Schuyler Blanca MD [address] [place] [address] VIRTUAL 11/21/2024 10:00 AM EDT Office Visit Orthopaedics [address] [place] [address] [place] [address] [place] [address] 3 month f/u documented as of this encounter Visit Diagnoses Not on filedocumented in this encounter Additional Health Concerns Infection Onset Date Last Indicated Resolved Time COVID-19 Rule-Out 09/03/2020 09/03/2020 09/03/2020 12:19 AM EDT COVID-19 Rule-Out 09/15/2020 09/15/2020 09/16/2020 7:08 AM EDT documented as of this encounter Care Teams Security Monitor Relationship Specialty Start Date End Date Nohelia Dyer [address] [place] [address] PCP - General 06/04/05 Wander Cao [address] [facility] [place] [address] Physician Hematology/Oncology 03/24/14 Nohelia Sandy (Rn) ([place] [address] [place] [address] Specialty Software Writer Hematology/Oncology 10/25/14 08/25/17 [place] [address] [place] [address] Specialty Software Writer 08/26/17 [place] [address] [place] [address] Referring Hematology 12/31/21 Ana M Galvan RN Specialty Software Writer Hematology/Oncology 10/14/23 documented as of this encounter
--- OUTSIDE RECORDS SUMMARY | 2024-09-22 16:02 | XMS_ITS | Encounter Summary ---
Author Organization [facility] Address [address] [place] [address] Care Team Providers Care Pot Fisher Name Role Phone Nohelia Dyer Primary Care Provider [phone] Wander Cao Unavailable Griselda Buckley (Rn) AMADOR Unavailable Unavailabl e Schuyler Blanca MD Unavailable [phone] Ana M Galvan RN Unavailable Unavailable Source Comments In the event this information is protected by the Federal Confidentiality of Alcohol and Drug AbusePatient Records regulations: The Federal rules restrict any use of the information to criminally investigate or prosecute any alcohol or drug abuse patient.[facility] Encounter Details Date Type Department Care Team (Late st Contact Info) Description 09/18/2022 Get Medical Advice [facility] [address] [place] [address] [place] [address] [facility] [address] [place] [address] Short term disability Social History Tobacco Use Types Packs/Day Years [...] is lower risk 8 08/15/2022 Data from: https://www.neighborhoodatlas.medicine.[facility]/. Last address used for calculation [address] [facility] 08/15/2022 Sex and Gender Information Value Date [...] 11:30 AM EDT Office Visit Pain Management [address] [place] [address] Sera Chau PA-C [address] [place] [address] 4-6 week injection follow up 10/02/2024 10:40 AM EDT Appointment Radiology [address] [place] [address] Spinal stenosis of cervical region [M48.02] 10/19/2024 11:30 AM EDT Office Visit Neurology [address] [place] [address] Constanza Casillas PA-C [address] [place] [address] botox 10/31/2024 9:00 AM EDT [facility] Hematology/Oncology [address] [place] [address] Schuyler Blanca MD [address] [place] [address] VIRTUAL 11/21/2024 10:00 AM EDT Office Visit Orthopaedics [address] [place] [address] [place] [address] [place] [address] 3 month f/u documented as of this encounter Visit Diagnoses Not on filedocumented in this encounter Care Teams Pot Fisher Relationship Specialty Start Date End Date Nohelia Dyer [address] [place] [address] PCP - General 06/04/05 Wander Cao [address] [place] [address] Physician Hematology/Oncology 03/24/14 Griselda Buckley (Rn), RN [address] [place] [address] Specialty Ceiling Cleaner 08/26/17 [place] [address] [place] [address] Referring Hematology 12/31/21 Ana M Galvan RN Specialty Ceiling Cleaner Hematology/Oncology 10/14/23 documented as of this encounter
--- OUTSIDE RECORDS SUMMARY | 2024-09-22 16:02 | XMS_ITS | Encounter Summary ---
Author Organization [facility] Address [address] [place] [address] Care Team Providers Care Tree Fruit And Nut Crops Farmer Name Role Phone Nohelia Dyer Primary Care Provider [phone] Wander Cao Unavailable Nohelia Sandy (Rn) (Hist) RN Unavailable + Griselda Buckley (Rn) RN Unavailable Unavailabl e Schuyler Blanca MD Unavailable [phone] Ana M Galvan RN Unavailable Unavailable Source Comments In the event this information is protected by the Federal Confidentiality of Alcohol and Drug AbusePatient Records regulations: The Federal rules restrict any use of the information to criminally investigate or prosecute any alcohol or drug abuse patient.[facility] Encounter Details Date Type Department Care Team (Late st Contact Info) Description 01/27/2017 Patient Msg Medical Records [address] [place] [address] Provider, [facility] SCHEDULE Social History Tobacco Use Types Packs/Day [...] No 09/30/2016 10:22 AM EDT Ivana Samson APRN.DRAIN TILER * Are you blind or do you have serious difficulty seeing, even when wearing glasses? Answer Date of Assessment Author No 09/30/2016 10:22 AM EDT Ivana Samson APRN.DRAIN TILER * Do you have serious difficulty walking or climbing stairs? Answer Date of Assessment Author Yes 09/30/2016 10:22 AM EDT Ivana Samson APRN.DRAIN TILER * Do you have difficulty dressing or bathing? Answer Date of Assessment Author No 09/30/2016 10:22 AM EDT Ivana Samson APRN.DRAIN TILER * Because of a physical, mental, or emotional condition, do you have difficulty doing errands alone such as visiting a doctor's office or shopping? Answer Date of Assessment Author Yes 09/30/2016 10:22 AM EDT Ivana Samson APRN.DRAIN TILER documented as of this encounter Mental Status * Because of a physical, mental, or emotional condition, do you have serious difficulty concentrating, remembering, or making decisions? Answer Entry Date Author No 09/30/2016 10:22 AM EDT Ivana Samson APRN.DRAIN TILER documented in this encounter Plan of Treatment Upcoming Encounters Date Type Department Care Team (Late st Contact Info) Description 09/26/2024 11:30 AM EDT Office Visit Pain Management [address] [place] [address] Sera Chau PA-C [address] [place] [address] 4-6 week injection follow up 10/02/2024 10:40 AM EDT Appointment Radiology [address] [place] [address] Spinal stenosis of cervical region [M48.02] 10/19/2024 11:30 AM EDT Office Visit Neurology [address] [place] [address] Constanza Casillas PA-C [address] [place] [address] botox 10/31/2024 9:00 AM EDT [facility] Hematology/Oncology [address] [place] [address] Schuyler Blanca MD [address] [place] [address] VIRTUAL 11/21/2024 10:00 AM EDT Office Visit Orthopaedics [address] [place] [address] [place] [address] [place] [address] 3 month f/u documented as of this encounter Visit Diagnoses Not on filedocumented in this encounter Additional Health Concerns Infection Onset Date Last Indicated Resolved Time COVID-19 Rule-Out 09/03/2020 09/03/2020 09/03/2020 12:19 AM EDT COVID-19 Rule-Out 09/15/2020 09/15/2020 09/16/2020 7:08 AM EDT documented as of this encounter Care Teams Tree Fruit And Nut Crops Farmer Relationship Specialty Start Date End Date Nohelia Dyer [address] [place] [address] PCP - General 06/04/05 Wander Cao [address] [place] [address] Physician Hematology/Oncology 03/24/14 Nohelia Sandy (Rn) ([place] [address] [place] [address] Specialty Candle Wrapper Hematology/Oncology 10/25/14 08/25/17 Gr[place] [address] [place] [address] Specialty Candle Wrapper 08/26/17 [place] [address] [place] [address] Referring Hematology 12/31/21 Ana M Galvan RN Specialty Candle Wrapper Hematology/Oncology 10/14/23 documented as of this encounter
--- OUTSIDE RECORDS SUMMARY | 2024-09-22 16:02 | XMS_ITS | Encounter Summary ---
Author Organization [facility] Address [address] [place] [address] Care Team Providers Care Shake Maker Name Role Phone Nohelia Dyer Primary Care Provider [phone] Wander Cao Unavailable Griselda Buckley (Rn) RN Unavailable Unavailabl e Schuyler Blanca MD Unavailable [phone] Ana M Galvan RN Unavailable Unavailable Source Comments In the event this information is protected by the Federal Confidentiality of Alcohol and Drug AbusePatient Records regulations: The Federal rules restrict any use of the information to criminally investigate or prosecute any alcohol or drug abuse patient.[facility] Encounter Details Date Type Department Care Team (Late st Contact Info) Description 11/04/2022 Get Medical Advice Hematology/Oncology [address] [place] [address] Schuyler Blanca MD [address] [place] [address] Appointment Social History Tobacco Use Types Packs/Day Years Used Date Smoking Tobacco: Never Smokeless Tobacco: Never Alcohol Use Standard Drinks/Week Comments Not Currently 0 (1 standard drink = 0.6 oz pur e alcohol) maybe once a year PHQ-2 Answer Date Recorded PHQ-2 score 1 10/31/2022 Area Deprivation Index Answer Date Boyd rded National Score (1-100), lower number is lower ri sk 86 08/15/2022 State Score (1-10), lower number is lower risk 8 08/15/2022 Data from: https://www.neighborhoodatlas.medicine.[facility].edu/. Last address used for calculation 66 [...] 11:30 AM EDT Office Visit Pain Management [address] [place] [address] Sera Chau PA-C [address] [place] [address] 4-6 week injection follow up 10/02/2024 10:40 AM EDT Appointment Radiology [address] [place] [address] Spinal stenosis of cervical region [M48.02] 10/19/2024 11:30 AM EDT Office Visit Neurology [address] [place] [address] Constanza Casillas PA-C [address] [place] [address] botox 10/31/2024 9:00 AM EDT [facility] Hematology/Oncology [address] [place] [address] Schuyler Blanca MD [address] [place] [address] VIRTUAL 11/21/2024 10:00 AM EDT Office Visit Orthopaedics [address] [place] [address] [place] [address] [place] [address] 3 month f/u documented as of this encounter Visit Diagnoses Not on filedocumented in this encounter Care Teams Shake Maker Relationship Specialty Start Date End Date Nohelia Dyer [address] [place] [address] PCP - General 06/04/05 Wander Cao [address] [place] [address] Physician Hematology/Oncology 03/24/14 Griselda Buckley (Rn), RN [address] [place] [address] Specialty Side Laster Staple 08/26/17 [place] [address] [place] [address] Referring Hematology 12/31/21 Ana M Galvan RN Specialty Side Laster Staple Hematology/Oncology 10/14/23 documented as of this encounter
--- OUTSIDE RECORDS SUMMARY | 2024-09-22 16:02 | XMS_ITS | Encounter Summary ---
Author Organization [facility] Address [address] [place] [address] Care Team Providers Care Certified Professional Ergonomist Name Role Phone Nohelia Dyer Primary Care Provider [phone] Wander Cao Unavailable Griselda Buckley (Rn) AMADOR Unavailable Unavailabl e Schuyler Blanca MD Unavailable [phone] Ana M Galvan RN Unavailable Unavailable Source Comments In the event this information is protected by the Federal Confidentiality of Alcohol and Drug AbusePatient Records regulations: The Federal rules restrict any use of the information to criminally investigate or prosecute any alcohol or drug abuse patient.[facility] Encounter Details Date Type Department Care Team (Late st Contact Info) Description 09/09/2022 Patient Msg Endocrinology [place] [address] [place] [address] [place] [address] [facility] [address] [place] [address] Request an Appointment Social History Tobacco Use [...] is lower risk 8 08/15/2022 Data from: https://www.neighborhoodatlas.medicine.[facility]/. Last address used for calculation [address] [facility] 08/15/2022 Sex and Gender Information Value Date [...] 11:30 AM EDT Office Visit Pain Management [address] [place] [address] Sera Chau PA-C [address] [place] [address] 4-6 week injection follow up 10/02/2024 10:40 AM EDT Appointment Radiology [address] [place] [address] Spinal stenosis of cervical region [M48.02] 10/19/2024 11:30 AM EDT Office Visit Neurology [address] [place] [address] Constanza Casillas PA-C [address] [place] [address] botox 10/31/2024 9:00 AM EDT [facility] Hematology/Oncology [address] [place] [address] Schuyler Blanca MD [address] [place] [address] VIRTUAL 11/21/2024 10:00 AM EDT Office Visit Orthopaedics [address] [place] [address] [place] [address] [place] [address] 3 month f/u documented as of this encounter Visit Diagnoses Not on filedocumented in this encounter Care Teams Certified Professional Ergonomist Relationship Specialty Start Date End Date Nohelia Dyer [address] [place] [address] PCP - General 06/04/05 Wander Cao [address] [place] [address] Physician Hematology/Oncology 03/24/14 Griselda Buckley (Rn), RN [address] [place] [address] Specialty Senior Asic Design Engineer 08/26/17 [place] [address] [place] [address] Referring Hematology 12/31/21 Ana M Galvan RN Specialty Senior Asic Design Engineer Hematology/Oncology 10/14/23 documented as of this encounter
--- OUTSIDE RECORDS SUMMARY | 2024-09-22 16:02 | XMS_ITS | Clinical Summary ---
Author Organization [employer] Sys [employer] Address [id number] [address] [place] [address] Care Team Providers Care Community Health Nurse Supervisor Name Role Phone Nohelia Dyer MD Primary Care Provider [phone] Allergies Active Allergy Reactions Criticality Noted Date Comments Cephalexin Hives High 05/14/2017 Other Reaction(s): Unknown Chlorhexidine Rash,Anaphylaxis High 01/14/2021 Other Reaction(s): Unknown Codeine Anaphylaxis,Other (S ee Comments) High 08/14/2005 Tolerates morphine Tolerated Oxycodone on 09/30/2016 Medications omeprazole (PriLOSEC) 20 mg capsule Take 1 capsule (20 mg total) by mouth in the morning. Active aspirin 81 mg Take 1 tablet (81 mg total) by mouth in the morning. Active oambqrmm-ebeb-XN -calcium &mins (THERAGRAN-M) 9 mg iron-400 mcg tablet Take 1 tablet by mouth in the morning. Active febuxostat (ULORIC) 40 mg tablet Take 1 tablet (40 mg total) by mouth in the morning. Active predniSONE (DELTASONE) 1 mg tablet Take 2 tablets (2 mg total) by mouth in the morning. 8 Active predniSONE (DELTASONE) 5 mg tablet Take 1 tablet (5 mg total) by mouth in the morning. 8 Active icosapent ethyL (VASCEPA) 1 gram capsule Take 2 capsules (2 g total) by mouth in the morning and at bedtime. Active nadoloL (CORGARD) 20 mg tablet Take 1 tablet (20 mg total) by mouth in the morning. Active FLUoxetine (PROzac) 20 mg capsule Take 1 capsule (20 mg total) by mouth in the morning. Active b complex vitamins capsule Take 1 capsule by mouth in the morning. Active cholecalciferol, vitamin D3, (VITAMIN D3 ORAL) Take by mouth daily. Active acetaminophen (TYLENOL EXTRA STRENGTH) 500 mg tablet Take 1 tablet (500 mg total) by mouth as needed for pain. Active rosuvastatin (CRESTOR) 10 mg tabletIndication s:Chest pain, unspecified type,Shortness of breath,Other chest pain,Mixed hyperlipidemia,D izziness Take 1 tablet (10 mg total) by mouth in the morning. FINAR REFILL, PT NEEDS APPT FOR FURTHER REFILLS. 30 tablet 3 Active cetirizine (ZyrTEC) 10 mg tablet Take 1 tablet (10 mg total) by mouth as needed. Active chlorzoxazone (PARAFON FORTE) 500 mg tablet Take 0.5 tablets (250 mg total) by mouth as needed. 3 Active bisoprolol (ZEBETA) 5 mg tablet Take 1 tablet (5 mg total) by mouth in the morning. Active Active Problems Problem Noted Date Diagnosed Date Obesity (BMI 30-39.9) 06/27/2021 H/O left nephrectomy 06/27/2021 Intra-abdominal adhesions 02/15/2018 Disorder of sacrum 01/27/2018 DDD (degenerative disc disease), lumbar 12/22/19 18 Family History Medical History Relation Name Comments COPD Father Jayden Cancer Father Jayden Colon cancer Father Jayden Hypertension Father Jayden Lung cancer Father Jayden COPD Mother Patsy Cancer Mother Patsy Hypertension Mother Patsy Lung cancer Mother Patsy Miscarriages / Stillbirths Mother Patsy Stroke Mother Patsy Relation Name Status Comments Father Jayden Mother Patsy Social History Tobacco Use Types Packs/Day Years Used Date Smoking Tobacco: Never Smokeless Tobacco: Never Alcohol Use Standard Drinks/Week Comments Not Currently 0 (1 standard drink = 0.6 oz pur e alcohol) very rare Childcare Answer Date Recorded Childcare Unknown 09/22/2018 Employment Answer Date Recorded Employment Unknown 09/22/2018 Purpose - Life Answer Date Recorded Purpose and direction in life Unknown Sex and Gender Information Value Date Recorded Sex Assigned at Not on file Legal Sex Male 11:24 AM EDT Gender Identity Not on file Sexual Orientation Not on file Last Filed Vital Signs Vital Sign Reading Time Taken Comments Blood Pressure 125/94 06/05/2023 8:40 AM EST Pulse 75 06/05/2023 8:40 AM EST Temperature 36.5 C (97.7 F) 06/05/2023 6:41 AM EST Respiratory Rate 14 06/05/2023 8:25 AM EST Oxygen Saturation 96% 06/05/2023 8:40 AM EST Inhaled Oxygen Concentration - - Weight 111.1 kg (245 lb) 06/05/2023 6:41 AM EST Height 177.8 cm (5' 10 ) 06/05/2023 6:41 AM EST Body Mass Index 35.15 06/05/2023 6:41 AM EST Plan of Treatment Health Maintenance Due Date Last Done Comments Depression Screening 1977 COVID-19 Vaccine (2023-2 5 season) 2023 12/05/2020, 11/14/2020 Adult BMI Screening 06/05/2024 06/05/2023 Tobacco Screening 06/05/2024 06/05/2023 Influenza Vaccine 12/12/2024 02/25/2023, , 01/15/2021, Additional history exists DTaP,Tdap and Td Vaccines (3 - Td or Tdap) 11/04/2025 11/05/2015, 11/05/2015 Colonoscopy 06/05/2030 06/05/2023, 05/15, 11/16/2020, Additional history exists Zoster (Shingles) Vaccine Completed 02/13/2021, 08/2020 Medical Devices Not on file Procedures Procedure Name Priority Date/Time Associated Diagnosis Comments PROVATION COLONOSCOPY Routine 06/05/2023 7:54 AM EST from Last 3 Months or Most Recently Relevant to Health Maintenance Results * Colonoscopy Report (06/05/2023 7:54 AM EST) Narrative SYSTEMGENERATED, DOCUMENTATION - 06/05/2023 7:54 AM EST This order has been auto-finalized for image and report archival in PACs. *For full report details, please reach out to your physician. This image is visible to you in MyChart.* Jamal Rushing MD IMG OR IMG ORDERABLES Verena riley Result from Last 3 Months or Most Recently Relevant to Health Maintenance Insurance [place] [employer] Advance Directives * Full Code (Latest Code Status on File) Date Activated Date Inactivated Comments 02/15/2018 2:14 PM 02/17/2018 2:15 PM Care Teams Community Health Nurse Supervisor Relationship Specialty Start Date End Date Nohelia Dyer MD [address] [place] [address] PCP - General Family Medicine 05/14/17
--- OUTSIDE RECORDS SUMMARY | 2024-09-22 16:02 | XMS_ITS | Encounter Summary ---
Author Organization [facility] Address [address] [place] [address] Care Team Providers Care Strategic Planning Director Name Role Phone Nohelia Dyer Primary Care Provider Wander Cao Unavailable Griselda Buckley (Rn) RN Unavailable Unavailabl e Schuyler Blanca MD Unavailable [phone] Ana M Galvan RN Unavailable Unavailable Source Comments In the event this information is protected by the Federal Confidentiality of Alcohol and Drug AbusePatient Records regulations: The Federal rules restrict any use of the information to criminally investigate or prosecute any alcohol or drug abuse patient.[facility] Encounter Details Date Type Department Care Team (Late st Contact Info) Description 04/21/2022 Get Medical Advice Hematology/Oncology [address] [place] [address] Schuyler Blanca MD [address] [place] [address] Appointment Social History Tobacco Use [...] ot on file 04/25/2022 Data from: [email or web address]/. Last address used for calculation [address] 04/25/2022 Sex and Gender Information Value Date [...] 11:30 AM EDT Office Visit Pain Management [address] [place] [address] Sera Chau PA-C [address] [place] [address] 4-6 week injection follow up 10/02/2024 10:40 AM EDT Appointment Radiology [address] [place] [address] Spinal stenosis of cervical region [M48.02] 10/19/2024 11:30 AM EDT Office Visit Neurology [address] [place] [address] Constanza Casillas PA-C [address] [place] [address] botox 10/31/2024 9:[address] [facility] Hematology/Oncology [address] [place] [address] Schuyler Blanca MD [address] [place] [address] VIRTUAL 11/21/2024 10:00 AM EDT Office Visit Orthopaedics [address] [place] [address] [place] [address] [place] [address] 3 month f/u documented as of this encounter Visit Diagnoses Not on filedocumented in this encounter Care Teams Strategic Planning Director Relationship Specialty Start Date End Date Nohelia Dyer [address] [place] [address] PCP - General 06/04/05 Wander Cao [address] [place] [address] Physician Hematology/Oncology 03/24/14 Griselda Buckley (Rn), RN [address] [place] [address] Specialty Export Freight Clerk 08/26/17 [place] [address] [place] [address] Referring Hematology 12/31/21 Ana M Galvan RN Specialty Export Freight Clerk Hematology/Oncology 10/14/23 documented as of this encounter
--- OUTSIDE RECORDS SUMMARY | 2024-09-22 16:02 | XMS_ITS | Encounter Summary ---
Author Organization [facility] Address [address] [place] [address] Care Team Providers Care Trading Assistant Name Role Phone Nohelia Dyer Primary Care Provider [phone] Wander Cao Unavailable Nohelia Sandy (Rn) (Hist) RN Unavailable + Griselda Buckley (Rn) RN Unavailable Unavailabl Schuyler Bautista MD Unavailable [phone] Ana M Galvan RN Unavailable Unavailable Source Comments In the event this information is protected by the Federal Confidentiality of Alcohol and Drug AbusePatient Records regulations: The Federal rules restrict any use of the information to criminally investigate or prosecute any alcohol or drug abuse patient.[facility] Encounter Details Date Type Department Care Team (Late st Contact Info) Description 01/28/2017 Get Medical Advice Hematology/Oncology [address] [place] [address] Wander Cao [address] [place] [address] RE: Upcoming Appointment Question Social History Tobacco [...] No 09/30/2016 10:22 AM EDT Ivana Samson, MARGOT.INKER AND OPAQUER * Are you blind or do you have serious difficulty seeing, even when wearing glasses? Answer Date of Assessment Author No 09/30/2016 10:22 AM Ivana Wilkes APRN.INKER AND OPAQUER * Do you have serious difficulty walking or climbing stairs? Answer Date of Assessment Author Yes 09/30/2016 10:22 AM Ivana Wilkes APRN.INKER AND OPAQUER * Do you have difficulty dressing or bathing? Answer Date of Assessment Author No 09/30/2016 10:22 AM Ivana Wilkes, MARGOT.INKER AND OPAQUER * Because of a physical, mental, or emotional condition, do you have difficulty doing errands alone such as visiting a doctor's office or shopping? Answer Date of Assessment Author Yes 09/30/2016 10:22 AM Ivana Wilkes, MARGOT.INKER AND OPAQUER documented as of this encounter Mental Status * Because of a physical, mental, or emotional condition, do you have serious difficulty concentrating, remembering, or making decisions? Answer Entry Date Author No 09/30/2016 10:22 AM Ivana Wilkes APRN.INKER AND OPAQUER documented in this encounter Plan of Treatment Upcoming Encounters Date Type Department Care Team (Late st Contact Info) Description 09/26/2024 11:30 AM EDT Office Visit Pain Management [address] [place], [place] [id number] Sera Chau PA-C [address] [place] [address] 4-6 week injection follow up 10/02/2024 10:40 AM EDT Appointment Radiology [address] [place] [address] Spinal stenosis of cervical region [M48.02] 10/19/2024 11:30 AM EDT Office Visit Neurology [address] [place] [address] Constanza Casillas PA-C [address] [place] [address] botox 10/31/2024 9:00 AM EDT [facility] Hematology/Oncology [address] [place] [address] Schuyler Blanca MD [address] [place] [address] VIRTUAL 11/21/2024 10:00 AM EDT Office Visit Orthopaedics [address] [place] [address] [place] [address] [place] [address] 3 month f/u documented as of this encounter Visit Diagnoses Not on filedocumented in this encounter Additional Health Concerns Infection Onset Date Last Indicated Resolved Time COVID-19 Rule-Out 09/03/2020 09/03/2020 09/03/2020 12:19 AM EDT COVID-19 Rule-Out 09/15/2020 09/15/2020 09/16/2020 7:08 AM EDT documented as of this encounter Care Teams Trading Assistant Relationship Specialty Start Date End Date Nohelia Dyer [address] [place] [address] PCP - General 06/04/05 Wander Cao [address] [facility] [place] [address] Physician Hematology/Oncology 03/24/14 Nohelia Sandy (Rn) (Hist), [place] [address] [place] [address] Specialty Art Psychotherapist Hematology/Oncology 10/25/14 08/25/17 [place] Buck[place] [address] [place] [address] Specialty Art Psychotherapist 08/26/17 [place] [address] [place] [address] Referring Hematology 12/31/21 Ana M Galvan RN Specialty Art Psychotherapist Hematology/Oncology 10/14/23 documented as of this encounter
--- OUTSIDE RECORDS SUMMARY | 2024-09-22 16:02 | XMS_ITS | Encounter Summary ---
Author Organization [facility] Address [facility] [place] [address] Care Team Providers Care Operations Manager Assistant Name Role Phone Nohelia Dyer Primary Care Provider [phone] Wander Cao Unavailable Nohelia Sandy (Rn) (Hist) RN Unavailable + Griselda Buckley (Rn) RN Unavailable Unavailabl e Schuyler Blanca MD Unavailable [phone] Ana M Galvan RN Unavailable Unavailable Source Comments In the event this information is protected by the Federal Confidentiality of Alcohol and Drug AbusePatient Records regulations: The Federal rules restrict any use of the information to criminally investigate or prosecute any alcohol or drug abuse patient.[facility] Encounter Details Date Type Department Care Team (Late st Contact Info) Description 10/09/2015 Get Medical Advice Gastroenterology [address] [id number] Sriram Naranjo MD [address] [place] [address] RE: Upcoming Appointment Question Social [...] 11:30 AM EDT Office Visit Pain Management [address] [place], [place] [phone] Sera Chau PA-C [address] [place], [place] [address] 4-6 week injection follow up 10/02/2024 10:40 AM EDT Appointment Radiology [address] [place] [address] Spinal stenosis of cervical region [M48.02] 10/19/2024 11:30 AM EDT Office Visit Neurology [address] [place] [address] Constanza Casillas PA-C [address] [place] [address] botox 10/31/2024 9:00 AM EDT [facility] Hematology/Oncology [address] [place] [address] Schuyler Blanca MD [address] [place] [address] VIRTUAL 11/21/2024 10:00 AM EDT Office Visit Orthopaedics [address] [place] [address] [place] [address] [place] [address] 3 month f/u documented as of this encounter Visit Diagnoses Not on filedocumented in this encounter Additional Health Concerns Infection Onset Date Last Indicated Resolved Time COVID-19 Rule-Out 09/03/2020 09/03/2020 09/03/2020 12:19 AM EDT COVID-19 Rule-Out 09/15/2020 09/15/2020 09/16/2020 7:08 AM EDT documented as of this encounter Care Teams Operations Manager Assistant Relationship Specialty Start Date End Date Nohelia Dyer [address] [place] [address] PCP - General 06/04/05 Wander Cao [address] [facility] [place] [address] Physician Hematology/Oncology 03/24/14 Nohelia Sandy (Rn) ([place] [address] [place] [address] Specialty Supervisor Floor Assembly Hematology/Oncology 10/25/14 08/25/17 [place] [address] [place] [address] Specialty Supervisor Floor Assembly 08/26/17 [place] [address] [place] [address] Referring Hematology 12/31/21 Ana M Galvan RN Specialty Supervisor Floor Assembly Hematology/Oncology 10/14/23 documented as of this encounter
--- OUTSIDE RECORDS SUMMARY | 2024-09-22 16:02 | XMS_ITS | Encounter Summary ---
Author Organization [facility] Address [address] [place] [address] Care Team Providers Care Thermit Welding Machine Operator Name Role Phone Nohelia Dyer Primary Care Provider [phone] Wander Cao Unavailable Nohelia Sandy (Rn) (Hist) RN Unavailable + Griselda Buckley (Rn) RN Unavailable Unavailabl e Schuyler Blanca MD Unavailable [phone] Ana M Galvan RN Unavailable Unavailable Source Comments In the event this information is protected by the Federal Confidentiality of Alcohol and Drug AbusePatient Records regulations: The Federal rules restrict any use of the information to criminally investigate or prosecute any alcohol or drug abuse patient.[facility] Encounter Details Date Type Department Care Team (Late st Contact Info) Description 04/21/2017 Patient Msg Neurology [address] [place] [phone] Elise Cooney MD [address] [place] [address] RE: Request an Appointment Social History Tobacco [...] 2:11 AM EDT Sexual Orientation Straight 07/15/2018 2 :11 AM EDT Occupation Industry Job Start Date Job End Date unemployed- prior Not on file Not on file N ot on file documented as of this encounter Functional Status * Are you deaf or do you have serious difficulty hearing? Answer Date of Assessment Author No 09/30/2016 10:22 AM EDT Ivana Samson APRN.NUTTER UP * Are you blind or do you have serious difficulty seeing, even when wearing glasses? Answer Date of Assessment Author No 09/30/2016 10:22 AM EDT Ivana Samson APRN.NUTTER UP * Do you have serious difficulty walking or climbing stairs? Answer Date of Assessment Author Yes 09/30/2016 10:22 AM EDIvana Salamanca APRN.NUTTER UP * Do you have difficulty dressing or bathing? Answer Date of Assessment Author No 09/30/2016 10:22 AM Ivana Wilkes APRN.NUTTER UP * Because of a physical, mental, or emotional condition, do you have difficulty doing errands alone such as visiting a doctor's office or shopping? Answer Date of Assessment Author Yes 09/30/2016 10:22 AM Ivana Wilkes APRN.NUTTER UP documented as of this encounter Mental Status * Because of a physical, mental, or emotional condition, do you have serious difficulty concentrating, remembering, or making decisions? Answer Entry Date Author No 09/30/2016 10:22 AM Ivana Wilkes APRN.NUTTER UP documented in this encounter Plan of Treatment Upcoming Encounters Date Type Department Care Team (Late st Contact Info) Description 09/26/2024 11:30 AM EDT Office Visit Pain Management [address] [place], [place] [address] Sera Chau PA-C [address] [place], [place] [address] 4-6 week injection follow up 10/02/2024 10:40 AM EDT Appointment Radiology [address] [place] [address] Spinal stenosis of cervical region [M48.02] 10/19/2024 11:30 AM EDT Office Visit Neurology [address] [place] [address] Constanza Casillas PA-C [address] [place] [address] botox 10/31/2024 9:00 AM EDT [facility] Hematology/Oncology [address] [place] [address] Schuyler Blanca MD [address] [place] [address] VIRTUAL 11/21/2024 10:00 AM EDT Office Visit Orthopaedics [address] [place] [address] [place] [address] [place] [address] 3 month f/u documented as of this encounter Visit Diagnoses Not on filedocumented in this encounter Additional Health Concerns Infection Onset Date Last Indicated Resolved Time COVID-19 Rule-Out 09/03/2020 09/03/2020 09/03/2020 12:19 AM EDT COVID-19 Rule-Out 09/15/2020 09/15/2020 09/16/2020 7:08 AM EDT documented as of this encounter Care Teams Thermit Welding Machine Operator Relationship Specialty Start Date End Date Nohelia Dyer [address] [place] [address] PCP - General 06/04/05 Wander Cao [address] [place] [address] Physician Hematology/Oncology 03/24/14 Nohelia Sandy (Rn) ([place] [address] [place] [address] Specialty [facility] Consultant Hematology/Oncology 10/25/14 08/25/17 Gr[place] ([place] [address] [place] [address] [facility] Consultant 08/26/17 [place] [address] [place] [address] Referring Hematology 12/31/21 Ana M Galvan RN [facility] Consultant Hematology/Oncology 10/14/23 documented as of this encounter
--- OUTSIDE RECORDS SUMMARY | 2024-09-22 16:02 | XMS_ITS | Encounter Summary ---
Author Organization [facility] Address [address] [place] [address] Care Team Providers Care Electro Winning Operator Name Role Phone Nohelia Dyer Primary Care Provider [phone] Wander Cao Unavailable Nohelia Sandy (Rn) (Hist) RN Unavailable + Griselda Buckley (Rn) RN Unavailable Unavailabl Schuyler Bautista MD Unavailable [phone] Ana M Galvan RN Unavailable Unavailable Source Comments In the event this information is protected by the Federal Confidentiality of Alcohol and Drug AbusePatient Records regulations: The Federal rules restrict any use of the information to criminally investigate or prosecute any alcohol or drug abuse patient.[facility] Encounter Details Date Type Department Care Team (Late st Contact Info) Description 12/25/2016 Get Medical Advice Hematology/Oncology [address] [place] [address] Wander Cao [address] [place] [address] RE: Upcoming Appointment Question Social [...] No 09/30/2016 10:22 AM EDT Ivana Samson, MARGOT.JUNIOR DATA ANALYST * Are you blind or do you have serious difficulty seeing, even when wearing glasses? Answer Date of Assessment Author No 09/30/2016 10:22 AM Ivana Wilkes APRN.JUNIOR DATA ANALYST * Do you have serious difficulty walking or climbing stairs? Answer Date of Assessment Author Yes 09/30/2016 10:22 AM Ivana Wilkes APRN.JUNIOR DATA ANALYST * Do you have difficulty dressing or bathing? Answer Date of Assessment Author No 09/30/2016 10:22 AM Ivana Wilkes, MARGOT.JUNIOR DATA ANALYST * Because of a physical, mental, or emotional condition, do you have difficulty doing errands alone such as visiting a doctor's office or shopping? Answer Date of Assessment Author Yes 09/30/2016 10:22 AM Ivana Wilkes, MARGOT.JUNIOR DATA ANALYST documented as of this encounter Mental Status * Because of a physical, mental, or emotional condition, do you have serious difficulty concentrating, remembering, or making decisions? Answer Entry Date Author No 09/30/2016 10:22 AM Ivana Wilkes APRN.JUNIOR DATA ANALYST documented in this encounter Plan of Treatment Upcoming Encounters Date Type Department Care Team (Late st Contact Info) Description 09/26/2024 11:30 AM EDT Office Visit Pain Management [address] [place], [place] [id number] Sera Chau PA-C [address] [place] [address] 4-6 week injection follow up 10/02/2024 10:40 AM EDT Appointment Radiology [address] [place] [address] Spinal stenosis of cervical region [M48.02] 10/19/2024 11:30 AM EDT Office Visit Neurology [address] [place] [address] Constanza Casillas PA-C [address] [place] [address] botox 10/31/2024 9:00 AM EDT [facility] Hematology/Oncology [address] [place] [address] Schuyler Blanca MD [address] [place] [address] VIRTUAL 11/21/2024 10:00 AM EDT Office Visit Orthopaedics [address] [place] [address] [place] [address] [place] [address] 3 month f/u documented as of this encounter Visit Diagnoses Not on filedocumented in this encounter Additional Health Concerns Infection Onset Date Last Indicated Resolved Time COVID-19 Rule-Out 09/03/2020 09/03/2020 09/03/2020 12:19 AM EDT COVID-19 Rule-Out 09/15/2020 09/15/2020 09/16/2020 7:08 AM EDT documented as of this encounter Care Teams Electro Winning Operator Relationship Specialty Start Date End Date Nohelia Dyer [address] [place] [address] PCP - General 06/04/05 Wander Cao [address] [facility] [address] Physician Hematology/Oncology 03/24/14 Nohelia Sandy (Rn) (Hist), [place] [address] [place] [address] Specialty Gemologist Hematology/Oncology 10/25/14 08/25/17 Grisel[place] [address] [place] [address] Specialty Gemologist 08/26/17 [place] [address] [place] [address] Referring Hematology 12/31/21 Ana M Galvan RN Specialty Gemologist Hematology/Oncology 10/14/23 documented as of this encounter
--- OUTSIDE RECORDS SUMMARY | 2024-09-22 16:03 | XMS_ITS | Encounter Summary ---
Author Organization [facility] Address [address] [place] [address] Care Team Providers Care Machine Maintenance Mechanic Name Role Phone Nohelia Dyer Primary Care Provider [phone] Wander Cao Unavailable Griselda Buckley (Rn) AMADOR Unavailable UnavailSchuyler Ruelas MD Unavailable [phone] Ana M Galvan RN Unavailable Unavailable Source Comments In the event this information is protected by the Federal Confidentiality of Alcohol and Drug AbusePatient Records regulations: The Federal rules restrict any use of the information to criminally investigate or prosecute any alcohol or drug abuse patient.[facility] Encounter Details Date Type Department Care Team (Late st Contact Info) Description 06/09/2023 Get Medical Advice Neurology [address] [phone] Constanza Casillas PA-C [address] [place] [address] Botox Social History Tobacco Use Types Packs/Day Years Used Date Smoking Tobacco: Never Smokeless Tobacco: Never Alcohol Use Standard Drinks/Week Comments Not Currently 0 (1 standard drink = 0.6 oz pur e alcohol) maybe once a year PHQ-2 Answer Date Recorded PHQ-2 score 2 05/01/2023 Area Deprivation Index Answer Date Boyd rded National Score (1-100), lower number is lower ri sk 86 08/15/2022 State Score (1-10), lower number is lower risk 8 08/15/2022 Data from: https://www.neighborhoodatlas.medicine.[facility]/. Last address used for calculation [address] [...] 11:30 AM EDT Office Visit Pain Management [address] [place] [address] Sera Chau PA-C [address] [place] [address] 4-6 week injection follow up 10/02/2024 10:40 AM EDT Appointment Radiology [address] [place] [address] Spinal stenosis of cervical region [M48.02] 10/19/2024 11:30 AM EDT Office Visit Neurology [address] [place] [address] Constanza Casillas PA-C [address] [place] [address] botox 10/31/2024 9:00 AM EDT [facility] Hematology/Oncology [address] [place] [address] Schuyler Blanca MD [address] [place] [address] VIRTUAL 11/21/2024 10:00 AM EDT Office Visit Orthopaedics [address] [place] [address] [place] [address] [place] [address] 3 month f/u documented as of this encounter Visit Diagnoses Not on filedocumented in this encounter Care Teams Machine Maintenance Mechanic Relationship Specialty Start Date End Date Nohelia Dyer [address] [place] [address] PCP - General 06/04/05 Wander Cao [address] [place] [address] Physician Hematology/Oncology 03/24/14 Griselda Buckley (Rn), RN [address] [place] [address] Specialty Industrial Therapist 08/26/17 [place] [address] [place] [address] Referring Hematology 12/31/21 Ana M Galvan RN Specialty Industrial Therapist Hematology/Oncology 10/14/23 documented as of this encounter
--- OUTSIDE RECORDS SUMMARY | 2024-09-22 16:03 | XMS_ITS | Encounter Summary ---
Author Organization [facility] Address [address] [place] [address] Care Team Providers Care Manager Wastewater Name Role Phone Nohelia Dyer Primary Care Provider [phone] Wander Cao Unavailable Griselda Buckley (Rn) AMADOR Unavailable UnavailSchuyler Ruelas MD Unavailable [phone] Ana M Galvan RN Unavailable Unavailable Source Comments In the event this information is protected by the Federal Confidentiality of Alcohol and Drug AbusePatient Records regulations: The Federal rules restrict any use of the information to criminally investigate or prosecute any alcohol or drug abuse patient.[facility] Encounter Details Date Type Department Care Team (Late st Contact Info) Description 02/20/2019 Get Medical Advice Hematology/Oncology [address] [place] [address] Wander Cao [phone] [phone] RE: Non-Urgent Medical Question Social History Tobacco Use Types Packs/Day Years Used Date Smoking Tobacco: Never Smokeless Tobacco: Never Alcohol Use Standard Drinks/Week Comments Yes 0 (1 standard drink = 0.6 oz pur e alcohol) rarely PHQ-2 Answer Date Recorded PHQ-2 Score 0 02/20/2019 Sex and Gender Information Value Date Recorded [...] No 09/30/2016 10:22 AM EDT Ivana Samson, MARGOT.STRATEGY EXECUTION CONSULTANT * Are you blind or do you have serious difficulty seeing, even when wearing glasses? Answer Date of Assessment Author No 09/30/2016 10:22 AM EDT Ivana Samson, MARGOT.STRATEGY EXECUTION CONSULTANT * Do you have serious difficulty walking or climbing stairs? Answer Date of Assessment Author Yes 09/30/2016 10:22 AM EDT Ivana Samson APRN.STRATEGY EXECUTION CONSULTANT * Do you have difficulty dressing or bathing? Answer Date of Assessment Author No 09/30/2016 10:22 AM EDT Ivana Samson, MARGOT.STRATEGY EXECUTION CONSULTANT * Because of a physical, mental, or emotional condition, do you have difficulty doing errands alone such as visiting a doctor's office or shopping? Answer Date of Assessment Author Yes 09/30/2016 10:22 AM EDT Ivana Samson, MARGOT.STRATEGY EXECUTION CONSULTANT documented as of this encounter Mental Status * Because of a physical, mental, or emotional condition, do you have serious difficulty concentrating, remembering, or making decisions? Answer Entry Date Author No 09/30/2016 10:22 AM EDT Ivana Samson, MARGOT.STRATEGY EXECUTION CONSULTANT documented in this encounter Plan of Treatment Upcoming Encounters Date Type Department Care Team (Late st Contact Info) Description 09/26/2024 11:30 AM EDT Office Visit Pain Management [address] [place], [place] [phone] Sera Chau PA-C [address] [place] [address] 4-6 week injection follow up 10/02/2024 10:40 AM EDT Appointment Radiology [address] [place] [address] Spinal stenosis of cervical region [M48.02] 10/19/2024 11:30 AM EDT Office Visit Neurology [address] [place] [address] Constanza Casillas PA-C [address] [place] [address] botox 10/31/2024 9:00 AM EDT [facility] Hematology/Oncology [address] [place] [address] Schuyler Blanca MD [address] [place] [address] VIRTUAL 11/21/2024 10:00 AM EDT Office Visit Orthopaedics [address] [place] [address] [place] [address] [place] [address] 3 month f/u documented as of this encounter Visit Diagnoses Not on filedocumented in this encounter Additional Health Concerns Infection Onset Date Last Indicated Resolved Time COVID-19 Rule-Out 09/03/2020 09/03/2020 09/03/2020 12:19 AM EDT COVID-19 Rule-Out 09/15/2020 09/15/2020 09/16/2020 7:08 AM EDT documented as of this encounter Care Teams Manager Wastewater Relationship Specialty Start Date End Date Nohelia Dyer [address] [place] [address] PCP - General 06/04/05 Wander Cao [address] [place] [address] Physician Hematology/Oncology 03/24/14 Griselda Buckley (Rn), RN [address] [place] [address] Specialty Cat Hooker 08/26/17 [place] [address] [place] [address] Referring Hematology 12/31/21 Ana M Galvan, RN Specialty Cat Hooker Hematology/Oncology 10/14/23 documented as of this encounter
--- OUTSIDE RECORDS SUMMARY | 2024-09-22 16:03 | XMS_ITS | Encounter Summary ---
Author Organization [facility] Address [address] [place] [address] Care Team Providers Care Automatic Drill Operator Name Role Phone Nohelia Dyer Primary Care Provider [phone] Wander Cao Unavailable Griselda Buckley (Rn) AMADOR Unavailable Unavailabl Schuyler Bautista MD Unavailable [phone] Ana M Galvan RN Unavailable Unavailable Source Comments In the event this information is protected by the Federal Confidentiality of Alcohol and Drug AbusePatient Records regulations: The Federal rules restrict any use of the information to criminally investigate or prosecute any alcohol or drug abuse patient.[facility] Encounter Details Date Type Department Care Team (Late st Contact Info) Description 12/25/2019 Get Medical Advice Neurology [address] [place], [place] [phone] Constanza Casillas PA-C [address] [place] [address] RE: Upcoming Appointment Question Social History Tobacco Use Types Packs/Day Years Used Date Smoking Tobacco: Never Smokeless Tobacco: Never Alcohol Use Standard Drinks/Week Comments Yes 0 (1 standard drink = 0.6 oz pur e alcohol) rarely PHQ-2 Answer Date Recorded PHQ-2 Score 0 12/23/2019 Sex and Gender Information Value Date Recorded [...] have Coronavirus / COVID-19? No / Unsure 12/23/2019 12:40 PM EDT documented as of this encounter Functional Status * Are you deaf or do you have serious difficulty hearing? Answer Date of Assessment Author No 09/30/2016 10:22 AM EDT Ivana Samson APRN.HAND GLOVE CLEANER * Are you blind or do you have serious difficulty seeing, even when wearing glasses? Answer Date of Assessment Author No 09/30/2016 10:22 AM EDT Ivana Samson APRN.HAND GLOVE CLEANER * Do you have serious difficulty walking or climbing stairs? Answer Date of Assessment Author Yes 09/30/2016 10:22 AM EDT Ivana Samson APRN.HAND GLOVE CLEANER * Do you have difficulty dressing or bathing? Answer Date of Assessment Author No 09/30/2016 10:22 AM EDT Ivana Samson APRN.HAND GLOVE CLEANER * Because of a physical, mental, or emotional condition, do you have difficulty doing errands alone such as visiting a doctor's office or shopping? Answer Date of Assessment Author Yes 09/30/2016 10:22 AM EDT Ivana Samson APRN.HAND GLOVE CLEANER documented as of this encounter Mental Status * Because of a physical, mental, or emotional condition, do you have serious difficulty concentrating, remembering, or making decisions? Answer Entry Date Author No 09/30/2016 10:22 AM EDT Ivana Samson APRN.HAND GLOVE CLEANER documented in this encounter Plan of Treatment Upcoming Encounters Date Type Department Care Team (Late st Contact Info) Description 09/26/2024 11:30 AM EDT Office Visit Pain Management [address] [place] [address] Sera Chau PA-C [address] [place] [address] 4-6 week injection follow up 10/02/2024 10:40 AM EDT Appointment Radiology [address] [place] [address] Spinal stenosis of cervical region [M48.02] 10/19/2024 11:30 AM EDT Office Visit Neurology [address] [place] [address] Constanza Casillas PA-C [address] [place] [address] botox 10/31/2024 9:00 AM EDT [facility] Hematology/Oncology [address] [place] [address] Schuyler Blanca MD [address] [place] [address] VIRTUAL 11/21/2024 10:00 AM EDT Office Visit Orthopaedics [address] [place] [address] [place] [address] [place] [address] 3 month f/u documented as of this encounter Visit Diagnoses Not on filedocumented in this encounter Additional Health Concerns Infection Onset Date Last Indicated Resolved Time COVID-19 Rule-Out 09/03/2020 09/03/2020 09/03/2020 12:19 AM EDT COVID-19 Rule-Out 09/15/2020 09/15/2020 09/16/2020 7:08 AM EDT documented as of this encounter Care Teams Automatic Drill Operator Relationship Specialty Start Date End Date Nohelia Dyer [address] [place] [id number] PCP - General 06/04/05 Wander Cao [address] [place] [address] Physician Hematology/Oncology 03/24/14 Griselda Buckley (Rn), RN [address] [place] [address] Specialty Director [place] [employer] 08/26/17 [place] [address] [place] [address] Referring Hematology 12/31/21 Ana M Galvan RN Specialty Director [place] [employer] Hematology/Oncology 10/14/23 documented as of this encounter
--- OUTSIDE RECORDS SUMMARY | 2024-09-22 16:03 | XMS_ITS | Encounter Summary ---
Author Organization [facility] Address [address] [place] [address] Care Team Providers Care In Service Education Teacher Name Role Phone Nohelia Dyer Primary Care Provider [phone] Wander Cao Unavailable Griselda Buckley (Rn) AMADOR Unavailable UnavailSchuyler Ruelas MD Unavailable [phone] Ana M Galvan RN Unavailable Unavailable Source Comments In the event this information is protected by the Federal Confidentiality of Alcohol and Drug AbusePatient Records regulations: The Federal rules restrict any use of the information to criminally investigate or prosecute any alcohol or drug abuse patient.[facility] Encounter Details Date Type Department Care Team (Late st Contact Info) Description 10/08/2023 Patient [facility] [address] [place] [address] Janee Hernandez RPh Medication Refill Past Due Social History Tobacco Use Types Packs/Day Years Used Date Smoking Tobacco: Never Smokeless Tobacco: Never Alcohol Use Standard Drinks/Week Comments Not Currently 0 (1 standard drink = 0.6 oz pur e alcohol) maybe once a year PHQ-2 Answer Date Recorded PHQ-2 score 0 09/22/2023 Area Deprivation Index Answer Date Boyd rded National Score (1-100), lower number is lower ri sk 86 08/15/2022 State Score (1-10), lower number is lower risk 8 08/15/2022 Data from: https://www.neighborhoodatlas.medicine.[facility]/. Last address used for calculation [address] [...] 11:30 AM EDT Office Visit Pain Management [address] [place] [address] Sera Chau PA-C [address] [place] [address] 4-6 week injection follow up 10/02/2024 10:40 AM EDT Appointment Radiology [address] [place] [address] Spinal stenosis of cervical region [M48.02] 10/19/2024 11:30 AM EDT Office Visit Neurology [address] [place] [address] Constanza Casillas PA-C [address] [place] [address] botox 10/31/2024 9:00 AM EDT [facility] Hematology/Oncology [address] [place] [address] Schuyler Blanca MD [address] [place] [address] VIRTUAL 11/21/2024 10:00 AM EDT Office Visit Orthopaedics [address] [place] [address] [place] [address] [place] [address] 3 month f/u documented as of this encounter Visit Diagnoses Not on filedocumented in this encounter Care Teams In Service Education Teacher Relationship Specialty Start Date End Date Nohelia Dyer [address] [place] [address] PCP - General 06/04/05 Wander Cao [address] [place] [address] Physician Hematology/Oncology 03/24/14 Griselda Buckley (Rn), RN [address] [place] [address] Specialty Technical Report Writer 08/26/17 [place] [address] [address] [id number] Referring Hematology 12/31/21 Ana M Galvan, RN Specialty Technical Report Writer Hematology/Oncology 10/14/23 documented as of this encounter
--- OUTSIDE RECORDS SUMMARY | 2024-09-22 16:03 | XMS_ITS | Encounter Summary ---
Author Organization [facility] Address [facility] [place] [address] Care Team Providers Care District Claims Manager Name Role Phone Nohelia Dyer Primary Care Provider [phone] Wander Cao Unavailable Griselda Buckley (Rn) AMADOR Unavailable Unavailabl Schuyler Bautista MD Unavailable [phone] Ana M Galvan RN Unavailable Unavailable Source Comments In the event this information is protected by the Federal Confidentiality of Alcohol and Drug AbusePatient Records regulations: The Federal rules restrict any use of the information to criminally investigate or prosecute any alcohol or drug abuse patient.[facility] Encounter Details Date Type Department Care Team (Late st Contact Info) Description 01/24/2018 Get Medical Advice [facility] [address] [place] [address] [place] [address] [facility] [address] [place] [address] RE: Medication Question (Not Renewal) Social History Tobacco Use Types Packs/Day Years [...] No 09/30/2016 10:22 AM EDT Ivana Samson, MARGOT.SHUTDOWN COORDINATOR * Are you blind or do you have serious difficulty seeing, even when wearing glasses? Answer Date of Assessment Author No 09/30/2016 10:22 AM EDT Ivana Samson, MARGOT.SHUTDOWN COORDINATOR * Do you have serious difficulty walking or climbing stairs? Answer Date of Assessment Author Yes 09/30/2016 10:22 AM EDT Ivana Samson APRN.SHUTDOWN COORDINATOR * Do you have difficulty dressing or bathing? Answer Date of Assessment Author No 09/30/2016 10:22 AM EDT Ivana Samson, MARGOT.SHUTDOWN COORDINATOR * Because of a physical, mental, or emotional condition, do you have difficulty doing errands alone such as visiting a doctor's office or shopping? Answer Date of Assessment Author Yes 09/30/2016 10:22 AM EDT Ivana Samson, MARGOT.SHUTDOWN COORDINATOR documented as of this encounter Mental Status * Because of a physical, mental, or emotional condition, do you have serious difficulty concentrating, remembering, or making decisions? Answer Entry Date Author No 09/30/2016 10:22 AM EDT Ivana Samson, MARGOT.SHUTDOWN COORDINATOR documented in this encounter Plan of Treatment Upcoming Encounters Date Type Department Care Team (Late st Contact Info) Description 09/26/2024 11:30 AM EDT Office Visit Pain Management [address] [place], [place] [phone] Sera Chau PA-C [address] [place] [address] 4-6 week injection follow up 10/02/2024 10:40 AM EDT Appointment Radiology [address] [place] [address] Spinal stenosis of cervical region [M48.02] 10/19/2024 11:30 AM EDT Office Visit Neurology [address] [place] [address] Constanza Casillas PA-C [address] [place] [address] botox 10/31/2024 9:00 AM EDT [facility] Hematology/Oncology [address] [place] [address] Schuyler Blanca MD [address] [place] [address] VIRTUAL 11/21/2024 10:00 AM EDT Office Visit Orthopaedics [address] [place] [address] [place] [address] [place] [address] 3 month f/u documented as of this encounter Visit Diagnoses Not on filedocumented in this encounter Additional Health Concerns Infection Onset Date Last Indicated Resolved Time COVID-19 Rule-Out 09/03/2020 09/03/2020 09/03/2020 12:19 AM EDT COVID-19 Rule-Out 09/15/2020 09/15/2020 09/16/2020 7:08 AM EDT documented as of this encounter Care Teams District Claims Manager Relationship Specialty Start Date End Date Nohelia Dyer [address] [place] [address] PCP - General 06/04/05 Wander Cao [address] [place] [address] Physician Hematology/Oncology 03/24/14 Griselda Buckley (Rn), RN [address] [place] [address] Specialty Pin Drafting Machine Operator 08/26/17 [place] [address] [id number] Referring Hematology 12/31/21 Ana M Galvan, RN Specialty Pin Drafting Machine Operator Hematology/Oncology 10/14/23 documented as of this encounter
--- OUTSIDE RECORDS SUMMARY | 2024-09-22 16:03 | XMS_ITS | Encounter Summary ---
Author Organization [facility] Address [address] [place] [address] Care Team Providers Care [employer] Name Role Phone Nohelia Dyer Primary Care Provider [phone] Wander Cao Unavailable Griselda Buckley (Rn) RN Unavailable Unavailabl e Schuyler Blanca MD Unavailable [phone] Ana M Galvan RN Unavailable Unavailable Source Comments In the event this information is protected by the Federal Confidentiality of Alcohol and Drug AbusePatient Records regulations: The Federal rules restrict any use of the information to criminally investigate or prosecute any alcohol or drug abuse patient.[facility] Encounter Details Date Type Department Care Team (Late st Contact Info) Description 11/08/2019 Patient Msg Hematology/Oncology [address] [place] [address] Schuyler Blanca MD [address] [place] [address] RE: Request an Appointment Social History Tobacco Use Types Packs/Day Years Used Date Smoking Tobacco: Never Smokeless Tobacco: Never Alcohol Use Standard Drinks/Week Comments Yes 0 (1 standard drink = 0.6 oz pur e alcohol) rarely PHQ-2 Answer Date Recorded PHQ-2 Score 2 08/14/2019 Sex and Gender Information Value Date Recorded [...] have Coronavirus / COVID-19? Unable to assess 11/08/2019 4:33 PM EDT documented as of this encounter Functional Status * Are you deaf or do you have serious difficulty hearing? Answer Date of Assessment Author No 09/30/2016 10:22 AM EDT Ivana Samson APRN.PRODUCTION LABORER * Are you blind or do you have serious difficulty seeing, even when wearing glasses? Answer Date of Assessment Author No 09/30/2016 10:22 AM EDT Ivana Samson APRN.PRODUCTION LABORER * Do you have serious difficulty walking or climbing stairs? Answer Date of Assessment Author Yes 09/30/2016 10:22 AM EDT Ivana Samson APRN.PRODUCTION LABORER * Do you have difficulty dressing or bathing? Answer Date of Assessment Author No 09/30/2016 10:22 AM EDT Ivana Samson APRN.PRODUCTION LABORER * Because of a physical, mental, or emotional condition, do you have difficulty doing errands alone such as visiting a doctor's office or shopping? Answer Date of Assessment Author Yes 09/30/2016 10:22 AM EDT Ivana Samson APRN.PRODUCTION LABORER documented as of this encounter Mental Status * Because of a physical, mental, or emotional condition, do you have serious difficulty concentrating, remembering, or making decisions? Answer Entry Date Author No 09/30/2016 10:22 AM EDT Ivana Samson APRN.PRODUCTION LABORER documented in this encounter Plan of Treatment Upcoming Encounters Date Type Department Care Team (Late st Contact Info) Description 09/26/2024 11:30 AM EDT Office Visit Pain Management [address] [place] [address] Sera Chau PA-C [address] [place] [address] 4-6 week injection follow up 10/02/2024 10:40 AM EDT Appointment Radiology [address] [place] [address] Spinal stenosis of cervical region [M48.02] 10/19/2024 11:30 AM EDT Office Visit Neurology [address] [place] [address] Constanza Casillas PA-C [address] [place] [address] botox 10/31/2024 9:00 AM EDT [facility] Hematology/Oncology [address] [place] [address] Schuyler Blanca MD [address] [place] [address] VIRTUAL 11/21/2024 10:00 AM EDT Office Visit Orthopaedics [address] [place] [address] [place] [address] [place] [address] 3 month f/u documented as of this encounter Visit Diagnoses Not on filedocumented in this encounter Additional Health Concerns Infection Onset Date Last Indicated Resolved Time COVID-19 Rule-Out 09/03/2020 09/03/2020 09/03/2020 12:19 AM EDT COVID-19 Rule-Out 09/15/2020 09/15/2020 09/16/2020 7:08 AM EDT documented as of this encounter Care Teams [employer] Relationship Specialty Start Date End Date Nohelia Dyer [address] [place] [phone] PCP - General 06/04/05 Wander Cao [address] [place] [address] Physician Hematology/Oncology 03/24/14 Griselda Buckley (Rn), RN [address] [place] [address] Specialty Welding Foreman 08/26/17 [place] [address] [place] [address] Referring Hematology 12/31/21 Ana M Galvan RN Specialty Welding Foreman Hematology/Oncology 10/14/23 documented as of this encounter
--- OUTSIDE RECORDS SUMMARY | 2024-09-22 16:03 | XMS_ITS | Encounter Summary ---
Author Organization [facility] Address [address] [place] [address] Care Team Providers Care Accounting Intern Name Role Phone Nohelia Deyr Primary Care Provider [phone] Wander Cao Unavailable Griselda Buckley (Rn) AMADOR Unavailable Unavailabl Schuyler Bautista MD Unavailable [phone] Ana M Galvan RN Unavailable Unavailable Source Comments In the event this information is protected by the Federal Confidentiality of Alcohol and Drug AbusePatient Records regulations: The Federal rules restrict any use of the information to criminally investigate or prosecute any alcohol or drug abuse patient.[facility] Encounter Details Date Type Department Care Team (Late st Contact Info) Description 07/04/2019 Get Medical Advice Neurology [address] [place], [place] [id number] Constanza Casillas PA-C [address] [place] [address] RE: Non-Urgent Medical Question Social [...] No 09/30/2016 10:22 AM EDT Ivana Samson APRN.PIECE HAND * Are you blind or do you have serious difficulty seeing, even when wearing glasses? Answer Date of Assessment Author No 09/30/2016 10:[address] Ivana Samson APRN.PIECE HAND * Do you have serious difficulty walking or climbing stairs? Answer Date of Assessment Author Yes 09/30/2016 10:22 AM Ivana Wilkes APRN.PIECE HAND * Do you have difficulty dressing or bathing? Answer Date of Assessment Author No 09/30/2016 10:22 [address] Ivana Samson APRN.PIECE HAND * Because of a physical, mental, or emotional condition, do you have difficulty doing errands alone such as visiting a doctor's office or shopping? Answer Date of Assessment Author Yes 09/30/2016 10:22 AM EDT Ivana Samson APRN.PIECE HAND documented as of this encounter Mental Status * Because of a physical, mental, or emotional condition, do you have serious difficulty concentrating, remembering, or making decisions? Answer Entry Date Author No 09/30/2016 10:22 AM EDT Ivana Samson APRN.PIECE HAND documented in this encounter Plan of Treatment Upcoming Encounters Date Type Department Care Team (Late st Contact Info) Description 09/26/2024 11:30 AM EDT Office Visit Pain Management [address] [place], [place] [id number] Sera Chau PA-C [address] [place], [place] [address] 4-6 week injection follow up 10/02/2024 10:40 AM EDT Appointment Radiology [address] [place] [address] Spinal stenosis of cervical region [M48.02] 10/19/2024 11:30 AM EDT Office Visit Neurology [address] [place] [address] Constanza Casillas PA-C [address] [place] [address] botox 10/31/2024 9:00 AM EDT [facility] Hematology/Oncology [address] [place] [address] Schuyler Blanca MD [address] [place] [address] VIRTUAL 11/21/2024 10:00 AM EDT Office Visit Orthopaedics [address] [place] [address] [place] [address] [place] [address] 3 month f/u documented as of this encounter Visit Diagnoses Not on filedocumented in this encounter Additional Health Concerns Infection Onset Date Last Indicated Resolved Time COVID-19 Rule-Out 09/03/2020 09/03/2020 09/03/2020 12:19 AM EDT COVID-19 Rule-Out 09/15/2020 09/15/2020 09/16/2020 7:08 AM EDT documented as of this encounter Care Teams Accounting Intern Relationship Specialty Start Date End Date Nohelia Dyer [address] [place] [address] PCP - General 06/04/05 Wander Cao [address] [place] [address] Physician Hematology/Oncology 03/24/14 Griselda Buckley (Rn), RN [address] [place] [address] Specialty Research Manufacturing Operator 08/26/17 [place] [address] [place] [address] Referring Hematology 12/31/21 Ana M Galvan RN Specialty Research Manufacturing Operator Hematology/Oncology 10/14/23 documented as of this encounter
--- OUTSIDE RECORDS SUMMARY | 2024-09-22 16:03 | XMS_ITS | Encounter Summary ---
Author Organization [facility] Address [address] [place] [address] Care Team Providers Care Water Jet Loom Fixer Name Role Phone Nohelia Dyer Primary Care Provider [phone] Wander Cao Unavailable Griselda Buckley (Rn) RN Unavailable Unavailabl e Schuyler Blanca MD Unavailable [phone] Ana M Galvan RN Unavailable Unavailable Source Comments In the event this information is protected by the Federal Confidentiality of Alcohol and Drug AbusePatient Records regulations: The Federal rules restrict any use of the information to criminally investigate or prosecute any alcohol or drug abuse patient.[facility] Encounter Details Date Type Department Care Team (Late st Contact Info) Description 01/22/2022 Get Medical Advice Hematology/Oncology [address] [place], [place] [id number] Schuyler Blanca MD [address] [place] [address] Follow up Social History Tobacco Use Types Packs/Day Years [...] N ot on file 09/26/2021 Data from: https://www.neighborhoodatlas.medicine.[facility]/. Last address used for calculation [address] [facility] 09/26/2021 Sex and Gender Information Value [...] suspected to have Coronavirus/COVID-19? No / Unsure 01/24/2022 1:33 PM EDT documented as of this encounter [...] 11:30 AM EDT Office Visit Pain Management [address] [place] [address] Sera Chau PA-C [address] [place] [address] 4-6 week injection follow up 10/02/2024 10:40 AM EDT Appointment Radiology [address] [place] [address] Spinal stenosis of cervical region [M48.02] 10/19/2024 11:30 AM EDT Office Visit Neurology [address] [place] [address] Constanza Casillas PA-C [address] [place] [address] botox 10/31/2024 9:00 AM EDT [facility] Hematology/Oncology [address] [place] [address] Schuyler Blanca MD [address] [place] [address] VIRTUAL 11/21/2024 10:00 AM EDT Office Visit Orthopaedics [address] [place] [address] [place] [address] [place] [address] 3 month f/u documented as of this encounter Visit Diagnoses Not on filedocumented in this encounter Care Teams Water Jet Loom Fixer Relationship Specialty Start Date End Date Nohelia Dyer [address] [place] [phone] PCP - General 06/04/05 Wander Cao [address] [place] [address] Physician Hematology/Oncology 03/24/14 Griselda Buckley (Rn), RN [address] [place] [address] Specialty Booth Manager 08/26/17 [place] [address] [place] [id number] Referring Hematology 12/31/21 Ana M Galvan, RN Specialty Booth Manager Hematology/Oncology 10/14/23 documented as of this encounter
--- OUTSIDE RECORDS SUMMARY | 2024-09-22 16:03 | XMS_ITS | Encounter Summary ---
Author Organization [facility] Address [facility] [place] [address] Care Team Providers Care Organizational Research Consultant Name Role Phone Nohelia Dyer Primary Care Provider [phone] Wander Cao Unavailable Griselda Buckley (Rn) AMADOR Unavailable UnavailSchuyler Ruelas MD Unavailable [phone] Ana M Galvan RN Unavailable Unavailable Source Comments In the event this information is protected by the Federal Confidentiality of Alcohol and Drug AbusePatient Records regulations: The Federal rules restrict any use of the information to criminally investigate or prosecute any alcohol or drug abuse patient.[facility] Encounter Details Date Type Department Care Team (Late st Contact Info) Description 06/16/2023 Patient [place] [address] Provider, Ccf Financial clearance Social History Tobacco Use Types Packs/Day Years [...] is lower risk 8 08/15/2022 Data from: https://www.neighborhoodatlas.medicine.[facility]/. Last address used for calculation 66 [...] 12:38 PM STEVET Mercedez Palmer RN * Are you blind [...] 11:30 AM EDT Office Visit Pain Management [address] [place], [place] [phone] Sera Chau PA-C [address] [place] [address] 4-6 week injection follow up 10/02/2024 10:40 AM EDT Appointment Radiology [address] [place] [address] Spinal stenosis of cervical region [M48.02] 10/19/2024 11:30 AM EDT Office Visit Neurology [address] [place] [address] Constanza Casillas PA-C [address] [place] [address] botox 10/31/2024 9:00 AM EDT [facility] Hematology/Oncology [address] [place] [address] Schuyler Balnca MD [address] [place] [address] VIRTUAL 11/21/2024 10:00 AM EDT Office Visit Orthopaedics [address] [place] [address] [place] [address] [place] [address] 3 month f/u documented as of this encounter Visit Diagnoses Not on filedocumented in this encounter Care Teams Organizational Research Consultant Relationship Specialty Start Date End Date Nohelia Dyer [address] [place] [address] PCP - General 06/04/05 Wander Cao [address] [place] [address] Physician Hematology/Oncology 03/24/14 Griselda Buckley (Rn), RN [address] [place] [address] Specialty Revenue Stamper 08/26/17 Schuyler Blanca MD [address] [place] [address] Referring Hematology 12/31/21 Ana M Galvan, RN Specialty Revenue Stamper Hematology/Oncology 10/14/23 documented as of this encounter
--- OUTSIDE RECORDS SUMMARY | 2024-09-22 16:03 | XMS_ITS | Encounter Summary ---
Author Organization [facility] Address [address] [place] [address] Care Team Providers Care Business Account Executive Name Role Phone Nohelia Dyer Primary Care Provider [phone] Wander Cao Unavailable Griselda Buckley (Rn) AMADOR Unavailable Unavailabl Schuyler Bautista MD Unavailable [phone] Ana M Galvan RN Unavailable Unavailable Source Comments In the event this information is protected by the Federal Confidentiality of Alcohol and Drug AbusePatient Records regulations: The Federal rules restrict any use of the information to criminally investigate or prosecute any alcohol or drug abuse patient.[facility] Encounter Details Date Type Department Care Team (Late st Contact Info) Description 08/20/2018 Get Medical Advice [facility] [address] [place] [address] [place] [address] [facility] [address] [place] [address] RE: Non-Urgent Medical Question Social History Tobacco [...] No 09/30/2016 10:22 AM EDT Ivana Samson APRN.YARD ATTENDANT * Are you blind or do you have serious difficulty seeing, even when wearing glasses? Answer Date of Assessment Author No 09/30/2016 10:22 AM EDT Ivana Samson APRN.YARD ATTENDANT * Do you have serious difficulty walking or climbing stairs? Answer Date of Assessment Author Yes 09/30/2016 10:22 AM EDT Ivana Samson APRN.YARD ATTENDANT * Do you have difficulty dressing or bathing? Answer Date of Assessment Author No 09/30/2016 10:22 AM EDT Ivana Samson, MARGOT.YARD ATTENDANT * Because of a physical, mental, or emotional condition, do you have difficulty doing errands alone such as visiting a doctor's office or shopping? Answer Date of Assessment Author Yes 09/30/2016 10:22 AM EDT Ivana Samson APRN.YARD ATTENDANT documented as of this encounter Mental Status * Because of a physical, mental, or emotional condition, do you have serious difficulty concentrating, remembering, or making decisions? Answer Entry Date Author No 09/30/2016 10:22 AM EDT Ivana Samson APRN.YARD ATTENDANT documented in this encounter Plan of Treatment Upcoming Encounters Date Type Department Care Team (Late st Contact Info) Description 09/26/2024 11:30 AM EDT Office Visit Pain Management [address] [place], [place] [phone] Sera Chau PA-C [address] [place] [address] 4-6 week injection follow up 10/02/2024 10:40 AM EDT Appointment Radiology [address] [place] [address] Spinal stenosis of cervical region [M48.02] 10/19/2024 11:30 AM EDT Office Visit Neurology [address] [place] [address] Constanza Casillas PA-C [address] [place] [address] botox 10/31/2024 9:00 AM EDT [facility] Hematology/Oncology [address] [place] [address] Schuyler Blanca MD [address] [place] [address] VIRTUAL 11/21/2024 10:00 AM EDT Office Visit Orthopaedics [address] [place] [address] [place] [address] [place] [address] 3 month f/u documented as of this encounter Visit Diagnoses Not on filedocumented in this encounter Additional Health Concerns Infection Onset Date Last Indicated Resolved Time COVID-19 Rule-Out 09/03/2020 09/03/2020 09/03/2020 12:19 AM EDT COVID-19 Rule-Out 09/15/2020 09/15/2020 09/16/2020 7:08 AM EDT documented as of this encounter Care Teams Business Account Executive Relationship Specialty Start Date End Date Nohelia Dyer [address] [place] [address] PCP - General 06/04/05 Wander Cao [address] [place] [address] Physician Hematology/Oncology 03/24/14 Griselda Buckley (Rn), RN [address] [place] [address] Specialty Stylist Apprentice 08/26/17 [place] [address] [place] [address] Referring Hematology 12/31/21 Ana M Galvan, RN Specialty Stylist Apprentice Hematology/Oncology 10/14/23 documented as of this encounter
--- OUTSIDE RECORDS SUMMARY | 2024-09-22 16:03 | XMS_ITS | Encounter Summary ---
Author Organization [facility] Address [address] [place] [address] Care Team Providers Care Cmv Driver Name Role Phone Nohelia Dyer Primary Care Provider [phone] Wander Cao Unavailable Griselda Buckley (Rn) AMADOR Unavailable Unavailabl Schuyler Bautista MD Unavailable [phone] Ana M Galvan RN Unavailable Unavailable Source Comments In the event this information is protected by the Federal Confidentiality of Alcohol and Drug AbusePatient Records regulations: The Federal rules restrict any use of the information to criminally investigate or prosecute any alcohol or drug abuse patient.[facility] Encounter Details Date Type Department Care Team (Late st Contact Info) Description 03/11/2020 Get Medical Advice [facility] [address] [place] [address] [place] [address] [facility] [address] [place] [address] RE: Upcoming Appointment Question Social History Tobacco [...] No 09/30/2016 10:22 AM EDT Ivana Samson APRN.RFID ENGINEER * Are you blind or do you have serious difficulty seeing, even when wearing glasses? Answer Date of Assessment Author No 09/30/2016 10:22 AM EDT Ivana Samson APRN.RFID ENGINEER * Do you have serious difficulty walking or climbing stairs? Answer Date of Assessment Author Yes 09/30/2016 10:22 AM EDT Ivana Samson APRN.RFID ENGINEER * Do you have difficulty dressing or bathing? Answer Date of Assessment Author No 09/30/2016 10:22 AM EDT Ivana Samson APRN.RFID ENGINEER * Because of a physical, mental, or emotional condition, do you have difficulty doing errands alone such as visiting a doctor's office or shopping? Answer Date of Assessment Author Yes 09/30/2016 10:22 AM Ivana Wilkes APRN.RFID ENGINEER documented as of this encounter Mental Status * Because of a physical, mental, or emotional condition, do you have serious difficulty concentrating, remembering, or making decisions? Answer Entry Date Author No 09/30/2016 10:22 AM EDT Ivana Samson APRN.RFID ENGINEER documented in this encounter Plan of Treatment Upcoming Encounters Date Type Department Care Team (Late st Contact Info) Description 09/26/2024 11:30 AM EDT Office Visit Pain Management [address] [place] [address] Sera Chau PA-C [address] [place], [place] [address] 4-6 week injection follow up 10/02/2024 10:40 AM EDT Appointment Radiology [address] [place] [address] Spinal stenosis of cervical region [M48.02] 10/19/2024 11:30 AM EDT Office Visit Neurology [address] [place] [address] Constanza Casillas PA-C [address] [place] [address] botox 10/31/2024 9:00 AM EDT [facility] Hematology/Oncology [address] [place] [address] Schuyler Blanca MD [address] [place] [address] VIRTUAL 11/21/2024 10:00 AM EDT Office Visit Orthopaedics [address] [place] [address] [place] [address] [place] [address] 3 month f/u documented as of this encounter Visit Diagnoses Not on filedocumented in this encounter Additional Health Concerns Infection Onset Date Last Indicated Resolved Time COVID-19 Rule-Out 09/03/2020 09/03/2020 09/03/2020 12:19 AM EDT COVID-19 Rule-Out 09/15/2020 09/15/2020 09/16/2020 7:08 AM EDT documented as of this encounter Care Teams Cmv Driver Relationship Specialty Start Date End Date Nohelia Dyer [address] [place] [address] PCP - General 06/04/05 Wander Cao [address] [place] [address] Physician Hematology/Oncology 03/24/14 Griselda Buckley (Rn), RN [address] [place] [address] Specialty Engineering Tech 08/26/17 [place] [address] [place] [address] Referring Hematology 12/31/21 Ana M Galvan RN Specialty Engineering Tech Hematology/Oncology 10/14/23 documented as of this encounter
--- OUTSIDE RECORDS SUMMARY | 2024-09-22 16:03 | XMS_ITS | Encounter Summary ---
Author Organization [facility] Address [address] [place] [address] Care Team Providers Care Infant Lead Teacher Name Role Phone Nohelia Dyer Primary Care Provider [phone] Wander Cao Unavailable Griselda Buckley (Rn) AMADOR Unavailable UnavailSchuyler Ruelas MD Unavailable [phone] Ana M Galvan RN Unavailable Unavailable Source [...] Care Team (Late st Contact Info) Description 01/31/2018 Get Medical Advice Hematology/Oncology [address] [place] [address] Wander Cao [address] [place] [phone] RE: Non-Urgent Medical Question Social History Tobacco [...] No 09/30/2016 10:22 AM EDT Ivana Samson APRN.MATHEMATICS DEPARTMENT CHAIR * Are you blind or do you have serious difficulty seeing, even when wearing glasses? Answer Date of Assessment Author No 09/30/2016 10:22 AM EDT Ivana Samson APRN.MATHEMATICS DEPARTMENT CHAIR * Do you have serious difficulty walking or climbing stairs? Answer Date of Assessment Author Yes 09/30/2016 10:22 AM EDT Ivana Samson APRN.MATHEMATICS DEPARTMENT CHAIR * Do you have difficulty dressing or bathing? Answer Date of Assessment Author No 09/30/2016 10:22 AM EDT Ivana Samson, MARGOT.MATHEMATICS DEPARTMENT CHAIR * Because of a physical, mental, or emotional condition, do you have difficulty doing errands alone such as visiting a doctor's office or shopping? Answer Date of Assessment Author Yes 09/30/2016 10:22 AM EDT Ivana Samson APRN.MATHEMATICS DEPARTMENT CHAIR documented as of this encounter Mental Status * Because of a physical, mental, or emotional condition, do you have serious difficulty concentrating, remembering, or making decisions? Answer Entry Date Author No 09/30/2016 10:22 AM EDIvana Salamanca APRN.MATHEMATICS DEPARTMENT CHAIR documented in this encounter Plan of Treatment Upcoming Encounters Date Type Department Care Team (Late st Contact Info) Description 09/26/2024 11:30 AM EDT Office Visit Pain Management [address] [place] [address] Sera Chau PA-C [address] [place] [address] 4-6 week injection follow up 10/02/2024 10:40 AM EDT Appointment Radiology [address] [place] [address] Spinal stenosis of cervical region [M48.02] 10/19/2024 11:30 AM EDT Office Visit Neurology [address] [place] [address] Constanza Casillas PA-C [address] [place] [address] botox 10/31/2024 9:00 AM EDT [facility] Hematology/Oncology [address] [place] [address] Schuyler Blanca MD [address] [place] [address] VIRTUAL 11/21/2024 10:00 AM EDT Office Visit Orthopaedics [address] [place] [address] [place] [address] [place] [address] 3 month f/u documented as of this encounter Visit Diagnoses Not on filedocumented in this encounter Additional Health Concerns Infection Onset Date Last Indicated Resolved Time COVID-19 Rule-Out 09/03/2020 09/03/2020 09/03/2020 12:19 AM EDT COVID-19 Rule-Out 09/15/2020 09/15/2020 09/16/2020 7:08 AM EDT documented as of this encounter Care Teams Infant Lead Teacher Relationship Specialty Start Date End Date Nohelia Dyer [address] [place] [address] PCP - General 06/04/05 Wander Cao [address] [place] [address] Physician Hematology/Oncology 03/24/14 Griselda Buckley (Rn), RN [address] [place] [address] Specialty Labor Utilization Superintendent 08/26/17 [place] [address] [place] [address] Referring Hematology 12/31/21 Ana M Galvan, RN Specialty Labor Utilization Superintendent Hematology/Oncology 10/14/23 documented as of this encounter
--- OUTSIDE RECORDS SUMMARY | 2024-09-22 16:03 | XMS_ITS | Encounter Summary ---
Author Organization [facility] Address [facility] [place] [address] Care Team Providers Care Cement Loader Name Role Phone Nohelia Dyer Primary Care Provider [phone] Wander Cao Unavailable Griselda Buckley (Rn) AMADOR Unavailable UnavailSchuyler Ruelas MD Unavailable [phone] Ana M Galvan RN Unavailable Unavailable Source Comments In the event this information is protected by the Federal Confidentiality of Alcohol and Drug AbusePatient Records regulations: The Federal rules restrict any use of the information to criminally investigate or prosecute any alcohol or drug abuse patient.[facility] Encounter Details Date Type Department Care Team (Late st Contact Info) Description 09/09/2023 Patient Msg Hematology/Oncology [address] [place] [address] Provider, Ccf schedule appointment Social History Tobacco Use Types Packs/Day Years Used Date Smoking Tobacco: Never Smokeless Tobacco: Never Alcohol Use Standard Drinks/Week Comments Not Currently 0 (1 standard drink = 0.6 oz pur e alcohol) maybe once a year PHQ-2 Answer Date Recorded PHQ-2 score 2 09/08/2023 Area Deprivation Index Answer Date Boyd rded National Score (1-100), lower number is lower ri sk 86 08/15/2022 State Score (1-10), lower number is lower risk 8 08/15/2022 Data from: https://www.neighborhoodatlas.medicine.[facility]/. Last address used for calculation [address] [facility] 08/15/2022 Sex and Gender Information Value Date [...] 11:30 AM EDT Office Visit Pain Management [address] [place] [address] Sera Chau PA-C [address] [place] [address] 4-6 week injection follow up 10/02/2024 10:40 AM EDT Appointment Radiology [address] [place] [address] Spinal stenosis of cervical region [M48.02] 10/19/2024 11:30 AM EDT Office Visit Neurology [address] [place] [address] Constanza Casillas PA-C [address] [place] [address] botox 10/31/2024 9:00 AM EDT [facility] Hematology/Oncology [address] [place] [address] Schuyler Blanca MD [address] [place] [address] VIRTUAL 11/21/2024 10:00 AM EDT Office Visit Orthopaedics [address] [place] [address] [place] [address] [place] [address] 3 month f/u documented as of this encounter Visit Diagnoses Not on filedocumented in this encounter Care Teams Cement Loader Relationship Specialty Start Date End Date Nohelia Dyer [address] [place] [address] PCP - General 06/04/05 Wander Cao [address] [place] [address] Physician Hematology/Oncology 03/24/14 Griselda Buckley (Rn), RN [address] [place] [address] Specialty Relief Captain 08/26/17 [place] [address] [place] [address] Referring Hematology 12/31/21 Ana M Galvan, RN Specialty Relief Captain Hematology/Oncology 10/14/23 documented as of this encounter
--- OUTSIDE RECORDS SUMMARY | 2024-09-22 16:03 | XMS_ITS | Encounter Summary ---
Author Organization [facility] Address [address] [place] [address] Care Team Providers Care Power Generating Plant Operator Name Role Phone Nohelia Dyer Primary Care Provider [phone] Wander Cao Unavailable Griselda Buckley (Rn) AMADOR Unavailable Unavailabl Schuyler Bautista MD Unavailable [phone] Ana M Galvan RN Unavailable Unavailable Source Comments In the event this information is protected by the Federal Confidentiality of Alcohol and Drug AbusePatient Records regulations: The Federal rules restrict any use of the information to criminally investigate or prosecute any alcohol or drug abuse patient.[facility] Encounter Details Date Type Department Care Team (Late st Contact Info) Description 08/08/2018 Get Medical Advice [facility] [address] [place] [address] [place] [address] [facility] [address] [place] [address] RE: Medication Question (Not Renewal) Social History [...] No 09/30/2016 10:22 AM EDT Ivana Samson, MARGOT.FIBERGLASS FINISHER * Are you blind or do you have serious difficulty seeing, even when wearing glasses? Answer Date of Assessment Author No 09/30/2016 10:22 AM EDT Ivana Samson, MARGOT.FIBERGLASS FINISHER * Do you have serious difficulty walking or climbing stairs? Answer Date of Assessment Author Yes 09/30/2016 10:22 AM EDT Ivana Samson APRN.FIBERGLASS FINISHER * Do you have difficulty dressing or bathing? Answer Date of Assessment Author No 09/30/2016 10:22 AM EDT Ivana Samson, MARGOT.FIBERGLASS FINISHER * Because of a physical, mental, or emotional condition, do you have difficulty doing errands alone such as visiting a doctor's office or shopping? Answer Date of Assessment Author Yes 09/30/2016 10:22 AM EDT Ivana Samson, MARGOT.FIBERGLASS FINISHER documented as of this encounter Mental Status * Because of a physical, mental, or emotional condition, do you have serious difficulty concentrating, remembering, or making decisions? Answer Entry Date Author No 09/30/2016 10:22 AM EDT Ivana Samson, MARGOT.FIBERGLASS FINISHER documented in this encounter Plan of Treatment Upcoming Encounters Date Type Department Care Team (Late st Contact Info) Description 09/26/2024 11:30 AM EDT Office Visit Pain Management [address] [place], [place] [id number] Sera Chau PA-C [address] [place] [address] 4-6 week injection follow up 10/02/2024 10:40 AM EDT Appointment Radiology [address] [place] [address] Spinal stenosis of cervical region [M48.02] 10/19/2024 11:30 AM EDT Office Visit Neurology [address] [place] [address] Constanza Casillas PA-C [address]00 [place] [address] botox 10/31/2024 9:00 AM EDT [facility] Hematology/Oncology [address] [place] [address] Schuyler Blanca MD [address] [place] [address] VIRTUAL 11/21/2024 10:00 AM EDT Office Visit Orthopaedics [address] [place] [address] [place] [address] [place] [address] 3 month f/u documented as of this encounter Visit Diagnoses Not on filedocumented in this encounter Additional Health Concerns Infection Onset Date Last Indicated Resolved Time COVID-19 Rule-Out 09/03/2020 09/03/2020 09/03/2020 12:19 AM EDT COVID-19 Rule-Out 09/15/2020 09/15/2020 09/16/2020 7:08 AM EDT documented as of this encounter Care Teams Power Generating Plant Operator Relationship Specialty Start Date End Date Nohelia Dyer [address] [place] [address] PCP - General 06/04/05 Wander Cao [address] [place] [address] Physician Hematology/Oncology 03/24/14 Griselda Buckley (Rn), RN [address] [place] [address] Specialty Microsoft Application Developer 08/26/17 [place] [address] [place] [id number] Referring Hematology 12/31/21 Ana M Galvan, RN Specialty Microsoft Application Developer Hematology/Oncology 10/14/23 documented as of this encounter
--- OUTSIDE RECORDS SUMMARY | 2024-09-22 16:03 | XMS_ITS | Encounter Summary ---
Author Organization [facility] Address [facility] [place] [address] Care Team Providers Care Laborer Livestock Name Role Phone Nohelai Dyer Primary Care Provider [phone] Wander Cao Unavailable Griselda Buckley (Rn) AMADOR Unavailable UnavailSchuyler Ruelas MD Unavailable [phone] Ana M Galvan RN Unavailable Unavailable Source Comments In the event this information is protected by the Federal Confidentiality of Alcohol and Drug AbusePatient Records regulations: The Federal rules restrict any use of the information to criminally investigate or prosecute any alcohol or drug abuse patient.[facility] Encounter Details Date Type Department Care Team (Late st Contact Info) Description 11/02/2023 Patient Msg Pre Anesthesia [address] [place], [place] [id number] Provider, Ccf PACC appt check in Social History Tobacco Use Types Packs/Day Years [...] is lower risk 8 11/05/2023 Data from: https://www.neighborhoodatlas.medicine.[facility]/. Last address used for calculation [address] [...] 11:30 AM EDT Office Visit Pain Management [address] [place] [address] Sera Chau PA-C [address] [place] [address] 4-6 week injection follow up 10/02/2024 10:40 AM EDT Appointment Radiology [address] [place] [address] Spinal stenosis of cervical region [M48.02] 10/19/2024 11:30 AM EDT Office Visit Neurology [address] [place] [address] Constanza Casillas PA-C [address] [place] [address] botox 10/31/2024 9:00 AM EDT [facility] Hematology/Oncology [address] [place] [address] Schuyler Blanca MD [address] [place] [address] VIRTUAL 11/21/2024 10:00 AM EDT Office Visit Orthopaedics [address] [place] [address] [place] [address] [place] [address] 3 month f/u documented as of this encounter Visit Diagnoses Not on filedocumented in this encounter Care Teams Laborer Livestock Relationship Specialty Start Date End Date Nohelia Dyer [address] [place] [address] PCP - General 06/04/05 Wander Cao [address] [place] [address] Physician Hematology/Oncology 03/24/14 Griselda Buckley (Rn), RN [address] [place] [address] Specialty Security Services Manager 08/26/17 [place] [address] [place] [id number] Referring Hematology 12/31/21 Ana M Galvan, RN Specialty Security Services Manager Hematology/Oncology 10/14/23 documented as of this encounter
--- OUTSIDE RECORDS SUMMARY | 2024-09-22 16:03 | XMS_ITS | Encounter Summary ---
Author Organization [facility] Address [address] [place] [address] Care Team Providers Care Pattern Generator Operator Name Role Phone Nohelia Dyer Primary Care Provider [phone] Wander Cao Unavailable Griselda Buckley (Rn) AMADOR Unavailable Unavailabl Schuyler Bautista MD Unavailable [phone] Ana M Galvan RN Unavailable Unavailable Source Comments In the event this information is protected by the Federal Confidentiality of Alcohol and Drug AbusePatient Records regulations: The Federal rules restrict any use of the information to criminally investigate or prosecute any alcohol or drug abuse patient.[facility] Encounter Details Date Type Department Care Team (Late st Contact Info) Description 08/31/2023 Get Medical Advice Pain Management [address] [place], [place] [phone] Dale Davidson MD [address] [place] [address] Appointment Social History Tobacco Use [...] risk 8 08/15/2022 Data from: https://www.neighborhoodatlas.medicine.[facility]/. Last address used for calculation [address] [...] 11:30 AM EDT Office Visit Pain Management [address] [place] [address] Sera Chau PA-C [address] [place] [address] 4-6 week injection follow up 10/02/2024 10:40 AM EDT Appointment Radiology [address] [place] [address] Spinal stenosis of cervical region [M48.02] 10/19/2024 11:30 AM EDT Office Visit Neurology [address] [place] [address] Constanza Casillas PA-C [address] [place] [address] botox 10/31/2024 9:00 AM EDT [facility] Hematology/Oncology [address] [place] [address] Schuyler Blanca MD [address] [place] [address] VIRTUAL 11/21/2024 10:00 AM EDT Office Visit Orthopaedics [address] [place] [address] [place] [address] [place] [address] 3 month f/u documented as of this encounter Visit Diagnoses Not on filedocumented in this encounter Care Teams Pattern Generator Operator Relationship Specialty Start Date End Date Nohelia Dyer [address] [place] [address] PCP - General 06/04/05 Wander Cao [address] [place] [address] Physician Hematology/Oncology 03/24/14 Griselda Buckley (Rn), RN [address] [place] [address] Specialty Health Promotion Specialist 08/26/17 [place] [address] [place] [address] Referring Hematology 12/31/21 Ana M Galvan RN Specialty Health Promotion Specialist Hematology/Oncology 10/14/23 documented as of this encounter
--- OUTSIDE RECORDS SUMMARY | 2024-09-22 16:03 | XMS_ITS | Encounter Summary ---
Author Organization [facility] Address [address] [place] [address] Care Team Providers Care Hemmer Lockstitch Name Role Phone Nohelia Dyer Primary Care Provider [phone] Wander Cao Unavailable Griselda Buckley (Rn) AMADOR Unavailable UnavailSchuyler Ruelas MD Unavailable [phone] Ana M Galvan RN Unavailable Unavailable Source Comments In the event this information is protected by the Federal Confidentiality of Alcohol and Drug AbusePatient Records regulations: The Federal rules restrict any use of the information to criminally investigate or prosecute any alcohol or drug abuse patient.[facility] Encounter Details Date Type Department Care Team (Late st Contact Info) Description 01/23/2022 Abstract Thoracic Clinic [address] [place] [address] Sophia Fisher APRN.WOOD CRAFTER [address] [place] [address] Social History Tobacco Use Types Packs/Day Years [...] N ot on file 09/26/2021 Data from: https://www.neighborhoodatlas.medicine.[facility]/. Last address used for calculation [address] [facility] 09/26/2021 Sex and Gender Information [...] 11:30 AM EDT Office Visit Pain Management [address] [place] [address] Sera Chau PA-C [address] [place] [address] 4-6 week injection follow up 10/02/2024 10:40 AM EDT Appointment Radiology [address] [place] [address] Spinal stenosis of cervical region [M48.02] 10/19/2024 11:30 AM EDT Office Visit Neurology [address] [place] [address] Constanza Casillas PA-C [address]00 [place] [address] botox 10/31/2024 9:00 AM EDT [facility] Hematology/Oncology [address] [place] [address] Schuyler Blanca MD [address] [place] [address] VIRTUAL 11/21/2024 10:00 AM EDT Office Visit Orthopaedics [address] [place] [address] [place] [address] [place] [address] 3 month f/u documented as of this encounter Visit Diagnoses Not on filedocumented in this encounter Care Teams Hemmer Lockstitch Relationship Specialty Start Date End Date Nohelia Dyer [address] [place] [id number] PCP - General 06/04/05 Wander Cao [address] [place] [address] Physician Hematology/Oncology 03/24/14 Griselda Buckley (Rn), RN [address] [place] [address] Specialty Cork Sorter 08/26/17 [place] [address] [place] [address] Referring Hematology 12/31/21 Ana M Galvan RN Specialty Cork Sorter Hematology/Oncology 10/14/23 documented as of this encounter
--- OUTSIDE RECORDS SUMMARY | 2024-09-22 16:03 | XMS_ITS | Encounter Summary ---
Author Organization [facility] Address [address] [place] [address] Care Team Providers Care Histopathology Technician Name Role Phone Nohelia Dyer Primary Care Provider [phone] Wander Cao Unavailable Griselda Buckley (Rn) AMADOR Unavailable Unavailabl Schuyler Bautista MD Unavailable [phone] Ana M Galvan RN Unavailable Unavailable Source Comments In the event this information is protected by the Federal Confidentiality of Alcohol and Drug AbusePatient Records regulations: The Federal rules restrict any use of the information to criminally investigate or prosecute any alcohol or drug abuse patient.[facility] Encounter Details Date Type Department Care Team (Late st Contact Info) Description 08/29/2023 Get Medical Advice Thoracic Clinic [address] [place] [address] Reyes Vizcaino MD [address] [place] [address] Appointment Social History Tobacco Use [...] is lower risk 8 08/15/2022 Data from: https://www.neighborhoodatlas.medicine.[facility]/. Last address used for calculation [...] 11:30 AM EDT Office Visit Pain Management [address] [place] [address] Sera Chau PA-C [address] [place] [address] 4-6 week injection follow up 10/02/2024 10:40 AM EDT Appointment Radiology [address] [place] [address] Spinal stenosis of cervical region [M48.02] 10/19/2024 11:30 AM EDT Office Visit Neurology [address] [place] [address] Constanza Casillas PA-C [address]00 [place] [address] botox 10/31/2024 9:00 AM EDT [facility] Hematology/Oncology [address] [place] [address] Schuyler Blanca MD [address] [place] [address] VIRTUAL 11/21/2024 10:00 AM EDT Office Visit Orthopaedics [address] [place] [address] [place] [address] [place] [address] 3 month f/u documented as of this encounter Visit Diagnoses Not on filedocumented in this encounter Care Teams Histopathology Technician Relationship Specialty Start Date End Date Nohelia Dyer 14[address] [place] [address] PCP - General 06/04/05 Wander Cao [address] [place] [address] Physician Hematology/Oncology 03/24/14 Griselda Buckley (Rn), RN [address] [place] [address] Specialty Household Appliances Service Technician 08/26/17 [place] [address] [place] [address] Referring Hematology 12/31/21 Ana M Galvan RN Specialty Household Appliances Service Technician Hematology/Oncology 10/14/23 documented as of this encounter
--- OUTSIDE RECORDS SUMMARY | 2024-09-22 16:03 | XMS_ITS | Encounter Summary ---
Author Organization [facility] Address [address] [place] [address] Care Team Providers Care Wind Turbine Engineer Name Role Phone Nohelia Dyer Primary Care Provider [phone] Wander Cao Unavailable Griselda Buckley (Rn) AMADOR Unavailable Unavailabl Schuyler Bautista MD Unavailable [phone] Ana M Galvan RN Unavailable Unavailable Source Comments In the event this information is protected by the Federal Confidentiality of Alcohol and Drug AbusePatient Records regulations: The Federal rules restrict any use of the information to criminally investigate or prosecute any alcohol or drug abuse patient.[facility] Encounter Details Date Type Department Care Team (Late st Contact Info) Description 02/24/2022 Get Medical Advice Neurology [address] [place], [place] [id number] Constanza Casillas PA-C [address] [place] [address] nerve block Social History Tobacco Use Types Packs/Day Years [...] N ot on file 09/26/2021 Data from: https://www.neighborhoodatlas.medicine.[facility].edu/. Last address used for calculation [address] [facility] 09/26/2021 Sex and Gender Information Value Date [...] suspected to have Coronavirus/COVID-19? No / Unsure 01/27/2022 12:39 PM EDT documented as of this encounter [...] 11:30 AM EDT Office Visit Pain Management [address] [place] [address] Sera Chau PA-C [address] [place] [address] 4-6 week injection follow up 10/02/2024 10:40 AM EDT Appointment Radiology [address] [place] [address] Spinal stenosis of cervical region [M48.02] 10/19/2024 11:30 AM EDT Office Visit Neurology [address] [place] [address] Constanza Casillas PA-C [address] [place] [address] botox 10/31/2024 9:00 AM EDT [facility] Hematology/Oncology [address] [place] [address] Schuyler Blanca MD [address] [place] [address] VIRTUAL 11/21/2024 10:00 AM EDT Office Visit Orthopaedics [address]2006 [place] [address] [place] [address] [place] [address] 3 month f/u documented as of this encounter Visit Diagnoses Not on filedocumented in this encounter Care Teams Wind Turbine Engineer Relationship Specialty Start Date End Date Nohelia Dyer [address] [place] [address] PCP - General 06/04/05 Wander Cao [address] [place] [address] Physician Hematology/Oncology 03/24/14 Griselda Buckley (Rn), RN [address] [place] [address] Specialty English Composition Teacher 08/26/17 [place] [address] [place] [address] Referring Hematology 12/31/21 Ana M Galvan RN Specialty English Composition Teacher Hematology/Oncology 10/14/23 documented as of this encounter
--- OUTSIDE RECORDS SUMMARY | 2024-09-22 16:03 | XMS_ITS | Encounter Summary ---
Author Organization [facility] Address [facility] [place] [address] Care Team Providers Care Project Construction Manager Name Role Phone Nohelia Dyer Primary Care Provider [phone] Wander Cao Unavailable Griselda Buckley (Rn) AMADOR Unavailable UnavailSchuyler Ruelas MD Unavailable [phone] Ana M Galvna RN Unavailable Unavailable Source Comments In the event this information is protected by the Federal Confidentiality of Alcohol and Drug AbusePatient Records regulations: The Federal rules restrict any use of the information to criminally investigate or prosecute any alcohol or drug abuse patient.[facility] Encounter Details Date Type Department Care Team (Late st Contact Info) Description 02/02/2018 Patient Msg Hematology/Oncology [address] [place] [address] Provider, Ccf APPT SCHEDULE Social History Tobacco Use Types Packs/Day [...] No 09/30/2016 10:22 AM EDT Ivana Samson APRN.POT RELINER * Are you blind or do you have serious difficulty seeing, even when wearing glasses? Answer Date of Assessment Author No 09/30/2016 10:22 AM EDT Ivana Samson APRN.POT RELINER * Do you have serious difficulty walking or climbing stairs? Answer Date of Assessment Author Yes 09/30/2016 10:22 AM EDT Ivana Samson APRN.POT RELINER * Do you have difficulty dressing or bathing? Answer Date of Assessment Author No 09/30/2016 10:22 AM EDT Ivana Samson APRN.POT RELINER * Because of a physical, mental, or emotional condition, do you have difficulty doing errands alone such as visiting a doctor's office or shopping? Answer Date of Assessment Author Yes 09/30/2016 10:22 AM EDT Ivana Samson APRN.POT RELINER documented as of this encounter Mental Status * Because of a physical, mental, or emotional condition, do you have serious difficulty concentrating, remembering, or making decisions? Answer Entry Date Author No 09/30/2016 10:22 AM EDT Ivana Samson APRN.POT RELINER documented in this encounter Plan of Treatment Upcoming Encounters Date Type Department Care Team (Late st Contact Info) Description 09/26/2024 11:30 AM EDT Office Visit Pain Management [address] [place] [address] Sera Chau PA-C [address] [place] [address] 4-6 week injection follow up 10/02/2024 10:40 AM EDT Appointment Radiology [address] [place] [address] Spinal stenosis of cervical region [M48.02] 10/19/2024 11:30 AM EDT Office Visit Neurology [address] [place] [address] Constanza Casillas PA-C [address] [place] [address] botox 10/31/2024 9:00 AM EDT [facility] Hematology/Oncology [address] [place] [address] Schuyler Blanca MD [address]00 [place] [address] VIRTUAL 11/21/2024 10:00 AM EDT Office Visit Orthopaedics [address] [place] [address] [place] [address] [place] [address] 3 month f/u documented as of this encounter Visit Diagnoses Not on filedocumented in this encounter Additional Health Concerns Infection Onset Date Last Indicated Resolved Time COVID-19 Rule-Out 09/03/2020 09/03/2020 09/03/2020 12:19 AM EDT COVID-19 Rule-Out 09/15/2020 09/15/2020 09/16/2020 7:08 AM EDT documented as of this encounter Care Teams Project Construction Manager Relationship Specialty Start Date End Date Nohelia Dyer [address] [place] [address] PCP - General 06/04/05 Wander Cao [address] [place] [address] Physician Hematology/Oncology 03/24/14 Griselda Buckley (Rn), RN [address] [place] [address] Specialty Outdoor Guide 08/26/17 [place] [address] [place] [address] Referring Hematology 12/31/21 Ana M Galvan, RN Specialty Outdoor Guide Hematology/Oncology 10/14/23 documented as of this encounter
--- OUTSIDE RECORDS SUMMARY | 2024-09-22 16:03 | XMS_ITS | Encounter Summary ---
Author Organization [facility] Address [address] [place] [address] Care Team Providers Care Maternal Child Nurse Name Role Phone Nohelia Dyer Primary Care Provider [phone] Wander Cao Unavailable Griselda Buckley (Rn) AMADOR Unavailable Unavailabl Schuyler Bautista MD Unavailable [phone] Ana M Galvan RN Unavailable Unavailable Source Comments In the event this information is protected by the Federal Confidentiality of Alcohol and Drug AbusePatient Records regulations: The Federal rules restrict any use of the information to criminally investigate or prosecute any alcohol or drug abuse patient.[facility] Encounter Details Date Type Department Care Team (Late st Contact Info) Description 02/27/2020 Get Medical Advice Neurology [address] [place], [place] [phone] Constanza Casillas PA-C [address] [place] [address] RE: Non-Urgent Medical Question Social [...] No 09/30/2016 10:22 AM EDT Ivana Samson APRN.KIDS ACTIVITIES COACH * Are you blind or do you have serious difficulty seeing, even when wearing glasses? Answer Date of Assessment Author No 09/30/2016 10:22 AM STEVET Ivana Samson APRN.KIDS ACTIVITIES COACH * Do you have serious difficulty walking or climbing stairs? Answer Date of Assessment Author Yes 09/30/2016 10:22 AM Ivana Wilkes APRN.KIDS ACTIVITIES COACH * Do you have difficulty dressing or bathing? Answer Date of Assessment Author No 09/30/2016 10:22 AM STEVET Ivana Samson APRN.KIDS ACTIVITIES COACH * Because of a physical, mental, or emotional condition, do you have difficulty doing errands alone such as visiting a doctor's office or shopping? Answer Date of Assessment Author Yes 09/30/2016 10:22 AM EDT Ivana Samson APRN.KIDS ACTIVITIES COACH documented as of this encounter Mental Status * Because of a physical, mental, or emotional condition, do you have serious difficulty concentrating, remembering, or making decisions? Answer Entry Date Author No 09/30/2016 10:22 AM EDT Ivana Samson APRN.KIDS ACTIVITIES COACH documented in this encounter Plan of Treatment Upcoming Encounters Date Type Department Care Team (Late st Contact Info) Description 09/26/2024 11:30 AM EDT Office Visit Pain Management [address] [place], [place] [id number] Srea Chau PA-C [address] [place], [place] [address] 4-6 week injection follow up 10/02/2024 10:40 AM EDT Appointment Radiology [address] [place] [address] Spinal stenosis of cervical region [M48.02] 10/19/2024 11:30 AM EDT Office Visit Neurology [address] [place] [address] Constanza Casillas PA-C [address]00 [place] [address] botox 10/31/2024 9:00 AM EDT [facility] Hematology/Oncology [address] [place] [address] Schuyler Blanca MD [address] [place] [address] VIRTUAL 11/21/2024 10:00 AM EDT Office Visit Orthopaedics [address] [place] [address] [place] [address] [place] [address] 3 month f/u documented as of this encounter Visit Diagnoses Not on filedocumented in this encounter Additional Health Concerns Infection Onset Date Last Indicated Resolved Time COVID-19 Rule-Out 09/03/2020 09/03/2020 09/03/2020 12:19 AM EDT COVID-19 Rule-Out 09/15/2020 09/15/2020 09/16/2020 7:08 AM EDT documented as of this encounter Care Teams Maternal Child Nurse Relationship Specialty Start Date End Date Nohelia Dyer [address] [place] [address] PCP - General 06/04/05 Wander Cao [address] [place] [address] Physician Hematology/Oncology 03/24/14 Griselda Buckley (Rn), RN [address] [place] [address] Specialty Doctor Of Pharmacy 08/26/17 [place] [address] [place] [address] Referring Hematology 12/31/21 Ana M Galvan RN Specialty Doctor Of Pharmacy Hematology/Oncology 10/14/23 documented as of this encounter
--- OUTSIDE RECORDS SUMMARY | 2024-09-22 16:03 | XMS_ITS | Encounter Summary ---
Author Organization [facility] Address [address] [place] [address] Care Team Providers Care Emergency Nurse Name Role Phone Nohelia Dyer Primary Care Provider Wander Cao Unavailable Griselda Buckley (Rn) AMADOR Unavailable UnavailSchuyler Ruelas MD Unavailable [phone] Ana M Galvan RN Unavailable Unavailable Source Comments In the event this information is protected by the Federal Confidentiality of Alcohol and Drug AbusePatient Records regulations: The Federal rules restrict any use of the information to criminally investigate or prosecute any alcohol or drug abuse patient.[facility] Encounter Details Date Type Department Care Team (Late st Contact Info) Description 03/31/2022 Get Medical Advice Neurology [address] [place], [place] [id number] Constanza Casillas PA-C [address] [place] [address] Headache Social History Tobacco Use Types Packs/Day Years [...] N ot on file 09/26/2021 Data from: https://www.neighborhoodatlas.medicine.[facility].edu/. Last address used for calculation [address] 09/26/2021 Sex and Gender Information Value [...] encounter Miscellaneous Notes * Telephone Encounter - Shavon Apple - 03/31/2022 3:11 PM EST Images from the original note were not included. documented in this encounter Plan of Treatment Upcoming Encounters Date Type Department Care Team (Late st Contact Info) Description 09/26/2024 11:30 AM EDT Office Visit Pain Management [address] [place] [address] Sera Chau PA-C [address] [place] [address] 4-6 week injection follow up 10/02/2024 10:40 AM EDT Appointment Radiology [address] [place] [address] Spinal stenosis of cervical region [M48.02] 10/19/2024 11:30 AM EDT Office Visit Neurology [address] [place] [address] Constanza Casillas PA-C [address] [place] [address] botox 10/31/2024 9:00 AM EDT [facility] Hematology/Oncology [address] [place] [address] Schuyler Blanca MD [address] [place] [address] VIRTUAL 11/21/2024 10:00 AM EDT Office Visit Orthopaedics [address] [place] [address] [place] [address] [place] [address] 3 month f/u documented as of this encounter Visit Diagnoses Not on filedocumented in this encounter Care Teams Emergency Nurse Relationship Specialty Start Date End Date Nohelia Dyer [address] [place] [address] PCP - General 06/04/05 Wander Cao [address] [place] [address] Physician Hematology/Oncology 03/24/14 Griselda Buckley (Rn), RN [address] [place] [address] Specialty Technical Specialist Cytology 08/26/17 [place] [address] [place] [id number] Referring Hematology 12/31/21 Ana M Galvan RN Specialty Technical Specialist Cytology Hematology/Oncology 10/14/23 documented as of this encounter
--- OUTSIDE RECORDS SUMMARY | 2024-09-22 16:03 | XMS_ITS | Encounter Summary ---
Author Organization [facility] Address [address] [place] [address] Care Team Providers Care Brand Coordinator Name Role Phone Nohelia Dyer Primary Care Provider [phone] Wander Cao Unavailable Griselda Buckley (Rn) AMADOR Unavailable UnavailSchuyler Ruelas MD Unavailable [phone] Ana M Galvan RN Unavailable Unavailable Source Comments In the event this information is protected by the Federal Confidentiality of Alcohol and Drug AbusePatient Records regulations: The Federal rules restrict any use of the information to criminally investigate or prosecute any alcohol or drug abuse patient.[facility] Encounter Details Date Type Department Care Team (Late st Contact Info) Description 02/03/2018 Patient Msg Hematology/Oncology [address] [place] [address] Wander Cao [address] [place] [phone] RE: Appointment Cancellation Request Social History Tobacco [...] No 09/30/2016 10:22 AM EDT Ivana Samson APRN.PARAKEET RAISER * Are you blind or do you have serious difficulty seeing, even when wearing glasses? Answer Date of Assessment Author No 09/30/2016 10:22 AM EDT Ivana Samson APRN.PARAKEET RAISER * Do you have serious difficulty walking or climbing stairs? Answer Date of Assessment Author Yes 09/30/2016 10:22 AM EDT Ivana Samson APRN.PARAKEET RAISER * Do you have difficulty dressing or bathing? Answer Date of Assessment Author No 09/30/2016 10:22 AM EDT Ivana Samson APRN.PARAKEET RAISER * Because of a physical, mental, or emotional condition, do you have difficulty doing errands alone such as visiting a doctor's office or shopping? Answer Date of Assessment Author Yes 09/30/2016 10:22 AM EDT Ivana Samson APRN.PARAKEET RAISER documented as of this encounter Mental Status * Because of a physical, mental, or emotional condition, do you have serious difficulty concentrating, remembering, or making decisions? Answer Entry Date Author No 09/30/2016 10:22 AM EDT Ivana Samson APRN.PARAKEET RAISER documented in this encounter Plan of Treatment Upcoming Encounters Date Type Department Care Team (Late st Contact Info) Description 09/26/2024 11:30 AM EDT Office Visit Pain Management [address] [place] [address] Sera Chau PA-C [address] [place] [address] 4-6 week injection follow up 10/02/2024 10:40 AM EDT Appointment Radiology [address] [place] [address] Spinal stenosis of cervical region [M48.02] 10/19/2024 11:30 AM EDT Office Visit Neurology [address] [place] [address] Constanza Casillas PA-C [address] [place] [address] botox 10/31/2024 9:00 AM EDT [facility] Hematology/Oncology [address] [place] [address] Schuyler Blanca MD [address] [place] [address] VIRTUAL 11/21/2024 10:00 AM EDT Office Visit Orthopaedics [address] [place] [address] [place] [address] [place] [address] 3 month f/u documented as of this encounter Visit Diagnoses Not on filedocumented in this encounter Additional Health Concerns Infection Onset Date Last Indicated Resolved Time COVID-19 Rule-Out 09/03/2020 09/03/2020 09/03/2020 12:19 AM EDT COVID-19 Rule-Out 09/15/2020 09/15/2020 09/16/2020 7:08 AM EDT documented as of this encounter Care Teams Brand Coordinator Relationship Specialty Start Date End Date Nohelia Dyer [address] [place] [address] PCP - General 06/04/05 Wander Cao [address] [place] [address] Physician Hematology/Oncology 03/24/14 Griselda Buckley (Rn), RN [address] [place] [address] Specialty Manager Field 08/26/17 [place] [address] [place] [id number] Referring Hematology 12/31/21 Ana M Galvan, RN Specialty Manager Field Hematology/Oncology 10/14/23 documented as of this encounter
--- OUTSIDE RECORDS SUMMARY | 2024-09-22 16:03 | XMS_ITS | Encounter Summary ---
Author Organization [facility] Address [address] [place] [address] Care Team Providers Care Salon Sales Consultant Name Role Phone Nohelia Dyer Primary Care Provider [phone] aWnder Coa Unavailable Griselda Buckley (Rn) AMADOR Unavailable UnavailSchuyler Ruelas MD Unavailable [phone] Ana M Galvan RN Unavailable Unavailable Source Comments In the event this information is protected by the Federal Confidentiality of Alcohol and Drug AbusePatient Records regulations: The Federal rules restrict any use of the information to criminally investigate or prosecute any alcohol or drug abuse patient.[facility] Encounter Details Date Type Department Care Team (Late st Contact Info) Description 08/17/2023 Get Medical Advice Neurology [address] [place], [place] [id number] Constanza Casillas PA-C [address] [place] [address] Appointment Social History Tobacco Use [...] risk 8 08/15/2022 Data from: https://www.neighborhoodatlas.medicine.[facility]/. Last address used for calculation [address] [...] 11:30 AM EDT Office Visit Pain Management [address] [place] [address] Sera Chau PA-C [address] [place] [address] 4-6 week injection follow up 10/02/2024 10:40 AM EDT Appointment Radiology [address] [place] [address] Spinal stenosis of cervical region [M48.02] 10/19/2024 11:30 AM EDT Office Visit Neurology [address] [place] [address] Constanza Casillas PA-C [address] [place] [address] botox 10/31/2024 9:00 AM EDT [facility] Hematology/Oncology [address] [place] [address] Schuyler Blanca MD [address] [place] [address] VIRTUAL 11/21/2024 10:00 AM EDT Office Visit Orthopaedics [address] [place] [address] [place] [address] [place] [address] 3 month f/u documented as of this encounter Visit Diagnoses Not on filedocumented in this encounter Care Teams Salon Sales Consultant Relationship Specialty Start Date End Date Nohelia Dyer [address] [place] [address] PCP - General 06/04/05 Wander Cao [address] [place] [address] Physician Hematology/Oncology 03/24/14 Griselda Buckley (Rn), RN [address] [place] [address] Specialty Woods Warden 08/26/17 [place] [address] [place] [address] Referring Hematology 12/31/21 Ana M Galvan RN Specialty Woods Warden Hematology/Oncology 10/14/23 documented as of this encounter
--- OUTSIDE RECORDS SUMMARY | 2024-09-22 16:03 | XMS_ITS | Encounter Summary ---
Author Organization [facility] Address [address] [place] [address] Care Team Providers Care Workforce Development Vice President Name Role Phone Nohelia Dyer Primary Care Provider [phone] Wander Cao Unavailable Griselda Buckley (Rn) AMADOR Unavailable Unavailabl Schuyler Bautista MD Unavailable [phone] Ana M Galvan RN Unavailable Unavailable Source Comments In the event this information is protected by the Federal Confidentiality of Alcohol and Drug AbusePatient Records regulations: The Federal rules restrict any use of the information to criminally investigate or prosecute any alcohol or drug abuse patient.[facility] Encounter Details Date Type Department Care Team (Late st Contact Info) Description 06/26/2023 Patient Msg Neurology [address] [place], [place] [id number] Constanza Casillas PA-C [address] [place] [address] Appointment Request Social History Tobacco Use [...] is lower risk 8 08/15/2022 Data from: https://www.neighborhoodatlas.medicine.[facility]/. Last address used for [...] 11:30 AM EDT Office Visit Pain Management [address] [place] [address] Sera Chau PA-C [address] [place] [address] 4-6 week injection follow up 10/02/2024 10:40 AM EDT Appointment Radiology [address] [place] [address] Spinal stenosis of cervical region [M48.02] 10/19/2024 11:30 AM EDT Office Visit Neurology [address] [place] [address] Constanza Casillas PA-C [address] [place] [address] botox 10/31/2024 9:00 AM EDT [facility] Hematology/Oncology [address] [place] [address] Schuyler Blanca MD [address] [place] [address] VIRTUAL 11/21/2024 10:00 AM EDT Office Visit Orthopaedics [address] [place] [address] [place] [address] [place] [address] 3 month f/u documented as of this encounter Visit Diagnoses Not on filedocumented in this encounter Care Teams Workforce Development Vice President Relationship Specialty Start Date End Date Nohelia Dyer [address] [place] [address] PCP - General 06/04/05 Wander Cao [address] [place] [address] Physician Hematology/Oncology 03/24/14 Griselda Buckley (Rn), RN [address] [place] [address] Specialty Exchange Consultant 08/26/17 [place] [address] [place] [address] Referring Hematology 12/31/21 Ana M Galvan RN Specialty Exchange Consultant Hematology/Oncology 10/14/23 documented as of this encounter
--- OUTSIDE RECORDS SUMMARY | 2024-09-22 16:03 | XMS_ITS | Encounter Summary ---
Author Organization [facility] Address [address] [place] [address] Care Team Providers Care Rodbuster Name Role Phone Nohelia Dyer Primary Care Provider [phone] Wander Cao Unavailable Griselda Buckley (Rn) AMADOR Unavailable UnavailSchuyler Ruelas MD Unavailable [phone] Ana M Galvan RN Unavailable Unavailable Source Comments In the event this information is protected by the Federal Confidentiality of Alcohol and Drug AbusePatient Records regulations: The Federal rules restrict any use of the information to criminally investigate or prosecute any alcohol or drug abuse patient.[facility] Encounter Details Date Type Department Care Team (Late st Contact Info) Description 02/03/2018 Patient Msg Neurology [address] [place], [place] [phone] Constanza Casillas PA-C [address] [place] [address] MRI MRA normal Social History Tobacco Use Types Packs/Day Years [...] No 09/30/2016 10:22 AM EDT Ivana Samson APRN.SAVINGS TELLER * Are you blind or do you have serious difficulty seeing, even when wearing glasses? Answer Date of Assessment Author No 09/30/2016 10:22 AM EDT Ivana Samson APRN.SAVINGS TELLER * Do you have serious difficulty walking or climbing stairs? Answer Date of Assessment Author Yes 09/30/2016 10:22 AM EDT Ivana Samson APRN.SAVINGS TELLER * Do you have difficulty dressing or bathing? Answer Date of Assessment Author No 09/30/2016 10:22 AM EDT Ivana Samson APRN.SAVINGS TELLER * Because of a physical, mental, or emotional condition, do you have difficulty doing errands alone such as visiting a doctor's office or shopping? Answer Date of Assessment Author Yes 09/30/2016 10:22 AM EDT Ivana Samson APRN.SAVINGS TELLER documented as of this encounter Mental Status * Because of a physical, mental, or emotional condition, do you have serious difficulty concentrating, remembering, or making decisions? Answer Entry Date Author No 09/30/2016 10:22 AM EDT Ivana Samson, MARGOT.SAVINGS TELLER documented in this encounter Plan of Treatment Upcoming Encounters Date Type Department Care Team (Late st Contact Info) Description 09/26/2024 11:30 AM EDT Office Visit Pain Management [address] [place], [place] [phone] Sera Chau PA-C [address] [place] [address] 4-6 week injection follow up 10/02/2024 10:40 AM EDT Appointment Radiology [address] [place] [address] Spinal stenosis of cervical region [M48.02] 10/19/2024 11:30 AM EDT Office Visit Neurology [address] [place] [address] Constanza Casillas PA-C [address] [place] [address] botox 10/31/2024 9:00 AM EDT [facility] Hematology/Oncology [address] [place] [address] Schuyler Blanca MD [address] [place] [address] VIRTUAL 11/21/2024 10:00 AM EDT Office Visit Orthopaedics [address] [place] [address] [place] [address] [place] [address] 3 month f/u documented as of this encounter Visit Diagnoses Not on filedocumented in this encounter Additional Health Concerns Infection Onset Date Last Indicated Resolved Time COVID-19 Rule-Out 09/03/2020 09/03/2020 09/03/2020 12:19 AM EDT COVID-19 Rule-Out 09/15/2020 09/15/2020 09/16/2020 7:08 AM EDT documented as of this encounter Care Teams Rodbuster Relationship Specialty Start Date End Date Nohelia Dyer [address] [place] [address] PCP - General 06/04/05 Wander Cao [address] [place] [address] Physician Hematology/Oncology 03/24/14 Griselda Buckley (Rn), RN [address] [place] [address] Specialty Wash Test Checker 08/26/17 [place] [address] [place] [address] Referring Hematology 12/31/21 Ana M Galvan, RN Specialty Wash Test Checker Hematology/Oncology 10/14/23 documented as of this encounter
--- OUTSIDE RECORDS SUMMARY | 2024-09-22 16:03 | XMS_ITS | Encounter Summary ---
Author Organization [facility] Address [address] [place] [address] Care Team Providers Care Squirrel Man Name Role Phone Nohelia Dyer Primary Care Provider [phone] Wander Cao Unavailable Griselda Buckley (Rn) AMADOR Unavailable Unavailabl Schuyler Bautista MD Unavailable [phone] Ana M Galvan RN Unavailable Unavailable Source Comments In the event this information is protected by the Federal Confidentiality of Alcohol and Drug AbusePatient Records regulations: The Federal rules restrict any use of the information to criminally investigate or prosecute any alcohol or drug abuse patient.[facility] Encounter Details Date Type Department Care Team (Late st Contact Info) Description 05/08/2018 Patient Msg Endocrinology [place] [address] [place] [id number] [place] [address] [facility] [address] [place] [address] RE: Request an Appointment Social History Tobacco [...] No 09/30/2016 10:22 AM EDT Ivana Samson APRN.DREDGE WORKER * Are you blind or do you have serious difficulty seeing, even when wearing glasses? Answer Date of Assessment Author No 09/30/2016 10:22 AM EDT Ivana Samson, MARGOT.DREDGE WORKER * Do you have serious difficulty walking or climbing stairs? Answer Date of Assessment Author Yes 09/30/2016 10:22 AM EDT Ivana Samson APRN.DREDGE WORKER * Do you have difficulty dressing or bathing? Answer Date of Assessment Author No 09/30/2016 10:22 AM EDT Ivana Samson, MARGOT.DREDGE WORKER * Because of a physical, mental, or emotional condition, do you have difficulty doing errands alone such as visiting a doctor's office or shopping? Answer Date of Assessment Author Yes 09/30/2016 10:22 AM EDT Ivana Samson APRN.DREDGE WORKER documented as of this encounter Mental Status * Because of a physical, mental, or emotional condition, do you have serious difficulty concentrating, remembering, or making decisions? Answer Entry Date Author No 09/30/2016 10:22 AM EDT Ivana Samson, MARGOT.DREDGE WORKER documented in this encounter Plan of Treatment Upcoming Encounters Date Type Department Care Team (Late st Contact Info) Description 09/26/2024 11:30 AM EDT Office Visit Pain Management [address] [place], [place] [phone] Sera Chau PA-C [address] [place] [address] 4-6 week injection follow up 10/02/2024 10:40 AM EDT Appointment Radiology [address] [place] [address] Spinal stenosis of cervical region [M48.02] 10/19/2024 11:30 AM EDT Office Visit Neurology [address] [place] [address] Constanza Casillas PA-C [address] [place] [address] botox 10/31/2024 9:00 AM EDT [facility] Hematology/Oncology [address] [place] [address] Schuyler Blanca MD [address] [place] [address] VIRTUAL 11/21/2024 10:00 AM EDT Office Visit Orthopaedics [address] [place] [address] [place] [address] [place] [address] 3 month f/u documented as of this encounter Visit Diagnoses Not on filedocumented in this encounter Additional Health Concerns Infection Onset Date Last Indicated Resolved Time COVID-19 Rule-Out 09/03/2020 09/03/2020 09/03/2020 12:19 AM EDT COVID-19 Rule-Out 09/15/2020 09/15/2020 09/16/2020 7:08 AM EDT documented as of this encounter Care Teams Squirrel Man Relationship Specialty Start Date End Date Nohelia Dyer [address] [place] [address] PCP - General 06/04/05 Wander Cao [address] [place] [address] Physician Hematology/Oncology 03/24/14 Griselda Buckley (Rn), RN [address] [place] [address] Specialty Improvement Spec 08/26/17 [place] [address] [place] [address] Referring Hematology 12/31/21 Ana M Galvan, RN Specialty Improvement Spec Hematology/Oncology 10/14/23 documented as of this encounter
--- OUTSIDE RECORDS SUMMARY | 2024-09-22 16:03 | XMS_ITS | Encounter Summary ---
Author Organization [facility] Address [facility] [place] [address] Care Team Providers Care Law Enforcement Officer Name Role Phone GomezRadha bustamantenifer Mary Carmen Primary Care Provider [phone] Wander Cao Unavailable Griselda Buckley (Rn) AMADOR Unavailable UnavailSchuyler Rueals MD Unavailable [phone] Ana M Galvan RN Unavailable Unavailable Source Comments In the event this information is protected by the Federal Confidentiality of Alcohol and Drug AbusePatient Records regulations: The Federal rules restrict any use of the information to criminally investigate or prosecute any alcohol or drug abuse patient.[facility] Encounter Details Date Type Department Care Team (Late st Contact Info) Description 02/23/2019 Patient Msg Hematology/Oncology [address] [place], [place] [phone] Provider, [facility] Scheduling phone number Social History Tobacco Use Types Packs/Day Years [...] No 09/30/2016 10:22 AM EDT Ivana Samson APRN.NETWORK SUPPORT MANAGER * Are you blind or do you have serious difficulty seeing, even when wearing glasses? Answer Date of Assessment Author No 09/30/2016 10:22 AM EDT Ivana Samson APRN.NETWORK SUPPORT MANAGER * Do you have serious difficulty walking or climbing stairs? Answer Date of Assessment Author Yes 09/30/2016 10:[address]EV[address] Ivana Samson APRN.NETWORK SUPPORT MANAGER * Do you have difficulty dressing or bathing? Answer Date of Assessment Author No 09/30/2016 10:22 AM EDT Ivana Samson APRN.NETWORK SUPPORT MANAGER * Because of a physical, mental, or emotional condition, do you have difficulty doing errands alone such as visiting a doctor's office or shopping? Answer Date of Assessment Author Yes 09/30/2016 10:22 [address] STEV[address] Ivana Samson APRN.NETWORK SUPPORT MANAGER documented as of this encounter Mental Status * Because of a physical, mental, or emotional condition, do you have serious difficulty concentrating, remembering, or making decisions? Answer Entry Date Author No 09/30/2016 10:22 AM EDIvana Salamanca APRN.NETWORK SUPPORT MANAGER documented in this encounter Plan of Treatment Upcoming Encounters Date Type Department Care Team (Late st Contact Info) Description 09/26/2024 11:30 AM EDT Office Visit Pain Management [address] [place] [address] Sera Chau PA-C [address] [place] [address] 4-6 week injection follow up 10/02/2024 10:40 AM EDT Appointment Radiology [address] [place] [address] Spinal stenosis of cervical region [M48.02] 10/19/2024 11:30 AM EDT Office Visit Neurology [address] [place] [address] Constanza Casillas PA-C [address] [place] [address] botox 10/31/2024 9:00 AM EDT [facility] Hematology/Oncology [address] [place] [address] Schuyler Blanca MD [address] [place] [address] VIRTUAL 11/21/2024 10:00 AM EDT Office Visit Orthopaedics [address] [place] [address] [place] [address] [place] [address] 3 month f/u documented as of this encounter Visit Diagnoses Not on filedocumented in this encounter Additional Health Concerns Infection Onset Date Last Indicated Resolved Time COVID-19 Rule-Out 09/03/2020 09/03/2020 09/03/2020 12:19 AM EDT COVID-19 Rule-Out 09/15/2020 09/15/2020 09/16/2020 7:08 AM EDT documented as of this encounter Care Teams Law Enforcement Officer Relationship Specialty Start Date End Date Nohelia Dyer [address] [place] [address] PCP - General 06/04/05 Wander Cao [address] [place] [address] Physician Hematology/Oncology 03/24/14 Griselda Buckley (Rn), RN [address] [place] [address] Specialty Automation Controls Specialist 08/26/17 [place] [address] [place] [address] Referring Hematology 12/31/21 Ana M Galvan, RN Specialty Automation Controls Specialist Hematology/Oncology 10/14/23 documented as of this encounter
--- OUTSIDE RECORDS SUMMARY | 2024-09-22 16:03 | XMS_ITS | Encounter Summary ---
Author Organization [facility] Address [address] [place] [address] Care Team Providers Care Counseling Department Chair Name Role Phone Nohelia Dyer Primary Care Provider [phone] Wander Cao Unavailable Griselda Buckley (Rn) RN Unavailable Unavailabl e Schuyler Blanca MD Unavailable [phone] Ana M Galvan RN Unavailable Unavailable Source Comments In the event this information is protected by the Federal Confidentiality of Alcohol and Drug AbusePatient Records regulations: The Federal rules restrict any use of the information to criminally investigate or prosecute any alcohol or drug abuse patient.[facility] Encounter Details Date Type Department Care Team (Late st Contact Info) Description 11/08/2019 Patient Msg Hematology/Oncology [address] [place] [address] Schuyler Blanca MD [address] [place] [address] RE: Appointment Cancellation Request Social [...] No 09/30/2016 10:22 AM EDT Ivana Samson APRN.METER/RELAY CRAFTSMAN * Are you blind or do you have serious difficulty seeing, even when wearing glasses? Answer Date of Assessment Author No 09/30/2016 10:22 AM EDT Ivana Samson APRN.METER/RELAY CRAFTSMAN * Do you have serious difficulty walking or climbing stairs? Answer Date of Assessment Author Yes 09/30/2016 10:22 AM EDT Ivana Samson APRN.METER/RELAY CRAFTSMAN * Do you have difficulty dressing or bathing? Answer Date of Assessment Author No 09/30/2016 10:22 AM EDT Ivana Samson APRN.METER/RELAY CRAFTSMAN * Because of a physical, mental, or emotional condition, do you have difficulty doing errands alone such as visiting a doctor's office or shopping? Answer Date of Assessment Author Yes 09/30/2016 10:22 AM EDT Ivana Samson APRN.METER/RELAY CRAFTSMAN documented as of this encounter Mental Status * Because of a physical, mental, or emotional condition, do you have serious difficulty concentrating, remembering, or making decisions? Answer Entry Date Author No 09/30/2016 10:22 AM EDT Ivana Samson APRN.METER/RELAY CRAFTSMAN documented in this encounter Plan of Treatment Upcoming Encounters Date Type Department Care Team (Late st Contact Info) Description 09/26/2024 11:30 AM EDT Office Visit Pain Management [address] [place] [address] Sera Chau PA-C [address] [place] [address] 4-6 week injection follow up 10/02/2024 10:40 AM EDT Appointment Radiology [address] [place] [address] Spinal stenosis of cervical region [M48.02] 10/19/2024 11:30 AM EDT Office Visit Neurology [address] [place] [address] Constanza Casillas PA-C [address] [place] [address] botox 10/31/2024 9:00 AM EDT [facility] Hematology/Oncology [address] [place] [address] Schuyler Blanca MD [address] [place] [address] VIRTUAL 11/21/2024 10:00 AM EDT Office Visit Orthopaedics [address] [place] [address] [place] [address] [place] [address] 3 month f/u documented as of this encounter Visit Diagnoses Not on filedocumented in this encounter Additional Health Concerns Infection Onset Date Last Indicated Resolved Time COVID-19 Rule-Out 09/03/2020 09/03/2020 09/03/2020 12:19 AM EDT COVID-19 Rule-Out 09/15/2020 09/15/2020 09/16/2020 7:08 AM EDT documented as of this encounter Care Teams Counseling Department Chair Relationship Specialty Start Date End Date Nohelia Dyer [address] [place] [id number] PCP - General 06/04/05 Wander Cao [address] [place] [address] Physician Hematology/Oncology 03/24/14 Griselda Buckley (Rn), RN [address] [place] [address] Specialty Senior Stack Engineer 08/26/17 [place] [address] [place] [id number] Referring Hematology 12/31/21 Ana M Galvan RN Specialty Senior Stack Engineer Hematology/Oncology 10/14/23 documented as of this encounter
--- OUTSIDE RECORDS SUMMARY | 2024-09-22 16:03 | XMS_ITS | Encounter Summary ---
Author Organization [facility] Address [address] [place] [address] Care Team Providers Care Tank Welder Name Role Phone Nohelia Dyer Primary Care Provider [phone] Wander Cao Unavailable Griselda Buckley (Rn) AMADOR Unavailable UnavailSchuyler Ruelas MD Unavailable [phone] Ana M Galvan RN Unavailable Unavailable Source Comments In the event this information is protected by the Federal Confidentiality of Alcohol and Drug AbusePatient Records regulations: The Federal rules restrict any use of the information to criminally investigate or prosecute any alcohol or drug abuse patient.[facility] Encounter Details Date Type Department Care Team (Late st Contact Info) Description 02/12/2018 Patient Msg Hematology/Oncology [address] [place] [address] Wander Cao [address] [place] [phone] RE: Appointment Cancellation Request Social History Tobacco [...] No 09/30/2016 10:22 AM EDT Ivana Samson APRN.RED HAT OPEN STACK ADMINISTRATOR * Are you blind or do you have serious difficulty seeing, even when wearing glasses? Answer Date of Assessment Author No 09/30/2016 10:22 AM EDT Ivana Samson APRN.RED HAT OPEN STACK ADMINISTRATOR * Do you have serious difficulty walking or climbing stairs? Answer Date of Assessment Author Yes 09/30/2016 10:22 AM EDT Ivana Samson APRN.RED HAT OPEN STACK ADMINISTRATOR * Do you have difficulty dressing or bathing? Answer Date of Assessment Author No 09/30/2016 10:22 AM EDT Ivana Samson APRN.RED HAT OPEN STACK ADMINISTRATOR * Because of a physical, mental, or emotional condition, do you have difficulty doing errands alone such as visiting a doctor's office or shopping? Answer Date of Assessment Author Yes 09/30/2016 10:22 AM EDT Ivana Samson APRN.RED HAT OPEN STACK ADMINISTRATOR documented as of this encounter Mental Status * Because of a physical, mental, or emotional condition, do you have serious difficulty concentrating, remembering, or making decisions? Answer Entry Date Author No 09/30/2016 10:22 AM EDT Ivana Samson APRN.RED HAT OPEN STACK ADMINISTRATOR documented in this encounter Plan of Treatment Upcoming Encounters Date Type Department Care Team (Late st Contact Info) Description 09/26/2024 11:30 AM EDT Office Visit Pain Management [address] [place] [address] Sera Chau PA-C [address] [place] [address] 4-6 week injection follow up 10/02/2024 10:40 AM EDT Appointment Radiology [address] [place] [address] Spinal stenosis of cervical region [M48.02] 10/19/2024 11:30 AM EDT Office Visit Neurology [address] [place] [address] Constanza Casillas PA-C [address] [place] [address] botox 10/31/2024 9:00 AM EDT [facility] Hematology/Oncology [address] [place] [address] Schuyler Blanca MD [address] [place] [address] VIRTUAL 11/21/2024 10:00 AM EDT Office Visit Orthopaedics [address] [place] [address] [place] [address] [place] [address] 3 month f/u documented as of this encounter Visit Diagnoses Not on filedocumented in this encounter Additional Health Concerns Infection Onset Date Last Indicated Resolved Time COVID-19 Rule-Out 09/03/2020 09/03/2020 09/03/2020 12:19 AM EDT COVID-19 Rule-Out 09/15/2020 09/15/2020 09/16/2020 7:08 AM EDT documented as of this encounter Care Teams Tank Welder Relationship Specialty Start Date End Date Nohelia Dyer [address] [place] [address] PCP - General 06/04/05 Wander Cao [address] [place] [address] Physician Hematology/Oncology 03/24/14 Griselda Buckley (Rn), RN [address] [place] [address] Specialty Ornament Setter 08/26/17 [place] [address] [place] [id number] Referring Hematology 12/31/21 Ana M Galvan, RN Specialty Ornament Setter Hematology/Oncology 10/14/23 documented as of this encounter
--- OUTSIDE RECORDS SUMMARY | 2024-09-22 16:03 | XMS_ITS | Encounter Summary ---
Author Organization [facility] Address [address] [place] [address] Care Team Providers Care Sugar Mixer Name Role Phone Nohelia Dyer Primary Care Provider [phone] Wander Cao Unavailable Griselda Buckley (Rn) AMADOR Unavailable Unavailabl Schuyler Bautista MD Unavailable [phone] Ana M Galvan RN Unavailable Unavailable Source Comments In the event this information is protected by the Federal Confidentiality of Alcohol and Drug AbusePatient Records regulations: The Federal rules restrict any use of the information to criminally investigate or prosecute any alcohol or drug abuse patient.[facility] Encounter Details Date Type Department Care Team (Late st Contact Info) Description 02/13/2020 Get Medical Advice Neurology [address] [place], [place] [phone] Constanza Casillas PA-C [address] [place] [address] RE: Non-Urgent Medical Question Social [...] No 09/30/2016 10:22 AM EDT Ivana Samson APRN.FREEZER ASSISTANT * Are you blind or do you have serious difficulty seeing, even when wearing glasses? Answer Date of Assessment Author No 09/30/2016 10:22 AM STEVET Ivana Samson APRN.FREEZER ASSISTANT * Do you have serious difficulty walking or climbing stairs? Answer Date of Assessment Author Yes 09/30/2016 10:22 AM Ivana Wilkes APRN.FREEZER ASSISTANT * Do you have difficulty dressing or bathing? Answer Date of Assessment Author No 09/30/2016 10:22 AM STEVET Ivana Samson APRN.FREEZER ASSISTANT * Because of a physical, mental, or emotional condition, do you have difficulty doing errands alone such as visiting a doctor's office or shopping? Answer Date of Assessment Author Yes 09/30/2016 10:22 AM EDT Ivana Samson APRN.FREEZER ASSISTANT documented as of this encounter Mental Status * Because of a physical, mental, or emotional condition, do you have serious difficulty concentrating, remembering, or making decisions? Answer Entry Date Author No 09/30/2016 10:22 AM EDT Ivana Samson APRN.FREEZER ASSISTANT documented in this encounter Plan of Treatment Upcoming Encounters Date Type Department Care Team (Late st Contact Info) Description 09/26/2024 11:30 AM EDT Office Visit Pain Management [address] [place], [place] [phone] Sera Chau PA-C [address] [place], [place] [phone] 4-6 week injection follow up 10/02/2024 10:40 AM EDT Appointment Radiology [address] [place] [address] Spinal stenosis of cervical region [M48.02] 10/19/2024 11:30 AM EDT Office Visit Neurology [address] [place] [address] Constanza Casillas PA-C [address] [place] [address] botox 10/31/2024 9:00 AM EDT [facility] Hematology/Oncology [address] [place] [address] Schuyler Blanca MD [address] [place] [address] VIRTUAL 11/21/2024 10:00 AM EDT Office Visit Orthopaedics [address] [place] [address] [place] [address] [place] [address] 3 month f/u documented as of this encounter Visit Diagnoses Not on filedocumented in this encounter Additional Health Concerns Infection Onset Date Last Indicated Resolved Time COVID-19 Rule-Out 09/03/2020 09/03/2020 09/03/2020 12:19 AM EDT COVID-19 Rule-Out 09/15/2020 09/15/2020 09/16/2020 7:08 AM EDT documented as of this encounter Care Teams Sugar Mixer Relationship Specialty Start Date End Date Nohelia Dyer [address] [place] [address] PCP - General 06/04/05 Wander Cao [address] [place] [address] Physician Hematology/Oncology 03/24/14 Griselda Buckley (Rn), RN [address] [place] [address] Specialty Traffic Rate Analyst 08/26/17 [place] [address] [place] [address] Referring Hematology 12/31/21 Ana M Galvan RN Specialty Traffic Rate Analyst Hematology/Oncology 10/14/23 documented as of this encounter
--- OUTSIDE RECORDS SUMMARY | 2024-09-22 16:03 | XMS_ITS | Encounter Summary ---
Author Organization [facility] Address [address] [place] [address] Care Team Providers Care Doula Name Role Phone Nohelia Dyer Primary Care Provider [phone] Wander Cao Unavailable Griselda Buckley (Rn) AMADOR Unavailable UnavailSchuyler Ruelas MD Unavailable [phone] Ana M Galvan RN Unavailable Unavailable Source Comments In the event this information is protected by the Federal Confidentiality of Alcohol and Drug AbusePatient Records regulations: The Federal rules restrict any use of the information to criminally investigate or prosecute any alcohol or drug abuse patient.[facility] Encounter Details Date Type Department Care Team (Late st Contact Info) Description 03/30/2019 Get Medical Advice Hematology/Oncology [address] [place] [phone] Wander Cao [address] [place] [phone] RE: Upcoming Appointment Question Social History Tobacco [...] No 09/30/2016 10:22 AM EDT Ivana Samson, MARGOT.TELEGRAPH LINEMAN * Are you blind or do you have serious difficulty seeing, even when wearing glasses? Answer Date of Assessment Author No 09/30/2016 10:22 AM EDT Ivana Samson, MARGOT.TELEGRAPH LINEMAN * Do you have serious difficulty walking or climbing stairs? Answer Date of Assessment Author Yes 09/30/2016 10:22 AM EDT Ivana Samson APRN.TELEGRAPH LINEMAN * Do you have difficulty dressing or bathing? Answer Date of Assessment Author No 09/30/2016 10:22 AM EDT Ivana Samson, MARGOT.TELEGRAPH LINEMAN * Because of a physical, mental, or emotional condition, do you have difficulty doing errands alone such as visiting a doctor's office or shopping? Answer Date of Assessment Author Yes 09/30/2016 10:22 AM EDT Ivana Samson, MARGOT.TELEGRAPH LINEMAN documented as of this encounter Mental Status * Because of a physical, mental, or emotional condition, do you have serious difficulty concentrating, remembering, or making decisions? Answer Entry Date Author No 09/30/2016 10:22 AM EDT Ivana Samson, MARGOT.TELEGRAPH LINEMAN documented in this encounter Plan of Treatment Upcoming Encounters Date Type Department Care Team (Late st Contact Info) Description 09/26/2024 11:30 AM EDT Office Visit Pain Management [address] [place], [place] [phone] Sera Chau PA-C [address] [place] [address] 4-6 week injection follow up 10/02/2024 10:40 AM EDT Appointment Radiology [address] [place] [address] Spinal stenosis of cervical region [M48.02] 10/19/2024 11:30 AM EDT Office Visit Neurology [address] [place] [address] Constanza Casillas PA-C [address] [place] [address] botox 10/31/2024 9:00 AM EDT [facility] Hematology/Oncology [address] [place] [address] Schuyler Blanca MD [address] [place] [address] VIRTUAL 11/21/2024 10:00 AM EDT Office Visit Orthopaedics [address] [place] [address] [place] [address] [place] [address] 3 month f/u documented as of this encounter Visit Diagnoses Not on filedocumented in this encounter Additional Health Concerns Infection Onset Date Last Indicated Resolved Time COVID-19 Rule-Out 09/03/2020 09/03/2020 09/03/2020 12:19 AM EDT COVID-19 Rule-Out 09/15/2020 09/15/2020 09/16/2020 7:08 AM EDT documented as of this encounter Care Teams Doula Relationship Specialty Start Date End Date Nohelia Dyer [address] [place] [address] PCP - General 06/04/05 Wander Cao [address] [place] [address] Physician Hematology/Oncology 03/24/14 Griselda Buckley (Rn), RN [address] [place] [address] Specialty Delicatessen Clerk 08/26/17 [place] [address] [place] [address] Referring Hematology 12/31/21 Ana M Galvan, RN Specialty Delicatessen Clerk Hematology/Oncology 10/14/23 documented as of this encounter
--- OUTSIDE RECORDS SUMMARY | 2024-09-22 16:03 | XMS_ITS | Encounter Summary ---
Author Organization [facility] Address [facility] [place] [address] Care Team Providers Care Soft Boarder Name Role Phone Nohelia Dyer Primary Care Provider [phone] Wander Cao Unavailable Griselda Buckley (Rn) AMADOR Unavailable UnavailSchuyler Ruelas MD Unavailable [phone] Ana M Galvan RN Unavailable Unavailable Source Comments In the event this information is protected by the Federal Confidentiality of Alcohol and Drug AbusePatient Records regulations: The Federal rules restrict any use of the information to criminally investigate or prosecute any alcohol or drug abuse patient.[facility] Encounter Details Date Type Department Care Team (Late st Contact Info) Description 06/12/2023 Patient [place] [address] Provider, [facility] Financial clearance Social History Tobacco [...] risk 8 08/15/2022 Data from: https://www.[email or web address].medicine.[facility]/. Last address used for calculation 66 [...] 11:30 AM EDT Office Visit Pain Management [address] [place], [place] [address] Sera Chau PA-C [address] [place] [address] 4-6 week injection follow up 10/02/2024 10:40 AM EDT Appointment Radiology [address] [place] [address] Spinal stenosis of cervical region [M48.02] 10/19/2024 11:30 AM EDT Office Visit Neurology [address] [place] [address] Constanza Casillas PA-C [address] [place] [address] botox 10/31/2024 9:00 AM EDT [facility] Hematology/Oncology [address] [place] [address] Schuyler Blanca MD [address] [place] [address] VIRTUAL 11/21/2024 10:00 AM EDT Office Visit Orthopaedics [address] [place] [address] [place] [address] [place] [address] 3 month f/u documented as of this encounter Visit Diagnoses Not on filedocumented in this encounter Care Teams Soft Boarder Relationship Specialty Start Date End Date Nohelia Dyer [address] [place] [address] PCP - General 06/04/05 Wander Cao [address] [place] [address] Physician Hematology/Oncology 03/24/14 Griselda Buckley (Rn), RN [address] [place] [address] Specialty Director Content Marketing 08/26/17 Schuyler Blanca MD [address] [place] [address] Referring Hematology 12/31/21 Ana M Galvan, RN Specialty Director Content Marketing Hematology/Oncology 10/14/23 documented as of this encounter
--- OUTSIDE RECORDS SUMMARY | 2024-09-22 16:04 | XMS_ITS | Encounter Summary ---
Author Organization [facility] Address [address] [place] [address] Care Team Providers Care Finish Inspector Name Role Phone Nohelia Dyer MD Primary Care Provider [phone] Reason for Visit * Reason Comments Med Refill Encounter Details Date Type Department Care Team (Late st Contact Info) Description 12/04/2022 Refill [facility] [address] [place] [address] Nohelia Dyer MD [address] [place], [place] [phone] Reactive depression (Primary Dx) Social History Tobacco Use Types Packs/Day Years Used Date Smoking Tobacco: Never Smokeless Tobacco: Never Alcohol Use Standard Drinks/Week Comments Never 0 (1 standard drink = 0.6 oz pur e alcohol) PHQ-2 Answer Date Recorded Patient Health Questionnaire-2 Score 0 11/18/2022 Sex and Gender Information Value Date Recorded Sex Assigned at Male 11/21/2022 8:10 AM EDT Legal Sex Male 7:07 PM EDT Gender Identity Male 06/25/2022 7:07 PM EDT Sexual Orientation Straight 11/21/2022 8: 10 AM EDT documented as of this encounter Miscellaneous Notes * Telephone Encounter - Nohelia Dyer MD - 12/04/2022 10:36 PM EDT Approving, but needs appt for additional refills. documented in this encounter Plan of Treatment Not on file documented as of this encounter Visit Diagnoses Diagnosis Reactive depression- Primary documented in this encounter Care Teams Finish Inspector Relationship Specialty Start Date End Date Nohelia Dyer MD [address] [place] [address] PCP - General Family Medicine 09/10/22 documented as of this encounter
--- OUTSIDE RECORDS SUMMARY | 2024-09-22 16:04 | XMS_ITS | Encounter Summary ---
Author Organization [facility] Address [address] [place] [address] Care Team Providers Care Copying Machine Mechanic Name Role Phone Nohelia Dyer MD Primary Care Provider [phone] Reason for Visit * Reason Comments Med Refill Encounter Details Date Type Department Care Team (Late st Contact Info) Description 11/01/2022 Refill [facility] [address] [place] [address] Nohelia Dyer MD [address] [place], [place] [phone] Mixed hyperlipidemia (Primary Dx) Social History Tobacco Use Types Packs/Day Years Used Date Smoking Tobacco: Never Assessed Sex and Gender Information Value Date Recorded Sex Assigned at Male 11/21/2022 8:10 AM EDT Legal Sex Male 7:07 PM EDT Gender Identity Male 06/25/2022 7:07 PM EDT Sexual Orientation Straight 11/21/2022 8: 10 AM EDT documented as of this encounter Miscellaneous Notes * Telephone Encounter - Nohelia Dyer MD - 11/03/2022 11:03 AM EDT Refills sent. documented in this encounter Plan of Treatment Not on file documented as of this encounter Visit Diagnoses Diagnosis Mixed hyperlipidemia- Primary Mixed hyperlipidemia documented in this encounter Care Teams Copying Machine Mechanic Relationship Specialty Start Date End Date Nohelia Dyer MD [address] [place] [address] PCP - General Family Medicine 09/10/22 documented as of this encounter
--- OUTSIDE RECORDS SUMMARY | 2024-09-22 16:04 | XMS_ITS | Encounter Summary ---
Author Organization [facility] Address [address] [place] [address] Care Team Providers Care Consumer Loan Officer Name Role Phone Nohelia Dyer MD Primary Care Provider [phone] Encounter Details Date Type Department Care Team (Late st Contact Info) Description 10/22/2022 Clinisync Result Encounter [facility] External Department Unsolicited [...] Procedure Name Priority Date/Time Associated Diagnosis Comments MRI LIVER WO/W IVCON 10/22/2022 12:08 PM EDT documented in this encounter Results * MRI LIVER WO/W IVCON (10/22/2022 12:08 PM EDT) Anatomical Region Laterality Modality Other 10/22/2022 12:0 8 PM EDT Narrative 10/22/2022 11:09 PM EDT * * *Final Report* * * DATE OF EXAM: Oct 22 2022 12:08PM [facility] 0727 - MRI LIVER WO/W IVCON / PROCEDURE REASON: multiple diagnoses * * * * Physician Interpretation * * * * MRI OF THE ABDOMEN WITHOUT AND WITH IV CONTRAST: CLINICAL HISTORY: Clear cell renal cell carcinoma, left. Malignant neoplasm of left kidney excluding renal pelvis. Secondary malignant neoplasm of right adrenal gland. Liver mass TECHNIQUE: Magnet: 1.5T scanner. Multiplanar MRI of the abdomen with multiple sequences, performed before and after IV contrast, utilizing liver protocol. Contrast: Intravenous: 20 ml of Dotarem COMPARISON: CT 05/30/2022, 07/17/2022 RESULT: Liver: Diffuse steatosis. No significant change in 4.3 x 3.0 cm (20:36) T2 high signal intensity lesion with partial peripheral enhancement located medially in segment 6/7, compatible with a hemangioma. Additional 1.4 cm hemangioma in segment 7 (21:25) is unchanged. Additional scattered smaller cysts are also unchanged. Hepatic vasculature: Portal venous system (splenic vein, main portal vein, left and right anterior and right posterior portal vein branches): Patent. Celiac trunk and SMA: Patent. No stenosis. 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 Hepatic artery: Patent. Conventional anatomy. Hepatic veins: Patent. Spleen: No lesions or splenomegaly. Mesentery/Peritoneum: No ascites. No mass. Biliary: No bile duct dilation. Gallbladder is unremarkable. Pancreas: No mass or duct dilation. Adrenals: Partial right adrenalectomy. Left adrenal is unremarkable. Kidneys: - Right kidney: Few small cysts. No hydronephrosis. - Left kidney: Nephrectomy. No masses at the surgical site. GI: No dilated bowel or wall thickening along imaged segments. Lymph nodes: No abdominal lymphadenopathy. Vasculature: No abdominal aortic aneurysm. Bones/Soft Tissues: No acute findings Lower chest: No acute findings. IMPRESSION: Stable hepatic hemangiomas and scattered small cysts. Diffuse hepatic steatosis. Left nephrectomy. No local recurrence. No abdominal adenopathy. 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 Elevator Constructor: P[facility] Transcribe Date/Time: Oct 22 2022 12:20P Dictated by : STEPHAN RIVAS MD This examination was interpreted and the report reviewed and electronically signed by: STEPHAN RIVAS MD on Oct 22 2022 11:07PM EST [id number]^ACN Procedure Note Radiology, Radiologist, - 10/23/2022 * * *Final Report* * * DATE OF EXAM: Oct 22 2022 12:08PM [facility] 0727 - MRI LIVER WO/W IVCON / PROCEDURE REASON: multiple diagnoses * * * * Physician Interpretation * * * * MRI OF THE ABDOMEN WITHOUT AND WITH IV CONTRAST: CLINICAL HISTORY: Clear cell renal cell carcinoma, left. Malignant neoplasm of left kidney excluding renal pelvis. Secondary malignant neoplasm of right adrenal gland. Liver mass TECHNIQUE: Magnet: 1.5T scanner. Multiplanar MRI of the abdomen with multiple sequences, performed before and after IV contrast, utilizing liver protocol. Contrast: Intravenous: 20 ml of Dotarem COMPARISON: CT 05/30/2022, 07/17/2022 RESULT: Liver: Diffuse steatosis. No significant change in 4.3 x 3.0 cm (20:36) T2 high signal intensity lesion with partial peripheral enhancement located medially in segment 6/7, compatible with a hemangioma. Additional 1.4 cm hemangioma in segment 7 (21:25) is unchanged. Additional scattered smaller cysts are also unchanged. Hepatic vasculature: Portal venous system (splenic vein, main portal vein, left and right anterior and right posterior portal vein branches): Patent. Celiac trunk and SMA: Patent. No stenosis. 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 Hepatic artery: Patent. Conventional anatomy. Hepatic veins: Patent. Spleen: No lesions or splenomegaly. Mesentery/Peritoneum: No ascites. No mass. Biliary: No bile duct dilation. Gallbladder is unremarkable. Pancreas: No mass or duct dilation. Adrenals: Partial right adrenalectomy. Left adrenal is unremarkable. Kidneys: - Right kidney: Few small cysts. No hydronephrosis. - Left kidney: Nephrectomy. No masses at the surgical site. GI: No dilated bowel or wall thickening along imaged segments. Lymph nodes: No abdominal lymphadenopathy. Vasculature: No abdominal aortic aneurysm. Bones/Soft Tissues: No acute findings Lower chest: No acute findings. IMPRESSION: Stable hepatic hemangiomas and scattered small cysts. Diffuse hepatic steatosis. Left nephrectomy. No local recurrence. No abdominal adenopathy. 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 Elevator Constructor: [facility] Transcribe Date/Time: Oct 22 2022 12:20P Dictated by : STEPHAN RIVAS MD This examination was interpreted and the report reviewed and electronically signed by: STEPHAN RIVAS MD on Oct 22 2022 11:07PM EST [id number]^[email or web address]^ACN us Generic External Data Provider [facility] Final Result documented in this encounter Visit Diagnoses Not on filedocumented in this encounter Care Teams Consumer Loan Officer Relationship Specialty Start Date End Date Nohelia Dyer MD [address] [place] [address] PCP - General Family Medicine 09/10/22 documented as of this encounter
--- OUTSIDE RECORDS SUMMARY | 2024-09-22 16:04 | XMS_ITS | Encounter Summary ---
Author Organization [facility] Address [address] [place] [address] Care Team Providers Care Hand Trucker Name Role Phone Nohelia Dyer MD Primary Care Provider [phone] Encounter Details Date Type Department Care Team (Late st Contact Info) Description 03/12/2023 Clinisync Result Encounter [facility] External Department Unsolicited [...] week 12/18/2022 How often do you attend gnosticism or confucianist serv ices? Never 12/18/2022 Do you belong to any clubs o r organizations such as gnosticism groups, unions, fraternal or athletic groups, or [...] Recorded Patient Health Questionnaire-2 Score 0 11/18/2022 [facility] - Occupational [...] place to sleep or slept in a skilled nursing (including now)? No 12/18/2022 Sex and Gender Information Value Date Recorded Sex Assigned at Male 11/21/2022 8:10 AM EDT Legal Sex Male 7:07 PM EDT Gender Identity Male 06/25/2022 7:07 PM EDT Sexual Orientation Straight 11/21/2022 8: 10 AM EDT COVID-19 Exposure Response Date Recorded In the last 10 days, have yo u been in contact with someone who was confirmed or suspected to have Coronavirus/COVID-19? No / Unsure 02/24/2023 11:12 PM EST documented as of this encounter Plan of Treatment Not on file documented as of this encounter Procedures Procedure Name Priority Date/Time Associated Diagnosis Comments CT ABD/PEL WO IVCON 03/12/2023 1 2:59 PM EST documented in this encounter Results * CT ABD/PEL WO IVCON (03/12/2023 12:59 PM EST) Anatomical Region Laterality Modality Other 03/12/2023 12:5 9 PM EST Narrative 03/12/2023 2:45 PM EST * * *Final Report* * * DATE OF EXAM: Mar 12 2023 12:59PM [facility] 0531 - CT ABD/PEL WO IVCON / PROCEDURE REASON: multiple diagnoses * * * * Physician Interpretation * * * * RESULT: EXAMINATION: CT ABDOMEN AND PELVIS WITHOUT IV CONTRAST CLINICAL HISTORY: Left RCC TECHNIQUE: Non-IV contrast imaging of the abdomen and pelvis was performed using standard technique, scanning from just above the dome of the diaphragm to the symphysis pubis. Unenhanced imaging is limited for the evaluation of some intra-abdominal and pelvic pathology. MQ: CTAPWO_3 Contrast: IV: None CT Radiation dose: Integrated Dose-length product (DLP) for this visit = 1667 mGy*cm. CT Dose Reduction Employed: Automated exposure control (AEC) COMPARISON: 05/30/2022 RESULT: Abdomen / Pelvis: Liver: Stable liver lesions, previously characterized as a cyst and hemangiomas. Biliary: The gallbladder is unremarkable. Spleen: No splenomegaly. Pancreas: Unremarkable. Adrenals: Right adrenalectomy and partial adrenalectomy. Left adrenal unremarkable. Kidneys: Left nephrectomy without recurrence. Right kidney unremarkable. GI Tract: No bowel dilation. There is a colorectal anastomosis. Lymph Nodes: No lymphadenopathy. Mesentery/peritoneum: No ascites. Retroperitoneum: No mass. Vasculature: Arterial atherosclerotic disease. Stable focal dilation of SMA up to 1.7 cm in diameter corresponding to the chronic, focal dissection demonstrated on prior contrast-enhanced Pelvis: No mass or ascites. Bones/Soft Tissues: Degenerative change. No osseous metastasis. Lower thorax: A chest CT performed will be reported separately. Traffic And Transport Planner (topogram) images: No additional findings. IMPRESSION: No recurrence or abdominal metastasis. Transcribe Date/Time: Mar 12 2023 2:37P Dictated by: JOANN CEJA MD This examination was interpreted and the report reviewed and electronically signed by: JOANN CEJA MD on Mar 12 2023 2:45PM EST Thank you for allowing us to participate in the care of your patient. Should there be any questions regarding this interpretation, please call [phone]. If you are unable to reach us at the number above, please feel free to contact [facility] at [phone]. [id number]^[email or web address]^ACN Procedure Note Radiology, Radiologist, - 03/12/2023 * * *Final Report* * * DATE OF EXAM: Mar 12 2023 12:59PM [facility] 0531 - CT ABD/PEL WO IVCON / PROCEDURE REASON: multiple diagnoses * * * * Physician Interpretation * * * * RESULT: EXAMINATION: CT ABDOMEN AND PELVIS WITHOUT IV CONTRAST CLINICAL HISTORY: Left RCC TECHNIQUE: Non-IV contrast imaging of the abdomen and pelvis was performed using standard technique, scanning from just above the dome of the diaphragm to the symphysis pubis. Unenhanced imaging is limited for the evaluation of some intra-abdominal and pelvic pathology. MQ: CTAPWO_3 Contrast: IV: None CT Radiation dose: Integrated Dose-length product (DLP) for this visit = 1667 mGy*cm. CT Dose Reduction Employed: Automated exposure control (AEC) COMPARISON: 05/30/2022 RESULT: Abdomen / Pelvis: Liver: Stable liver lesions, previously characterized as a cyst and hemangiomas. Biliary: The gallbladder is unremarkable. Spleen: No splenomegaly. Pancreas: Unremarkable. Adrenals: Right adrenalectomy and partial adrenalectomy. Left adrenal unremarkable. Kidneys: Left nephrectomy without recurrence. Right kidneyunremarkable. GI Tract: No bowel dilation. There is a colorectal anastomosis. Lymph Nodes: No lymphadenopathy. Mesentery/peritoneum: No ascites. Retroperitoneum: No mass. Vasculature: Arterial atherosclerotic disease. Stable focal dilation of SMA up to 1.7 cm in diameter corresponding to the chronic, focal dissection demonstrated on prior contrast-enhanced Pelvis: No mass or ascites. Bones/Soft Tissues: Degenerative change. No osseous metastasis. Lower thorax: A chest CT performed will be reported separately. Traffic And Transport Planner (topogram) images: No additional findings. IMPRESSION: No recurrence or abdominal metastasis. Transcribe Date/Time: Mar 12 2023 2:37P Dictated by: JOANN CEJA MD This examination was interpreted and the report reviewed and electronically signed by: JOANN CEJA MD on Mar 12 2023 2:45PM EST Thank you for allowing us to participate in the care of your patient. Should there be any questions regarding this interpretation, please call [phone]. If you are unable to reach us at the number above, please feel free to contact [facility] at [phone]. [id number]^[email or web address]^ACN us Generic External Data Provider [facility] Final Result documented in this encounter Visit Diagnoses Not on filedocumented in this encounter Care Teams Hand Trucker Relationship Specialty Start Date End Date Nohelia Dyer MD [address] [place] [address] PCP - General Family Medicine 09/10/22 documented as of this encounter
--- OUTSIDE RECORDS SUMMARY | 2024-09-22 16:04 | XMS_ITS | Encounter Summary ---
Author Organization [facility] Address [address] [place] [address] Care Team Providers Care E Business Specialist Name Role Phone Nohelia Dyer Primary Care Provider [phone] Wander Cao Unavailable Griselda Buckley (Rn) RN Unavailable Unavailabl e Schuyler Blanca MD Unavailable [phone] Ana M Galvan RN Unavailable Unavailable Source Comments In the event this information is protected by the Federal Confidentiality of Alcohol and Drug AbusePatient Records regulations: The Federal rules restrict any use of the information to criminally investigate or prosecute any alcohol or drug abuse patient.[facility] Encounter Details Date Type Department Care Team (Late st Contact Info) Description 02/23/2023 Patient Msg Hematology/Oncology [address] [place] [address] Schuyler Blanca MD [address] [place] [address] Appointment Cancellation Request Social History Tobacco Use Types Packs/Day Years Used Date Smoking Tobacco: Never Smokeless Tobacco: Never Alcohol Use Standard Drinks/Week Comments Not Currently 0 (1 standard drink = 0.6 oz pur e alcohol) maybe once a year PHQ-2 Answer Date Recorded PHQ-2 score 1 01/24/2023 Area Deprivation Index Answer Date Boyd rded National Score (1-100), lower number is lower ri sk 86 08/15/2022 State Score (1-10), lower number is lower risk 8 08/15/2022 Data from: https://www.neighborhoodatlas.medicine.[facility]/. Last address used for calculation [address] [facility] 08/15/2022 Sex and Gender Information Value Date [...] 11:30 AM EDT Office Visit Pain Management [address] [place] [address] Sera Chau PA-C [address] [place] [address] 4-6 week injection follow up 10/02/2024 10:40 AM EDT Appointment Radiology [address] [place] [address] Spinal stenosis of cervical region [M48.02] 10/19/2024 11:30 AM EDT Office Visit Neurology [address] [place] [address] Constanza Casillas PA-C [address] [place] [address] botox 10/31/2024 9:00 AM EDT [facility] Hematology/Oncology [address] [place] [address] Schuyler Blanca MD [address] [place] [address] VIRTUAL 11/21/2024 10:00 AM EDT Office Visit Orthopaedics [address] [place] [address] [place] [address] [place] [address] 3 month f/u documented as of this encounter Visit Diagnoses Not on filedocumented in this encounter Care Teams E Business Specialist Relationship Specialty Start Date End Date Nohelia Dyer [address] [place] [address] PCP - General 06/04/05 Wander Cao [address] [place] [address] Physician Hematology/Oncology 03/24/14 Griselda Buckley (Rn), RN [address] [place] [address] Specialty Load Out Person 08/26/17 [place] [address] [place] [address] Referring Hematology 12/31/21 Ana M Galvan RN Specialty Load Out Person Hematology/Oncology 10/14/23 documented as of this encounter
--- OUTSIDE RECORDS SUMMARY | 2024-09-22 16:04 | XMS_ITS | Encounter Summary ---
Author Organization [facility] Address [address] [place] [address] Care Team Providers Care Precision Farming Specialist Name Role Phone Nohelia Dyer MD Primary Care Provider [phone] Reason for Visit * Reason Comments Med Refill Encounter Details Date Type Department Care Team (Late st Contact Info) Description 03/16/2023 Refill [facility] [address] [place] [address] Nohelia Dyer MD [address] [place] [address] Mixed hyperlipidemia Social History Tobacco Use Types Packs/Day Years [...] week 12/18/2022 How often do you attend religion or baptist serv ices? Never 12/18/2022 Do you belong to any clubs o r organizations such as religion groups, unions, fraternal or athletic groups, or [...] Recorded Patient Health Questionnaire-2 Score 0 11/18/2022 [facility] - Occupational [...] PM EST documented as of this encounter Miscellaneous Notes * Telephone Encounter - Nohelia Dyer MD - 03/17/2023 4:33 PM EST Approving, but needs appt for additional refills. documented in this encounter Plan of Treatment Not on file documented as of this encounter Visit Diagnoses Diagnosis Mixed hyperlipidemia Mixed hyperlipidemia documented in this encounter Care Teams Precision Farming Specialist Relationship Specialty Start Date End Date Nohelia Dyer MD [address] [place] [address] PCP - General Family Medicine 09/10/22 documented as of this encounter
--- OUTSIDE RECORDS SUMMARY | 2024-09-22 16:04 | XMS_ITS | Encounter Summary ---
Author Organization [facility] Address [address] [place] [address] Care Team Providers Care Middle School Science Teacher Name Role Phone Nohelia Dyer MD Primary Care Provider [phone] Reason for Visit * Reason Comments Med Refill Encounter Details Date Type Department Care Team (Late st Contact Info) Description 01/09/2023 Refill [facility] [address] [place] [address] Nohelia Dyer MD [address] [place] [address] Reactive depression ; Mixed hyperlipidemia Social History Tobacco Use Types Packs/Day Years Used Date Smoking Tobacco: Never Smokeless Tobacco: Never Alcohol Use Standard Drinks/Week Comments Not Currently 0 (1 standard drink = 0.6 oz pur e alcohol) Humiliation, Afraid, Rape, and Kick questionnair e [...] week 12/18/2022 How often do you attend quaker or worship serv ices? Never 12/18/2022 Do you belong to any clubs o r organizations such as quaker groups, unions, fraternal or athletic groups, or [...] Recorded Patient Health Questionnaire-2 Score 0 11/18/2022 [facility] - [...] place to sleep or slept in a longterm (including now)? No 12/18/2022 Sex and Gender [...] suspected to have Coronavirus/COVID-19? No / Unsure 12/18/2022 7:13 PM EDT documented as of this encounter Miscellaneous Notes * Telephone Encounter - Nohelia Dyer MD - 01/12/2023 2:17 PM EDT Approving, but needs appt for additional refills. documented in this encounter Plan of Treatment Not on file documented as of this encounter Visit Diagnoses Diagnosis Reactive depression Mixed hyperlipidemia Mixed hyperlipidemia documented in this encounter Care Teams Middle School Science Teacher Relationship Specialty Start Date End Date Nohelia Dyer MD [address] [place] [address] PCP - General Family Medicine 09/10/22 documented as of this encounter
--- OUTSIDE RECORDS SUMMARY | 2024-09-22 16:04 | XMS_ITS | Encounter Summary ---
Author Organization [facility] Address [address] [place] [address] Care Team Providers Care Funeral Greeter Name Role Phone Nohelia Dyer MD Primary Care Provider [phone] Encounter Details Date Type Department Care Team (Late st Contact Info) Description 11/03/2022 Clinisync Result Encounter [facility] External Department Unsolicited [...] Priority Date/Time Associated Diagnosis Comments CT CHEST W IV CONTRAST 11/03/2022 9:13 AM EDT documented in this encounter Results * CT chest w IV contrast (11/03/2022 9:13 AM EDT) Anatomical Region Laterality Modality Body, Chest Computed Tomogra phy 11/03/2022 9:13 AM EDT Narrative 11/03/2022 2:54 PM EDT * * *Final Report* * * DATE OF EXAM: Nov 03 2022 9:13AM [facility] 0539 - CT CHEST W IVCON / PROCEDURE REASON: multiple diagnoses * * * * Physician Interpretation * * * * RESULT: EXAMINATION: CHEST CT WITH CONTRAST CLINICAL HISTORY: Clear cell renal cell carcinoma Technique: Spiral CT acquisition of the chest from the thoracic inlet to the upper abdomen following IV contrast. MQ: CTCW_6 Contrast: 50 mL Omnipaque [address] Radiation dose: Integrated Dose-length product (DLP) for this visit = 441 mGy*cm CT Dose Reduction Employed: Automated exposure control (AEC) Comparison: 07/17/22. RESULT: Limitations: None. Lines, tubes, and devices: None. Lung parenchyma and airways: Subtle ground glass opacities in the right lower lobe (3:156), less conspicuous. 2 mm left upper lobe nodular opacity adjacent to hilum (3:128), stable. 2 mm nodular opacities in the right upper lobe (3:86) and left lower lobe (3:184), stable. No new airspace opacities. The central airways are patent. Pleural space: No pleural effusion. No pleural thickening. Lower neck, lymph nodes, and mediastinum: The imaged thyroid gland is normal. No lymphadenopathy in the supraclavicular, axillary, mediastinal, or hilar regions. Heart, pericardium, and thoracic vessels: The thoracic aorta and main pulmonary artery are normal in caliber. The cardiac chambers are normal in size. No coronary artery atherosclerotic calcifications are noted, although the study is not optimized for coronary assessment. No pericardial effusion or thickening. Bones and soft tissues: Sclerotic foci in T5 vertebral body and left posterior eighth rib (3:124), stable. No new osseous abnormalities. Upper abdomen: Postoperative changes in the visualized upper abdomen, stable. Please refer to the MRI report dated 11/01/21 for the abdomen findings.. Injection Molder (topogram) images: No additional findings. IMPRESSION: 1. No evidence of new intrathoracic abnormalities since 07/17/22. 2. Several sclerotic osseous foci, stable. 3. Subcentimeter nodular opacities measuring less than 5 mm, stable. 4. Subtle right lower lobe groundglass opacity, stable. Transcribe Date/Time: Nov 03 2022 1:15P Dictated by: RIGOBERTO OCAMPO MD This examination was interpreted and the report reviewed and electronically signed by: RIGOBERTO OCAMPO MD on Nov 03 2022 2:52PM EST Thank you for allowing us to participate in the care of your patient. Should there be any questions regarding this interpretation, please call [phone]. If you are unable to reach us at the number above, please feel free to contact [facility] at [phone]. [id number]^[email or web address]^ACN Procedure Note Radiology, Radiologist, - 11/03/2022 * * *Final Report* * * DATE OF EXAM: Nov 03 2022 9:13AM [facility] 0539 - CT CHEST W IVCON / PROCEDURE REASON: multiple diagnoses * * * * Physician Interpretation * * * * RESULT: EXAMINATION: CHEST CT WITH CONTRAST CLINICAL HISTORY: Clear cell renal cell carcinoma Technique: Spiral CT acquisition of the chest from the thoracic inlet to the upper abdomen following IV contrast. MQ: CTCW_6 Contrast: 50 mL Omnipaque [address] Radiation dose: Integrated Dose-length product (DLP) for this visit = 441 mGy*cm CT Dose Reduction Employed: Automated exposure control (AEC) Comparison: 07/17/22. RESULT: Limitations: None. Lines, tubes, and devices: None. Lung parenchyma and airways: Subtle ground glass opacities in the right lower lobe (3:156), less conspicuous. 2 mm left upper lobe nodular opacity adjacent to hilum (3:128), stable. 2 mm nodular opacities in the right upper lobe (3:86) and left lower lobe (3:184), stable. No new airspace opacities. The central airways are patent. Pleural space: No pleural effusion. No pleural thickening. Lower neck, lymph nodes, and mediastinum: The imaged thyroid gland is normal. No lymphadenopathy in the supraclavicular, axillary, mediastinal, or hilar regions. Heart, pericardium, and thoracic vessels: The thoracic aorta and main pulmonary artery are normal in caliber. The cardiac chambers are normal in size. No coronary artery atherosclerotic calcifications are noted, although the study is not optimized for coronary assessment. No pericardial effusion or thickening. Bones and soft tissues: Sclerotic foci in T5 vertebral body and left posterior eighth rib (3:124), stable. No new osseous abnormalities. Upper abdomen: Postoperative changes in the visualized upper abdomen, stable. Please refer to the MRI report dated 11/01/21 for the abdomen findings.. Injection Molder (topogram) images: No additional findings. IMPRESSION: 1. No evidence of new intrathoracic abnormalities since 07/17/22. 2. Several sclerotic osseous foci, stable. 3. Subcentimeter nodular opacities measuring less than 5 mm, stable. 4. Subtle right lower lobe groundglass opacity, stable. Transcribe Date/Time: Nov 03 2022 1:15P Dictated by: RIGOBERTO OCAMPO MD This examination was interpreted and the report reviewed and electronically signed by: RIGOBERTO OCAMPO MD on Nov 03 2022 2:52PM EST Thank you for allowing us to participate in the care of your patient. Should there be any questions regarding this interpretation, please call [phone]. If you are unable to reach us at the number above, please feel free to contact [facility] at [phone]. [id number]^[email or web address]^ACN us Generic External Data Provider IMG CT PROCEDURES Final Result documented in this encounter Visit Diagnoses Not on filedocumented in this encounter Care Teams Funeral Greeter Relationship Specialty Start Date End Date Nohelia Dyer MD [address] [place] [address] PCP - General Family Medicine 09/10/22 documented as of this encounter
--- OUTSIDE RECORDS SUMMARY | 2024-09-22 16:04 | XMS_ITS | Encounter Summary ---
Author Organization [facility] Address [address] [place] [address] Care Team Providers Care Sheep Rancher Name Role Phone Nohelia Dyer MD Primary Care Provider [phone] Encounter Details Date Type Department Care Team (Late st Contact Info) Description 09/15/2022 Orders Only [facility] [address] [place] [address] Nohelia Dyer MD [address] [place], [place] [id number] Social History Tobacco Use Types Packs/Day Years [...] Procedure Name Priority Date/Time Associated Diagnosis Comments THYROID PANEL WITH TSH Routine 09/11/2022 4:43 PM EDT documented in this encounter Results * Thyroid panel with tsh (09/11/2022 4:43 PM EDT) Blood Venous blood specimen / Unknown us Nohelia Dyer MD LAB BLOOD ORDERABLES Final Re sult documented in this encounter Visit Diagnoses Not on filedocumented in this encounter Care Teams Sheep Rancher Relationship Specialty Start Date End Date Nohelia Dyer MD [address] [place] [address] PCP - General Family Medicine 09/10/22 documented as of this encounter
--- OUTSIDE RECORDS SUMMARY | 2024-09-22 16:04 | XMS_ITS | Encounter Summary ---
Author Organization [facility] Address [address] [place] [address] Care Team Providers Care Chain Testing Machine Operator Name Role Phone Nohelia Dyer MD Primary Care Provider [phone] Reason for Visit * Reason Comments Med Refill Encounter Details Date Type Department Care Team (Late st Contact Info) Description 02/12/2023 Refill [facility] [address] [place] [address] Nohelia Dyer MD [address] [place] [address] Mixed hyperlipidemia Social History Tobacco [...] week 12/18/2022 How often do you attend confucianism or orthodoxy serv ices? Never 12/18/2022 Do you belong to any clubs o r organizations such as confucianism groups, unions, fraternal or athletic groups, or [...] Recorded Patient Health Questionnaire-2 Score 0 11/18/2022 [facility] - Occupational Stress Questionnaire Answer Date [...] Telephone Encounter - Nohelia Dyer MD - 02/13/2023 11:57 AM EDT Approving, but needs appt for additional refills. documented in this encounter Plan of Treatment Not on file documented as of this encounter Visit Diagnoses Diagnosis Mixed hyperlipidemia Mixed hyperlipidemia documented in this encounter Care Teams Chain Testing Machine Operator Relationship Specialty Start Date End Date Nohelia Dyer MD [address] [place] [address] PCP - General Family Medicine 09/10/22 documented as of this encounter
--- OUTSIDE RECORDS SUMMARY | 2024-09-22 16:04 | XMS_ITS | Encounter Summary ---
Author Organization [facility] Address [address] [place] [address] Care Team Providers Care Legal Paraprofessional Name Role Phone Nohelia Dyer MD Primary Care Provider [phone] Reason for Visit * Reason Comments Med Refill Encounter Details Date Type Department Care Team (Late st Contact Info) Description 04/14/2023 Refill [facility] [address] [place] [address] Nohelia Dyer MD [address] [place] [address] Idiopathic chronic gout without tophus, [...] How often do you attend quaker or yazdanism serv ices? Never 12/18/2022 Do you belong [...] Recorded Patient Health Questionnaire-2 Score 0 11/18/2022 [facility] - Occupational Stress Questionnaire Answer Date [...] Telephone Encounter - Nohelia Dyer MD - 04/14/2023 11:48 AM EST Approving, but needs appt for additional refills. documented in this encounter Plan of Treatment Not on file documented as of this encounter Visit Diagnoses Diagnosis Idiopathic chronic gout without tophus, unspecified site documented in this encounter Care Teams Legal Paraprofessional Relationship Specialty Start Date End Date Nohelia Dyer MD [address] [place] [address] PCP - General Family Medicine 09/10/22 documented as of this encounter
--- OUTSIDE RECORDS SUMMARY | 2024-09-22 16:04 | XMS_ITS | Encounter Summary ---
Author Organization [facility] Address [address] [place] [address] Care Team Providers Care Bottle Cleaner Name Role Phone Nohelia Dyer MD Primary Care Provider [phone] Encounter Details Date Type Department Care Team (Late st Contact Info) Description 12/29/2022 Abstract [facility] [address] [place] [address] Nohelia Dyer MD [address] [place], [place] [id number] Social History Tobacco Use Types Packs/Day Years [...] week 12/18/2022 How often do you attend pentecostalism or nondenominational serv ices? Never 12/18/2022 Do you belong to any clubs o r organizations such as pentecostalism groups, unions, fraternal or athletic groups, or [...] Recorded Patient Health Questionnaire-2 Score 0 11/18/2022 [facility] - Occupational [...] in a mcc (including now)? No 12/18/2022 Sex and Gender [...] on filedocumented in this encounter Care Teams Bottle Cleaner Relationship Specialty Start Date End Date Nohelia Dyer MD [address] [place] [address] PCP - General Family Medicine 09/10/22 documented as of this encounter
--- OUTSIDE RECORDS SUMMARY | 2024-09-22 16:04 | XMS_ITS | Encounter Summary ---
Author Organization [facility] Address [address] [place] [address] Care Team Providers Care Tube Operator Name Role Phone Nohelia Dyer MD Primary Care Provider [phone] Reason for Visit * Reason Comments Med Refill Encounter Details Date Type Department Care Team (Late st Contact Info) Description 11/18/2022 Refill [facility] [address] [place] [address] Nohelia Dyer MD [address] [place], [place] [id number] Chronic idiopathic gout involving toe without tophus, unspecified laterality (Primary Dx) Social History Tobacco Use Types [...] pleasure in doing things Not at all 11/18/2022 11:34 AM EDT Ember Meier MA Feeling down, depressed, or hopeless Not at all 11/18/2022 11:34 AM EDT Ember Meier MA Patient Health Questionnaire-2 Score 0 11/18/2022 11:34 AM EDT Sandra Meier MA documented as of this encounter Miscellaneous Notes * Telephone Encounter - Nohelia Dyer MD - 11/18/2022 7:58 PM EDT Approving, but needs appt for additional refills. documented in this encounter Plan of Treatment Not on file documented as of this encounter Visit Diagnoses Diagnosis Chronic idiopathic gout involving toe without tophus, unspecified laterality- Primary documented in this encounter Care Teams Tube Operator Relationship Specialty Start Date End Date Nohelia Dyer MD [address] [place] [address] PCP - General Family Medicine 09/10/22 documented as of this encounter
--- OUTSIDE RECORDS SUMMARY | 2024-09-22 16:04 | XMS_ITS | Encounter Summary ---
Author Organization [facility] Address [address] [place] [address] Care Team Providers Care Html Web Developer Name Role Phone Nohelia Dyer MD Primary Care Provider [phone] Encounter Details Date Type Department Care Team (Late st Contact Info) Description 10/01/2022 Abstract [facility] [address] [place] [id number] Nohelia Dyer MD [address] [place], [place] [address] Social History Tobacco Use Types Packs/Day Years [...] on filedocumented in this encounter Care Teams Html Web Developer Relationship Specialty Start Date End Date Nohelia Dyer MD [address] [place] [address] PCP - General Family Medicine 09/10/22 documented as of this encounter
--- OUTSIDE RECORDS SUMMARY | 2024-09-22 16:04 | XMS_ITS | Encounter Summary ---
Author Organization [facility] Address [address] [place] [address] Care Team Providers Care Automobile Relocation Engineer Name Role Phone Nohelia Dyer MD Primary Care Provider [phone] Reason for Visit * Reason Onset Date Comments Med Refill 03/20/2023 Encounter Details Date Type Department Care Team (Late st Contact Info) Description 03/20/2023 Refill [facility] [address] [place] [address] Nohelia Dyer MD [address] [place] [address] Idiopathic chronic gout without tophus, [...] week 12/18/2022 How often do you attend buddhist or yarsanism serv ices? Never 12/18/2022 Do you belong to any clubs o r organizations such as buddhist groups, unions, fraternal or athletic groups, or [...] Recorded Patient Health Questionnaire-2 Score 0 11/18/2022 [facility] - Occupational Stress Questionnaire Answer Date [...] Telephone Encounter - Nohelia Dyer MD - 03/20/2023 5:03 PM EST Approving, but needs appt for additional refills. documented in this encounter Plan of Treatment Not on file documented as of this encounter Visit Diagnoses Diagnosis Idiopathic chronic gout without tophus, unspecified site documented in this encounter Care Teams Automobile Relocation Engineer Relationship Specialty Start Date End Date Nohelia Dyer MD [address] [place] [address] PCP - General Family Medicine 09/10/22 documented as of this encounter
--- OUTSIDE RECORDS SUMMARY | 2024-09-22 16:04 | XMS_ITS | Encounter Summary ---
Author Organization [facility] Address [facility] [place] [address] Care Team Providers Care Chain Builder Loom Control Name Role Phone Nohelia Dyer Primary Care Provider [phone] Wander Cao Unavailable Griselda Buckley (Rn) AMADOR [...] Care Team (Late st Contact Info) Description 06/08/2023 [place] [address] Provider, Ccf Questionnaire Submission Social History Tobacco [...] risk 8 08/15/2022 Data from: https://www.neighborhoodatlas.medicine.[facility]/. Last address used for calculation [...] Entry Date Author No 01/15/2021 12:38 PM STEVET Mercedez Palmer RN documented in this encounter Plan of Treatment Upcoming Encounters Date Type Department Care Team (Late st Contact Info) Description 09/26/2024 11:30 AM EDT Office Visit Pain Management [address] [place], [place] [id number] Sera Chau PA-C [address] [place] [address] 4-6 week injection follow up 10/02/2024 10:40 AM EDT Appointment Radiology [address] [place] [address] Spinal stenosis of cervical region [M48.02] 10/19/2024 11:30 AM EDT Office Visit Neurology [address] [place] [address] Constanza Casillas PA-C [address] [place] [address] botox 10/31/2024 9:00 AM EDT [facility] Hematology/Oncology [address] [place] [address] Schuyler Blanca MD [address] [place] [address] VIRTUAL 11/21/2024 10:00 AM EDT Office Visit Orthopaedics [address] [place] [address] [place] [address] [place] [address] 3 month f/u documented as of this encounter Visit Diagnoses Not on filedocumented in this encounter Care Teams Chain Builder Loom Control Relationship Specialty Start Date End Date Nohelia Dyer [address] [place] [address] PCP - General 06/04/05 Wander Cao [address] [place] [address] Physician Hematology/Oncology 03/24/14 Griselda Buckley (Rn), RN [address] [place] [address] Specialty Striper Spray Gun 08/26/17 Schuyler Blanca MD [address] [place] [address] Referring Hematology 12/31/21 Ana M Galvan, RN Specialty Striper Spray Gun Hematology/Oncology 10/14/23 documented as of this encounter
--- OUTSIDE RECORDS SUMMARY | 2024-09-22 16:04 | XMS_ITS | Encounter Summary ---
Author Organization [facility] Address [address] [place] [address] Care Team Providers Care Process Pumper Name Role Phone Nohelia Dyer Primary Care Provider [phone] Wander Cao Unavailable Griselda Buckley (Rn) RN Unavailable Unavailabl e Schuyler Blanca MD Unavailable [phone] Ana M Galvan RN Unavailable Unavailable Source Comments In the event this information is protected by the Federal Confidentiality of Alcohol and Drug AbusePatient Records regulations: The Federal rules restrict any use of the information to criminally investigate or prosecute any alcohol or drug abuse patient.[facility] Encounter Details Date Type Department Care Team (Late st Contact Info) Description 03/13/2023 Get Medical Advice Hematology/Oncology [address] [place] [address] Schuyler Blanca MD [address] [place] [address] Visit Social History Tobacco Use Types Packs/Day Years Used Date Smoking Tobacco: Never Smokeless Tobacco: Never Alcohol Use Standard Drinks/Week Comments Not Currently 0 (1 standard drink = 0.6 oz pur e alcohol) maybe once a year PHQ-2 Answer Date Recorded PHQ-2 score 2 03/16/2023 Area Deprivation Index Answer Date Boyd rded National Score (1-100), lower number is lower ri sk 86 08/15/2022 State Score (1-10), lower number is lower risk 8 08/15/2022 Data from: https://www.neighborhoodatlas.medicine.[facility].edu/. Last address used for calculation 66 [...] 11:30 AM EDT Office Visit Pain Management [address] [place] [address] Sera Chau PA-C [address] [place] [address] 4-6 week injection follow up 10/02/2024 10:40 AM EDT Appointment Radiology [address] [place] [address] Spinal stenosis of cervical region [M48.02] 10/19/2024 11:30 AM EDT Office Visit Neurology [address] [place] [address] Constanza Casillas PA-C [address] [place] [address] botox 10/31/2024 9:00 AM EDT [facility] Hematology/Oncology [address] [place] [address] Schuyler Blanca MD [address] [place] [address] VIRTUAL 11/21/2024 10:00 AM EDT Office Visit Orthopaedics [address] [place] [address] [place] [address] [place] [address] 3 month f/u documented as of this encounter Visit Diagnoses Not on filedocumented in this encounter Care Teams Process Pumper Relationship Specialty Start Date End Date Nohelia Dyer [address] [place] [address] PCP - General 06/04/05 Wander Cao [address] [place] [address] Physician Hematology/Oncology 03/24/14 Griselda Buckley (Rn), RN [address] [place] [address] Specialty Campaign Coordinator 08/26/17 [place] [address] [place] [address] Referring Hematology 12/31/21 Ana M Galvan RN Specialty Campaign Coordinator Hematology/Oncology 10/14/23 documented as of this encounter
--- OUTSIDE RECORDS SUMMARY | 2024-09-22 16:04 | XMS_ITS | Encounter Summary ---
Author Organization [facility] Address [address] [place] [address] Care Team Providers Care Neon Sign Maker Name Role Phone Nohelia Dyer MD Primary Care Provider [phone] Reason for Visit * Reason Comments Med Refill Encounter Details Date Type Department Care Team (Late st Contact Info) Description 02/19/2023 Refill [facility] [address] [place] [address] Nohelia Dyer MD [address] [place] [address] Mixed hyperlipidemia Social History Tobacco [...] How often do you attend pentecostalism or temple serv ices? Never 12/18/2022 Do you belong [...] Recorded Patient Health Questionnaire-2 Score 0 11/18/2022 [facility] - Occupational Stress Questionnaire Answer Date [...] hyperlipidemia documented in this encounter Care Teams Neon Sign Maker Relationship Specialty Start Date End Date Nohelia Dyer MD [address] [place] [address] PCP - General Family Medicine 09/10/22 documented as of this encounter
--- OUTSIDE RECORDS SUMMARY | 2024-09-22 16:04 | XMS_ITS | Encounter Summary ---
Author Organization [facility] Address [address] [place] [address] Care Team Providers Care Student Development Dean Name Role Phone Nohelia Dyer Primary Care Provider [phone] Wander Cao Unavailable Griselda Buckley (Rn) RN Unavailable Unavailabl e Schuyler Blanca MD Unavailable [phone] Ana M Galvan RN Unavailable Unavailable Source Comments In the event this information is protected by the Federal Confidentiality of Alcohol and Drug AbusePatient Records regulations: The Federal rules restrict any use of the information to criminally investigate or prosecute any alcohol or drug abuse patient.[facility] Encounter Details Date Type Department Care Team (Late st Contact Info) Description 02/25/2023 Get Medical Advice Hematology/Oncology [address] [place] [id number] Schuyler Blanca MD [address] [place] [address] Scans Social History Tobacco Use Types Packs/Day Years [...] risk 8 08/15/2022 Data from: https://www.neighborhoodatlas.medicine.[facility].edu/. Last address used for calculation [address] [...] 11:30 AM EDT Office Visit Pain Management [address] [place] [address] Sera Chau PA-C [address] [place] [address] 4-6 week injection follow up 10/02/2024 10:40 AM EDT Appointment Radiology [address] [place] [address] Spinal stenosis of cervical region [M48.02] 10/19/2024 11:30 AM EDT Office Visit Neurology [address] [place] [address] Constanza Casillas PA-C [address] [place] [address] botox 10/31/2024 9:00 AM EDT [facility] Hematology/Oncology [address] [place] [address] Schuyler Blanca MD [address] [place] [address] VIRTUAL 11/21/2024 10:00 AM EDT Office Visit Orthopaedics [address] [place] [address] [place] [address] [place] [address] 3 month f/u documented as of this encounter Visit Diagnoses Not on filedocumented in this encounter Care Teams Student Development Dean Relationship Specialty Start Date End Date Nohelia Dyer [address] [place] [address] PCP - General 06/04/05 Wander Cao [address] [place] [address] Physician Hematology/Oncology 03/24/14 Griselda Buckley (Rn), RN [address] [place] [address] Specialty Stone Carver 08/26/17 [place] [address] [place] [address] Referring Hematology 12/31/21 Ana M Galvan RN Specialty Stone Carver Hematology/Oncology 10/14/23 documented as of this encounter
--- OUTSIDE RECORDS SUMMARY | 2024-09-22 16:04 | XMS_ITS | Encounter Summary ---
Author Organization [facility] Address [address] [place] [address] Care Team Providers Care Nutrition Tech Name Role Phone Nohelia Dyer MD Primary Care Provider [phone] Encounter Details Date Type Department Care Team [...] week 12/18/2022 How often do you attend samaritan or evangelical serv ices? Never 12/18/2022 Do you belong to any clubs o r organizations such as samaritan groups, unions, fraternal or athletic groups, or [...] Recorded Patient Health Questionnaire-2 Score 0 11/18/2022 [facility] - Occupational Stress [...] Diagnosis Comments CT CHEST WO IV CONTRAST 03/12/2023 12:59 PM EST documented in this encounter Results * CT chest wo IV contrast (03/12/2023 12:59 PM EST) Anatomical Region Laterality Modality Body, Chest Computed Tomogra phy 03/12/2023 12:5 9 PM EST Narrative 03/13/2023 11:45 AM EST * * *Final Report* * * DATE OF EXAM: Mar 12 2023 12:59PM [facility] 0541 - CT CHEST WO IVCON / PROCEDURE REASON: multiple diagnoses * * * * Physician Interpretation * * * * RESULT: EXAMINATION: CHEST CT WITHOUT CONTRAST CLINICAL HISTORY: Clear cell renal cell carcinoma. Technique: Spiral CT acquisition of the chest from the thoracic inlet to the upper abdomen without contrast. MQ: CTCWO_6 CT Radiation dose: Integrated Dose-length product (DLP) for this visit = 1667 mGy*cm CT Dose Reduction Employed: Automated exposure control (AEC) Comparison: CT chest 11/03/2022, 05/30/2022, and 11/25/2021 RESULT: Limitations: None. Lines, tubes, and devices: None. Lung parenchyma and airways: The central airways are patent and fully of endobronchial lesion. A tracheal bronchus is present, a normal anatomical variant. Redemonstration of azygos fissure. Unchanged subtle right lower lobe groundglass opacity (4:156). Stable 2 mm left upper lobe perifissural nodule (4:122) and left lower lobe nodule (4:176). Previously described 2 mm right upper lobe opacity is no longer visualized. No new or enlarging pulmonary nodules are identified. Pleural space: No pleural effusion. No pleural thickening. Lower neck, lymph nodes, and mediastinum: The imaged thyroid gland is normal. No lymphadenopathy in the supraclavicular, axillary, mediastinal, or hilar regions. Heart, pericardium, and thoracic vessels: The thoracic aorta and main pulmonary artery are normal in caliber. Mild left atrial enlargement. No coronary artery atherosclerotic calcifications are noted, although the study is not optimized for coronary assessment. No pericardial effusion or thickening. Bones and soft tissues: Unchanged sclerotic foci within the T5 vertebral body and posterior left eighth rib. No destructive osseous lesion. Mild multilevel degenerative endplate changes are present within the thoracic spine. Surgical clips in the left anterior chest wall from prior left chest wall nodule resection. Upper abdomen: Separately dictated. Shade Cutter (topogram) images: No additional findings. IMPRESSION: Stable 2 mm pulmonary nodules. No new or enlarging pulmonary nodules. No thoracic lymphadenopathy. Transcribe Date/Time: Mar 13 2023 9:11A Dictated by: MARIO THOMAS MD This examination was interpreted and the report reviewed and electronically signed by: REBECA RICCI MD on Mar 13 2023 11:43AM EST Thank you for allowing us to participate in the care of your patient. Should there be any questions regarding this interpretation, please call [phone]. If you are unable to reach us at the number above, please feel free to contact [facility] at [phone]. [id number] Procedure Note Radiology, Radiologist, - 03/13/2023 * * *Final Report* * * DATE OF EXAM: Mar 12 2023 12:59PM [facility] 0541 - CT CHEST WO IVCON / PROCEDURE REASON: multiple diagnoses * * * * Physician Interpretation * * * * RESULT: EXAMINATION: CHEST CT WITHOUT CONTRAST CLINICAL HISTORY: Clear cell renal cell carcinoma. Technique: Spiral CT acquisition of the chest from the thoracic inlet to the upper abdomen without contrast. MQ: CTCWO_6 CT Radiation dose: Integrated Dose-length product (DLP) for this visit = 1667 mGy*cm CT Dose Reduction Employed: Automated exposure control (AEC) Comparison: CT chest 11/03/2022, 05/30/2022, and 11/25/2021 RESULT: Limitations: None. Lines, tubes, and devices: None. Lung parenchyma and airways: The central airways are patent and fully of endobronchial lesion. A tracheal bronchus is present, a normal anatomical variant. Redemonstration of azygos fissure. Unchanged subtle right lower lobe groundglass opacity (4:156). Stable 2 mm left upper lobe perifissural nodule (4:122) and left lower lobe nodule (4:176). Previously described 2 mm right upper lobe opacity is no longer visualized. No new or enlarging pulmonary nodules are identified. Pleural space: No pleural effusion. No pleural thickening. Lower neck, lymph nodes, and mediastinum: The imaged thyroid gland is normal. No lymphadenopathy in the supraclavicular, axillary, mediastinal, or hilar regions. Heart, pericardium, and thoracic vessels: The thoracic aorta and main pulmonary artery are normal in caliber. Mild left atrial enlargement. No coronary artery atherosclerotic calcifications are noted, although the study is not optimized for coronary assessment. No pericardial effusion or thickening. Bones and soft tissues: Unchanged sclerotic foci within the T5 vertebral body and posterior left eighth rib. No destructive osseous lesion. Mild multilevel degenerative endplate changes are present within the thoracic spine. Surgical clips in the left anterior chest wall from prior left chest wall nodule resection. Upper abdomen: Separately dictated. Shade Cutter (topogram) images: No additional findings. IMPRESSION: Stable 2 mm pulmonary nodules. No new or enlarging pulmonary nodules. No thoracic lymphadenopathy. Transcribe Date/Time: Mar 13 2023 9:11A Dictated by: MARIO THOMAS MD This examination was interpreted and the report reviewed and electronically signed by: REBECA IRCCI MD on Mar 13 2023 11:43AM EST Thank you for allowing us to participate in the care of your patient. Should there be any questions regarding this interpretation, please call [phone]. If you are unable to reach us at the number above, please feel free to contact [facility] at [phone]. [id number]^[email or web address]^ACN us Generic External Data Provider IMG CT PROCEDURES Final Result documented in this encounter Visit Diagnoses Not on filedocumented in this encounter Care Teams Nutrition Tech Relationship Specialty Start Date End Date Nohelia Dyer MD [address] [place] [address] PCP - General Family Medicine 09/10/22 documented as of this encounter
--- OUTSIDE RECORDS SUMMARY | 2024-09-22 16:04 | XMS_ITS | Encounter Summary ---
Author Organization [facility] Address [address] [place] [address] Care Team Providers Care Housing Relocation Name Role Phone Nohelia Dyer MD Primary Care Provider [phone] Reason for Visit * Reason Comments Med Refill Encounter Details Date Type Department Care Team (Late st Contact Info) Description 12/18/2022 Refill [facility] [address] [place] [address] Nohelia Dyer MD [address] [place] [address] Idiopathic chronic gout without tophus, unspecified site (Primary Dx) Social History Tobacco Use Types [...] week 12/18/2022 How often do you attend yazidism or yarsanism serv ices? Never 12/18/2022 Do you belong to any clubs o r organizations such as yazidism groups, unions, fraternal or athletic groups, or [...] Recorded Patient Health Questionnaire-2 Score 0 11/18/2022 [facility] - Occupational Stress Questionnaire Answer Date Recorded [...] place to sleep or slept in a penitentiary (including now)? No 12/18/2022 Sex and Gender [...] as of this encounter Functional Status * Audit-C Score Answer Date of Assessment Author 1 12/18/2022 7:13 PM EDT Madhuri, Generic * Q1: How often do you have a drink containing alcohol? Answer Date of Assessment Author Monthly or less 12/18/2022 7:13 PM EDT Madhuri, Generic * Q2: How many drinks containing alcohol do you have on a typical day when you are drinking? Answer Date of Assessment Author 1 or 2 12/18/2022 7:13 PM EDT Madhuri, Generic * Q3: How often do you have six or more drinks on one occasion? Answer Date of Assessment Author Never 12/18/2022 7:13 PM EDT Madhuri, Generic documented as of this encounter Miscellaneous Notes * Telephone Encounter - Nohelia Dyer MD - 12/19/2022 12:27 PM EDT Approving, but needs appt for additional refills. documented in this encounter Plan of Treatment Not on file documented as of this encounter Visit Diagnoses Diagnosis Idiopathic chronic gout without tophus, unspecified site- Primary documented in this encounter Care Teams Housing Relocation Relationship Specialty Start Date End Date Nohelia Dyer MD [address] [place] [address] PCP - General Family Medicine 09/10/22 documented as of this encounter
--- OUTSIDE RECORDS SUMMARY | 2024-09-22 16:04 | XMS_ITS | Encounter Summary ---
Author Organization [facility] Address [address] [place] [address] Care Team Providers Care Network Operations Project Manager Name Role Phone Nohelia Dyer Primary Care Provider [phone] Wander Cao Unavailable Griselda Buckley (Rn) RN [...] Team (Late st Contact Info) Description 02/23/2023 Get Medical Advice Hematology/Oncology [address] [place] [address] Schuyler Blanca MD [address] [place] [address] Appointment Social History Tobacco Use [...] is lower risk 8 08/15/2022 Data from: https://www.neighborhoodatlas.medicine.[facility].edu/. Last address used for calculation 66 [...] Assessment Author No 01/15/2021 12:38 PM EDMercedez Fabina RN * Because of a physical, mental, [...] 11:30 AM EDT Office Visit Pain Management [address] [place] [address] Sera Chau PA-C [address] [place] [address] 4-6 week injection follow up 10/02/2024 10:40 AM EDT Appointment [place] [address] Spinal stenosis of cervical region [M48.02] 10/19/2024 11:30 AM EDT Office Visit Neurology [address] [place] [address] Constanza Casillas PA-C [address] [place] [address] botox 10/31/2024 9:00 AM EDT [facility] Hematology/Oncology [address] [place] [address] Schuyler Blanca MD [address] [place] [address] VIRTUAL 11/21/2024 10:00 AM EDT Office Visit Orthopaedics [address] [place] [address] [place] [address] [place] [address] 3 month f/u documented as of this encounter Visit Diagnoses Not on filedocumented in this encounter Care Teams Network Operations Project Manager Relationship Specialty Start Date End Date Nohelia Dyer [address] [place] [address] PCP - General 06/04/05 Wander Cao [address] [place] [address] Physician Hematology/Oncology 03/24/14 Griselda Buckley (Rn), RN [address] [place] [address] Specialty Drywall Foreman 08/26/17 [place] [address] [place] [address] Referring Hematology 12/31/21 Ana M Galvan RN Specialty Drywall Foreman Hematology/Oncology 10/14/23 documented as of this encounter
--- OUTSIDE RECORDS SUMMARY | 2024-09-22 16:04 | XMS_ITS | Encounter Summary ---
Author Organization [facility] Address [address] [place] [address] Care Team Providers Care Epic Specialist Name Role Phone Nohelia Dyer Primary Care Provider [phone] Wander Cao Unavailable Griselda Buckley (Rn) AMADOR Unavailable UnavailSchuyler Ruelas MD Unavailable [phone] Ana M Galvan RN Unavailable Unavailable Source Comments In the event this information is protected by the Federal Confidentiality of Alcohol and Drug AbusePatient Records regulations: The Federal rules restrict any use of the information to criminally investigate or prosecute any alcohol or drug abuse patient.[facility] Encounter Details Date Type Department Care Team (Late st Contact Info) Description 03/13/2023 Patient Msg Neurology [address] [place] [address] Provider, Ccviky Botox in the New Year Social History Tobacco Use Types Packs/Day Years [...] is lower risk 8 08/15/2022 Data from: https://www.neighborhoodatlas.medicine.[facility]/. Last address used for calculation [address] [facility] 08/15/2022 Sex and Gender Information Value [...] 11:30 AM EDT Office Visit Pain Management [address] [place] [address] Sera Chau PA-C [address] [place] [address] 4-6 week injection follow up 10/02/2024 10:40 AM EDT Appointment Radiology [address] [place] [address] Spinal stenosis of cervical region [M48.02] 10/19/2024 11:30 AM EDT Office Visit Neurology [address] [place] [address] Constanza Casillas PA-C [address] [place] [address] botox 10/31/2024 9:00 AM EDT [facility] Hematology/Oncology [address] [place] [address] Schuyler Blanca MD [address] [place] [address] VIRTUAL 11/21/2024 10:00 AM EDT Office Visit Orthopaedics [address] [place] [address] [place] [address] [place] [address] 3 month f/u documented as of this encounter Visit Diagnoses Not on filedocumented in this encounter Care Teams Epic Specialist Relationship Specialty Start Date End Date Nohelia Dyer [address] [place] [address] PCP - General 06/04/05 Wander Cao [address] [place] [address] Physician Hematology/Oncology 03/24/14 Griselda Buckley (Rn), RN [address] [place] [address] Specialty Sterilizer Operator 08/26/17 [place] [address] [place] [id number] Referring Hematology 12/31/21 Ana M Galvan, RN Specialty Sterilizer Operator Hematology/Oncology 10/14/23 documented as of this encounter
--- OUTSIDE RECORDS SUMMARY | 2024-09-22 16:04 | XMS_ITS | Encounter Summary ---
Author Organization [facility] Address [facility] [place] [address] Care Team Providers Care Natural Sciences Manager Name Role Phone Nohelia Dyer Primary Care Provider [phone] Wander Cao Unavailable Griselda Buckley (Rn) AMADOR Unavailable UnavailSchuyler Ruelas MD Unavailable [phone] Ana M Galvan RN Unavailable Unavailable Source Comments In the event this information is protected by the Federal Confidentiality of Alcohol and Drug AbusePatient Records regulations: The Federal rules restrict any use of the information to criminally investigate or prosecute any alcohol or drug abuse patient.[facility] Encounter Details Date Type Department Care Team (Late st Contact Info) Description 03/19/2023 Patient [place] [address] Provider, Ccf Pending Authorization Social History Tobacco Use Types Packs/Day Years [...] is lower risk 8 08/15/2022 Data from: https://www.neighborhoodatlas.medicine.[facility]/. Last address used [...] 11:30 AM EDT Office Visit Pain Management [address] [place], [place] [id number] Sera Chau PA-C [address] [place] [address] 4-6 week injection follow up 10/02/2024 10:40 AM EDT Appointment Radiology [address] [place] [address] Spinal stenosis of cervical region [M48.02] 10/19/2024 11:30 AM EDT Office Visit Neurology [address] [place] [address] Constanza Casillas PA-C [address] [place] [address] botox 10/31/2024 9:00 AM EDT [facility] Hematology/Oncology [address] [place] [address] Schuyler Blanca MD [address] [place] [address] VIRTUAL 11/21/2024 10:00 AM EDT Office Visit Orthopaedics [address] [place] [address] [place] [address] [place] [address] 3 month f/u documented as of this encounter Visit Diagnoses Not on filedocumented in this encounter Care Teams Natural Sciences Manager Relationship Specialty Start Date End Date Nohelia Dyer [address] [place] [address] PCP - General 06/04/05 Wander Cao [address] [place] [address] Physician Hematology/Oncology 03/24/14 Griselda Buckley (Rn), RN [address] [place] [address] Specialty Dried Yeast Supervisor 08/26/17 Schuyler Blanca MD [address] [place], [place] [id number] Referring Hematology 12/31/21 Ana M Galvan, RN Specialty Dried Yeast Supervisor Hematology/Oncology 10/14/23 documented as of this encounter
[2024-09-22] MEDS: 0.9 % SODIUM CHLORIDE 1,000 ML 1000 ML IV (16:08)
[2024-09-22] MEDS: DEXAMETHASONE SOD PHOS 10 MG/ML VIAL IV (16:11)
[2024-09-22] MEDS: DIPHENHYDRAMINE HCL 50 MG/ML VIAL 25 MG IVP (16:13)
[2024-09-22 16:16] LABS: Basophils Absolute Auto 0.1 10^3/uL (0.0-0.1); Basophils Percent Auto 0.7 % (0.2-2.0); Eosinophils Absolute Auto 0.1 10^3/uL (0.0-0.7); Eosinophils Percent Auto 1.3 % (0.9-7.0); Hemoglobin 15.3 g/dL (14.0-18.0); Immature Granulocytes Abs Auto 0.03 10^3/uL (0.00-0.03); Immature Granulocytes Pct Auto 0.4 % (0.0-0.5); Lymphocytes Absolute Auto 0.8 10^3/uL (1.2-3.8); Lymphocytes Percent Auto 11.6 % (20.5-60.0); Mean Corpuscular HGB Conc 33.3 g/dL (29.9-35.2); Mean Corpuscular Hemoglobin 28.9 pg (25.9-34.0); Mean Platelet Volume 9.8 fL (9.5-13.5); Monocytes Absolute Auto 0.3 10^3/uL (0.3-0.8); Monocytes Percent Auto 4.3 % (1.7-12.0); Neutrophils Absolute Auto 5.7 10^3/uL (1.4-6.5); Neutrophils Percent Auto 81.7 % (43.0-75.0); Platelet Count 183 10^3/uL (150-450); Red Blood Count 5.29 10^6/uL (4.70-6.10); Red Cell Distribution Width 13.2 % (11.0-15.0)
[2024-09-22] MEDS: METOCLOPRAMIDE HCL 10 MG/2 ML VIAL IVP (16:18)
[2024-09-22] MEDS: ORPHENADRINE 60 MG/2 ML VIAL IV (16:18)
[2024-09-22 16:24] LABS: Anion Gap 11.5; BUN Creatinine Ratio 10.2; Calcium 9.6 mg/dL (8.5-10.1); Carbon Dioxide 27.7 mmol/L (21.0-32.0); Chloride 104 mmol/L (98-107); Estimated GFR (African America >60 (>=60 mL/min/1.73m^2); Estimated GFR (Non-African Ame 54 (>=60 mL/min/1.73m^2); Glucose 166 mg/dL (74-106); Potassium 4.2 mmol/L (3.5-5.1); Sodium 139 mmol/L (136-145)
[2024-09-22 17:27] VITALS: BP 125/78; PULSE 68; O2SAT 98
== END 2024-09-22 17:29 | disposition home or self-care (01) ==
PROVIDERS: Nurse Practitioner Family; Emergency Provider Emergency Medicine; PCP Family Medicine
DX: R51.9 Headache, unspecified (principal); M54.2 Cervicalgia; H53.8 Other visual disturbances; M47.812 Spondylosis without myelopathy or radiculopathy, cervical region
CPT/HCPCS: 36415; 70450; 72125; 80048; 85025; 96374; 96375; 99285; J1100; J1200; J2360; J2765